=== PATIENT | female | born 1960 | race Caucasian/White ===

== ENCOUNTER 2018-03-03 19:47 | Emergency (ER) | payer OTHER ==
[2018-03-03] MEDS ORDERED: CLINDAMYCIN 900MG/D5W 900 MG/50 ML BAG IV ONE (20:18)
[2018-03-03 20:42] LABS: Absolute Lymphocytes (CBC) 0.8 K/uL (0.7-4.9); Absolute Monocytes 0.6 K/uL (0.1-1.3); Absolute Neutrophil 2.8 K/uL (1.8-8.0); Basophils % 0.2 % (0-1.3); Eosinophils % 0.9 % (0-4.4); Hematocrit 26.5 % (36.0-45.0); Lymphocytes % 19.2 % (15.3-44.8); MCV 70.2 fL (80-100); MPV 8.8 fL (7.6-11.3); Monocytes % 14.5 % (3.3-12.3); RBC Red Blood Cell Count 3.77 M/uL (3.86-4.86)
[2018-03-03 20:51] LABS: Potassium 3.8 mEq/L (3.6-5.0)
--- NOTE | 2018-03-03 21:24 | ER ---
Nurse's Notes [facility] Name: Jose Manuel Richardson Age: 57 yrs Sex: Female : 1960 Arrival Date: 03/03/2018 Time: 19:59 Bed 5 Private MD: Diagnosis: Periapical abscess with sinus Presentation: 03/03 19:59 Presenting complaint: Patient states: that yesterday she woke up with pain and swelling fc to right front tooth area. Today she went to [facility] and after examine they called 911 for her and sent her here. Transition of care: patient was not received from another setting of care. Onset of symptoms was March 02, 2018. Risk Assessment: Do you want to hurt yourself or someone else? Patient reports no desire to harm self or others. Initial Sepsis Screen: Does the patient meet any 2 criteria?. Care prior to arrival: None. 19:59 Method Of Arrival: EMS: [facility] 19:59 Acuity: JEANA 2 fc 20:13 Initial Sepsis Screen: Does the patient have a suspected source of infection? Yes: ao Other: Dental infection. Historical: - Allergies: 20:08 cipro (IV, but can take PO); fc 20:08 Flagyl; fc 20:08 Ciprofloxacin; IV only; fc - Home Meds: 20:08 lactulose 10 gram/15 mL Oral soln 30 mL once daily [Active]; mirtazapine 45 mg Oral tab fc 1 tab once daily [Active]; Lyrica 75 mg Oral 1 cap 3 times per day [Active]; Lasix 40 mg Oral tab 1 tab 2 times per day [Active]; spironolactone 50 mg Oral tab 1 tab 3 times per day [Active]; tizanidine 2 mg Oral cap 1 caps twice a day [Active]; omeprazole 40 mg Oral cpDR 1 cap once daily [Active]; trazodone Oral [Active]; propranolol 10 mg Oral tab 1 tab twice a day [Active]; ropinirole 1 mg Oral tab 1 tab as needed [Active]; ventolin inhaler 1 puff once daily (pt states she does this twice a day however) as needed [Active]; - PMHx: 20:08 Cirrhosis; secondary to ETOH abuse; Hepatitis C; hypotension; liver failure, chronic; fc hypotension; - PSHx: 20:08 ; Tonsillectomy; breast augmentation; fc - Immunization history:: Last tetanus immunization: unknown. - Social history:: Smoking status: Patient uses tobacco products. - Ebola Screening: : Patient negative for fever greater than or equal to 101.5 degrees Fahrenheit, and additional compatible Ebola Virus Disease symptoms Patient denies exposure to infectious person Patient denies travel to an Ebola-affected area in the 21 days before illness onset. Screenin:02 Abuse screen: Denies threats or abuse. Nutritional screening: No deficits noted. fc Tuberculosis screening: No symptoms or risk factors identified. Fall Risk None identified. Assessment: 20:10 General: Appears in no apparent distress. uncomfortable, Behavior is appropriate for ao age. Pain: Complains of pain in jaw pain Pain does not radiate. Pain currently is 8 out of 10 on a pain scale. Neuro: Level of Consciousness is awake, alert, obeys commands, Oriented to person, place, time, situation, Appropriate for age Moves all extremities. Speech is normal, Facial symmetry appears normal, Pupils are PERRLA. Cardiovascular: Heart tones S1 S2 Capillary refill < 3 seconds Patient's skin is warm and dry. Respiratory: Airway is patent Respiratory effort is even, unlabored, Respiratory pattern is regular, symmetrical, Breath sounds are clear bilaterally. GI: No signs and/or symptoms were reported involving the gastrointestinal system. : No signs and/or symptoms were reported regarding the genitourinary system. EENT: Dental caries noted in upper left second bicuspid (#13) and upper left first molar (#14) Swelling in the upper jaw. Derm: No signs and/or symptoms reported regarding the dermatologic system. Derm: Skin Skin is pink, warm \T\ dry. normal, Skin temperature is warm. Musculoskeletal: No signs and/or symptoms reported regarding the musculoskeletal system. 21:34 Reassessment: Patient appears in no apparent distress at this time. Patient is alert, aa1 oriented x 3, equal unlabored respirations, skin warm/dry/pink. Discussed d/c \T\ f/u instructions with pt; denies questions or concerns at this time. Vital Signs: 20:04 BP 127 / 73; Pulse 105; Resp 16; Temp 99.2; Pulse Ox 99% on R/A; ao 20:55 BP 116 / 64; Pulse 95; Resp 16; Pulse Ox 97% on R/A; aa1 21:34 BP 106 / 60; Pulse 91; Resp 16; Pulse Ox 98% on R/A; aa1 ED Course: 19:59 Patient arrived in ED. fc 19:59 Arm band placed on Patient placed in an exam room, on a stretcher. fc 20:02 Triage completed. fc 20:02 Patient has correct armband on for positive identification. Bed in low position. Call light in reach. 20:02 No provider procedures requiring assistance completed. fc 20:03 Micah Driscoll PA is PHCP. jr8 20:03 Mayo Blake MD is Attending Physician. jr8 20:04 Apollo Goncalves, RN is Primary Nurse. ao 20:20 First set of blood cultures drawn by me. Initial lab(s) drawn, by me, sent to lab. aa1 Inserted saline lock: 22 gauge in right forearm, using aseptic technique. Blood collected. 21:34 IV discontinued, intact, bleeding controlled, No redness/swelling at site. Pressure aa1 dressing applied. Administered Medications: 20:22 Drug: Clindamycin 900 mg Route: IVPB; Infused Over: 30 mins; Site: left antecubital; ao 20:58 Follow up: IV Status: Completed infusion; IV Intake: 50ml ao Intake: 20:58 IV: 50ml; Total: 50ml. ao Outcome: 21:24 Discharge ordered by . jr8 21:34 Discharged to home ambulatory, with family. aa1 21:34 Condition: good 21:34 Discharge instructions given to patient, Instructed on discharge instructions, follow up and referral plans. medication usage, Demonstrated understanding of instructions, follow-up care, medications, Prescriptions given X 2. 21:35 Patient left the ED. aa1 Signatures: Perla Klein RN RN aa1 Bobbi Desai RN RN Micah Driscoll PA PA jr8 Apollo Goncalves RN RN ao
--- NOTE | 2018-03-03 21:25 | EDPHYS ---
Physician Documentation [facility] Name: Jose Manuel Richardson Age: 57 yrs Sex: Female : 1960 Arrival Date: 03/03/2018 Time: 19:59 Bed 5 Private MD: ED Physician Mayo Blake HPI: 03/03 20:57 This 57 yrs old Female presents to ER via EMS with complaints of Facial jr8 Swelling. 20:57 Onset: The symptoms/episode began/occurred acutely, today. Possible cause(s): dental jr8 abscess . Associated signs and symptoms: The patient has no apparent associated signs or symptoms. Modifying factors: the symptoms are alleviated by nothing, the symptoms are aggravated by nothing. Severity of symptoms: At their worst the symptoms were moderate, in the emergency department the symptoms are unchanged. The patient has not experienced similar symptoms in the past. The patient has not recently seen a physician. Patient stated that she has bad dentition. Started to have right sided facial swelling . Historical: - Allergies: 20:08 cipro (IV, but can take PO); fc 20:08 Flagyl; fc 20:08 Ciprofloxacin; IV only; fc - Home Meds: 20:08 lactulose 10 gram/15 mL Oral soln 30 mL once daily [Active]; mirtazapine 45 mg Oral tab fc 1 tab once daily [Active]; Lyrica 75 mg Oral 1 cap 3 times per day [Active]; Lasix 40 mg Oral tab 1 tab 2 times per day [Active]; spironolactone 50 mg Oral tab 1 tab 3 times per day [Active]; tizanidine 2 mg Oral cap 1 caps twice a day [Active]; omeprazole 40 mg Oral cpDR 1 cap once daily [Active]; trazodone Oral [Active]; propranolol 10 mg Oral tab 1 tab twice a day [Active]; ropinirole 1 mg Oral tab 1 tab as needed [Active]; ventolin inhaler 1 puff once daily (pt states she does this twice a day however) as needed [Active]; - PMHx: 20:08 Cirrhosis; secondary to ETOH abuse; Hepatitis C; hypotension; liver failure, chronic; fc hypotension; - PSHx: 20:08 ; Tonsillectomy; breast augmentation; fc - Immunization history:: Last tetanus immunization: unknown. - Social history:: Smoking status: Patient uses tobacco products. - Ebola Screening: : Patient negative for fever greater than or equal to 101.5 degrees Fahrenheit, and additional compatible Ebola Virus Disease symptoms Patient denies exposure to infectious person Patient denies travel to an Ebola-affected area in the 21 days before illness onset. ROS: 21:06 Eyes: Negative for injury, pain, redness, and discharge, Neck: Negative for injury, jr8 pain, and swelling, Cardiovascular: Negative for chest pain, palpitations, and edema, Respiratory: Negative for shortness of breath, cough, wheezing, and pleuritic chest pain, Abdomen/GI: Negative for abdominal pain, nausea, vomiting, diarrhea, and constipation, Back: Negative for injury and pain, MS/Extremity: Negative for injury and deformity, Neuro: Negative for headache, weakness, numbness, tingling, and seizure. 21:06 ENT: Positive for dental pain, Negative for ear pain, nasal discharge, rhinorrhea, sinus congestion, difficulty swallowing, difficulty handling secretions, hoarseness. 21:06 Skin: Positive for swelling, of the face. Exam: 21:06 Eyes: Pupils equal round and reactive to light, extra-ocular motions intact. Lids and jr8 lashes normal. Conjunctiva and sclera are non-icteric and not injected. Cornea within normal limits. Periorbital areas with no swelling, redness, or edema. Neck: Trachea midline, no thyromegaly or masses palpated, and no cervical lymphadenopathy. Supple, full range of motion without nuchal rigidity, or vertebral point tenderness. No Meningismus. Cardiovascular: Regular rate and rhythm with a normal S1 and S2. No gallops, murmurs, or rubs. Normal PMI, no JVD. No pulse deficits. Respiratory: Lungs have equal breath sounds bilaterally, clear to auscultation and percussion. No rales, rhonchi or wheezes noted. No increased work of breathing, no retractions or nasal flaring. Abdomen/GI: Soft, non-tender, with normal bowel sounds. No distension or tympany. No guarding or rebound. No evidence of tenderness throughout. Skin: Warm, dry with normal turgor. Normal color with no rashes, no lesions, and no evidence of cellulitis. MS/ Extremity: Pulses equal, no cyanosis. Neurovascular intact. Full, normal range of motion. Neuro: Awake and alert, GCS 15, oriented to person, place, time, and situation. Cranial nerves II-XII grossly intact. Motor strength 5/5 in all extremities. Sensory grossly intact. Cerebellar exam normal. Normal gait. 21:06 Head/face: Noted is swelling, that is moderate, of the right cheek and right jaw. 21:06 ENT: External ear(s): are unremarkable, Ear canal(s): are normal, TM's: are normal, Nose: is normal, Mouth: Lips: moist, Oral mucosa: pink and intact, moist, Gums: pink, Tongue: is moist, Posterior pharynx: Airway: patent, Tonsils: are normal in appearance, Uvula: midline, swelling, is not appreciated, erythema, is not appreciated, Dental exam: dental caries, that is moderate, diffusely, pain, that is moderate, specifically in the upper right first molar (#3), upper right second bicuspid (#4) and upper right first bicuspid (#5). Vital Signs: 20:04 BP 127 / 73; Pulse 105; Resp 16; Temp 99.2; Pulse Ox 99% on R/A; ao 20:55 BP 116 / 64; Pulse 95; Resp 16; Pulse Ox 97% on R/A; aa1 21:34 BP 106 / 60; Pulse 91; Resp 16; Pulse Ox 98% on R/A; aa1 MDM: 20:03 Patient medically screened. [facility] 21:21 Data reviewed: vital signs, nurses notes, lab test result(s), and as a result, I will [facility] discharge patient. Data interpreted: Pulse oximetry: on room air is 97 %. Interpretation: normal. Counseling: I had a detailed discussion with the patient and/or guardian regarding: the historical points, exam findings, and any diagnostic results supporting the discharge/admit diagnosis, lab results, the need for outpatient follow up, a dentist, to return to the emergency department if symptoms worsen or persist or if there are any questions or concerns that arise at home. ED course: Patient doing well in exam room after reexamining her. No identified dental abscess to drain on physical exam. Local swelling to face noted but not red, indurated, or cellulitic. No fevers, or elevated WBC count. Recommended outpatient antibiotics at this time. If worse to come back. Patient is good with this and will follow up or come back . 03/03 20:04 Order name: CBC with Diff; Complete Time: 20:51 jr8 03/03 20:04 Order name: Basic Metabolic Panel; Complete Time: 20:52 jr8 03/03 20:04 Order name: Blood Culture Adult (2) jr8 03/03 20:04 Order name: IV; Complete Time: 20:26 jr8 Administered Medications: 20:22 Drug: Clindamycin 900 mg Route: IVPB; Infused Over: 30 mins; Site: left antecubital; ao 20:58 Follow up: IV Status: Completed infusion; IV Intake: 50ml ao Disposition: 03/04 07:28 Co-signature as Attending Physician, Mayo Blake MD I agree with the assessment and [facility] plan of care. Disposition: 03/03/18 21:24 Discharged to Home. Impression: Periapical abscess with sinus. - Condition is Stable. - Discharge Instructions: Dental Abscess, Cellulitis, [id number]. - Prescriptions for Clindamycin HCl 300 mg Oral Capsule - take 1 capsule by ORAL route every 6 hours for 10 days; 40 capsule. Bactrim DS 800- 160 mg Oral Tablet - take 1 tablet by ORAL route every 12 hours for 10 days; 20 tablet. - Medication Reconciliation Form, Thank You Letter, Antibiotic Education, Prescription Opioid Use form. - Follow up: Private Physician; When: 2 - 3 days; Reason: Recheck today's complaints, Continuance of care, Re-evaluation by your physician. - Problem is new. - Symptoms have improved. Signatures: Dispatcher [employer] EDMS Perla Klein RN RN aa1 Mayo Blake MD MD cha Chretien, Felicia RN Micah Hardy PA PA jr8 Apollo Goncalves RN RN ao Corrections: (The following items were deleted from the chart) 03/03 21:35 21:24 03/03/2018 21:24 Discharged to Home. Impression: Periapical abscess with sinus. aa1 Condition is Stable. Forms are Medication Reconciliation Form, Thank You Letter, Antibiotic Education, Prescription Opioid Use. Follow up: Private Physician; When: 2 - 3 days; Reason: Recheck today's complaints, Continuance of care, Re-evaluation by your physician. Problem is new. Symptoms have improved. jr8
[2018-03-03 21:57] VITALS: TEMP 99.2
[2018-03-03 21:59] VITALS: BP 106/60; O2SAT 98
== END 2018-03-03 21:35 | disposition home or self-care (01) ==
LOC: ER 19:47
DX: K04.6 Periapical abscess with sinus (principal); F17.200 Nicotine dependence, unspecified, uncomplicated; K70.30 Alcoholic cirrhosis of liver without ascites; B19.20 Unspecified viral hepatitis C without hepatic coma; I95.9 Hypotension, unspecified; K72.90 Hepatic failure, unspecified without coma; Z88.1 Allergy status to other antibiotic agents; Z88.3 Allergy status to other anti-infective agents
CPT/HCPCS: 36415; 80048; 85025; 87040; 96365; 99284

== ENCOUNTER 2018-05-04 16:30 | Inpatient (IN) | payer OTHER ==
[2018-05-04 18:59] LABS: Urine Blood NEGATIVE (NEG); Urine Glucose NEGATIVE (NEG); Urine Protein NEGATIVE (NEG)
[2018-05-04 20:01] LABS: Protime INR 1.12
[2018-05-04 20:11] LABS: Absolute Lymphocytes (CBC) 0.7 K/uL (0.7-4.9); Absolute Monocytes 0.2 K/uL (0.1-1.3); Absolute Neutrophil 1.1 K/uL (1.8-8.0); Basophils % 0.9 % (0-1.3); Eosinophils % 1.7 % (0-4.4); Hematocrit 20.4 % (36.0-45.0); Lymphocytes % 33.3 % (15.3-44.8); MCH 20.3 pg (27.0-35.0); MCV 65.7 fL (80-100); MPV 8.7 fL (7.6-11.3); Monocytes % 10.9 % (3.3-12.3)
[2018-05-04 20:27] LABS: Albumin 3.5 g/dL (3.4-5.0); Bilirubin Direct 0.2 mg/dL (0-0.2); Bilirubin Total 0.7 mg/dL (0.2-1.0); CKMB Creatine Kinase MB 5.5 ng/mL (0.3-3.6); Potassium 3.3 mmol/L (3.5-5.1); Protein, Total 7.2 g/dL (6.4-8.2)
[2018-05-04 20:32] LABS: Anisocytosis 1+; Blood Morphology Comment NOTED (NOT SEEN); Burr Cells 1+; Hypochromasia 1+; Platelet Estimate DECR; Urine White Blood Cell Casts OK
[2018-05-04 20:33] LABS: Ovalocytes 1+; Poikilocytosis 1+
[2018-05-04] MEDS ORDERED: ONDANSETRON 4 MG/2 ML VIAL IV PRN (20:44)
[2018-05-04] MEDS ORDERED: MAGNESIUM HYDROXIDE 8% 30 ML PO PRN (20:44)
[2018-05-04] MEDS ORDERED: ACETAMINOPHEN 500 MG TAB PO PRN (20:44)
[2018-05-04] MEDS ORDERED: ROPINIROLE HCL 1 MG TAB PO PRN (20:48)
--- NOTE | 2018-05-04 20:53 | EDPHYS ---
Physician Documentation [facility] Name: Jose Manuel Richardson Age: 57 yrs Sex: Female : 1960 Arrival Date: 05/04/2018 Time: 16:33 Bed 8 Private MD: Edgardo Riley E ED Physician Mikel Lew Historical: - Allergies: 05/04 17:04 cipro (IV, but can take PO); aj1 17:04 Flagyl; aj1 - Home Meds: 17:04 lactulose 10 gram/15 mL Oral soln 30 mL once daily [Active]; Lasix 40 mg Oral tab 1 tab aj1 2 times per day [Active]; Lyrica 75 mg Oral 1 cap 3 times per day [Active]; mirtazapine 45 mg Oral tab 1 tab once daily [Active]; omeprazole 40 mg Oral cpDR 1 cap once daily [Active]; propranolol 10 mg Oral tab 1 tab twice a day [Active]; ropinirole 1 mg Oral tab 1 tab as needed [Active]; spironolactone 50 mg Oral tab 1 tab 3 times per day [Active]; tizanidine 2 mg Oral cap 1 caps twice a day [Active]; Trazodone Oral [Active]; ventolin inhaler 1 puff once daily (pt states she does this twice a day however) as needed [Active]; - PMHx: 17:04 Cirrhosis; secondary to ETOH abuse; Hepatitis C; hypotension; liver failure, chronic; aj1 - Immunization history:: Flu vaccine status is unknown. - Social history:: Smoking status: Patient/guardian denies using tobacco. - Ebola Screening: : Patient denies travel to an Ebola-affected area in the 21 days before illness onset. Vital Signs: 17:04 BP 97 / 70; Pulse 81; Resp 20; Temp 98.4; Pulse Ox 100% on R/A; Weight 69.85 kg (R); aj1 Height 5 ft. 9 in. (175.26 cm); Pain 9/10; 20:16 BP 115 / 57; Pulse 80; Resp 20; Pulse Ox 98% on R/A; ak1 21:30 BP 113 / 54; Pulse 85; Resp 14; Temp 98.4; Pulse Ox 98% on R/A; ak1 22:19 BP 111 / 57; Pulse 86; Resp 14; Temp 98.4; Pulse Ox 98% on R/A; Pain 0/10; ak1 17:04 Body Mass Index 22.74 (69.85 kg, 175.26 cm) aj1 MDM: 17:07 Patient medically screened. tw4 05/04 17:24 Order name: Basic Metabolic Panel tw4 05/04 17:24 Order name: CBC with Diff; Complete Time: 20:43 tw4 05/04 17:24 Order name: Ckmb; Complete Time: 20:43 tw4 05/04 17:24 Order name: CPK; Complete Time: 20:43 tw4 05/04 17:24 Order name: LFT's; Complete Time: 20:43 tw4 05/04 17:24 Order name: PT-INR; Complete Time: 20:43 tw4 05/04 17:24 Order name: Ptt, Activated; Complete Time: 20:43 tw4 05/04 17:25 Order name: Basic Metabolic Panel; Complete Time: 20:43 EDMS 05/04 18:53 Order name: Urine Dipstick--Ancillary (enter results); Complete Time: 20:43 bd 05/04 19:31 Order name: Type And Screen ak1 05/04 20:32 Order name: CBC Smear Scan; Complete Time: 20:43 EDMS 05/04 20:48 Order name: Urinalysis EDMS 05/04 20:48 Order name: CBC with Automated Diff EDMS 05/04 20:48 Order name: CBC with Automated Diff EDMS 05/04 17:24 Order name: IV Saline Lock; Complete Time: 19:39 tw4 05/04 17:24 Order name: Labs collected and sent; Complete Time: 19:39 tw4 05/04 20:48 Order name: CONS Physician Consult EDMS 05/04 20:48 Order name: Regular EDMS 05/04 20:48 Order name: Comprehensive Metabolic Panel EDMS 05/04 20:48 Order name: Comprehensive Metabolic Panel EDMS 05/04 20:48 Order name: Magnesium EDMS 05/04 20:48 Order name: Magnesium EDMS 05/04 20:49 Order name: Phosphorus EDMS 05/04 20:49 Order name: Phosphorus EDMS 05/04 20:49 Order name: Protime (+INR) EDMS 05/04 20:49 Order name: Protime (+INR) EDMS 05/04 20:49 Order name: PTT, Activated Partial Thromb EDMS 05/04 20:49 Order name: PTT, Activated Partial Thromb EDMS 05/04 21:15 Order name: Transfuse; Complete Time: 22:37 tw4 Administered Medications: No medications were administered Disposition: 05/04/18 20:52 Hospitalization ordered by Ramya Burrows for Inpatient Admission. Preliminary diagnosis are Anemia in chronic diseases classified elsewhere, Biliary cirrhosis, unspecified. - Bed requested for Telemetry/MedSurg (Inpatient). - Status is Inpatient Admission. jd3 - Condition is Stable. - Problem is an ongoing problem. - Symptoms are unchanged. UTI on Admission? No Addendum: 05/11/2018 07:51 Addendum: Pt is a 57 year old female that states that she had lab work done and was t w4 told to come to the ED. Her lab work reveal that her Hgb is 6.1. Pt states that she has been having fatigue and generalized weakness. Pt denies CP, SOB, fever, chills. 07:53 Addendum: ROS: Constitutional: negative for fevers, chills, positive for malaise HEENT, t w4 negative for visual changes, sore throat Resp: negative for SOB, TABOR CV: negative for CP, palpitations Abdomen: negative for abdominal pain, rectal bleeding, nausea, vomiting All other systems negative except as marked. Addendum: PE: Gen: well developed female in NAD HEENT: pale conjunctivae, EOMI PERRLA Neck: supple, no meningeal signs Resp: CTAB, no resp distress CV: RRR, nl S1 S2 no murmurs Abdomen: ND,NT normal BS, enlarged liver palpable Ext: nontender, no edema Neuro: alert and oriented times three, CN grossly intact, moves all fours. Signatures: Dispatcher [employer] [facility] Martha Modesta rg2 Janina Piedra RN RN Markell Stevens RN RN Mikel Best MD MD tw4 Corrections: (The following items were deleted from the chart) 05/04 22:16 20:52 Hospitalization Ordered by Ramya Burrows MD for Inpatient Admission. Preliminary rg2 diagnosis is Anemia in chronic diseases classified elsewhere; Biliary cirrhosis, unspecified. Bed requested for Telemetry/MedSurg (Inpatient). Status is Inpatient Admission. Condition is Stable. Problem is an ongoing problem. Symptoms are unchanged. UTI on Admission? No. tw4 22:44 22:16 05/04/2018 20:52 Hospitalization Ordered by Ramya Burrows MD for Inpatient jd3 Admission. Preliminary diagnosis is Anemia in chronic diseases classified elsewhere; Biliary cirrhosis, unspecified. Bed requested for Telemetry/MedSurg (Inpatient). Status is Inpatient Admission. Condition is Stable. Problem is an ongoing problem. Symptoms are unchanged. UTI on Admission? No. rg2
--- NOTE | 2018-05-04 20:53 | ER ---
Nurse's Notes [facility] Name: Jose Manuel Richardson Age: 57 yrs Sex: Female : 1960 Arrival Date: 05/04/2018 Time: 16:33 Bed 8 Private MD: Edgardo Riley E Diagnosis: Anemia in chronic diseases classified elsewhere;Biliary cirrhosis, unspecified Presentation: 05/04 17:00 Presenting complaint: Patient states: She has been feeling generalized weakness and aj1 fatigue for the past two week as well as having frequent nose bleeds. So she went and saw Dr. Riley and had her blood drawn yesterday morning. She followed up with him today and was told that her Hgb was 6.1 and she should come to the emergency room for a blood transfusion. Transition of care: patient was not received from another setting of care. Onset of symptoms was April 21, 2018. Risk Assessment: Do you want to hurt yourself or someone else? Patient reports no desire to harm self or others. Initial Sepsis Screen: Does the patient meet any 2 criteria? No. Patient's initial sepsis screen is negative. Does the patient have a suspected source of infection? No. Patient's initial sepsis screen is negative. Care prior to arrival: None. 17:00 Method Of Arrival: Wheelchair aj1 17:00 Acuity: JEANA 2 aj1 Triage Assessment: 17:04 General: Appears in no apparent distress. comfortable, Behavior is calm, cooperative, aj1 appropriate for age. Pain: Complains of pain in right leg and left leg Pain currently is 9 out of 10 on a pain scale. Neuro: Level of Consciousness is awake, alert, obeys commands. Neuro: Reports dizziness, weakness. Cardiovascular: Patient's skin is warm and dry. Respiratory: Airway is patent Respiratory effort is even, unlabored, Respiratory pattern is regular, symmetrical. Historical: - Allergies: 17:04 cipro (IV, but can take PO); aj1 17:04 Flagyl; aj1 - Home Meds: 17:04 lactulose 10 gram/15 mL Oral soln 30 mL once daily [Active]; Lasix 40 mg Oral tab 1 tab aj1 2 times per day [Active]; Lyrica 75 mg Oral 1 cap 3 times per day [Active]; mirtazapine 45 mg Oral tab 1 tab once daily [Active]; omeprazole 40 mg Oral cpDR 1 cap once daily [Active]; propranolol 10 mg Oral tab 1 tab twice a day [Active]; ropinirole 1 mg Oral tab 1 tab as needed [Active]; spironolactone 50 mg Oral tab 1 tab 3 times per day [Active]; tizanidine 2 mg Oral cap 1 caps twice a day [Active]; Trazodone Oral [Active]; ventolin inhaler 1 puff once daily (pt states she does this twice a day however) as needed [Active]; - PMHx: 17:04 Cirrhosis; secondary to ETOH abuse; Hepatitis C; hypotension; liver failure, chronic; aj1 - Immunization history:: Flu vaccine status is unknown. - Social history:: Smoking status: Patient/guardian denies using tobacco. - Ebola Screening: : Patient denies travel to an Ebola-affected area in the 21 days before illness onset. Screenin:20 Abuse screen: Denies threats or abuse. Denies injuries from another. Nutritional sg screening: No deficits noted. Tuberculosis screening: No symptoms or risk factors identified. Never had TB. Fall Risk None identified. Assessment: 17:20 Reassessment: Patient appears in no apparent distress at this time. sg 18:20 General: Appears in no apparent distress. ill, slender, well developed, well nourished, sg Behavior is calm, cooperative, appropriate for age. Pain: Denies pain. Neuro: Level of Consciousness is awake, alert, obeys commands, Oriented to person, place, time, situation, Moves all extremities. Full function Speech is normal, Facial symmetry appears normal. Cardiovascular: Heart tones S1 S2 present Capillary refill is sluggish in bilateral fingers Patient's skin is warm and dry. Chest pain is denied. Respiratory: Airway is patent Respiratory effort is even, unlabored, Respiratory pattern is regular, symmetrical, Breath sounds are clear. GI: Abdomen is flat, non-distended, Bowel sounds present X 4 quads. : No signs and/or symptoms were reported regarding the genitourinary system. EENT: No signs and/or symptoms were reported regarding the EENT system. Derm: Skin is intact, is thin, Skin is dry, Skin is jaundiced, Skin temperature is cool. Musculoskeletal: No signs and/or symptoms reported regarding the musculoskeletal system. 20:16 Reassessment: Patient appears in no apparent distress at this time. No changes from ak1 previously documented assessment. pt requesting bedside commode for frequent urination. 21:30 Reassessment: Patient appears in no apparent distress at this time. No changes from ak1 previously documented assessment. 22:36 Reassessment: report given to Kacey for room 228. ak1 Vital Signs: 17:04 BP 97 / 70; Pulse 81; Resp 20; Temp 98.4; Pulse Ox 100% on R/A; Weight 69.85 kg (R); aj1 Height 5 ft. 9 in. (175.26 cm); Pain 9/10; 20:16 BP 115 / 57; Pulse 80; Resp 20; Pulse Ox 98% on R/A; ak1 21:30 BP 113 / 54; Pulse 85; Resp 14; Temp 98.4; Pulse Ox 98% on R/A; ak1 22:19 BP 111 / 57; Pulse 86; Resp 14; Temp 98.4; Pulse Ox 98% on R/A; Pain 0/10; ak1 17:04 Body Mass Index 22.74 (69.85 kg, 175.26 cm) aj1 ED Course: 16:33 Patient arrived in ED. rg4 16:33 Edgardo Riley MD is Private Physician. rg4 17:03 Triage completed. aj1 17:04 Arm band placed on Patient placed. aj1 17:07 Mikel Lew MD is Attending Physician. tw4 17:17 Pradeep Hernandez, RN is Primary Nurse. sg 17:40 Missed attempt(s): 22 gauge in right forearm. Bleeding controlled, band aid applied, ss catheter tip intact. 19:02 Missed attempt(s): 22 gauge in right forearm. Bleeding controlled, band aid applied, sg catheter tip intact. Missed attempt(s): 22 gauge in left forearm. Bleeding controlled, band aid applied, catheter tip intact. 19:25 Initial lab(s) drawn, by me, sent to lab. T\T\S collected, blood band applied to patient. fc Inserted 18 gauge 8 cm midline to right upper brachial vein on first attempt. Line with good blood return and flushes well. 19:31 Patient has correct armband on for positive identification. Bed in low position. Call ak1 light in reach. Side rails up X 1. Pulse ox on. NIBP on. 19:34 Primary Nurse role handed off by Pradeep Hernandez, MEHNAZ rg2 19:39 Shereen Goodrich, RN is Primary Nurse. ak1 20:18 Notified ED physician of a critical lab result(s). H \T\ H is 6.3. 20.4. 20:51 Ramya Burrows MD is Hospitalizing Provider. tw4 21:40 Consent for blood and/or blood product transfusion explained by staff, explained by ak1 physician, signed by patient. 21:41 No provider procedures requiring assistance completed. Patient admitted, IV remains in ak1 place. Administered Medications: No medications were administered Outcome: 20:52 Decision to Hospitalize by Provider. tw4 21:41 Condition: stable ak1 21:41 Instructed on the need for admit. 22:20 Admitted to Med/surg accompanied by tech, via wheelchair, room 228, with chart. ak1 22:44 Patient left the ED. jd3 Signatures: Modesta Thomas rg2 Janina Piedra RN RN aj1 Pradeep Hernandez, RN RN Bobbi Desai RN RN Emmy Darnell RN RN Shereen Goodrich, RN RN ak1 Brittney Valverde rg4 Markell Gastelum RN RN [id number] Mikel Lew MD MD tw4
[2018-05-04] MEDS: NA CHLORIDE 0.9% 1,000 ML IV SCH (23:49)
[2018-05-05] MEDS: TEMAZEPAM 15 MG CAP PO SCH ×2 (00:07→22:02)
[2018-05-05] MEDS: PREGABALIN 75 MG CAP PO SCH ×4 (00:08→22:03)
[2018-05-05] MEDS ORDERED: NA CHLORIDE 0.9% 250 ML ONE ×2 (01:25→11:43)
[2018-05-05] MEDS ORDERED: ENOXAPARIN 40 MG/0.4 ML SQ SCH (09:00)
[2018-05-05] MEDS: PROPRANOLOL HCL 10 MG TAB PO SCH (09:00)
[2018-05-05] MEDS ORDERED: PANTOPRAZOLE 40MG TABLET PO SCH (09:00)
[2018-05-05] MEDS: SPIRONOLACTONE 25 MG TABLET PO SCH (09:37)
--- NOTE | 2018-05-05 09:42 | P.HP ---
Certification for Inpatient Patient admitted to: Inpatient With expected LOS: >2 Midnights Patient will require the following post-hospital care: None Practitioner: I am a practitioner with admitting privileges, knowledge of patient current condition, hospital course, and medical plan of care. Services: Services provided to patient in accordance with Admission requirements found in Title 42 Section 412.3 of the Code of Federal Regulations Patient History Date of Service: 05/04/18 Reason for admission: Iron deficiency anemia; pancytopenia; cirrhosis History of Present Illness: Patient is a 57-year-old female came into the hospital with pancytopenia. Patient had significant anemia. Patient has a history of cirrhosis. She states that her meld score was 15. She takes her medications regularly. She no longer drinks nor does she use the Tylenol products. She does her best to take care of her liver. She had a TIPS procedure about 2 years ago. Since then she has not required a paracentesis. Before then she was needing paracentesis every 2 months. Currently patient was sent to the hospital because her lab showed she was anemic. On arrival to the emergency room we repeated her labs her hemoglobin is under 7. She also have thrombocytopenia as well as leukopenia. Patient is admitted to the hospital for further evaluation. Allergies ciprofloxacin Allergy (Mild, Verified 05/05/18 00:04) Itching/Hives/Rash metronidazole [From Flagyl] Adverse Reaction (Intermediate, Verified 04/04/16 19 :45) Anaphylaxis Home Medications: Lactulose [Cephulac*] 30 ml PO QID PRN 06/22/17 Albuterol Inhaler [Ventolin Inhaler*] 1 puff IH BID PRN 05/05/18 Furosemide [Lasix*] 40 mg PO BID 05/05/18 Gabapentin [Neurontin*] 300 mg PO BID 05/05/18 Guaifenesin/Codeine Phosphate [Codeine-Guaifen 10-100 mg/5 ml] 5 ml PO Q4H PRN 05/05/18 Mirtazapine [Remeron*] 45 mg PO DAILY 05/05/18 Pantoprazole Sodium [Protonix] 40 mg PO DAILY 05/05/18 Pregabalin [Lyrica*] 75 mg PO TID 05/05/18 Propranolol HCl 10 mg PO BID 05/05/18 Ropinirole HCl [Requip*] 1 mg PO BEDTIME 05/05/18 Spironolactone [Aldactone*] 50 mg PO TID 05/05/18 Temazepam [Restoril*] 15 mg PO BEDTIME 05/05/18 Temazepam [Restoril*] 15 mg PO BEDTIME PRN 05/05/18 Tizanidine HCl [Zanaflex] 2 mg PO TID PRN 05/05/18 Tramadol HCl [Ultram] 50 mg PO BID PRN 05/05/18 Trazodone HCl 50 mg PO BEDTIME PRN 05/05/18 Varenicline Tartrate [Chantix] 1 mg PO BID 05/05/18 - Past Medical/Surgical History Has patient received pneumonia vaccine in the past: No Diabetic: No -: Gallstones -: Liver Failure -: Cirrhosis -: Neuropathy -: Hypotension -: Ascites requiring paracentesis -: cirrhosis -: hep-C treated -: section x 4 -: breast augmentation -: appendectomy -: tonsillectomy -: Has been known to have gallstones -: paracenthesis monthly Psychosocial/ Personal History: Unknown. - Family History Mother Medical History: Heart disease, Hypertension, Lung disease, Diabetes Father Medical History: Heart disease, Liver disease Brother Medical History: Lung disease, Cancer - Social History Smoking Status: Former smoker Alcohol use: No CD- Drugs: Yes Caffeine use: Yes Place of Residence: Home Review of Systems 10-point ROS is otherwise unremarkable Physical Examination - Vital Signs Temperature: 98.3 F Blood Pressure: 93/43 Pulse: 80 Respirations: 16 Pulse Ox (%): 96 - Physical Exam General: Alert, In no apparent distress, Oriented x3 HEENT: Atraumatic, PERRLA, Mucous membr. moist/pink, EOMI, Sclerae nonicteric Neck: Supple, 2+ carotid pulse no bruit, No LAD, Without JVD or thyroid abnormality Respiratory: Clear to auscultation bilaterally, Normal air movement Cardiovascular: Regular rate/rhythm, Normal S1 S2, No murmurs Gastrointestinal: Normal bowel sounds, Soft and benign, Non-distended, No tenderness Musculoskeletal: No clubbing, No swelling, No tenderness Integumentary: No rashes Neurological: Normal gait, Normal speech, Normal strength at 5/5 x4 extr, Normal tone, Sensation intact, Cranial nerves 3-12 intact, Normal affect Lymphatics: No axilla or inguinal lymphadenopathy - Studies Laboratory Data (last 24 hrs) 05/04/18 19:25: PT 13.2 H, INR 1.12, APTT 40.1 H 05/04/18 19:25: WBC 2.0 L, Hgb 6.3 L*, Hct 20.4 L*, Plt Count 69 L 05/04/18 19:25: Sodium 143, Potassium 3.3 L, BUN 14, Creatinine 1.40 H, Glucose 82, Total Bilirubin 0.7, AST 28, ALT 24, Alkaline Phosphatase 76 Assessment & Plan - Problems (Diagnosis) (1) Iron deficiency anemia Current Visit: Yes Status: Acute (2) Altered mental status Onset Date: 06/19/15 Current Visit: No Status: Acute Qualifiers: (3) Anemia Onset Date: 04/20/17 Current Visit: No Status: Chronic Qualifiers: (4) Cirrhosis of liver Onset Date: 04/20/17 Current Visit: No Status: Chronic Qualifiers: (5) Pancytopenia Onset Date: 06/09/17 Current Visit: No Status: Chronic - Plan Plan: 1. Continue with IV hydration and PPI twice daily 2. Anemia workup 3. Monitor white count and leukopenia 4. NPO 5. GI consultation 6. Serial H&H, and we will monitor LFTs and lipase along with electrolytes. 7. GI and DVT prophylaxis - Advance Directives Does patient have a Living Will: Yes Does patient have a Durable POA for Healthcare: Yes
[2018-05-05] MEDS ORDERED: SODIUM CHLORIDE 0.9% 10ML INJ IV PRN (09:43)
[2018-05-05 09:48] LABS: Absolute Lymphocytes (CBC) 0.3 K/uL (0.7-4.9); Absolute Monocytes 0.1 K/uL (0.1-1.3); Absolute Neutrophil 1.1 K/uL (1.8-8.0); Basophils % 0.9 % (0-1.3); Eosinophils % 1.2 % (0-4.4); Hematocrit 23.7 % (36.0-45.0); Lymphocytes % 20.1 % (15.3-44.8); MCH 22.8 pg (27.0-35.0); MCV 70.4 fL (80-100); MPV 8.9 fL (7.6-11.3); Monocytes % 9.5 % (3.3-12.3); RBC Red Blood Cell Count 3.36 M/uL (3.86-4.86)
[2018-05-05 09:49] LABS: Protime INR 1.23
[2018-05-05 10:08] LABS: Albumin 3.1 g/dL (3.4-5.0); Bilirubin Total 1.4 mg/dL (0.2-1.0); Phosphorus 3.8 mg/dL (2.5-4.9); Potassium 3.5 mmol/L (3.5-5.1); Protein, Total 6.1 g/dL (6.4-8.2)
[2018-05-05 11:02] LABS: RBC Red Blood Cell Count 3.25 M/uL (3.86-4.86)
[2018-05-05] MEDS: LACTULOSE 20 GM/30 ML UCUP PO PRN (13:45)
--- NOTE | 2018-05-05 15:41 | P.PN ---
Subjective Date of Service: 05/05/18 Chief Complaint: Iron deficiency anemia; pancytopenia; cirrhosis Subjective: No C/O voiced, Tolerating diet, Working w/ PT, Doing well Review of Systems General: As per HPI Physical Examination - Vital Signs Temperature: 98.3 F Blood Pressure: 93/43 Pulse: 80 Respirations: 16 Pulse Ox (%): 96 - Physical Exam General: Alert, In no apparent distress HEENT: Atraumatic, PERRLA, EOMI Neck: Supple, JVD not distended Respiratory: Clear to auscultation bilaterally, Normal air movement Cardiovascular: Regular rate/rhythm, Normal S1 S2 Gastrointestinal: Normal bowel sounds, No tenderness Musculoskeletal: No tenderness Integumentary: No rashes Neurological: Normal speech, Normal tone, Normal affect Lymphatics: No axilla or inguinal lymphadenopathy - Studies Laboratory Data (last 24 hrs) 05/04/18 19:25: PT 13.2 H, INR 1.12, APTT 40.1 H 05/04/18 19:25: WBC 2.0 L, Hgb 6.3 L*, Hct 20.4 L*, Plt Count 69 L 05/04/18 19:25: Sodium 143, Potassium 3.3 L, BUN 14, Creatinine 1.40 H, Glucose 82, Total Bilirubin 0.7, AST 28, ALT 24, Alkaline Phosphatase 76 Medications List Reviewed: Yes Assessment & Plan - Problems (Diagnosis) (1) Iron deficiency anemia Onset Date: 05/05/18 Current Visit: Yes Status: Acute Plan: Fe Def 2.2 to liver Cirrhosis S.P TIPS -S/p 2 units Tranfusion -Hgb upto 7.7 -GI consulted. Awaiting reccs at this time -Continue to monitor closely Qualifiers: Iron deficiency anemia type: unspecified iron deficiency Qualified Code(s) : D50.9 - Iron deficiency anemia, unspecified (2) Chronic renal disease Onset Date: 04/20/17 Current Visit: No Status: Chronic Qualifiers: Chronic kidney disease stage: stage 3 (moderate) Qualified Code(s): N18.3 - Chronic kidney disease, stage 3 (moderate) (3) Cirrhosis of liver Onset Date: 04/20/17 Current Visit: No Status: Chronic Qualifiers: Hepatic cirrhosis type: alcoholic cirrhosis Ascites presence: without ascites Qualified Code(s): K70.30 - Alcoholic cirrhosis of liver without ascites (4) Pancytopenia Onset Date: 06/09/17 Current Visit: No Status: Chronic (5) Mild protein malnutrition Current Visit: No Status: Chronic Discharge Plan: Home Plan to discharge in: 48 Hours - Code Status/Comfort Care Code Status Assessed: Yes Critical Care: No
[2018-05-05 18:04] LABS: Hematocrit 27.7 % (36.0-45.0)
[2018-05-05] MEDS: HOME MED 1 EA UNK (Varenicline Tartrate [Chantix] 1 MG) PO SCH (21:00)
[2018-05-05] MEDS: NA CHLORIDE 0.9% 1,000 ML IV SCH (22:00)
[2018-05-05] MEDS: PANTOPRAZOLE 40 MG INJ IVP SCH (22:02)
[2018-05-05] MEDS: GABAPENTIN 300 MG CAP PO SCH (22:03)
[2018-05-06 05:58] LABS: Potassium 4.1 mmol/L (3.5-5.1)
[2018-05-06] MEDS: HOME MED 1 EA UNK (Varenicline Tartrate [Chantix] 1 MG) PO SCH ×2 (09:00→21:00)
[2018-05-06] MEDS: GABAPENTIN 300 MG CAP PO SCH ×2 (09:30→20:50)
[2018-05-06] MEDS: PROPRANOLOL HCL 10 MG TAB PO SCH (09:30)
[2018-05-06] MEDS: PREGABALIN 75 MG CAP PO SCH ×3 (09:30→20:50)
[2018-05-06] MEDS: SPIRONOLACTONE 25 MG TABLET PO SCH (09:31)
[2018-05-06] MEDS: PANTOPRAZOLE 40 MG INJ IVP SCH ×2 (09:31→20:52)
--- NOTE | 2018-05-06 13:58 | P.PN ---
Subjective Date of Service: 05/06/18 Chief Complaint: Iron deficiency anemia; pancytopenia; cirrhosis Subjective: No C/O voiced, Tolerating diet, Ambulating, Working w/ PT, Doing well Review of Systems General: As per HPI Physical Examination - Vital Signs Temperature: 97.4 F Blood Pressure: 107/48 Pulse: 69 Respirations: 18 Pulse Ox (%): 94 - Physical Exam General: Alert, In no apparent distress HEENT: Atraumatic, PERRLA, EOMI Neck: Supple, JVD not distended Respiratory: Clear to auscultation bilaterally, Normal air movement Cardiovascular: Regular rate/rhythm, Normal S1 S2 Gastrointestinal: Normal bowel sounds, No tenderness Musculoskeletal: No tenderness Integumentary: No rashes Neurological: Normal speech, Normal tone, Normal affect Lymphatics: No axilla or inguinal lymphadenopathy - Studies Medications List Reviewed: Yes Assessment & Plan - Problems (Diagnosis) (1) Iron deficiency anemia Onset Date: 05/05/18 Current Visit: Yes Status: Acute Plan: Fe Def 2.2 to liver Cirrhosis S.P TIPS -S/p 2 units Tranfusion -Hgb upto 7.7 -GI consulted. Awaiting reccs at this time -Continue to monitor closely Qualifiers: Iron deficiency anemia type: unspecified iron deficiency Qualified Code(s) : D50.9 - Iron deficiency anemia, unspecified (2) Chronic renal disease Onset Date: 04/20/17 Current Visit: No Status: Chronic Qualifiers: Chronic kidney disease stage: stage 3 (moderate) Qualified Code(s): N18.3 - Chronic kidney disease, stage 3 (moderate) (3) Cirrhosis of liver Onset Date: 04/20/17 Current Visit: No Status: Chronic Qualifiers: Hepatic cirrhosis type: alcoholic cirrhosis Ascites presence: without ascites Qualified Code(s): K70.30 - Alcoholic cirrhosis of liver without ascites (4) Pancytopenia Onset Date: 06/09/17 Current Visit: No Status: Chronic (5) Mild protein malnutrition Current Visit: No Status: Chronic Discharge Plan: Home Plan to discharge in: 24 Hours - Code Status/Comfort Care Code Status Assessed: Yes Critical Care: No
[2018-05-06 14:11] LABS: Absolute Lymphocytes (CBC) 0.6 K/uL (0.7-4.9); Absolute Monocytes 0.3 K/uL (0.1-1.3); Absolute Neutrophil 0.9 K/uL (1.8-8.0); Basophils % 0.3 % (0-1.3); Eosinophils % 2.6 % (0-4.4); Hematocrit 28.9 % (36.0-45.0); Lymphocytes % 31.4 % (15.3-44.8); MCV 73.4 fL (80-100); MPV 8.7 fL (7.6-11.3); Monocytes % 17.5 % (3.3-12.3); RBC Red Blood Cell Count 3.94 M/uL (3.86-4.86)
[2018-05-06 14:32] LABS: Albumin 3.2 g/dL (3.4-5.0); Potassium 4.2 mmol/L (3.5-5.1); Protein, Total 6.7 g/dL (6.4-8.2)
[2018-05-06] MEDS: LACTULOSE 20 GM/30 ML UCUP PO PRN (17:46)
[2018-05-06] MEDS: TEMAZEPAM 15 MG CAP PO SCH (20:51)
[2018-05-07 00:48] VITALS: O2SAT 97
[2018-05-07] MEDS: NA CHLORIDE 0.9% 1,000 ML IV SCH (04:59)
[2018-05-07 05:42] LABS: Potassium 4.4 mmol/L (3.5-5.1)
[2018-05-07 06:00] VITALS: BMI 22.7
[2018-05-07] MEDS: HOME MED 1 EA UNK (Varenicline Tartrate [Chantix] 1 MG) PO SCH (08:44)
[2018-05-07] MEDS: PANTOPRAZOLE 40 MG INJ IVP SCH (09:41)
[2018-05-07] MEDS: PROPRANOLOL HCL 10 MG TAB PO SCH (09:41)
[2018-05-07] MEDS: PREGABALIN 75 MG CAP PO SCH ×2 (09:41→13:17)
[2018-05-07] MEDS: SPIRONOLACTONE 25 MG TABLET PO SCH (09:42)
[2018-05-07] MEDS: GABAPENTIN 300 MG CAP PO SCH (09:42)
[2018-05-07 12:07] VITALS: BP 113/56; TEMP 98.1
--- NOTE | 2018-05-07 15:30 | P.DS ---
Admission Date: 05/04/18 Discharge Date: 05/07/18 Disposition: ROUTINE DISCHARGE Discharge Condition: GOOD Reason for Admission: Iron deficiency anemia; pancytopenia; cirrhosis - Problems (1) Iron deficiency anemia Onset Date: 05/05/18 Status: Acute Qualifiers: Iron deficiency anemia type: unspecified iron deficiency Qualified Code(s) : D50.9 - Iron deficiency anemia, unspecified (2) Chronic renal disease Onset Date: 04/20/17 Status: Chronic Qualifiers: Chronic kidney disease stage: stage 3 (moderate) Qualified Code(s): N18.3 - Chronic kidney disease, stage 3 (moderate) (3) Cirrhosis of liver Onset Date: 04/20/17 Status: Chronic Qualifiers: Hepatic cirrhosis type: alcoholic cirrhosis Ascites presence: without ascites Qualified Code(s): K70.30 - Alcoholic cirrhosis of liver without ascites (4) Pancytopenia Onset Date: 06/09/17 Status: Chronic (5) Mild protein malnutrition Status: Chronic Brief History of Present Illness: Patient is a 57-year-old female came into the hospital with pancytopenia. Patient had significant anemia. Patient has a history of cirrhosis. She states that her meld score was 15. She takes her medications regularly. She no longer drinks nor does she use the Tylenol products. She does her best to take care of her liver. She had a TIPS procedure about 2 years ago. Since then she has not required a paracentesis. Before then she was needing paracentesis every 2 months. Currently patient was sent to the hospital because her lab showed she was anemic. On arrival to the emergency room we repeated her labs her hemoglobin is under 7. She also have thrombocytopenia as well as leukopenia. Patient is admitted to the hospital for further evaluation. Hospital Course: Overall during the hospital stay patient remained stable Patient was initially admitted to the hospital for anemia most likely secondary to chronic renal disease versus liver cirrhosis. Patient was transfused total of 3 units and then her hemoglobin went to 9.1. Patient had no acute complications and remained stable while here in the hospital. GI was consulted because patient had does have a history of liver cirrhosis status post TIPS. Patient stated that she has not been having any hematemesis however has been having some nosebleeds thus GI recommended that patient get a ENT consult outpatient. Patient was notified and patient then was discharged home under stable condition once she stabilized hemodynamically. Patient understands the plan of care and agreed with the ENT and GI on outpatient basis as well. Patient was asked to resume all her home medication as prescribed with changes to her Lasix for now lactone and propanolol. No other complaints to offer at this time. Vital Signs/Physical Exam: Temp Pulse Resp BP Pulse Ox 98.1 F 66 16 113/56 L 100 05/07/18 12:00 05/07/18 12:00 05/07/18 12:00 05/07/18 12:00 05/07/18 12:00 General: Alert, In no apparent distress HEENT: Atraumatic, PERRLA, EOMI Neck: Supple, JVD not distended Respiratory: Clear to auscultation bilaterally, Normal air movement Cardiovascular: Regular rate/rhythm, Normal S1 S2 Gastrointestinal: Normal bowel sounds, No tenderness Musculoskeletal: No tenderness Integumentary: No rashes Neurological: Normal speech, Normal tone, Normal affect Lymphatics: No axilla or inguinal lymphadenopathy Laboratory Data at Discharge: WBC 1.9 K/uL (4.3-10.9) L* D 05/06/18 13:38 Hgb 9.1 g/dL (12.0-15.0) L 05/06/18 13:38 Hct 28.9 % (36.0-45.0) L 05/06/18 13:38 Plt Count 66 K/uL (152-406) L 05/06/18 13:38 PT 14.5 SECONDS (9.5-12.5) H 05/05/18 09:19 INR 1.23 05/05/18 09:19 APTT 38.7 SECONDS (24.3-36.9) H 05/05/18 09:19 Sodium 145 mmol/L (136-145) 05/07/18 04:22 Potassium 4.4 mmol/L (3.5-5.1) 05/07/18 04:22 BUN 11 mg/dL (7-18) 05/07/18 04:22 Creatinine 1.10 mg/dL (0.55-1.3) 05/07/18 04:22 Glucose 88 mg/dL (74-106) 05/07/18 04:22 Phosphorus 4.0 mg/dL (2.5-4.9) 05/07/18 04:22 Magnesium 2.0 mg/dL (1.8-2.4) 05/07/18 04:22 Total Bilirubin 1.0 mg/dL (0.2-1.0) 05/06/18 13:38 AST 30 U/L (15-37) 05/06/18 13:38 ALT 26 U/L (12-78) 05/06/18 13:38 Alkaline Phosphatase 64 U/L (45-117) 05/06/18 13:38 Home Medications: Lactulose [Cephulac*] 30 ml PO QID PRN 06/22/17 Albuterol Inhaler [Ventolin Inhaler*] 1 puff IH BID PRN 05/05/18 Gabapentin [Neurontin*] 300 mg PO BID 05/05/18 Guaifenesin/Codeine Phosphate [Codeine-Guaifen 10-100 mg/5 ml] 5 ml PO Q4H PRN 05/05/18 Mirtazapine [Remeron*] 45 mg PO DAILY 05/05/18 Pantoprazole Sodium [Protonix] 40 mg PO DAILY 05/05/18 Pregabalin [Lyrica*] 75 mg PO TID 05/05/18 Ropinirole HCl [Requip*] 1 mg PO BEDTIME 05/05/18 Tramadol HCl [Ultram] 50 mg PO BID PRN 05/05/18 Trazodone HCl 50 mg PO BEDTIME PRN 05/05/18 Varenicline Tartrate [Chantix] 1 mg PO BID 05/05/18 Furosemide [Lasix*] 40 mg PO DAILY #30 tab 05/07/18 Propranolol HCl 10 mg PO DAILY #30 tablet 05/07/18 Spironolactone [Aldactone*] 50 mg PO DAILY #30 tab 05/07/18 New Medications: Furosemide [Lasix*] 40 mg PO DAILY #30 tab Propranolol HCl 10 mg PO DAILY #30 tablet Spironolactone [Aldactone*] 50 mg PO DAILY #30 tab Patient Discharge Instructions: Please f.u with PCP and ENT in 1 to 2 week post discharge. Change in Medication. Lasix now once daily - 40mg. Spironolactone Now once daily - 50mg. Propananol now once daily - 10mg Diet: Regular Activity: Ad [place] Followup: Sena Franz MD [ACTIVE - CAN ADMIT] - 1 Week Edgardo Agudelo MD [ASSOCIATE-ACTIVE - CAN ADMIT] - 1 Week
--- NOTE | 2018-05-09 21:15 | CON ---
Reason For Consultation: Initial suspicion of possible GI bleed. However, patient has epistaxis. t he patient is a 57-year-old white female with history of end-stage liver disease, status post TIPS, l iver cirrhosis due to alcohol and hepatitis C in the past. The patient denies any hematemesis, vomit ing, melena, or hematochezia. The patient does state that she has had some blood clots in her nose w ith nose bleeding, and she has had this in the past. She has seen Dr. Ford for this in the past as well. She states that she has not had any epistaxis or nose bleeding in the past 48 hours; since admission to the hospital. She feels well and wants to go home. She is willing to see ear, nose and throat as a followup appoint with probably with Dr. Franz is possible. Past Medical History: Significant for end-stage liver disease, cirrhosis secondary alcohol and hepat itis C. The patient has quit alcohol and is treated for hepatitis C in the past. She is status post TIPS for secondary to refractory ascites in the past. She also has neuropathy, hypertension, C-sect ions x4, breast augmentations, appendectomy, tonsillectomy. Family History: Mother with heart disease, hypertension, lung disease, diabetes. Father with heart disease, liver disease. Brother with lung disease, cancer. Social History: Former smoker. No tobacco and no alcohol. Positive for caffeine. Physical Examination: VITAL SIGNS: Patient is afebrile. Vital signs stable. The patient is 5 foot 9 inches, 154 pounds, BMI 22.8 kg/m2. HEENT: Normocephalic, atraumatic. Anicteric. Pupils equal, round, and reactive to light. Extraocu lar movements intact. Oropharynx is clear. NECK: Supple. RESPIRATIONS: Clear to auscultation bilaterally. CARDIAC: Regular rate and rhythm. No gallops or rubs. ABDOMINAL: Positive bowel sounds. Soft, nontender, nondistended. No hepatosplenomegaly. Mildly ob bhavya. Surgical scars. EXTREMITIES: No clubbing, cyanosis, or edema. 2+ pulses. Neurologic: Alert and oriented X3, grossly nonfocal. 5/5 motor strength. Sensation intact to light touch. Laboratory Data: The patient has a white count of 1.9, hemoglobin 9.1, hematocrit 29, MCV of 73, anabella telet count 66, polys of 48%, lymphocytes 31%, monocytes 18%, eosinophils 3%. PT of 14.5, INR of 1.2 3, PTT of 38.7. The patient has a sodium of 147, potassium 4.1, chloride 117, bicarb 22, BUN of 11, creatinine of 1.1, glucose 90, calcium 8.4, iron of 89, TIBC of 414, ferritin of 9, saturation 21.5, total bilirubin 0.4, AST of 23, ALT of 17, alkaline phosphatase is 51. LDH of 166, total protein 6.2 , albumin 3.1, total bilirubin 8.10, folate of greater than 1000. UA is negative. Impression: 1.Epistaxis with nosebleeds, none since admission. The patient denies any hematemesis, vomiting, me dipika, or hematochezia. 2.Nose bleeding. In the past, she has seen Dr. Ford and is going to see Dr. Ibanez in followup a s an outpatient or as hospital consult. 3.History of end-stage liver disease, cirrhosis, secondary to alcohol and tobacco, quit alcohol many years. 4.History of hepatitis C in the past, status post TIPS secondary to refractory ascites. Recommendation: 1.ENT consult either as inpatient or outpatient. 2.Serial H and H and transfuse p.r.n. 3.Check Clinic followup here in [place] at her OT center. She had a TIPS procedure performed. REGINALDO/NOREEN Voice ID: [id number] Report ID: [id number]
== END 2018-05-07 13:52 | disposition home health service (06) | DRG 809 ==
LOC: ER 16:30 → ERHOLD 21:30 → 2ND 22:17
PROVIDERS: ADMIT Hospitalist; ATTEND Family Medicine
PROC: 30233N1 Transfusion of Nonautologous Red Blood Cells into Peripheral Vein, Percutaneous Approach (ICD-10-PCS; principal; 2018-05-05)
DX: D61.818 Other pancytopenia (principal); E44.1 Mild protein-calorie malnutrition; K72.10 Chronic hepatic failure without coma; R04.0 Epistaxis; B18.2 Chronic viral hepatitis C; K70.30 Alcoholic cirrhosis of liver without ascites; I10 Essential (primary) hypertension; G62.9 Polyneuropathy, unspecified; F10.11 Alcohol abuse, in remission; N18.3 Chronic kidney disease, stage 3 (moderate); Z87.891 Personal history of nicotine dependence; Z88.1 Allergy status to other antibiotic agents; Z88.3 Allergy status to other anti-infective agents
CPT/HCPCS: 36415; 80048; 80053; 80076; 81003; 82274; 82550; 82553; 82607; 82728; 82747; 83010; 83540; 83615; 83735; 84100; 84466; 85014; 85018; 85025; 85044; 85610; 85730; 86850; 86900; 86901; 99285; C9113; J1650; J7030; P9016

== ENCOUNTER 2018-06-07 15:22 | Observation (INO) | payer OTHER ==
--- NOTE | 2018-06-07 15:54 | RAD REPORT ---
EXAM DESCRIPTION: CT - Head Brain Wo Cont - 06/07/2018 3:47 pm CLINICAL HISTORY: CONFUSED Drowsiness COMPARISON: Head Brain Wo Cont dated 06/08/2017; Head Brain Wo Cont dated 04/19/2017 TECHNIQUE: All CT scans are performed using dose optimization technique as appropriate and may inclu de automated exposure control or mA/KV adjustment according to patient size. FINDINGS: No intracranial hemorrhage, hydrocephalus or extra-axial fluid collection.No areas of brai n edema or evidence of midline shift. The paranasal sinuses and mastoids are clear. The calvarium is intact. IMPRESSION: No acute intracranial abnormality.
--- NOTE | 2018-06-07 16:02 | RAD REPORT ---
EXAM DESCRIPTION: RAD - Chest Single View - 06/07/2018 3:54 pm CLINICAL HISTORY: ABDOMINAL DISTENTION Chest pain. COMPARISON: Chest Single View dated 06/08/2017; Chest Single View dated 04/24/2017; Chest Single View d ated 04/20/2017; Chest Single View dated 04/19/2017 FINDINGS: Portable technique limits examination quality. The lungs are grossly clear. The heart is upper limits of normal in size. No displaced fractures. IMPRESSION: No acute intrathoracic process suspected.
[2018-06-07 16:03] LABS: Absolute Lymphocytes (CBC) 0.9 K/uL (0.7-4.9); Absolute Monocytes 0.4 K/uL (0.1-1.3); Absolute Neutrophil 1.2 K/uL (1.8-8.0); Basophils % 0.3 % (0-1.3); Eosinophils % 2.8 % (0-4.4); Hematocrit 31.7 % (36.0-45.0); Lymphocytes % 33.9 % (15.3-44.8); MCH 27.4 pg (27.0-35.0); MCV 80.5 fL (80-100); Monocytes % 15.8 % (3.3-12.3); RBC Red Blood Cell Count 3.93 M/uL (3.86-4.86)
[2018-06-07 16:15] LABS: Protime INR 1.1
[2018-06-07 16:29] LABS: ALT/SGPT 31 U/L (12-78); AST/SGOT 35 U/L (15-37); Albumin 3.9 g/dL (3.4-5.0); Alkaline Phosphatase 77 U/L (45-117); BUN Blood Urea Nitrogen 19 mg/dL (7-18); Bicarbonate 26 mmol/L (21-32); Bilirubin Direct 0.5 mg/dL (0-0.2); Bilirubin Total 1.5 mg/dL (0.2-1.0); C-Reactive Protein < 2.90 mg/L (<3.00); CKMB Creatine Kinase MB 5.2 ng/mL (0.3-3.6); Creatine Phosphokinase 307 U/L (26-192); Glucose Level 101 mg/dL (74-106); Lipase 737 U/L (73-393); Protein, Total 7.9 g/dL (6.4-8.2); Sodium Level 138 mmol/L (136-145); Troponin (Emerg Dept Use Only) < 0.02 ng/mL (0.0-0.045)
[2018-06-07 17:08] LABS: Urine Blood NEGATIVE (NEG); Urine Glucose NEGATIVE (NEG); Urine Protein NEGATIVE (NEG); Urine Specific Gravity 1.015 (1.005-1.030); Urine pH 7.5 (5.0-7.0)
--- NOTE | 2018-06-07 17:26 | ER ---
Nurse's Notes [facility] Name: Jose Manuel Richardson Age: 57 yrs Sex: Female : 1960 Arrival Date: 06/07/2018 Time: 15:24 Bed 28 Private MD: Diagnosis: Altered mental status, unspecified;Hyperammonianemia;Alcoholic cirrhosis of liver Presentation: 06/07 15:24 Presenting complaint: EMS states: "PATIENT IS CONFUSED.". Transition of care: patient rv was not received from another setting of care. Onset of symptoms was June 07, 2018 at 12:00. Risk Assessment: Do you want to hurt yourself or someone else? Patient reports no desire to harm self or others. Initial Sepsis Screen: Does the patient meet any 2 criteria? No. Patient's initial sepsis screen is negative. Does the patient have a suspected source of infection? No. Patient's initial sepsis screen is negative. Care prior to arrival: None. 15:24 Method Of Arrival: EMS: [facility] rv 15:24 Acuity: JEANA 3 rv Historical: - Allergies: 15:29 cipro (IV, but can take PO); rv 15:29 Flagyl; rv - Home Meds: 15:29 Lasix 40 mg Oral tab 1 tab 2 times per day [Active]; mirtazapine 45 mg Oral tab 1 tab rv once daily [Active]; omeprazole 40 mg Oral cpDR 1 cap once daily [Active]; propranolol 10 mg Oral tab 1 tab twice a day [Active]; - PMHx: 15:29 Cirrhosis; secondary to ETOH abuse; Hepatitis C; hypotension; liver failure, chronic; rv - PSHx: 15:29 Unable to obtain; rv - Immunization history:: Adult Immunizations unknown. - Social history:: Smoking status: unknown. - Ebola Screening: : Patient negative for fever greater than or equal to 101.5 degrees Fahrenheit, and additional compatible Ebola Virus Disease symptoms Patient denies exposure to infectious person Patient denies travel to an Ebola-affected area in the 21 days before illness onset. Screenin:52 Abuse screen: Denies threats or abuse. Denies injuries from another. Nutritional rv screening: No deficits noted. Tuberculosis screening: No symptoms or risk factors identified. Fall Risk None identified. Assessment: 15:50 General: Appears in no apparent distress. comfortable, Behavior is calm, cooperative. rv Pain: Denies pain. Neuro: Level of Consciousness is confused, Oriented to none. Cardiovascular: Capillary refill < 3 seconds. Respiratory: Airway is patent. GI: No signs and/or symptoms were reported involving the gastrointestinal system. : No signs and/or symptoms were reported regarding the genitourinary system. EENT: No signs and/or symptoms were reported regarding the EENT system. Derm: Skin is intact. 16:55 Reassessment: Patient appears in no apparent distress at this time. Patient and/or rv family updated on plan of care and expected duration. Pain level reassessed. Patient is alert, oriented x 3, equal unlabored respirations, skin warm/dry/pink. 17:45 Reassessment: Patient appears in no apparent distress at this time. Patient and/or rv family updated on plan of care and expected duration. Pain level reassessed. Patient is alert, oriented x 3, equal unlabored respirations, skin warm/dry/pink. 18:58 Reassessment: Patient appears in no apparent distress at this time. Patient and/or rv family updated on plan of care and expected duration. Pain level reassessed. Patient is alert, oriented x 3, equal unlabored respirations, skin warm/dry/pink. Vital Signs: 15:15 BP 111 / 76; Pulse 67; Resp 19; Temp 98.6; Pulse Ox 97% ; rv 18:58 BP 105 / 69; Pulse 68; Resp 12; Pulse Ox 100% on R/A; rv 20:08 BP 125 / 76; Pulse 76; Resp 16; Pulse Ox 100% on R/A; rv ED Course: 15:24 Patient arrived in ED. rv 15:24 Chayito Prince [facility]C [facility] snw 15:24 Mayo Blake MD is Attending Physician. snw 15:25 Triage completed. rv 15:[address] via stretcher. sj 15:47 CT completed. Patient tolerated procedure well. Patient moved back from CT. sj 15:47 CT Head Brain wo Cont In Process Unspecified. EDMS 15:52 Inserted saline lock: 20 gauge in left antecubital area, using aseptic technique. rv 15:53 Arm band placed on left wrist. rv 15:54 Chest Single View XRAY In Process Unspecified. EDMS 15:54 Patient has correct armband on for positive identification. Bed in low position. Call rv light in reach. Side rails up X2. Pulse ox on. NIBP on. 17:11 Nadege Dumont MD is Hospitalizing Provider. snw 17:30 Nadege Dumont MD is Hospitalizing Provider. snw 17:30 Rosario Cameron MD is Hospitalizing Provider. snw 20:08 Patient admitted, IV remains in place. intact. rv 20:09 No provider procedures requiring assistance completed. rv Administered Medications: 17:40 Drug: Lactulose 30 grams Volume: 45 ml; Route: PO; rv 18:59 Follow up: Response: No adverse reaction rv Point of Care Testing: Blood Glucose: 15:53 Blood Glucose: 106 mg/dL; rv Ranges: Outcome: 17:12 Decision to Hospitalize by Provider. snw 19:44 Admitted to Tele accompanied by tech, via stretcher, room 201 report called to Deana DARBY.bb 20:09 Condition: good rv 20:09 Instructed on the need for admit. 20:09 Patient left the ED. rv Signatures: Dispatcher [employer] EDMS Chayito Prince, MANAGER MORTGAGE-C MANAGER MORTGAGE-Naty Anthony Brenda, RN RN bb Adams Reed, RN RN rv
--- NOTE | 2018-06-07 17:26 | EDPHYS ---
Physician Documentation [facility] Name: Jose Manuel Richardson Age: 57 yrs Sex: Female : 1960 Arrival Date: 06/07/2018 Time: 15:24 Bed 28 Private MD: ED Physician Mayo Blake HPI: 06/07 15:33 This 57 yrs old Female presents to ER via EMS with complaints of altered snw mental status. 15:33 The patient presents with confusion, trouble concentrating. Onset: The symptoms/episode snw began/occurred at an unknown time. Possible causes: cirrhosis. Associated signs and symptoms: Pertinent positives: confusion. Current symptoms: In the emergency department the patient's symptoms are unchanged from the initial presentation. Patient's baseline: unable to verify. It is unknown whether or not the patient has had similar symptoms in the past. It is unknown whether or not the patient has recently seen a physician. Pt unable to say why she called EMS today. Denies pain. Historical: - Allergies: 15:29 cipro (IV, but can take PO); rv 15:29 Flagyl; rv - Home Meds: 15:29 Lasix 40 mg Oral tab 1 tab 2 times per day [Active]; mirtazapine 45 mg Oral tab 1 tab rv once daily [Active]; omeprazole 40 mg Oral cpDR 1 cap once daily [Active]; propranolol 10 mg Oral tab 1 tab twice a day [Active]; - PMHx: 15:29 Cirrhosis; secondary to ETOH abuse; Hepatitis C; hypotension; liver failure, chronic; rv - PSHx: 15:29 Unable to obtain; rv - Immunization history:: Adult Immunizations unknown. - Social history:: Smoking status: unknown. - Ebola Screening: : Patient negative for fever greater than or equal to 101.5 degrees Fahrenheit, and additional compatible Ebola Virus Disease symptoms Patient denies exposure to infectious person Patient denies travel to an Ebola-affected area in the 21 days before illness onset. ROS: 15:33 Constitutional: Negative for fever, chills, and weight loss, Eyes: Negative for injury, snw pain, redness, and discharge, ENT: Negative for injury, pain, and discharge, Neck: Negative for injury, pain, and swelling, Cardiovascular: Negative for chest pain, palpitations, and edema, Respiratory: Negative for shortness of breath, cough, wheezing, and pleuritic chest pain, Abdomen/GI: Negative for abdominal pain, nausea, vomiting, diarrhea, and constipation, Back: Negative for injury and pain, : Negative for injury, bleeding, discharge, and swelling, MS/Extremity: Negative for injury and deformity, Skin: Negative for injury, rash, and discoloration. 15:33 Neuro: Positive for altered mental status. Exam: 15:33 Head/Face: Normocephalic, atraumatic. Eyes: Pupils equal round and reactive to light, snw extra-ocular motions intact. Lids and lashes normal. Conjunctiva and sclera are non-icteric and not injected. Cornea within normal limits. Periorbital areas with no swelling, redness, or edema. ENT: Nares patent. No nasal discharge, no septal abnormalities noted. Tympanic membranes are normal and external auditory canals are clear. Oropharynx with no redness, swelling, or masses, exudates, or evidence of obstruction, uvula midline. Mucous membranes moist. Neck: Trachea midline, no thyromegaly or masses palpated, and no cervical lymphadenopathy. Supple, full range of motion without nuchal rigidity, or vertebral point tenderness. No Meningismus. Chest/axilla: Normal chest wall appearance and motion. Nontender with no deformity. No lesions are appreciated. Cardiovascular: Regular rate and rhythm with a normal S1 and S2. No gallops, murmurs, or rubs. Normal PMI, no JVD. No pulse deficits. Respiratory: Lungs have equal breath sounds bilaterally, clear to auscultation and percussion. No rales, rhonchi or wheezes noted. No increased work of breathing, no retractions or nasal flaring. 15:33 Back: No spinal tenderness. No costovertebral tenderness. Full range of motion. Skin: Warm, dry with normal turgor. Normal color with no rashes, no lesions, and no evidence of cellulitis. MS/ Extremity: Pulses equal, no cyanosis. Neurovascular intact. Full, normal range of motion. 15:33 Constitutional: The patient appears alert, anxious, unkempt, altered 15:33 Abdomen/GI: Inspection: distension, that is severe, Bowel sounds: normal, Palpation: mild abdominal tenderness, in all quadrants. 15:33 Neuro: Orientation: to person, place, Not oriented to time, situation, Mentation: slow to respond, confused, Memory: unable to test, Cranial nerves: grossly normal, Motor: is normal, Babinski testing is normal, seizure activity, is not displayed by the patient. Vital Signs: 15:15 BP 111 / 76; Pulse 67; Resp 19; Temp 98.6; Pulse Ox 97% ; rv 18:58 BP 105 / 69; Pulse 68; Resp 12; Pulse Ox 100% on R/A; rv 20:08 BP 125 / 76; Pulse 76; Resp 16; Pulse Ox 100% on R/A; rv MDM: 15:24 Patient medically screened. snw 17:12 Data reviewed: vital signs, nurses notes. Data interpreted: Pulse oximetry: on room air snw is 97 %. Interpretation: acceptable. Counseling: I had a detailed discussion with the patient and/or guardian regarding: the historical points, exam findings, and any diagnostic results supporting the discharge/admit diagnosis, lab results, radiology results, the need for further work-up and treatment in the hospital. Physician consultation: Nadege Dumont MD was called at 17:00, regarding admission, to the telemetry unit. 17:37 Physician consultation: Rosario Cameron MD was contacted at 17:28. 06/07 15:28 Order name: T\T\S; Complete Time: 17:07 06/07 15:28 Order name: Urine Culture 06/07 15:28 Order name: Basic Metabolic Panel; Complete Time: 16:34 06/07 15:28 Order name: Blood Culture Adult (2) 06/07 15:28 Order name: C-Reactive Protein; Complete Time: 16:34 w 06/07 15:28 Order name: CBC with Diff; Complete Time: 19:35 06/07 15:28 Order name: Ckmb; Complete Time: 16:34 w 06/07 15:28 Order name: CPK; Complete Time: 16:34 w 06/07 15:28 Order name: Lactate; Complete Time: 16:34 w 06/07 15:28 Order name: LFT's; Complete Time: 16:34 w 06/07 15:28 Order name: Lipase; Complete Time: 16:34 w 06/07 15:28 Order name: Procalcitonin 06/07 15:28 Order name: Protime (+inr); Complete Time: 16:41 snw 06/07 15:28 Order name: Ptt, Activated; Complete Time: 16:41 snw 06/07 15:28 Order name: Sed Rate; Complete Time: 19:35 snw 06/07 15:28 Order name: Troponin (emerg Dept Use Only); Complete Time: 16:34 snw 06/07 15:28 Order name: Chest Single View XRAY; Complete Time: 16:19 snw 06/07 15:28 Order name: Accucheck; Complete Time: 15:56 snw 06/07 15:28 Order name: Cardiac monitoring; Complete Time: 15:56 snw 06/07 15:28 Order name: EKG - Nurse/Tech; Complete Time: 17:18 snw 06/07 15:28 Order name: IV Saline Lock - Large Bore; Complete Time: 15:57 snw 06/07 15:28 Order name: Labs collected and sent; Complete Time: 15:57 snw 06/07 15:28 Order name: O2 Per Protocol; Complete Time: 15:57 snw 06/07 15:28 Order name: CT Head Brain wo Cont; Complete Time: 16:19 snw 06/07 15:28 Order name: AMMONIA; Complete Time: 16:49 snw 06/07 16:23 Order name: CBC Smear Scan; Complete Time: 19:35 EDNM 06/07 16:42 Order name: Urine Dipstick--Ancillary (enter results); Complete Time: 17:09 06/07 17:37 Order name: CONS Physician Consult EDNM 06/07 15:28 Order name: O2 Sat Monitoring; Complete Time: 15:57 snw 06/07 15:28 Order name: Urine Dipstick-Ancillary (obtain specimen); Complete Time: 17:18 snw Administered Medications: 17:40 Drug: Lactulose 30 grams Volume: 45 ml; Route: PO; rv 18:59 Follow up: Response: No adverse reaction rv Point of Care Testing: Blood Glucose: 15:53 Blood Glucose: 106 mg/dL; rv Ranges: Critical Glucose Levels:Adult <50 mg/dl or >400 mg/dl <40 mg/dl or >180 mg/dl Disposition: 06/08 07:27 Co-signature as Attending Physician, Mayo Blake MD I agree with the assessment and melanie plan of care. Disposition: 06/07/18 17:12 Hospitalization ordered by Rosario Cameron for Inpatient Admission. Preliminary diagnosis are Altered mental status, unspecified, Hyperammonianemia, Alcoholic cirrhosis of liver. - Bed requested for Telemetry/MedSurg (Inpatient). - Status is Inpatient Admission. rv - Condition is Stable. - Problem is an acute exacerbation. - Symptoms are unchanged. UTI on Admission? No Signatures: Dispatcher [employer] [facility] Darlyn Calvo RN RN Mayo Del Valle MD MD cha Therrien, Shelly, SQL SERVER DBA DEVELOPER-C SQL SERVER DBA DEVELOPER-Csnw Adams Reed, RN RN rv Corrections: (The following items were deleted from the chart) 06/07 17:31 17:12 Hospitalization Ordered by Nadege Dumont MD for Inpatient Admission. Preliminary [facility] diagnosis is Altered mental status, unspecified; Hyperammonianemia. Bed requested for Telemetry/MedSurg (Inpatient). Status is Inpatient Admission. Condition is Stable. Problem is an acute exacerbation. Symptoms are unchanged. UTI on Admission? No. snw 17:37 17:35 CONS Physician Consult ordered. [facility] 19:10 17:31 06/07/2018 17:12 Hospitalization Ordered by Rosario Cameron MD for Inpatient dw Admission. Preliminary diagnosis is Altered mental status, unspecified; Hyperammonianemia; Alcoholic cirrhosis of liver. Bed requested for Telemetry/MedSurg (Inpatient). Status is Inpatient Admission. Condition is Stable. Problem is an acute exacerbation. Symptoms are unchanged. UTI on Admission? No. snw 20:09 19:10 06/07/2018 17:12 Hospitalization Ordered by Rosario Cameron MD for Inpatient rv Admission. Preliminary diagnosis is Altered mental status, unspecified; Hyperammonianemia; Alcoholic cirrhosis of liver. Bed requested for Telemetry/MedSurg (Inpatient). Status is Inpatient Admission. Condition is Stable. Problem is an acute exacerbation. Symptoms are unchanged. UTI on Admission? No. dw
[2018-06-07] MEDS ORDERED: LACTULOSE 20 GM/30 ML UCUP ONE (17:42)
[2018-06-07 17:58] LABS: Anisocytosis 4+; Blood Morphology Comment NOTED (NOT SEEN); Platelet Estimate DECR; Poikilocytosis 1+; Urine White Blood Cell Casts OK
[2018-06-07 17:59] LABS: Ovalocytes 1+
--- NOTE | 2018-06-07 18:10 | P.HP ---
Certification for Inpatient Patient admitted to: Observation With expected LOS: <2 Midnights Patient will require the following post-hospital care: None Practitioner: I am a practitioner with admitting privileges, knowledge of patient current condition, hospital course, and medical plan of care. Services: Services provided to patient in accordance with Admission requirements found in Title 42 Section 412.3 of the Code of Federal Regulations Patient History Date of Service: 06/07/18 Primary Care Provider: Unknown Reason for admission: AMS History of Present Illness: This is a 57-year-old female with significant past medical history of alcoholic liver cirrhosis, status post TIPS procedure who presented to the ED with altered mental status. Patient has several admissions in the past for similar symptoms. Patient is noncompliant with her medication and overall disease process. Patient called the EMS however does not remember that she called EMS and has been confused ever since EMS picked her up from her house. Patient says that she is having trouble concentrating and inability talking as well with slurred speech. Patient says that this usually happens when she does not take her medicine lactulose. In the ED patient was found alert and oriented x1. Patient's ammonia level was 146 and thus was admitted to the hospital for hepatic encephalopathy Allergies ciprofloxacin Allergy (Mild, Verified 05/05/18 00:04) Itching/Hives/Rash metronidazole [From Flagyl] Adverse Reaction (Intermediate, Verified 04/04/16 19 :45) Anaphylaxis Home Medications: Lactulose [Cephulac*] 30 ml PO QID PRN 06/22/17 Albuterol Inhaler [Ventolin Inhaler*] 1 puff IH BID PRN 05/05/18 Gabapentin [Neurontin*] 300 mg PO BID 05/05/18 Guaifenesin/Codeine Phosphate [Codeine-Guaifen 10-100 mg/5 ml] 5 ml PO Q4H PRN 05/05/18 Mirtazapine [Remeron*] 45 mg PO DAILY 05/05/18 Pantoprazole Sodium [Protonix] 40 mg PO DAILY 05/05/18 Pregabalin [Lyrica*] 75 mg PO TID 05/05/18 Ropinirole HCl [Requip*] 1 mg PO BEDTIME 05/05/18 Tramadol HCl [Ultram] 50 mg PO BID PRN 05/05/18 Trazodone HCl 50 mg PO BEDTIME PRN 05/05/18 Varenicline Tartrate [Chantix] 1 mg PO BID 05/05/18 Furosemide [Lasix*] 40 mg PO DAILY #30 tab 05/07/18 Propranolol HCl 10 mg PO DAILY #30 tablet 05/07/18 Spironolactone [Aldactone*] 50 mg PO DAILY #30 tab 05/07/18 - Past Medical/Surgical History Diabetic: No -: Gallstones -: Liver Failure -: Cirrhosis -: Neuropathy -: Hypotension -: Ascites requiring paracentesis -: cirrhosis -: hep-C treated -: section x 4 -: breast augmentation -: appendectomy -: tonsillectomy -: Has been known to have gallstones -: paracenthesis monthly Psychosocial/ Personal History: Unknown. - Family History Family History: Reviewed- Non-Contributory - Family History Mother -: Heart disease, Hypertension, Lung disease, Diabetes Father -: Heart disease, Liver disease Brother -: Lung disease, Cancer - Social History Alcohol use: No CD- Drugs: Yes Caffeine use: Yes Review of Systems 10-point ROS is otherwise unremarkable Physical Examination - Physical Exam General: Alert, Oriented x1, Mild distress HEENT: Atraumatic, PERRLA, Scleral icterus Neck: Supple, 2+ carotid pulse no bruit, No LAD, Without JVD or thyroid abnormality Respiratory: Clear to auscultation bilaterally, Normal air movement Cardiovascular: Regular rate/rhythm, Normal S1 S2 Gastrointestinal: Normal bowel sounds, No tenderness Musculoskeletal: No tenderness Integumentary: No rashes Neurological: Abnormal speech, Abnormal strength, Abnormal tone Lymphatics: No axilla or inguinal lymphadenopathy - Studies Laboratory Data (last 24 hrs) 06/07/18 15:40: PT 13.0 H, INR 1.10, APTT 40.0 H 06/07/18 15:00: WBC 2.6 L, Hgb 10.8 L, Hct 31.7 L, Plt Count 61 L 06/07/18 15:00: Sodium 138, Potassium 4.0, BUN 19 H, Creatinine 1.40 H, Glucose 101, Total Bilirubin 1.5 H, AST 35, ALT 31, Alkaline Phosphatase 77, Lipase 737 H Assessment and Plan - Problems (Diagnosis) (1) Hepatic encephalopathy Onset Date: 04/20/17 Current Visit: No Status: Acute Plan: Ammonia at 146. at this time. AAOX1 -noncompliant with medication -lactulose 30 mg t.i.d. -GI consulted. Awaiting reccs (2) Chronic renal disease Onset Date: 04/20/17 Current Visit: No Status: Chronic Qualifiers: (3) Cirrhosis of liver Onset Date: 04/20/17 Current Visit: No Status: Chronic Qualifiers: (4) Mild protein malnutrition Current Visit: No Status: Chronic (5) Pancytopenia Onset Date: 06/09/17 Current Visit: No Status: Chronic - Plan Patient will be admitted to the medical-surgical floor for hepatic encephalopathy. Ammonia is 146 at this time. Will start lactulose 30 mg t.i.d. at this time. Will re-evaluate in the morning. Discharge Plan: Other Plan to discharge in: 48 Hours - Advance Directives Does patient have a Living Will: Yes Does patient have a Durable POA for Healthcare: Yes - Code Status/Comfort Care Code Status Assessed: Yes Critical Care: No
--- NOTE | 2018-06-07 19:22 | EKG ---
Test Date: 2018-06-07 Test Time: 17:11:43 Minesweeping Officer: MEASUREMENT RESULTS: Intervals: Rate: 65 SC: 156 QRSD: 76 QT: 454 QTc: 472 [place]: P: 91 SC: 156 QRS: 80 T: 77 INTERPRETIVE STATEMENTS: Normal sinus rhythm Normal ECG Compared to ECG 11/05/2017 08:32:52 Prolonged QT interval no longer present T-wave abnormality no longer present Electronically Signed On 06-07-18 19:22:31 CDT by Lei Campuzano
[2018-06-07] MEDS ORDERED: ONDANSETRON 4 MG/2 ML VIAL IV PRN (20:00)
[2018-06-07 20:20] VITALS: O2SAT 100
[2018-06-07 21:27] VITALS: BMI 22.6
[2018-06-07] MEDS: LACTULOSE 20 GM/30 ML UCUP PO SCH (22:57)
[2018-06-07] MEDS: NA CHLORIDE 0.9% 1,000 ML IV SCH (22:59)
[2018-06-08] MEDS: NA CHLORIDE 0.9% 1,000 ML IV SCH (05:06)
[2018-06-08 05:30] LABS: Absolute Lymphocytes (CBC) 0.9 K/uL (0.7-4.9); Absolute Monocytes 0.3 K/uL (0.1-1.3); Absolute Neutrophil 0.9 K/uL (1.8-8.0); Basophils % 0.4 % (0-1.3); Eosinophils % 1.7 % (0-4.4); Hematocrit 28.1 % (36.0-45.0); Lymphocytes % 42.4 % (15.3-44.8); MCH 27.4 pg (27.0-35.0); MCV 79.9 fL (80-100); MPV 8.8 fL (7.6-11.3); Monocytes % 14.8 % (3.3-12.3); RBC Red Blood Cell Count 3.51 M/uL (3.86-4.86)
[2018-06-08 05:55] LABS: Albumin 3.2 g/dL (3.4-5.0); Bilirubin Total 1.2 mg/dL (0.2-1.0); Potassium 3.9 mmol/L (3.5-5.1); Protein, Total 6.5 g/dL (6.4-8.2)
[2018-06-08 06:19] LABS: Protime INR 1.15
[2018-06-08] MEDS: LACTULOSE 20 GM/30 ML UCUP PO SCH (09:23)
[2018-06-08 12:56] VITALS: BP 113/58; TEMP 98.5
--- NOTE | 2018-06-08 14:56 | P.SSS ---
Patient History Date of Service: 06/08/18 Primary Care Provider: Unknown Reason for admission: AMS History of Present Illness: This is a 57-year-old female with significant past medical history of alcoholic liver cirrhosis, status post TIPS procedure who presented to the ED with altered mental status. Patient has several admissions in the past for similar symptoms. Patient is noncompliant with her medication and overall disease process. Patient called the EMS however does not remember that she called EMS and has been confused ever since EMS picked her up from her house. Patient says that she is having trouble concentrating and inability talking as well with slurred speech. Patient says that this usually happens when she does not take her medicine lactulose. In the ED patient was found alert and oriented x1. Patient's ammonia level was 146 and thus was admitted to the hospital for hepatic encephalopathy Allergies ciprofloxacin Allergy (Mild, Verified 06/08/18 01:01) Itching/Hives/Rash metronidazole [From Flagyl] Adverse Reaction (Intermediate, Verified 06/08/18 01 :01) Anaphylaxis Home Medications: Lactulose [Cephulac*] 30 ml PO TID #1 bottle 06/08/18 Mirtazapine 45 mg PO BEDTIME 06/08/18 Pantoprazole [Protonix Tab*] 40 mg PO DAILY 06/08/18 Pregabalin [Lyrica*] 75 mg PO Q8HR 06/08/18 Propranolol HCl 10 mg PO BID 06/08/18 Spironolactone [Aldactone*] 25 mg PO BID 06/08/18 - Past Medical/Surgical History Has patient received pneumonia vaccine in the past: No Diabetic: No -: Gallstones -: Liver Failure -: Cirrhosis -: Neuropathy -: Hypotension -: Ascites requiring paracentesis -: cirrhosis -: hep-C treated -: section x 4 -: breast augmentation -: appendectomy -: tonsillectomy -: Has been known to have gallstones -: paracenthesis monthly Psychosocial/ Personal History: Unknown. - Family History Family History: Reviewed- Non-Contributory - Family History Mother -: Heart disease, Hypertension, Diabetes Father -: Heart disease, Liver disease Brother -: Diabetes - Social History Smoking Status: Former smoker Alcohol use: No CD- Drugs: No Caffeine use: Yes Place of Residence: Home Review of Systems 10-point ROS is otherwise unremarkable Physical Examination - Vital Signs Temperature: 98.5 F Blood Pressure: 113/58 Pulse: 82 Respirations: 20 Pulse Ox (%): 100 - Physical Exam General: Alert, In no apparent distress HEENT: Atraumatic, PERRLA, Mucous membr. moist/pink, EOMI, Sclerae nonicteric Neck: Supple, 2+ carotid pulse no bruit, No LAD, Without JVD or thyroid abnormality Respiratory: Clear to auscultation bilaterally, Normal air movement Cardiovascular: Regular rate/rhythm, Normal S1 S2 Gastrointestinal: Normal bowel sounds, No tenderness Musculoskeletal: No tenderness Integumentary: No rashes Neurological: Normal gait, Normal speech, Normal strength at 5/5 x4 extr, Normal tone, Normal affect Lymphatics: No axilla or inguinal lymphadenopathy - Studies Laboratory Data (last 24 hrs) 06/07/18 15:40: PT 13.0 H, INR 1.10, APTT 40.0 H 06/07/18 15:00: WBC 2.6 L, Hgb 10.8 L, Hct 31.7 L, Plt Count 61 L 06/07/18 15:00: Sodium 138, Potassium 4.0, BUN 19 H, Creatinine 1.40 H, Glucose 101, Total Bilirubin 1.5 H, AST 35, ALT 31, Alkaline Phosphatase 77, Lipase 737 H - Diagnosis (Problem(s)) (1) Hepatic encephalopathy Onset Date: 04/20/17 Status: Resolved (2) Chronic renal disease Onset Date: 04/20/17 Status: Chronic Qualifiers: (3) Cirrhosis of liver Onset Date: 04/20/17 Status: Chronic Qualifiers: (4) Mild protein malnutrition Status: Chronic (5) Pancytopenia Onset Date: 06/09/17 Status: Chronic Treatment Summary: Overall during the hospital stay patient remained stable Patient initially was admitted to the hospital for hepatic encephalopathy with ammonia of 142. Patient was given lactulose 30 mg t.i.d.. Patient improved markedly in his symptoms alert and oriented x3 today. Patient was ambulating around the hospital along with having adequate p.o. intake. Patient was educated on medication compliance and then was discharged home under stable condition. GI was also consulted here in the hospital for agreed with the above plan. The patient was then discharged home under stable condition - Disposition Disposition: ROUTINE DISCHARGE Condition: GOOD Patient Discharge Instructions: Please F.u with Dr Hernández in 1 to 2 week post discharge. Please f.u with PCP in 1 to 2 week post discharge. Change Medication. Lactulose 30ml TID daily Diet: Regular Activity: Ad waleska
== END 2018-06-08 14:25 | disposition home or self-care (01) ==
LOC: ER 15:22 → ERHOLD 17:33 → INTOOBSV 17:33 → 2ND 19:19
PROVIDERS: ADMIT Family Medicine; ATTEND Family Medicine
DX: K70.40 Alcoholic hepatic failure without coma (principal); B19.20 Unspecified viral hepatitis C without hepatic coma; N18.9 Chronic kidney disease, unspecified; E46 Unspecified protein-calorie malnutrition; Z68.22 Body mass index [BMI] 22.0-22.9, adult; D61.818 Other pancytopenia; Z88.0 Allergy status to penicillin; Z91.14 Patient's other noncompliance with medication regimen
CPT/HCPCS: 36415; 70450; 71045; 80048; 80053; 80076; 81003; 82140 ×2; 82550; 82553; 82962; 83605; 83690; 84145; 84484; 85025 ×2; 85610 ×2; 85652; 85730 ×2; 86140; 86850; 86900; 86901; 87040 ×2; 87086; 87088; 93005; 99285; G0378 ×2; J7030 ×2

== ENCOUNTER 2018-10-31 11:20 | Inpatient (IN) | payer OTHER ==
[2018-10-31 11:55] LABS: Absolute Lymphocytes (CBC) 0.8 K/uL (0.7-4.9); Absolute Monocytes 0.2 K/uL (0.1-1.3); Absolute Neutrophil 1.5 K/uL (1.8-8.0); Basophils % 0.5 % (0-1.3); Eosinophils % 1.2 % (0-4.4); Hematocrit 37.2 % (36.0-45.0); Lymphocytes % 31.2 % (15.3-44.8); MPV 10.4 fL (7.6-11.3); Monocytes % 8.2 % (3.3-12.3); Protime INR 1.28; RBC Red Blood Cell Count 4.19 M/uL (3.86-4.86)
[2018-10-31 12:12] LABS: Albumin 3.7 g/dL (3.4-5.0); Bilirubin Direct 0.4 mg/dL (0-0.2); Bilirubin Total 1.2 mg/dL (0.2-1.0); Protein, Total 7.1 g/dL (6.4-8.2)
[2018-10-31 12:17] LABS: Blood Morphology Comment NOT SEEN (NOT SEEN); Platelet Estimate DECR; Platelets, Giant PRESENT; Urine White Blood Cell Casts OK
--- NOTE | 2018-10-31 12:34 | RAD REPORT ---
EXAM DESCRIPTION: CT - Head Brain Wo Cont - 10/31/2018 12:13 pm CLINICAL HISTORY: Transient alteration of awareness COMPARISON: None. TECHNIQUE: Axial 5 mm thick images of the head were obtained without IV contrast. All CT scans are performed using dose optimization technique as appropriate and may include automated exposure control or mA/KV adjustment according to patient size. FINDINGS: No intracranial hemorrhage, mass, edema or shift of mid-line structures. No acute infarcti on changes seen. No significant atrophy or chronic ischemic change. Physiologic calcifications are pr esent. Ventricles are normal. Mastoid air cells and visualized portions of the paranasal sinuses are clear. No acute bony findings. IMPRESSION: Negative non-contrast CT head examination. No significant interval change.
[2018-10-31 13:32] LABS: Urine Bacteria <20 /HPF (<20); Urine Culture Reflex Order NOT NEEDED; Urine RBC <5 /HPF (NONE SEEN)
--- NOTE | 2018-10-31 13:40 | EDPHYS ---
Physician Documentation [facility] Name: Jose Manuel Richardson Age: 58 yrs Sex: Female : 1960 Arrival Date: 10/31/2018 Time: 11:29 Bed 8 Private MD: ED Physician Randall Brar HPI: 10/31 11:55 This 58 yrs old Female presents to ER via Unassigned with complaints of AMS. rn 11:55 The patient presents with confusion. Onset: The symptoms/episode began/occurred at an rn unknown time. Possible causes: cirrhosis. Associated signs and symptoms: Pertinent positives: confusion. The patient has experienced similar episodes in the past. The patient has not recently seen a physician. Denies injury or pain, per report, taking lactulose, + multiple similar presentations in past.. Historical: - Allergies: 12:27 cipro (IV, but can take PO); sv 12:27 Flagyl; sv - PMHx: 12:27 Cirrhosis; secondary to ETOH abuse; Hepatitis C; hypotension; liver failure, chronic; sv - PSHx: 12:27 Unable to obtain; sv - Immunization history:: Adult Immunizations up to date. - Social history:: Smoking status: Patient/guardian denies using tobacco. - Family history:: not pertinent. - Ebola Screening: : No symptoms or risks identified at this time. - Hospitalizations: : No recent hospitalization is reported. ROS: 11:55 Constitutional: Negative for fever, chills, and weight loss, Eyes: Negative for injury, rn pain, redness, and discharge, Neck: Negative for injury, pain, and swelling, Cardiovascular: Negative for chest pain, palpitations, and edema, Respiratory: Negative for shortness of breath, cough, wheezing, and pleuritic chest pain, Abdomen/GI: Negative for abdominal pain, nausea, vomiting, diarrhea, and constipation, MS/Extremity: Negative for injury and deformity, Skin: Negative for injury, rash, and discoloration, Neuro: Negative for headache, weakness, numbness, tingling, and seizure. Exam: 11:55 Constitutional: This is a well developed patient who is awake, alert, and in no acute rn distress. Head/Face: Normocephalic, atraumatic. Eyes: No nystagmus Cardiovascular: Regular rate and rhythm, No pulse deficits. Respiratory: Lungs have equal breath sounds bilaterally, clear to auscultation. No increased work of breathing, no retractions or nasal flaring. Abdomen/GI: soft, non-tender MS/ Extremity: Pulses equal, no cyanosis. Neurovascular intact. Full, normal range of motion. Equal circumference. Neuro: Somnolent but awakens to voice, uncooperative, doesn't respond with words, just moans and shakes her head, moves all 4 ext. Vital Signs: 11:26 BP 142 / 81; Pulse 56; Resp 17; Temp 98.5; Pulse Ox 97% ; Pain 0/10; sv 12:25 BP 150 / 77; Pulse 60; Resp 12; Pulse Ox 97% ; sv 13:07 BP 142 / 65; Pulse 59 MON; Resp 17; Pulse Ox 100% on R/A; sv 14:06 BP 141 / 51; Pulse 64 MON; Resp 13; Pulse Ox 100% on R/A; sv 14:41 BP 111 / 56; Pulse 58; Resp 14; Pulse Ox 100% ; sv 15:14 BP 100 / 59; Pulse 70; Resp 12; Pulse Ox 100% ; sv 13:07 Sinus bradycardia sv 14:06 Sinus Rhythm sv MDM: 11:31 Patient medically screened. rn 13:38 Differential Diagnosis: hypoglycemia, UTI, volume depletion, hepatic encephalopathy. rn Data reviewed: vital signs, nurses notes, lab test result(s), radiologic studies, and as a result, I will discharge patient. Counseling: I had a detailed discussion with the patient and/or guardian regarding: the historical points, exam findings, and any diagnostic results supporting the discharge/admit diagnosis, lab results, radiology results, the need for further work-up and treatment in the hospital. Response to treatment: the patient's symptoms have mildly improved after treatment, and as a result, I will admit patient. Admission orders: after a detailed discussion of the patient's condition and case, the admit orders are written by me. 10/31 11:36 Order name: Basic Metabolic Panel; Complete Time: 12:40 rn 10/31 11:36 Order name: CBC with Diff; Complete Time: 12:40 rn 10/31 11:36 Order name: CPK; Complete Time: 12:40 rn 10/31 11:36 Order name: Hepatic Function; Complete Time: 12:40 rn 10/31 11:36 Order name: Lipase; Complete Time: 12:40 rn 10/31 11:36 Order name: Protime (+inr); Complete Time: 12:17 rn 10/31 11:36 Order name: CT Head Brain wo Cont; Complete Time: 12:40 rn 10/31 11:36 Order name: EKG; Complete Time: 11:37 rn 10/31 11:36 Order name: AMMONIA; Complete Time: 12:17 rn 10/31 11:36 Order name: Urine Microscopic Only; Complete Time: 13:39 rn 10/31 11:44 Order name: Glucose, Ancillary Testing; Complete Time: 12:17 EDMS 10/31 12:01 Order name: CBC Smear Scan; Complete Time: 12:40 EDMS 10/31 12:07 Order name: Urine Dipstick--Ancillary (enter results); Complete Time: 15:02 em1 10/31 11:36 Order name: IV Start; Complete Time: 12:08 rn 10/31 11:36 Order name: Cardiac monitoring; Complete Time: 12:08 rn 10/31 11:36 Order name: EKG - Nurse/Tech; Complete Time: 12:29 rn 10/31 11:36 Order name: Labs collected and sent; Complete Time: 12:07 rn 10/31 11:36 Order name: NPO; Complete Time: 12:08 rn 10/31 11:36 Order name: O2 Per Protocol; Complete Time: 12:08 rn 10/31 11:36 Order name: O2 Sat Monitoring; Complete Time: 12:08 rn 10/31 11:36 Order name: Urine Dipstick-Ancillary (obtain specimen); Complete Time: 12:05 rn Administered Medications: 15:14 Drug: Lactulose 30 grams Volume: 45 ml; Route: PO; sv 15:33 Follow up: Response: No adverse reaction sv Disposition: 10/31/18 13:39 Hospitalization ordered by Rudy Cheema for Inpatient Admission. Preliminary diagnosis is Hepatic encephalopathy. - Bed requested for Telemetry/MedSurg (Inpatient). - Status is Inpatient Admission. sv - Condition is Stable. - Problem is new. - Symptoms have improved. UTI on Admission? No Signatures: Dispatcher [employer] EDSena Hernandez RN RN sv Nieto, Roman, MD MD rn Martinez, Eric em1 Corrections: (The following items were deleted from the chart) 14:58 13:39 Hospitalization Ordered by Rudy Cheema DO for Inpatient Admission. Preliminary em1 diagnosis is Hepatic encephalopathy. Bed requested for Telemetry/MedSurg (Inpatient). Status is Inpatient Admission. Condition is Stable. Problem is new. Symptoms have improved. UTI on Admission? No. rn 15:33 14:58 10/31/2018 13:39 Hospitalization Ordered by Rudy Cheema DO for Inpatient sv Admission. Preliminary diagnosis is Hepatic encephalopathy. Bed requested for Telemetry/MedSurg (Inpatient). Status is Inpatient Admission. Condition is Stable. Problem is new. Symptoms have improved. UTI on Admission? No. em1
--- NOTE | 2018-10-31 13:40 | ER ---
Nurse's Notes [facility] Name: Jose Manuel Richardson Age: 58 yrs Sex: Female : 1960 Arrival Date: 10/31/2018 Time: 11:29 Bed 8 Private MD: Diagnosis: Hepatic encephalopathy Presentation: 10/31 11:18 Presenting complaint: EMS states: AMS x 2 days reported by family that lives with her. sv Hx cirrhosis. BS-101 BP 152/80 HR-58 99% RA. Transition of care: patient was not received from another setting of care. Onset of symptoms was October 29, 2018. Risk Assessment: Do you want to hurt yourself or someone else? Patient reports no desire to harm self or others. Initial Sepsis Screen: Does the patient meet any 2 criteria? Altered Mental Status. Yes Does the patient have a suspected source of infection? No. Patient's initial sepsis screen is negative. Care prior to arrival: Glucose check: 101. 11:18 Method Of Arrival: EMS: [facility] sv 11:18 Acuity: JEANA 2 sv Triage Assessment: 11:20 General: Appears in no apparent distress. comfortable, Behavior is calm, cooperative, sv appropriate for age, Pt answers questions by moving her head for yes and no questions but does not speak at this time.. General: Smells of urine, pt is soiled with urine.. Pain: Denies pain. EENT: Oral mucosa is dry. Poor dentition noted. Neuro: Level of Consciousness is awake, alert, obeys commands, confused, Oriented to looks at you when her name is called.. Moves all extremities. Respiratory: Airway is patent Respiratory effort is even, unlabored, Respiratory pattern is regular, symmetrical. GI: Abdomen is flat, Abd is soft and non tender X 4 quads. Derm: Skin is jaundiced. Historical: - Allergies: 12:27 cipro (IV, but can take PO); sv 12:27 Flagyl; sv - PMHx: 12:27 Cirrhosis; secondary to ETOH abuse; Hepatitis C; hypotension; liver failure, chronic; sv - PSHx: 12:27 Unable to obtain; sv - Immunization history:: Adult Immunizations up to date. - Social history:: Smoking status: Patient/guardian denies using tobacco. - Family history:: not pertinent. - Ebola Screening: : No symptoms or risks identified at this time. - Hospitalizations: : No recent hospitalization is reported. Screenin:00 Abuse screen: Denies threats or abuse. Denies injuries from another. Nutritional sv screening: No deficits noted. Tuberculosis screening: No symptoms or risk factors identified. Fall Risk No fall in past 12 months (0 pts). No secondary diagnosis (0 pts). IV access (20 points). Ambulatory Aid- None/Bed Rest/Nurse Assist (0 pts). Gait- Normal/Bed Rest/Wheelchair (0 pts) Mental Status- Overestimates/Forgets Limitations (15 pts.). Total Titus Fall Scale indicates Low Risk Score (25-44 pts). Fall prevention measures have been instituted. Side Rails Up X 2 Frequent Obs/Assesments occuring As available Patient and Family Educated on Fall Prevention Program and strategies. Assessment: 12:00 Reassessment: Patient appears in no apparent distress at this time. No changes from sv previously documented assessment. Patient and/or family updated on plan of care and expected duration. Pain level reassessed. 13:10 Reassessment: Patient appears in no apparent distress at this time. No changes from sv previously documented assessment. Patient and/or family updated on plan of care and expected duration. Pain level reassessed. 14:06 Reassessment: Patient appears in no apparent distress at this time. No changes from sv previously documented assessment. Patient and/or family updated on plan of care and expected duration. Pain level reassessed. 15:05 Reassessment: Patient appears in no apparent distress at this time. No changes from sv previously documented assessment. Patient and/or family updated on plan of care and expected duration. Pain level reassessed. Vital Signs: 11:26 BP 142 / 81; Pulse 56; Resp 17; Temp 98.5; Pulse Ox 97% ; Pain 0/10; sv 12:25 BP 150 / 77; Pulse 60; Resp 12; Pulse Ox 97% ; sv 13:07 BP 142 / 65; Pulse 59 MON; Resp 17; Pulse Ox 100% on R/A; sv 14:06 BP 141 / 51; Pulse 64 MON; Resp 13; Pulse Ox 100% on R/A; sv 14:41 BP 111 / 56; Pulse 58; Resp 14; Pulse Ox 100% ; sv 15:14 BP 100 / 59; Pulse 70; Resp 12; Pulse Ox 100% ; sv 13:07 Sinus bradycardia sv 14:06 Sinus Rhythm sv ED Course: 11:29 Patient arrived in ED. hb 11:30 Arm band placed on. sv 11:30 Patient has correct armband on for positive identification. Placed in gown. Bed in low sv position. Call light in reach. Side rails up X2. brancher on. Pulse ox on. NIBP on. Warm blanket given. Head of bed elevated. Bath given. Cleaned of incontinence. Linen changed. 11:31 Randall Brar MD is Attending Physician. rn 11:45 Initial lab(s) drawn, by me, sent to lab. Inserted saline lock: 20 gauge in right sv forearm, using aseptic technique. Blood collected. Flushed right forearm with 5 ml normal saline. 12:00 Griffiths cath inserted, using sterile technique, 16 Fr., by me, balloon inflated, to sv gravity drainage, urine specimen collected. returned clear yellow urine. 12:13 CT Head Brain wo Cont In Process Unspecified. EDMS 12:20 CT completed. Patient moved back from CT. kw1 12:25 Sena Farmer RN is Primary Nurse. sv 12:27 Triage completed. sv 13:12 Awaiting re-evaluation by ER provider. sv 13:38 Rudy Cheema DO is Hospitalizing Provider. rn 15:15 No provider procedures requiring assistance completed. Patient admitted, IV remains in sg place. intact, No redness/swelling at site. Administered Medications: 15:14 Drug: Lactulose 30 grams Volume: 45 ml; Route: PO; sv 15:33 Follow up: Response: No adverse reaction sv Outcome: 13:39 Decision to Hospitalize by Provider. rn 15:15 Admitted to Med/surg accompanied by tech, via stretcher, room 402, with chart, Report sg called to Marizol DARBY 15:15 Condition: stable 15:15 Instructed on the need for admit, safety practices, Demonstrated understanding of instructions. 15:33 Patient left the ED. sv Signatures: Dispatcher [employer] EDMS Sena Farmer RN RN sv Gay, Steven, RN RN Randall Brar MD MD rn Baxter, Heather, RN RN Norma Hayly kw1
--- NOTE | 2018-10-31 14:09 | P.HP ---
Certification for Inpatient Patient admitted to: Inpatient With expected LOS: >2 Midnights Patient will require the following post-hospital care: None Practitioner: I am a practitioner with admitting privileges, knowledge of patient current condition, hospital course, and medical plan of care. Services: Services provided to patient in accordance with Admission requirements found in Title 42 Section 412.3 of the Code of Federal Regulations Patient History Date of Service: 10/31/18 Primary Care Provider: Unknown Reason for admission: Altered mental status History of Present Illness: 58-year-old female presented to emergency room with altered mental status. Patient with history of alcoholic cirrhosis, hepatitis-C and chronic renal disease. Most information came from the ER physician. Patient not able to give history. In the ER patient evaluated. CT head unremarkable. White count 2.5, hemoglobin 12.4, platelet count of 49. Sodium 149, potassium 4.0. Chloride 121 , BUN of 18, creatinine 1.1 with 8 with a GFR 47. Glucose 110. Ammonia level was elevated at 142. Patient admitted for hepatic encephalopathy. Lactulose to be initiated in the emergency room. When I saw the patient in the ER, she was able to follow some commands but still very confused. She was alert but not oriented to person, time, and place.. Allergies ciprofloxacin Allergy (Mild, Verified 06/08/18 01:01) Itching/Hives/Rash metronidazole [From Flagyl] Adverse Reaction (Intermediate, Verified 06/08/18 01 :01) Anaphylaxis Home medications list reviewed: Yes Home Medications: Lactulose [Cephulac*] 30 ml PO TID #1 bottle 06/08/18 Mirtazapine 45 mg PO BEDTIME 06/08/18 Pantoprazole [Protonix Tab*] 40 mg PO DAILY 06/08/18 Pregabalin [Lyrica*] 75 mg PO Q8HR 06/08/18 Propranolol HCl 10 mg PO BID 06/08/18 Spironolactone [Aldactone*] 25 mg PO BID 06/08/18 - Past Medical/Surgical History Diabetic: No -: Alcoholic liver cirrhosis -: Hepatitis-C -: Chronic pain -: GERD -: section x 4 -: breast augmentation -: appendectomy -: tonsillectomy -: Has been known to have gallstones -: paracenthesis monthly Psychosocial/ Personal History: Unknown. - Family History Family History: Reviewed- Non-Contributory - Family History Mother -: Heart disease, Hypertension, Diabetes Father -: Heart disease, Liver disease Brother -: Diabetes - Social History Smoking Status: Unknown if ever smoked Alcohol use: No CD- Drugs: No Caffeine use: Yes Place of Residence: Home Review of Systems is unable to be obtained Physical Examination - Physical Exam General: Alert, In no apparent distress, Other (Patient with confusion. Follow some commands. Not oriented to time, place or person) HEENT: Atraumatic, Mucous membr. moist/pink Neck: Supple, No Thyromegaly Respiratory: Clear to auscultation bilaterally, Normal air movement Cardiovascular: Normal pulses, Regular rate/rhythm Gastrointestinal: Normal bowel sounds, Non-distended, No tenderness, No masses, No rebound, No guarding, Ascites (Mild ascites) Musculoskeletal: No tenderness, No warmth Integumentary: No erythema, No warmth, No cyanosis Neurological: Normal speech, Normal strength at 5/5 x4 extr, Normal tone, Other (Confusion noted) - Studies Laboratory Data (last 24 hrs) 10/31/18 11:35: PT 15.0 H, INR 1.28 10/31/18 11:35: WBC 2.5 L, Hgb 12.4, Hct 37.2, Plt Count 49 L* 10/31/18 11:35: Sodium 149 H, Potassium 4.0, BUN 18, Creatinine 1.18, Glucose 110 H, Total Bilirubin 1.2 H, AST 25, ALT 20, Alkaline Phosphatase 61, Lipase 936 H Assessment and Plan - Plan Impression: Altered mental status secondary to hepatic encephalopathy with history of alcoholic cirrhosis and hepatitis-C Chronic renal disease GERD Plan: Altered mental status secondary to hepatic encephalopathy with history of alcoholic cirrhosis and hepatitis-C: Patient will be admitted for treatment. Lactulose to be initiated in the emergency room. Patient may require lactulose per rectum or by mouth if more alert. Will need to make sure she has good bowel movements at least 3-4 a day. Patient will require sitter until more alert. Will need to obtain more information from patient and family concerning compliance with medication. Will monitor patient closely. Continue with fall and aspiration precaution. I will turn the service over to Dr villarreal tomorrow. I will go over plan of care with her. Anticipate discharge in the next 2-3 days. Chronic renal disease: This appears stable. Will monitor closely. GERD: Will provide aspiration precaution. Continue Pepcid. Discharge Plan: Home Plan to discharge in: Greater than 2 days - Advance Directives Does patient have a Living Will: Yes Does patient have a Durable POA for Healthcare: Yes - Code Status/Comfort Care Code Status Assessed: No (Unknown) Time Spent Managing Pts Care (In Minutes): 55
[2018-10-31 14:12] LABS: Urine Blood NEGATIVE (NEG); Urine Glucose NEGATIVE (NEG); Urine Protein NEGATIVE (NEG); Urine pH 7.5 (5.0-7.0)
[2018-10-31] MEDS ORDERED: LACTULOSE 20 GM/30 ML UCUP ONE (14:35)
[2018-10-31] MEDS ORDERED: ONDANSETRON 4 MG/2 ML VIAL IV PRN (15:12)
[2018-10-31] MEDS ORDERED: ACETAMINOPHEN 500 MG TAB PO PRN (15:12)
[2018-10-31] MEDS ORDERED: ACETAMINOPHEN 650MG/RECT SUPP PR PRN (15:12)
[2018-10-31 17:09] VITALS: BMI 23.3
[2018-10-31] MEDS: LACTULOSE 20 GM/30 ML UCUP PO SCH ×2 (17:10→20:33)
[2018-10-31 20:15] LABS: Thyroid Stimulating Hormone 1.76 uIU/mL (0.360-3.740)
--- NOTE | 2018-10-31 21:51 | EKG ---
Test Date: 2018-10-31 Test Time: 12:27:36 Director Graphics: MEASUREMENT RESULTS: Intervals: Rate: 57 [place]: 160 QRSD: 82 QT: 488 QTc: 474 [place]: P: 80 [place]: 160 QRS: 79 T: 79 INTERPRETIVE STATEMENTS: Sinus bradycardia Otherwise normal ECG Compared to ECG 06/07/2018 17:11:43 Sinus rhythm no longer present Electronically Signed On 10-31-18 21:50:12 [employer] by Ernst Fall
[2018-11-01 05:23] LABS: Absolute Lymphocytes (CBC) 0.8 K/uL (0.7-4.9); Absolute Monocytes 0.4 K/uL (0.1-1.3); Absolute Neutrophil 1.4 K/uL (1.8-8.0); Basophils % 0.3 % (0-1.3); Eosinophils % 1.2 % (0-4.4); Monocytes % 13.8 % (3.3-12.3); RBC Red Blood Cell Count 3.67 M/uL (3.86-4.86)
[2018-11-01 05:46] LABS: Albumin 3.4 g/dL (3.4-5.0); Bilirubin Total 1.6 mg/dL (0.2-1.0); Magnesium 1.9 mg/dL (1.8-2.4); Potassium 3.4 mmol/L (3.5-5.1); Protein, Total 6.5 g/dL (6.4-8.2)
[2018-11-01] MEDS: POTASSIUM 25 MEQ EFFERV TAB PO ONE ×2 (07:30→08:40)
[2018-11-01] MEDS: LACTULOSE 20 GM/30 ML UCUP PO SCH ×4 (08:37→20:19)
[2018-11-01] MEDS: FAMOTIDINE 20 MG/2 ML VIAL IV SCH (08:38)
--- NOTE | 2018-11-01 12:20 | RAD REPORT ---
EXAM DESCRIPTION: RAD - Chest Single View - 11/01/2018 12:12 pm CLINICAL HISTORY: evaluate for CHF Chest pain. COMPARISON: Chest Single View dated 06/07/2018; Chest Single View dated 06/08/2017; Chest Single View dated 04/24/2017; Chest Single View dated 04/20/2017 FINDINGS: Portable technique limits examination quality. The lungs are grossly clear. The heart is upper limit of normal in size. No displaced fractures. IMPRESSION: No acute intrathoracic process suspected.
--- NOTE | 2018-11-01 16:06 | P.PN ---
Subjective Date of Service: 11/01/18 Primary Care Provider: Unknown Chief Complaint: Altered mental status Subjective: Improving Patient seen and examined at bedside. No family at bedside. Chart reviewed and case discussed with nursing staff. Alert oriented x4, no acute events noted overnight. No complaints this morning. 2 normal bowel movements reported overnight. Lives with daughter at home, is independent for the most part. Review of Systems 10-point ROS is otherwise unremarkable Physical Examination - Vital Signs Temperature: 99.3 F Blood Pressure: 133/61 Pulse: 62 Respirations: 16 Pulse Ox (%): 98 - Physical Exam General: Alert, In no apparent distress, Oriented x3 HEENT: Atraumatic, PERRLA, EOMI Neck: Supple, JVD not distended Respiratory: Clear to auscultation bilaterally, Normal air movement Cardiovascular: Regular rate/rhythm, Normal S1 S2 Gastrointestinal: Normal bowel sounds, No tenderness Musculoskeletal: No tenderness Integumentary: No rashes Neurological: Normal speech, Normal tone, Normal affect Lymphatics: No axilla or inguinal lymphadenopathy Assessment And Plan - Current Problems (Diagnosis) (1) Hepatic encephalopathy Onset Date: 04/20/17 Current Visit: No Status: Acute (2) Hypernatremia Current Visit: Yes Status: Acute (3) Hypokalemia Current Visit: Yes Status: Acute (4) Metabolic acidosis Current Visit: Yes Status: Acute (5) Hyperchloremia Current Visit: Yes Status: Acute (6) Cirrhosis of liver Onset Date: 04/20/17 Current Visit: No Status: Chronic Qualifiers: Hepatic cirrhosis type: alcoholic cirrhosis Ascites presence: without ascites Qualified Code(s): K70.30 - Alcoholic cirrhosis of liver without ascites (7) Mild protein malnutrition Onset Date: 06/10/18 Current Visit: No Status: Chronic (8) Thrombocytopenia Onset Date: 04/20/17 Current Visit: No Status: Chronic - Plan Altered mental status secondary to hepatic encephalopathy History of alcoholic cirrhosis and hepatitis-C We will continue lactulose that was initiated in the emergency room. As she is more alert, I will transition to oral lactulose. Continue to monitor bowel movements. Continue with fall and aspiration precaution. Hypernatremia Hyperchloremia Metabolic acidosis Start IV fluids with D5 at 100 cc/hour. Will repeat BMP in 6 hr. Hypokalemia Replete per protocol. Will continue to monitor. Thrombocytopenia Likely secondary to liver disease. No evidence of bleeding at this time. Continue to monitor Chronic renal disease: Creatinine continues to be stable. We will monitor closely. GERD: We will provide aspiration precautions. Continue Pepcid. DVT prophylaxis: None, due to thrombocytopenia GI prophylaxis: Pepcid Diet: GI soft, low sodium Disposition: Pending symptomatic improvement. Anticipate discharge home in the next 24-48 hr, pending clinical improvement Discharge Plan: Home Plan to discharge in: 24 Hours
[2018-11-01] MEDS ORDERED: GABAPENTIN 300 MG CAP PO PRN (16:09)
[2018-11-01] MEDS: D5 0.2 NS 1,000 ML IV SCH (16:55)
[2018-11-01] MEDS: PROPRANOLOL HCL 10 MG TAB PO SCH (20:20)
[2018-11-01] MEDS: PREGABALIN 75 MG CAP PO SCH (20:21)
[2018-11-01] MEDS ORDERED: PROPRANOLOL HCL 10 MG PO SCH (21:00)
[2018-11-01] MEDS ORDERED: ROPINIROLE HCL 1 MG TAB PO SCH (21:00)
[2018-11-02] MEDS: D5 0.2 NS 1,000 ML IV SCH ×2 (03:23→13:00)
[2018-11-02 04:54] LABS: Absolute Monocytes 0.4 K/uL (0.1-1.3); Absolute Neutrophil 1.1 K/uL (1.8-8.0); Basophils % 0.2 % (0-1.3); Eosinophils % 2.4 % (0-4.4); Hematocrit 31.4 % (36.0-45.0); Lymphocytes % 38.4 % (15.3-44.8); MPV 10.2 fL (7.6-11.3); RBC Red Blood Cell Count 3.59 M/uL (3.86-4.86)
[2018-11-02 05:24] LABS: Albumin 3.4 g/dL (3.4-5.0); Bilirubin Total 1.4 mg/dL (0.2-1.0); Magnesium 1.8 mg/dL (1.8-2.4); Potassium 3.3 mmol/L (3.5-5.1); Protein, Total 6.3 g/dL (6.4-8.2)
[2018-11-02] MEDS ORDERED: MAGNESIUM SULFATE 1 gm IVPB 1 GM/100 ML BAG IV ONE (05:28)
[2018-11-02] MEDS ORDERED: POTASSIUM CL SA 10 MEQ TAB PO ONE (05:29)
[2018-11-02] MEDS ORDERED: MIRTAZAPINE 45 MG PO SCH (09:00)
[2018-11-02] MEDS ORDERED: HOME MED 1 EA UNK (Spironolactone [Aldactone] 50 MG) PO SCH (09:00)
[2018-11-02] MEDS ORDERED: TOPIRAMATE 25 MG TAB PO SCH (09:00)
[2018-11-02] MEDS ORDERED: MIRTAZAPINE 15 MG TAB PO SCH (09:00)
[2018-11-02] MEDS ORDERED: SPIRONOLACTONE 25 MG TABLET PO SCH (09:00)
[2018-11-02] MEDS ORDERED: FLUOXETINE 20 MG CAP PO SCH (09:00)
[2018-11-02] MEDS ORDERED: TOPIRAMATE PO SCH (09:00)
[2018-11-02] MEDS: LACTULOSE 20 GM/30 ML UCUP PO SCH ×2 (09:22→13:00)
[2018-11-02] MEDS: PROPRANOLOL HCL 10 MG TAB PO SCH (09:23)
[2018-11-02] MEDS: FAMOTIDINE 20 MG/2 ML VIAL IV SCH (09:24)
[2018-11-02] MEDS: PREGABALIN 75 MG CAP PO SCH (09:25)
[2018-11-02 11:54] VITALS: O2SAT 100
[2018-11-02 12:06] VITALS: BP 123/60; TEMP 98.3
--- NOTE | 2018-11-02 14:03 | P.DS ---
Admission Date: 10/31/18 Discharge Date: 11/02/18 Primary Care Provider: Unknown Disposition: ROUTINE DISCHARGE Discharge Condition: GOOD Reason for Admission: Altered mental status - Problems (1) Hepatic encephalopathy Onset Date: 04/20/17 Current Visit: No Status: Acute (2) Hypernatremia Onset Date: 11/01/18 Current Visit: Yes Status: Acute (3) Hypokalemia Onset Date: 11/01/18 Current Visit: Yes Status: Acute (4) Metabolic acidosis Onset Date: 11/01/18 Current Visit: Yes Status: Acute (5) Hyperchloremia Onset Date: 11/01/18 Current Visit: Yes Status: Acute (6) Cirrhosis of liver Onset Date: 04/20/17 Current Visit: No Status: Chronic Qualifiers: Hepatic cirrhosis type: alcoholic cirrhosis Ascites presence: without ascites Qualified Code(s): K70.30 - Alcoholic cirrhosis of liver without ascites (7) Mild protein malnutrition Onset Date: 06/10/18 Current Visit: No Status: Chronic (8) Thrombocytopenia Onset Date: 04/20/17 Current Visit: No Status: Chronic Brief History of Present Illness: 58-year-old female presented to emergency room with altered mental status. Patient with history of alcoholic cirrhosis, hepatitis-C and chronic renal disease. Most information came from the ER physician. Patient not able to give history. In the ER patient evaluated. CT head unremarkable. White count 2.5, hemoglobin 12.4, platelet count of 49. Sodium 149, potassium 4.0. Chloride 121 , BUN of 18, creatinine 1.1 with 8 with a GFR 47. Glucose 110. Ammonia level was elevated at 142. Patient admitted for hepatic encephalopathy. Lactulose to be initiated in the emergency room. When I saw the patient in the ER, she was able to follow some commands but still very confused. She was alert but not oriented to person, time, and place. Hospital Course: Altered mental status secondary to hepatic encephalopathy History of alcoholic cirrhosis and hepatitis-C Patient was admitted for altered mental status, secondary to hepatic encephalopathy which was secondary to alcoholic cirrhosis and hepatitis-C. She was started on lactulose, transitioned to oral lactulose. She had a good bowel movement overnight, her mentation gradually improved and she returned back to baseline. Prior to discharge, she was alert oriented x4, hemodynamically stable , tolerating oral diet, ambulating without any concerns and was asymptomatic. Hypernatremia Hyperchloremia Metabolic acidosis She was given IV fluids of D5 at 100 cc an hr. Her hyper natremia resolved and her hyperchloremia improves. Her metabolic acidosis resolved. Hypokalemia This was repleted per protocol. Resolved prior to discharge. Thrombocytopenia Remained stable throughout the stay. This is likely secondary to her liver disease. Vital Signs/Physical Exam: Temp Pulse Resp BP Pulse Ox 98.3 F 56 16 123/60 100 11/02/18 12:00 11/02/18 12:00 11/02/18 12:00 11/02/18 12:00 11/02/18 12:00 General: Alert, In no apparent distress, Oriented x3 HEENT: Atraumatic, PERRLA, EOMI Neck: Supple, JVD not distended Respiratory: Clear to auscultation bilaterally, Normal air movement Cardiovascular: Regular rate/rhythm, Normal S1 S2 Gastrointestinal: Normal bowel sounds, No tenderness Musculoskeletal: No tenderness Integumentary: No rashes Neurological: Normal speech, Normal tone, Normal affect Lymphatics: No axilla or inguinal lymphadenopathy Laboratory Data at Discharge: WBC 2.5 K/uL (4.3-10.9) L 11/02/18 03:59 Hgb 10.9 g/dL (12.0-15.0) L 11/02/18 03:59 Hct 31.4 % (36.0-45.0) L 11/02/18 03:59 Plt Count 38 K/uL (152-406) L* 11/02/18 03:59 PT 15.0 SECONDS (9.5-12.5) H 10/31/18 11:35 INR 1.28 10/31/18 11:35 Sodium 145 mmol/L (136-145) 11/02/18 03:59 Potassium 4.1 mmol/L (3.5-5.1) 11/02/18 12:18 BUN 14 mg/dL (7-18) 11/02/18 03:59 Creatinine 0.97 mg/dL (0.55-1.3) 11/02/18 03:59 Glucose 110 mg/dL (74-106) H 11/02/18 03:59 Magnesium 1.8 mg/dL (1.8-2.4) 11/02/18 03:59 Total Bilirubin 1.4 mg/dL (0.2-1.0) H 11/02/18 03:59 AST 28 U/L (15-37) 11/02/18 03:59 ALT 23 U/L (12-78) 11/02/18 03:59 Alkaline Phosphatase 52 U/L (45-117) 11/02/18 03:59 Lipase 936 U/L (73-393) H 10/31/18 11:35 Home Medications: Gabapentin 300 mg PO BID PRN 10/31/18 Lactulose 15 ml PO DAILY 10/31/18 Pantoprazole Sodium [Protonix] 1 tab PO DAILY 10/31/18 Pregabalin [Lyrica*] 75 mg PO TID 10/31/18 Propranolol HCl 10 mg PO BID 10/31/18 Ropinirole HCl [Requip*] 1 mg PO BEDTIME 10/31/18 Spironolactone [Aldactone] 50 mg PO DAILY 10/31/18 Topiramate 1 tab PO DAILY 10/31/18 clonazePAM [Clonazepam] 0.5 mg PO DAILY 10/31/18 Fluoxetine HCl [Prozac*] 20 mg PO DAILY 11/02/18 Patient Discharge Instructions: Please follow up with the primary care physician in 1 week. I would also recommend following up with a liver specialist, as you were doing previously. Please return to the ER for worsening symptoms Diet: Low sodium Activity: Ad waleska Time spent managing pt's care (in minutes): 55
== END 2018-11-02 14:38 | disposition home or self-care (01) | DRG 433 ==
LOC: ER 11:20 → ERHOLD 13:57 → 4TH 15:16
PROVIDERS: ADMIT Family Medicine; ATTEND Family Medicine
DX: K70.30 Alcoholic cirrhosis of liver without ascites (principal); E87.0 Hyperosmolality and hypernatremia; E87.2 Acidosis; E44.1 Mild protein-calorie malnutrition; K72.90 Hepatic failure, unspecified without coma; B18.2 Chronic viral hepatitis C; K21.9 Gastro-esophageal reflux disease without esophagitis; E87.6 Hypokalemia; E87.8 Other disorders of electrolyte and fluid balance, not elsewhere classified; D69.6 Thrombocytopenia, unspecified; N18.3 Chronic kidney disease, stage 3 (moderate)
CPT/HCPCS: 36415; 51702; 70450; 71045; 80048; 80053; 80076; 81003; 81015; 82140; 82550; 82962; 83690; 83735; 83880; 84132; 84439; 84443; 85025; 85610; 93005; 99285; J3475

== ENCOUNTER 2019-02-26 19:52 | Emergency (ER) | payer OTHER ==
--- NOTE | 2019-02-26 21:07 | RAD REPORT ---
EXAM DESCRIPTION: RAD - Wrist Right 3 View - 02/26/2019 8:48 pm CLINICAL HISTORY: Right wrist pain status post injury FINDINGS: Mildly displaced impacted fracture involves the distal radius. Avulsion fracture fracture ulnar styloid process No dislocation
--- NOTE | 2019-02-26 21:08 | RAD REPORT ---
EXAM DESCRIPTION: RAD - Forearm Right - 02/26/2019 8:48 pm CLINICAL HISTORY: Right arm pain status post fall FINDINGS: An impacted mildly displaced fracture distal radius Avulsion fracture ulnar styloid process
--- NOTE | 2019-02-26 21:14 | EDPHYS ---
Physician Documentation [facility] Name: Jose Manuel Richardson Age: 58 yrs Sex: Female : 1960 Arrival Date: 02/26/2019 Time: 19:55 Bed 27 Private MD: ED Physician Gregory Walker HPI: 02/26 21:07 This 58 yrs old Female presents to ER via EMS with complaints of Arm Injury. ps1 21:07 patient presenting with FOOSH injury of right wrist. Patient fell while playing with ps1 granddaughter. Has pain and swelling of right wrist. Event occurred yesterday. Pain rated as moderate to severe. Worse with movement. Patient BIBEMS 2/2 Pain. 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 . Historical: - Allergies: 19:58 cipro (IV, but can take PO); tl2 19:58 Flagyl; tl2 - Home Meds: 19:58 Lasix 40 mg Oral tab 1 tab 2 times per day [Active]; mirtazapine 45 mg Oral tab 1 tab tl2 once daily [Active]; omeprazole 40 mg Oral cpDR 1 cap once daily [Active]; propranolol 10 mg Oral tab 1 tab twice a day [Active]; - PMHx: 19:58 Cirrhosis; secondary to ETOH abuse; hypotension; liver failure, chronic; tl2 - PSHx: 19:58 Tonsillectomy; ; tl2 - Immunization history:: Adult Immunizations up to date. - Social history:: Smoking status: Patient uses tobacco products, smokes one pack cigarettes per day. - Ebola Screening: : No symptoms or risks identified at this time. ROS: 21:07 Constitutional: Negative for fever, chills, and weight loss, Eyes: Negative for injury, ps1 pain, redness, and discharge, ENT: Negative for injury, pain, and discharge, Cardiovascular: Negative for chest pain, palpitations, and edema, Respiratory: Negative for shortness of breath, cough, wheezing, and pleuritic chest pain, Abdomen/GI: Negative for abdominal pain, nausea, vomiting, diarrhea, and constipation, Skin: Negative for injury, rash, and discoloration, Neuro: Negative for headache, weakness, numbness, tingling, and seizure. 21:07 MS/extremity: Positive for decreased range of motion, pain, swelling, tenderness, of the right wrist. Exam: 21:07 Constitutional: This is a well developed, well nourished patient who is awake, alert, ps1 and in no acute distress. Head/Face: Normocephalic, atraumatic. Eyes: Pupils equal round and reactive to light, extra-ocular motions intact. Lids and lashes normal. Conjunctiva and sclera are non-icteric and not injected. Chest/axilla: Normal chest wall appearance and motion. Nontender with no deformity. No lesions are appreciated. Cardiovascular: Regular rate and rhythm. No gallops, murmurs, or rubs. Normal PMI, no JVD. No pulse deficits. Respiratory: Lungs have equal breath sounds bilaterally, clear to auscultation and percussion. No rales, rhonchi or wheezes noted. No increased work of breathing, no retractions or nasal flaring. Abdomen/GI: Soft, non-tender, with normal bowel sounds. No distension or tympany. No guarding or rebound. No evidence of tenderness throughout. Skin: Warm, dry with normal turgor. Normal color with no rashes, no lesions, and no evidence of cellulitis. Neuro: Awake and alert, GCS 15, oriented to person, place, time, and situation. Cranial nerves II-XII grossly intact. Sensory grossly intact. 21:07 Musculoskeletal/extremity: Extremities: grossly normal except: noted in the right wrist: decreased ROM, pain, tenderness, There is no evidence of decreased profusion. Has good cap refill. Vital Signs: 19:59 BP 90 / 65; Pulse 82; Resp 20; Temp 98.4(O); Pulse Ox 99% on R/A; Weight 57.15 kg; tl2 Height 5 ft. 9 in. (175.26 cm); Pain 7/10; 20:49 BP 109 / 51; Pulse 91; Resp 18; Pulse Ox 98% ; ea 21:55 BP 110 / 54; Pulse 80; Resp 18; Temp 98; Pulse Ox 99% on R/A; la1 19:59 Body Mass Index 18.61 (57.15 kg, 175.26 cm) tl2 Procedures: 21:11 Splinting: Splint applied to right wrist using Orthoglass splint, applied by nurse. ps1 Examined by me, post splint application: neurovascular intact, 2+ distal pulses palpable, brisk capillary refill noted, Patient tolerated well. MDM: 20:41 Patient medically screened. ps1 02/26 20:02 Order name: Forearm Right XRAY; Complete Time: 21:32 tl2 02/26 20:02 Order name: Wrist Right 3 View XRAY; Complete Time: 21:32 tl2 02/26 21:25 Order name: Ulnar Gutter splint; Complete Time: 22:01 ps1 Administered Medications: 21:48 Drug: [place] (7.5 mg-325 mg) 1 tabs Route: PO; ea 22:03 Follow up: Response: No adverse reaction; Pain is decreased ea Disposition: 02/26/19 21:13 Discharged to Home. Impression: Closed distal radius fracture, Ulnar styloid fracture. - Condition is Stable. - Discharge Instructions: Forearm Fracture, [id number]-[id number]. - Prescriptions for Zofran 4 mg Oral Tablet - take 1 tablet by ORAL route every 12 hours As needed; 20 tablet. acetaminophen- codeine 120-12 mg/5 mL Oral Suspension - take 10 milliliters by ORAL route every 6 hours As needed; 20 milliliter. - Medication Reconciliation Form, Thank You Letter, Antibiotic Education, Prescription Opioid Use form. - Follow up: Emergency Department; When: As needed; Reason: Worsening of condition. Follow up: Mushtaq Rodríguez MD; When: As needed; Reason: Further diagnostic work-up, Recheck today's complaints, Continuance of care, Re-evaluation by your physician. - Problem is new. - Symptoms are unchanged. Signatures: Dispatcher [employer] EDSC Bobbi Desai RN RN fc Knox, Taylor, RN RN [facility] Fina Francisco RN RN ea Singer, Phillip, MD MD ps1 Corrections: (The following items were deleted from the chart) 19:59 19:58 PSHx: Cholecystectomy; tl2 tl2 22:40 21:13 02/26/2019 21:13 Discharged to Home. Impression: Closed distal radius fracture; fc Ulnar styloid fracture. Condition is Stable. Forms are Medication Reconciliation Form, Thank You Letter, Antibiotic Education, Prescription Opioid Use. Follow up: Emergency Department; When: As needed; Reason: Worsening of condition. Follow up: Mushtaq Rodríguez; When: As needed; Reason: Further diagnostic work-up, Recheck today's complaints, Continuance of care, Re-evaluation by your physician. Problem is new. Symptoms are unchanged. ps1
--- NOTE | 2019-02-26 21:14 | ER ---
Nurse's Notes [facility] Name: Jose Manuel Richardson Age: 58 yrs Sex: Female : 1960 Arrival Date: 02/26/2019 Time: 19:55 Bed 27 Private MD: Diagnosis: Closed distal radius fracture;Ulnar styloid fracture Presentation: 02/26 19:55 Presenting complaint: Patient states: Fell on right arm last night around 10 pm. tl2 Swollen from forearm down to hand, pt is able to move fingers slightly. Transition of care: patient was not received from another setting of care. Onset of symptoms was February 25, 2019 at 22:00. Risk Assessment: Do you want to hurt yourself or someone else? Patient reports no desire to harm self or others. Initial Sepsis Screen: Does the patient meet any 2 criteria? No. Patient's initial sepsis screen is negative. Does the patient have a suspected source of infection? No. Patient's initial sepsis screen is negative. Care prior to arrival: None. 19:55 Method Of Arrival: EMS: [facility] tl2 19:55 Acuity: JEANA 3 tl2 Triage Assessment: 19:59 Musculoskeletal: Circulation, motion, and sensation intact. Range of motion: limited in tl2 right wrist Swelling present in dorsal aspect of right forearm, right wrist and right hand. Historical: - Allergies: 19:58 cipro (IV, but can take PO); tl2 19:58 Flagyl; tl2 - Home Meds: 19:58 Lasix 40 mg Oral tab 1 tab 2 times per day [Active]; mirtazapine 45 mg Oral tab 1 tab tl2 once daily [Active]; omeprazole 40 mg Oral cpDR 1 cap once daily [Active]; propranolol 10 mg Oral tab 1 tab twice a day [Active]; - PMHx: 19:58 Cirrhosis; secondary to ETOH abuse; hypotension; liver failure, chronic; tl2 - PSHx: 19:58 Tonsillectomy; ; tl2 - Immunization history:: Adult Immunizations up to date. - Social history:: Smoking status: Patient uses tobacco products, smokes one pack cigarettes per day. - Ebola Screening: : No symptoms or risks identified at this time. Screenin:00 Abuse screen: Denies threats or abuse. Nutritional screening: No deficits noted. tl2 Tuberculosis screening: No symptoms or risk factors identified. Fall Risk None identified. Assessment: 20:48 General: Appears uncomfortable, Behavior is calm, cooperative, appropriate for age. ea Pain: Complains of pain in right arm. Neuro: Level of Consciousness is awake, alert, obeys commands, Oriented to person, place, time, situation. Cardiovascular: Patient's skin is warm and dry. Respiratory: Airway is patent Respiratory effort is even, unlabored, Respiratory pattern is regular, symmetrical. Musculoskeletal: Swelling present in right arm and right hand and right wrist. 21:50 Reassessment: Patient and/or family updated on plan of care and expected duration. Pain la1 level reassessed. Patient is alert, oriented x 3, equal unlabored respirations, skin warm/dry/pink. 22:10 Reassessment: Patient and/or family updated on plan of care and expected duration. Pain la1 level reassessed. Patient is alert, oriented x 3, equal unlabored respirations, skin warm/dry/pink. Discharge instruction given to patient, verbalized the understanding of instruction. 22:33 Reassessment: Dr Walker checked splint and ok'd discharge. fc Vital Signs: 19:59 BP 90 / 65; Pulse 82; Resp 20; Temp 98.4(O); Pulse Ox 99% on R/A; Weight 57.15 kg; tl2 Height 5 ft. 9 in. (175.26 cm); Pain 7/10; 20:49 BP 109 / 51; Pulse 91; Resp 18; Pulse Ox 98% ; ea 21:55 BP 110 / 54; Pulse 80; Resp 18; Temp 98; Pulse Ox 99% on R/A; la1 19:59 Body Mass Index 18.61 (57.15 kg, 175.26 cm) tl2 ED Course: 19:55 Patient arrived in ED. tl2 19:57 Triage completed. tl2 19:59 Arm band placed on left wrist. tl2 20:00 Patient has correct armband on for positive identification. tl2 20:36 Gregory Walker MD is Attending Physician. ps1 20:48 Fina Francisco, MEHNAZ is Primary Nurse. ea 20:48 Forearm Right XRAY In Process Unspecified. EDMS 20:49 Wrist Right 3 View XRAY In Process Unspecified. EDMS 21:12 Mushtaq Rodríguez MD is Referral Physician. ps1 22:06 Patient did not have IV access during this emergency room visit. ea 22:09 Orthoglass splint: Ulnar gutter/Boxer splint applied on ulner gutter splint applied. ag4 22:10 No provider procedures requiring assistance completed. la1 Administered Medications: 21:48 Drug: [place] (7.5 mg-325 mg) 1 tabs Route: PO; ea 22:03 Follow up: Response: No adverse reaction; Pain is decreased ea Outcome: 21:13 Discharge ordered by MD. ps1 22:07 Discharge instructions given to patient, Instructed on discharge instructions, follow ea up and referral plans. medication usage, Demonstrated understanding of instructions, follow-up care, medications, Prescriptions given X 2. 22:10 Condition: improved la1 22:33 Discharged to home ambulatory. ea 22:40 Patient left the ED. fc Signatures: Dispatcher [employer] EDMS Bobbi Desai RN RN Julian Ny RN RN la1 Debra Null RN RN tl2 Fina Francisco RN RN ea Singer, Phillip, MD MD ps1 Truong Chaudhari ag4 Corrections: (The following items were deleted from the chart) 19:59 19:58 PSHx: Cholecystectomy; tl2 tl2
[2019-02-26] MEDS ORDERED: HYDROCODONE/APAP 7.5/325 MG TAB ONE (21:54)
[2019-02-27 00:59] VITALS: BP 110/54; TEMP 98; O2SAT 99
== END 2019-02-26 22:40 | disposition home or self-care (01) ==
LOC: ER 19:52
PROC: 2W3CX1Z Immobilization of Right Lower Arm using Splint (ICD-10-PCS; principal; 2019-02-26)
DX: S52.501A Unspecified fracture of the lower end of right radius, initial encounter for closed fracture (principal); S52.611A Displaced fracture of right ulna styloid process, initial encounter for closed fracture; W18.30XA Fall on same level, unspecified, initial encounter; Y93.89 Activity, other specified; Y92.9 Unspecified place or not applicable; Z88.1 Allergy status to other antibiotic agents; K72.90 Hepatic failure, unspecified without coma; I95.9 Hypotension, unspecified; F17.210 Nicotine dependence, cigarettes, uncomplicated
CPT/HCPCS: 99284

== ENCOUNTER 2019-06-30 13:21 | Emergency (ER) | payer OTHER ==
[2019-06-30] MEDS ORDERED: NA CHLORIDE 0.9% 500 ML ONE (14:45)
[2019-06-30] MEDS ORDERED: ALBUMIN HUMAN 25% 50 ML IV ONE (14:45)
[2019-06-30 14:46] LABS: Protime INR 1.11
[2019-06-30 14:59] LABS: Absolute Lymphocytes (CBC) 1.3 K/uL (0.7-4.9); Basophils % 0.8 % (0-1.3); Hematocrit 25.4 % (36.0-45.0); MPV 9.1 fL (7.6-11.3); RBC Red Blood Cell Count 3.62 M/uL (3.86-4.86)
[2019-06-30 15:06] LABS: ALT/SGPT 23 U/L (12-78); AST/SGOT 28 U/L (15-37); Albumin 3.8 g/dL (3.4-5.0); Alkaline Phosphatase 72 U/L (45-117); BUN Blood Urea Nitrogen 22 mg/dL (7-18); Bicarbonate 24 mmol/L (21-32); Bilirubin Direct 0.3 mg/dL (0-0.2); Creatine Phosphokinase 233 U/L (26-192); Glucose Level 89 mg/dL (74-106); Lipase 1442 U/L (73-393); Potassium 4.1 mmol/L (3.5-5.1); Protein, Total 7.3 g/dL (6.4-8.2); Sodium Level 137 mmol/L (136-145); Troponin (Emerg Dept Use Only) < 0.02 ng/mL (0.0-0.045)
--- NOTE | 2019-06-30 15:06 | RAD REPORT ---
EXAM DESCRIPTION: RAD - Chest Single View - 06/30/2019 2:33 pm CLINICAL HISTORY: Shortness of breath, altered mental status COMPARISON: November 01 TECHNIQUE: AP portable chest image was obtained 1430 hours . FINDINGS: Lungs are clear. Bilateral breast implants are in place. Heart and vasculature are normal. No measurable pleural effusion and no pneumothorax. No acute bony abnormality seen. No acute aortic findings suspected. IMPRESSION: No acute cardiopulmonary process. No significant change from comparison.
[2019-06-30 15:07] LABS: Urine Blood NEGATIVE (NEG); Urine Glucose NEGATIVE (NEG); Urine Protein NEGATIVE (NEG); Urine Specific Gravity 1.015 (1.005-1.030); Urine pH 6.5 (5.0-7.0)
[2019-06-30 15:40] LABS: Anisocytosis 1+; Blood Morphology Comment NOTED (NOT SEEN); Platelet Estimate DECR; Urine White Blood Cell Casts OK
[2019-06-30 15:41] LABS: Ovalocytes 1+
[2019-06-30] MEDS ORDERED: LACTULOSE 20 GM/30 ML UCUP ONE (15:48)
[2019-06-30 15:50] LABS: Urine Bacteria <20 /HPF (<20); Urine Culture Reflex Order NOT NEEDED; Urine RBC <5 /HPF (NONE SEEN)
--- NOTE | 2019-06-30 16:31 | EKG ---
Test Date: 2019-06-30 Test Time: 14:49:46 Educational Coordinator: CHRISTINA MEASUREMENT RESULTS: Intervals: Rate: 56 AL: 164 QRSD: 90 QT: 496 QTc: 478 Bolton: P: 66 AL: 164 QRS: 77 T: 75 INTERPRETIVE STATEMENTS: Sinus bradycardia Otherwise normal ECG Compared to ECG 10/31/2018 12:27:36 No significant changes Electronically Signed On 06-30-19 16:31:18 CDT by Ernst Fall
--- NOTE | 2019-06-30 16:32 | RAD REPORT ---
EXAM DESCRIPTION: CT - Abdomen Pelvis Wo Contrast - 06/30/2019 4:19 pm CLINICAL HISTORY: ABD PAIN Abdominal pain, abnormal liver function, cirrhosis, high ammonia levels, liver failure COMPARISON: Abdomen Pelvis Wo Contrast dated 04/19/2017; TECHNIQUE: Axial [address] imaging of the abdomen and pelvis was performed without IV contrast. No IV contrast was given because of allergy, abnormal renal function, patient refusal or physician re quest. No oral contrast. All CT scans are performed using dose optimization technique as appropriate and may include automated exposure control or mA/KV adjustment according to patient size. FINDINGS: No suspicious findings in the lung bases. Cirrhotic liver changes are again noted. No new focal lesion seen on noncontrast imaging. Tips shunt tube is in place. Splenomegaly matches comparison. No acute pancreatic process. Multiple gallstones a gain noted. No biliary tree dilatation. Moderate severity hydronephrosis is present of the right collecting system down to the UVJ level. No obstructing calculus. This dilatation pattern matches the 2017 study. 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 No left-sided hydronephrosis. No significant adrenal finding. Isodense renal masses and pyeloneph ritis cannot be excluded in the absence of IV contrast. The urinary bladder is without significant fi nding. Uterus and ovaries show no suspicious findings. Gastric cintron are prominent. This is similar to comparison. No dilated large or small bowel. Moderate ly large stool volume fills the entire colon. No free air, free fluid or inflammatory stranding. No mass or bulky lymphadenopathy. No omental thick ening. Approximately 5 centimeter supraumbilical hernia is present. This contains only fat. Neck is 1 1 mm. No acute component suspected. No suspicious bony findings. Dense vascular calcifications are present. Left common iliac stenosis is suspected. IMPRESSION: No bowel obstruction, free air or surgically emergent finding. The liver cirrhosis and splenomegaly findings match prior imaging. Multi stone cholelithiasis without acute gallbladder or biliary tree finding. Moderate severity hydronephrosis on the right stable back to 2017. 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 Full assessment is limited is the absence of IV contrast.
--- NOTE | 2019-06-30 18:15 | ER ---
Nurse's Notes [facility] Name: Jose Manuel Richardson Age: 58 yrs Sex: Female : 1960 Arrival Date: 06/30/2019 Time: 13:22 Bed 6 Private MD: Diagnosis: Encephalopathy, unspecified;Acute pancreatitis Presentation: 06/30 13:39 Presenting complaint: Child states: Shaking, falling, confused, ammonia level might be ch high. I had to leave her because I have a sick kid, but I know she needs to be checked out. my phone number is on file, please call me with results and plan of care. Transition of care: patient was not received from another setting of care. Onset of symptoms was June 29, 2019 at 07:00. Risk Assessment: Do you want to hurt yourself or someone else? Patient reports no desire to harm self or others. Initial Sepsis Screen: Does the patient meet any 2 criteria? No. Patient's initial sepsis screen is negative. Does the patient have a suspected source of infection? No. Patient's initial sepsis screen is negative. Care prior to arrival: None. 13:39 Method Of Arrival: Wheelchair 13:39 Acuity: JEANA 2 ch Triage Assessment: 13:41 General: Appears in no apparent distress. comfortable, Behavior is listless, quiet. Pain: Denies pain. Historical: - Allergies: 13:41 cipro (IV, but can take PO); ch 13:41 Flagyl; - Home Meds: 13:41 Lasix 40 mg Oral tab 1 tab 2 times per day [Active]; mirtazapine 45 mg Oral tab 1 tab ch once daily [Active]; omeprazole 40 mg Oral cpDR 1 cap once daily [Active]; propranolol 10 mg Oral tab 1 tab twice a day [Active]; - PMHx: 13:41 Cirrhosis; secondary to ETOH abuse; hypotension; liver failure, chronic; - PSHx: 13:41 Tonsillectomy; ; ch - Immunization history:: Adult Immunizations up to date. - Social history:: Smoking status: Patient/guardian denies using tobacco. - Ebola Screening: : Patient negative for fever greater than or equal to 101.5 degrees Fahrenheit, and additional compatible Ebola Virus Disease symptoms Patient denies exposure to infectious person Patient denies travel to an Ebola-affected area in the 21 days before illness onset No symptoms or risks identified at this time. Screenin:50 Abuse screen: Denies threats or abuse. Nutritional screening: No deficits noted. aa5 Tuberculosis screening: No symptoms or risk factors identified. Fall Risk None identified. Assessment: 13:50 General: Appears comfortable, Behavior is drowsy. Pain: Denies pain. Neuro: Level of aa5 Consciousness is alert, obeys commands, Drowsy . Oriented to person, place, time, situation, Housing [employer] Judge are equal bilaterally Moves all extremities. Speech is normal, Facial symmetry appears normal, Pupils are PERRLA, Reports Confusion and general weakness . Cardiovascular: Heart tones S1 S2 present Rhythm is regular. Respiratory: Airway is patent Respiratory effort is even, unlabored, Respiratory pattern is regular, symmetrical. GI: Abdomen is round Bowel sounds present X 4 quads. Abd is soft and non tender X 4 quads. : Denies burning with urination. EENT: No signs and/or symptoms were reported regarding the EENT system. Derm: Skin is dry, Skin is yellow, Skin temperature is warm. Musculoskeletal: Range of motion: intact in all extremities. 14:30 Reassessment: Pt resting in bed with eyes closed, pt is drowsy but easy to arouse to aa5 verbal stimuli. Equal unlabored respirations noted. . 14:45 Reassessment: Pt assisted with bedpan, pt voided once. . aa5 15:30 Reassessment: Pt assisted with bedpan at this time, pt voided. . aa5 15:30 Neuro: Level of Consciousness is awake, alert, obeys commands, Oriented to person, aa5 place, time, situation. Respiratory: Airway is patent Respiratory effort is even, unlabored, Respiratory pattern is regular, symmetrical. Derm: Skin is dry, Skin is yellow, Skin temperature is warm. 16:00 Reassessment: Pt assisted with bedpan at this time, pt voided once. . aa5 17:00 Reassessment: Pt awake, lying down in bed, equal unlabored respirations. Pt assisted aa5 with bedpan, pt voided once. . 18:00 Reassessment: Pt lying down in bed resting with eyes closed. Equal and unlabored aa5 respirations. . 18:30 Reassessment: Report given to [facility], awaiting EMS for transfer. . aa5 19:10 General: Appears in no apparent distress. comfortable, Behavior is calm, cooperative, rr5 drowsy, awaiting for EMS.. Pain: Denies pain. Neuro: Level of Consciousness is awake, alert, obeys commands, Oriented to person, place, time, situation, Speech is normal, Facial symmetry appears normal, Pupils are PERRLA. Cardiovascular: Capillary refill < 3 seconds Patient's skin is warm and dry. Respiratory: Airway is patent Respiratory effort is even, unlabored, Respiratory pattern is regular, symmetrical. GI: Abdomen is round Bowel sounds present X 4 quads. Abd is soft and non tender. : Denies burning with urination. EENT: No signs and/or symptoms were reported regarding the EENT system. Derm: Skin is intact, Skin temperature is warm. Musculoskeletal: Circulation, motion, and sensation intact. Capillary refill < 3 seconds. 20:19 Reassessment: Patient appears in no apparent distress at this time. Patient and/or rr5 family updated on plan of care and expected duration. Pain level reassessed. Patient is alert, oriented x 3, equal unlabored respirations, skin warm/dry/pink. report given to [facility] vitally stable, breathing spontaneously at room air. no complaints made. Patient denies pain at this time. Vital Signs: 13:41 BP 80 / 52; Pulse 64; Resp 16; Temp 97; Pulse Ox 95% on R/A; Weight 61.69 kg; Height 5 ch ft. 5 in. (165.10 cm); Pain 0/10; 14:00 BP 96 / 54; Pulse 59; Resp 16 S; Pulse Ox 100% on R/A; aa5 14:30 BP 101 / 60; Pulse 61; Resp 18 S; Pulse Ox 100% on R/A; aa5 14:45 BP 103 / 60; Pulse 65; Resp 16 S; Pulse Ox 100% on R/A; aa5 15:30 BP 94 / 73; Pulse 63; Resp 16 S; Pulse Ox 100% on R/A; aa5 16:00 BP 122 / 60; Pulse 55; Resp 16 S; Pulse Ox 98% on R/A; aa5 17:00 BP 117 / 62; Pulse 60; Resp 18 S; Pulse Ox 100% ; aa5 19:10 BP 105 / 62; Pulse 59; Resp 17; Temp 97.5; Pulse Ox 99% ; Pain 0/10; rr5 20:05 BP 111 / 75; Pulse 75; Resp 17; Pulse Ox 98% ; rr5 13:41 Body Mass Index 22.63 (61.69 kg, 165.10 cm) ED Course: 13:22 Patient arrived in ED. as 13:40 Triage completed. ch 13:41 Arm band placed on left wrist. Patient placed in an exam room. 13:48 Elias Ayon MD is Attending Physician. gs 13:50 Patient has correct armband on for positive identification. Placed in gown. Bed in low aa5 position. Call light in reach. Side rails up X2. foreign exchange clerk on. Pulse ox on. NIBP on. 13:52 Suzanne Reynoso, RN is Primary Nurse. aa5 14:00 Missed attempt(s): 22 gauge in right forearm. Bleeding controlled, band aid applied, aa5 catheter tip intact. 14:02 Missed attempt(s): 22 gauge in left forearm. Bleeding controlled, band aid applied, aa5 catheter tip intact. 14:17 Missed attempt(s): 24 gauge in right forearm. Bleeding controlled, band aid applied, hb catheter tip intact. 14:20 Missed attempt(s): 22 gauge in right forearm. Bleeding controlled, band aid applied, sv catheter tip intact. 14:25 Inserted saline lock: 22 gauge in right wrist, using aseptic technique. ,using aseptic sv technique. diffusics Blood collected. Flushed right with 5 ml normal saline. 14:30 Chest Single View XRAY In Process Unspecified. EDMS 14:53 EKG done, by demonstrator sewing techniques. reviewed by Elias Ayon MD. 3 16:22 CT Abd/Pelvis - Without Contrast In Process Unspecified. EDMS 17:33 No provider procedures requiring assistance completed. aa5 17:34 \T\1532 initiated transfer to [facility]. spoke with annie mckeon. 17:35 \T\1650 doc to doc was done with dr blanchard and dr ayon. 17:36 \T\1707 administrative approval was given by annie mckeon . patient is going to [facility] room 910. 18:15 CT Head Brain wo Cont In Process Unspecified. EDMS 18:39 Diet: pt was given jello and chicken broth.. bd 18:59 Report given to MEHNAZ Harden and Guanako RN. aa5 20:19 Patient transferred, IV remains in place. intact, No redness/swelling at site. rr5 Administered Medications: 14:52 Drug: Albumin 12.5 grams Volume: 50 ml; Route: IVPB; Site: left wrist; hb 14:52 Drug: NS 0.9% 500 ml Route: IV; Rate: bolus; Site: left wrist; hb 15:53 Drug: Lactulose 30 grams Volume: 45 ml; Route: PO; aa5 17:00 Follow up: Response: No adverse reaction aa5 Outcome: 18:14 ER care complete, transfer ordered by . 20:18 Transferred by ground EMS to [facility], [facility], Transfer form completed. rr5 20:18 Condition: stable 20:18 Instructed on the need for transfer. 20:21 Patient left the ED. rr5 Signatures: Dispatcher [employer] EDMS Marissa Ashby Christina, RN RN ch Verde, Stephanie, RN RN sv Martinez, Amelia as Calderon, Audri RN RN aa5 Katerin Paniagua RN RN hb Starr, Gregory, MD MD gs Montes, Shakira [facility] Guanako Valladares, RN RN rr5 Sue Choudhury gm Corrections: (The following items were deleted from the chart) 13:42 13:41 BP 80 / 52; Pulse 64bpm; Resp 16bpm; Pulse Ox 65% RA; Temp 97F; 68.04 kg; Height ch 5 ft. 5 in.; BMI: 24.9; Pain 0/10; ch 16:05 13:41 BP 80 / 52; Pulse 64bpm; Resp 16bpm; Pulse Ox 65% RA; Temp 97F; 61.69 kg; Height ch 5 ft. 5 in.; BMI: 22.6; Pain 0/10; ch 17:53 13:50 : No signs and/or symptoms were reported regarding the genitourinary system. aa5aa5
--- NOTE | 2019-06-30 18:15 | EDPHYS ---
Physician Documentation [facility] Name: Jose Manuel Richardson Age: 58 yrs Sex: Female : 1960 Arrival Date: 06/30/2019 Time: 13:22 Bed 6 Private MD: ED Physician Elias Groves HPI: 06/30 18:06 This 58 yrs old Female presents to ER via Wheelchair with complaints of gs Abnormal Lab Results. 18:06 The patient presents with decreased mental status. Onset: The symptoms/episode gs began/occurred 3 day(s) ago, and became worse. Possible causes: liver disease. Associated signs and symptoms: Pertinent negatives: fever. Current symptoms: In the emergency department the patient's symptoms are unchanged from the initial presentation. The patient has experienced similar episodes in the past, several times. Historical: - Allergies: 13:41 cipro (IV, but can take PO); ch 13:41 Flagyl; ch - Home Meds: 13:41 Lasix 40 mg Oral tab 1 tab 2 times per day [Active]; mirtazapine 45 mg Oral tab 1 tab ch once daily [Active]; omeprazole 40 mg Oral cpDR 1 cap once daily [Active]; propranolol 10 mg Oral tab 1 tab twice a day [Active]; - PMHx: 13:41 Cirrhosis; secondary to ETOH abuse; hypotension; liver failure, chronic; ch - PSHx: 13:41 Tonsillectomy; ; ch - Immunization history:: Adult Immunizations up to date. - Social history:: Smoking status: Patient/guardian denies using tobacco. - Ebola Screening: : Patient negative for fever greater than or equal to 101.5 degrees Fahrenheit, and additional compatible Ebola Virus Disease symptoms Patient denies exposure to infectious person Patient denies travel to an Ebola-affected area in the 21 days before illness onset No symptoms or risks identified at this time. ROS: 18:06 All other systems are negative. gs Exam: 18:06 Head/Face: Normocephalic, atraumatic. Eyes: Pupils equal round and reactive to light, gs extra-ocular motions intact. Lids and lashes normal. Conjunctiva and sclera are non-icteric and not injected. Cornea within normal limits. Periorbital areas with no swelling, redness, or edema. ENT: Nares patent. No nasal discharge, no septal abnormalities noted. Tympanic membranes are normal and external auditory canals are clear. Oropharynx with no redness, swelling, or masses, exudates, or evidence of obstruction, uvula midline. Mucous membranes moist. Neck: Trachea midline, no thyromegaly or masses palpated, and no cervical lymphadenopathy. Supple, full range of motion without nuchal rigidity, or vertebral point tenderness. No Meningismus. Chest/axilla: Normal chest wall appearance and motion. Nontender with no deformity. No lesions are appreciated. Cardiovascular: Regular rate and rhythm with a normal S1 and S2. No gallops, murmurs, or rubs. Normal PMI, no JVD. No pulse deficits. Respiratory: Lungs have equal breath sounds bilaterally, clear to auscultation and percussion. No rales, rhonchi or wheezes noted. No increased work of breathing, no retractions or nasal flaring. 18:06 Back: No spinal tenderness. No costovertebral tenderness. Full range of motion. MS/ Extremity: Pulses equal, no cyanosis. Neurovascular intact. Full, normal range of motion. Neuro: Awake and alert, GCS 15, oriented to person, place, time, and situation. Cranial nerves II-XII grossly intact. Motor strength 5/5 in all extremities. Sensory grossly intact. Cerebellar exam normal. Normal gait. 18:06 Constitutional: The patient appears awake, restless. 18:06 Abdomen/GI: Inspection: distension, is not seen, Palpation: mild abdominal tenderness, in all quadrants, rebound tenderness, is not appreciated. 18:06 Skin: Appearance: Color: jaundiced. Vital Signs: 13:41 BP 80 / 52; Pulse 64; Resp 16; Temp 97; Pulse Ox 95% on R/A; Weight 61.69 kg; Height 5 ch ft. 5 in. (165.10 cm); Pain 0/10; 14:00 BP 96 / 54; Pulse 59; Resp 16 S; Pulse Ox 100% on R/A; aa5 14:30 BP 101 / 60; Pulse 61; Resp 18 S; Pulse Ox 100% on R/A; aa5 14:45 BP 103 / 60; Pulse 65; Resp 16 S; Pulse Ox 100% on R/A; aa5 15:30 BP 94 / 73; Pulse 63; Resp 16 S; Pulse Ox 100% on R/A; aa5 16:00 BP 122 / 60; Pulse 55; Resp 16 S; Pulse Ox 98% on R/A; aa5 17:00 BP 117 / 62; Pulse 60; Resp 18 S; Pulse Ox 100% ; aa5 19:10 BP 105 / 62; Pulse 59; Resp 17; Temp 97.5; Pulse Ox 99% ; Pain 0/10; rr5 20:05 BP 111 / 75; Pulse 75; Resp 17; Pulse Ox 98% ; rr5 13:41 Body Mass Index 22.63 (61.69 kg, 165.10 cm) ch MDM: 13:56 Patient medically screened. 18:06 Differential Diagnosis: electrolyte abnormality, alcohol intoxication, volume gs depletion, hepatic failure, hepatic encephalopathy. Data reviewed: vital signs, nurses notes, lab test result(s), radiologic studies. Response to treatment: the patient's symptoms have markedly improved after treatment, and as a result, I will transfer. 18:06 Counseling: I had a detailed discussion with the patient and/or guardian regarding: the historical points, exam findings, and any diagnostic results supporting the discharge/admit diagnosis, the need to transfer to another facility, for higher level of care, [facility] does not immediately have the required specialist. 06/30 13:57 Order name: Basic Metabolic Panel 06/30 13:57 Order name: Blood Culture Adult (2) 06/30 13:57 Order name: CBC with Diff; Complete Time: 15:46 06/30 13:57 Order name: CPK; Complete Time: 15:16 06/30 13:57 Order name: Lactate; Complete Time: 15:16 06/30 13:57 Order name: LFT's; Complete Time: 15:16 06/30 13:57 Order name: Lipase; Complete Time: 15:16 06/30 13:57 Order name: Procalcitonin; Complete Time: 15:46 06/30 13:57 Order name: Protime (+inr); Complete Time: 15:16 06/30 13:57 Order name: Ptt, Activated; Complete Time: 15:16 06/30 13:57 Order name: Troponin (emerg Dept Use Only); Complete Time: 15:16 06/30 13:57 Order name: Urine Microscopic Only; Complete Time: 16:41 06/30 13:57 Order name: AMMONIA; Complete Time: 15:16 gs 06/30 13:58 Order name: Basic Metabolic Panel; Complete Time: 15:16 EDMS 06/30 13:57 Order name: Chest Single View XRAY; Complete Time: 15:16 gs 06/30 13:57 Order name: Accucheck; Complete Time: 14:47 gs 06/30 13:57 Order name: Cardiac monitoring; Complete Time: 14:44 gs 06/30 13:57 Order name: EKG - Nurse/Tech; Complete Time: 14:47 gs 06/30 13:57 Order name: IV Saline Lock - Large Bore; Complete Time: 14:44 gs 06/30 14:53 Order name: EKG; Complete Time: 14:53 gm 06/30 14:55 Order name: NOVA; Complete Time: 15:16 dh3 06/30 14:55 Order name: Urine Dipstick--Ancillary (enter results); Complete Time: 15:16 gm 06/30 15:17 Order name: ETOH Level; Complete Time: 18:15 gs 06/30 15:40 Order name: CBC Smear Scan; Complete Time: 15:46 EDMS 06/30 15:49 Order name: CT Abd/Pelvis - Without Contrast; Complete Time: 16:41 gs 06/30 17:53 Order name: CT Head Brain wo Cont; Complete Time: 18:40 gs 06/30 13:57 Order name: Labs collected and sent; Complete Time: 14:44 gs 06/30 13:57 Order name: O2 Per Protocol; Complete Time: 14:43 gs 06/30 13:57 Order name: O2 Sat Monitoring; Complete Time: 14:43 gs 06/30 13:57 Order name: Urine Dipstick-Ancillary (obtain specimen); Complete Time: 14:54 gs Administered Medications: 14:52 Drug: Albumin 12.5 grams Volume: 50 ml; Route: IVPB; Site: left wrist; hb 14:52 Drug: NS 0.9% 500 ml Route: IV; Rate: bolus; Site: left wrist; hb 15:53 Drug: Lactulose 30 grams Volume: 45 ml; Route: PO; aa5 17:00 Follow up: Response: No adverse reaction aa5 Disposition: 06/30/19 18:[address] [facility]. Diagnosis are Encephalopathy, unspecified, Acute pancreatitis. - Reason for transfer: Higher level of care. - Accepting physician is lo. - Condition is Stable. - Problem is an acute exacerbation. - Symptoms have improved. Signatures: Dispatcher [employer] Juany Harrell, RN RN Suzanne Reynoso RN RN aa5 Katerin Paniagua RN RN Elias Groves MD MD gs Roque, Raymond, RN RN rr5 Corrections: (The following items were deleted from the chart) 20:21 18:14 06/30/2019 18:[address] [facility]. Diagnosis is rr5 Encephalopathy, unspecified; Acute pancreatitis. Reason for transfer: Higher level of care. Accepting physician is lo. Condition is Stable. Problem is an acute exacerbation. Symptoms have improved. gs
--- NOTE | 2019-06-30 18:34 | RAD REPORT ---
EXAM DESCRIPTION: CT - Head Brain Wo Cont - 06/30/2019 6:15 pm CLINICAL HISTORY: Transient alteration of awareness COMPARISON: October 2018 TECHNIQUE: Axial 5 mm thick images of the head were obtained without IV contrast. All CT scans are performed using dose optimization technique as appropriate and may include automated exposure control or mA/KV adjustment according to patient size. FINDINGS: No intracranial hemorrhage, mass, edema or shift of mid-line structures. No acute infarcti on changes seen. No abnormal extra-axial fluid collections. Minimal volume loss changes are present. Ventricles are normal. Physiologic calcifications are present. Mastoid air cells and visualized portions of the paranasal sinuses are clear. No acute bony findings. IMPRESSION: Negative non-contrast CT head examination for acute or significant finding. No significant change from October.
[2019-06-30 20:55] VITALS: TEMP 97.5
[2019-06-30 20:56] VITALS: BP 111/75; O2SAT 98
== END 2019-06-30 20:21 | disposition short-term general hospital (02) ==
LOC: ER 13:21
DX: G93.40 Encephalopathy, unspecified (principal); K85.90 Acute pancreatitis without necrosis or infection, unspecified; I95.9 Hypotension, unspecified; K72.10 Chronic hepatic failure without coma; K70.30 Alcoholic cirrhosis of liver without ascites; Z88.1 Allergy status to other antibiotic agents; Z88.8 Allergy status to other drugs, medicaments and biological substances
CPT/HCPCS: 93005; 87040 ×2; 85025; 80048; 36415; 80320; 82140; 82550; 85610; 82962; 80076; 83605; 85730; 84484; 83690; 84145; 70450; 74176; 71045; 96374; 99285; P9047; J7040; 81003; 81015

== ENCOUNTER 2019-07-04 15:36 | Inpatient (IN) | payer OTHER ==
[2019-07-04 16:10] LABS: Absolute Lymphocytes (CBC) 0.7 K/uL (0.7-4.9); Basophils % 0.7 % (0-1.3); Hematocrit 23.6 % (36.0-45.0); Lymphocytes % 42.4 % (15.3-44.8); MPV 9.3 fL (7.6-11.3); RBC Red Blood Cell Count 3.28 M/uL (3.86-4.86)
[2019-07-04 16:31] LABS: Albumin 3.5 g/dL (3.4-5.0); Bilirubin Direct 0.3 mg/dL (0-0.2); Bilirubin Total 0.8 mg/dL (0.2-1.0); Potassium 3.6 mmol/L (3.5-5.1); Protein, Total 6.8 g/dL (6.4-8.2)
[2019-07-04 16:35] LABS: Blood Morphology Comment NOT SEEN (NOT SEEN); Platelet Estimate DECR; Platelets, Giant PRESENT; Urine White Blood Cell Casts OK
[2019-07-04 16:40] LABS: Protime INR 1.19
[2019-07-04] MEDS ORDERED: NA CHLORIDE 0.9% 1,000 ML ONE (16:55)
[2019-07-04] MEDS ORDERED: LACTULOSE 20 GM/30 ML UCUP ONE (16:55)
--- NOTE | 2019-07-04 17:01 | ER ---
Nurse's Notes [facility] Name: Jose Manuel Richardson Age: 58 yrs Sex: Female : 1960 Arrival Date: 07/04/2019 Time: 15:38 Bed 6 Private MD: Diagnosis: Hepatic failure, unspecified without coma;Hepatic encephalopathy Presentation: 07/04 15:38 Presenting complaint: EMS states: original call was for difficulty breathing, when we tw2 arrived she was not having difficult breathing, the home health nurse said her ammonia level is elevated at 115, she was released Thursday from [facility] and her lactulose was increased, pt is A\T\O x1, BGL 89 mg/dL. Transition of care: patient was not received from another setting of care. Onset of symptoms was July 04, 2019. Risk Assessment: Do you want to hurt yourself or someone else? Patient reports no desire to harm self or others. Initial Sepsis Screen: Does the patient meet any 2 criteria? No. Patient's initial sepsis screen is negative. Does the patient have a suspected source of infection? No. Patient's initial sepsis screen is negative. Note provider STEVIE Ramsey. Care prior to arrival: None. 15:38 Acuity: JEANA 2 tw2 15:38 Method Of Arrival: EMS: [facility] tw2 Triage Assessment: 15:41 General: Appears in no apparent distress. slender, Behavior is calm. Pain: Denies pain. tw2 Neuro: Level of Consciousness is alert, Oriented to person. Historical: - Allergies: 15:42 Flagyl; tw2 15:42 cipro (IV, but can take PO); tw2 - Home Meds: 15:42 Lasix 40 mg Oral tab 1 tab 2 times per day [Active]; mirtazapine 45 mg Oral tab 1 tab tw2 once daily [Active]; omeprazole 40 mg Oral cpDR 1 cap once daily [Active]; propranolol 10 mg Oral tab 1 tab twice a day [Active]; - PMHx: 15:42 Cirrhosis; secondary to ETOH abuse; hypotension; liver failure, chronic; Hepatitis; C; tw2 - PSHx: 15:42 Tonsillectomy; ; tw2 - Immunization history:: Adult Immunizations. - Social history:: Smoking status: . - Ebola Screening: : Patient denies travel to an Ebola-affected area in the 21 days before illness onset. Screenin:43 Abuse screen: Denies threats or abuse. Denies injuries from another. Nutritional tw2 screening: No deficits noted. Tuberculosis screening: No symptoms or risk factors identified. Fall Risk Secondary diagnosis (15 points) impaired mobility. Assessment: 16:03 General: Appears in no apparent distress. slender, Behavior is calm, cooperative. Pain: tw2 Denies pain. Neuro: Level of Consciousness is awake, obeys commands, Oriented to person. Cardiovascular: Heart tones S1 S2 Patient's skin is warm and dry. Respiratory: Airway is patent Respiratory effort is even, unlabored, Respiratory pattern is regular, symmetrical, Breath sounds are clear bilaterally. GI: No signs and/or symptoms were reported involving the gastrointestinal system. Abdomen is flat, Bowel sounds present X 4 quads. : No signs and/or symptoms were reported regarding the genitourinary system. EENT: No signs and/or symptoms were reported regarding the EENT system. Derm: No signs and/or symptoms reported regarding the dermatologic system. Skin is jaundiced. Musculoskeletal: Range of motion: intact in all extremities. 16:26 Reassessment: Patient appears in no apparent distress at this time. No changes from tw2 previously documented assessment. Patient and/or family updated on plan of care and expected duration. Pain level reassessed. 17:01 Reassessment: Hospitalist Dr. Cheema at bedside at this time. tw2 17:14 Reassessment: Patient appears in no apparent distress at this time. No changes from tw2 previously documented assessment. Patient and/or family updated on plan of care and expected duration. Pain level reassessed. 18:15 Reassessment: Patient appears in no apparent distress at this time. No changes from tw2 previously documented assessment. Patient and/or family updated on plan of care and expected duration. Pain level reassessed. 19:07 Reassessment: Patient appears in no apparent distress at this time. Patient and/or aa1 family updated on plan of care and expected duration. Pain level reassessed. Reassessment: Awaiting admission to hospital. Neuro: Level of Consciousness is awake, obeys commands, Oriented to person, place. Respiratory: Airway is patent Respiratory effort is even, unlabored, Respiratory pattern is regular, symmetrical. Derm: Skin is intact, Skin is dry, Skin is jaundiced, Skin temperature is warm. 19:20 Reassessment: Attempted to call report; no answer at this time. Will call back. aa1 19:32 Reassessment: Attempted to call report to floor; nurse will call back. aa1 20:17 Reassessment: Patient appears in no apparent distress at this time. No changes from aa1 previously documented assessment. Patient and/or family updated on plan of care and expected duration. Pain level reassessed. 3rd attempt to call report; nurse currently unavailable and will call back. 20:28 Reassessment: Patient appears in no apparent distress at this time. Report given to aa1 MEHNAZ Richard on 2nd floor. Vital Signs: 15:41 BP 105 / 67; Pulse 82; Resp 8; Temp 98.4(TE); Pulse Ox 100% on R/A; Weight 54.43 kg tw2 (R); Pain 0/10; 16:26 BP 108 / 60; Pulse 82; Resp 17; Pulse Ox 100% on R/A; tw2 17:14 BP 92 / 55; Pulse 80; Resp 18; Pulse Ox 100% on R/A; tw2 18:15 BP 115 / 60 Supine; Pulse 82; Resp 17; Pulse Ox 100% on R/A; tw2 19:07 BP 104 / 61; Pulse 78; Resp 16; Temp 98.4; Pulse Ox 100% on R/A; Pain 0/10; aa1 20:00 BP 103 / 69; Pulse 74; Resp 16; Temp 98.2; Pulse Ox 100% on R/A; Pain 0/10; aa1 ED Course: 15:38 Patient arrived in ED. tw2 15:38 Ramya Prather MD is Attending Physician. ma2 15:38 Bed in low position. Side rails up X2. telemetry monitor on. Pulse ox on. NIBP on. Warm tw2 blanket given. 15:39 Micah Driscoll PA is PHCP. jr8 15:39 Mayo Blake MD is Attending Physician. jr8 15:40 Triage completed. tw2 15:40 Arm band placed on. tw2 15:43 Paty Gonzales RN is Primary Nurse. tw2 15:53 Missed attempt(s): 24 gauge in right forearm. per MEHNAZ Palacios. Bleeding controlled, band tw2 aid applied, catheter tip intact. 15:55 Inserted saline lock: 22 gauge in left antecubital area, using aseptic technique. Blood tw2 collected. Missed attempt(s): 22 gauge in right forearm. Bleeding controlled, band aid applied, catheter tip intact. 16:59 Rudy Cheema DO is Hospitalizing Provider. jr8 17:00 No provider procedures requiring assistance completed. tw2 17:13 Straight cath inserted, using sterile technique, 18 Fr. Specimen obtained. 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 18:58 Report given to MEHNAZ Duncan - pending room assignment - pt would benefit from bed alarm tw2 on floor d/t pts orientation. 19:36 Patient admitted, IV remains in place. aa1 Administered Medications: 16:59 Drug: Lactulose 30 grams Volume: 45 ml; Route: PO; tw2 18:53 Follow up: Response: No adverse reaction tw2 16:59 Drug: NS 0.9% 1000 ml Route: IV; Rate: 1000 ml; Site: left antecubital; tw2 18:53 Follow up: Response: No adverse reaction; IV Status: Completed infusion; IV Intake: tw2 1000ml Intake: 18:53 IV: 1000ml; Total: 1000ml. tw2 Outcome: 17:00 Decision to Hospitalize by Provider. jr8 20:28 Admitted to Tele accompanied by siri, via stretcher, room 214. aa1 20:28 Condition: stable 20:28 Discharge instructions given to family, Instructed on the need for admit, Demonstrated understanding of instructions. 20:45 Patient left the ED. aa1 Signatures: Perla Dhillon RN RN aa1 Micah Driscoll PA PA jr8 Paty Gonzales RN RN tw2 Ramya Prather MD MD in2
--- NOTE | 2019-07-04 17:01 | EDPHYS ---
Physician Documentation [facility] Name: Jose Manuel Richardson Age: 58 yrs Sex: Female : 1960 Arrival Date: 07/04/2019 Time: 15:38 Bed 6 Private MD: ED Physician Mayo Blake HPI: 07/04 15:54 This 58 yrs old Female presents to ER via EMS with complaints of Altered jr8 Mental Status. 15:54 The patient presents with disorientation. Onset: The symptoms/episode began/occurred jr8 today. Possible causes: elevated ammonia. Associated signs and symptoms: Pertinent negatives: abdominal pain, chest pain, diaphoresis, diarrhea, numbness, palpitations, not . Current symptoms: In the emergency department the patient's symptoms are unchanged from the initial presentation. Patient's baseline: Neuro: alert and fully oriented, Motor: no deficits, Speech: normal. The patient has experienced similar episodes in the past. Pt was history of cirrhosis, with report of elevated ammonia from home health. Pt alert, oriented to name only in ED. . Historical: - Allergies: 15:42 Flagyl; tw2 15:42 cipro (IV, but can take PO); tw2 - Home Meds: 15:42 Lasix 40 mg Oral tab 1 tab 2 times per day [Active]; mirtazapine 45 mg Oral tab 1 tab tw2 once daily [Active]; omeprazole 40 mg Oral cpDR 1 cap once daily [Active]; propranolol 10 mg Oral tab 1 tab twice a day [Active]; - PMHx: 15:42 Cirrhosis; secondary to ETOH abuse; hypotension; liver failure, chronic; Hepatitis; C; tw2 - PSHx: 15:42 Tonsillectomy; ; tw2 - Immunization history:: Adult Immunizations. - Social history:: Smoking status: . - Ebola Screening: : Patient denies travel to an Ebola-affected area in the 21 days before illness onset. ROS: 15:54 Constitutional: Negative for fever, chills, and weight loss, Eyes: Negative for injury, jr8 pain, redness, and discharge, ENT: Negative for injury, pain, and discharge, Neck: Negative for injury, pain, and swelling, Cardiovascular: Negative for chest pain, palpitations, and edema, Respiratory: Negative for shortness of breath, cough, wheezing, and pleuritic chest pain, Abdomen/GI: Negative for abdominal pain, nausea, vomiting, diarrhea, and constipation, : Negative for injury, bleeding, discharge, and swelling, MS/Extremity: Negative for injury and deformity. 15:54 Neuro: Positive for altered mental status, Negative for dizziness, headache, loss of consciousness, numbness, seizure activity, syncope. Exam: 15:56 Constitutional: This is a well developed, well nourished patient who is awake, alert, jr8 and in no acute distress. Head/Face: Normocephalic, atraumatic. Eyes: Pupils equal round and reactive to light, extra-ocular motions intact. Lids and lashes normal. Conjunctiva and sclera are non-icteric and not injected. Cornea within normal limits. Periorbital areas with no swelling, redness, or edema. ENT: Nares patent. No nasal discharge, no septal abnormalities noted. Tympanic membranes are normal and external auditory canals are clear. Oropharynx with no redness, swelling, or masses, exudates, or evidence of obstruction, uvula midline. Mucous membranes moist. Neck: Trachea midline, no thyromegaly or masses palpated, and no cervical lymphadenopathy. Supple, full range of motion without nuchal rigidity, or vertebral point tenderness. No Meningismus. Chest/axilla: Normal chest wall appearance and motion. Nontender with no deformity. No lesions are appreciated. Cardiovascular: Regular rate and rhythm with a normal S1 and S2. No gallops, murmurs, or rubs. Normal PMI, no JVD. No pulse deficits. Respiratory: Lungs have equal breath sounds bilaterally, clear to auscultation and percussion. No rales, rhonchi or wheezes noted. No increased work of breathing, no retractions or nasal flaring. Abdomen/GI: Soft, non-tender, with normal bowel sounds. No distension or tympany. No guarding or rebound. No evidence of tenderness throughout. Back: No spinal tenderness. No costovertebral tenderness. Full range of motion. Skin: Warm, dry with normal turgor. Normal color with no rashes, no lesions, and no evidence of cellulitis. MS/ Extremity: Pulses equal, no cyanosis. Neurovascular intact. Full, normal range of motion. Neuro: Awake and alert, GCS 15, oriented to person, place, time, and situation. Cranial nerves II-XII grossly intact. Motor strength 5/5 in all extremities. Sensory grossly intact. Cerebellar exam normal. Normal gait. 15:56 Neuro: Orientation: to person, Not oriented to place, time, situation. Vital Signs: 15:41 BP 105 / 67; Pulse 82; Resp 8; Temp 98.4(TE); Pulse Ox 100% on R/A; Weight 54.43 kg tw2 (R); Pain 0/10; 16:26 BP 108 / 60; Pulse 82; Resp 17; Pulse Ox 100% on R/A; tw2 17:14 BP 92 / 55; Pulse 80; Resp 18; Pulse Ox 100% on R/A; tw2 18:15 BP 115 / 60 Supine; Pulse 82; Resp 17; Pulse Ox 100% on R/A; tw2 19:07 BP 104 / 61; Pulse 78; Resp 16; Temp 98.4; Pulse Ox 100% on R/A; Pain 0/10; aa1 20:00 BP 103 / 69; Pulse 74; Resp 16; Temp 98.2; Pulse Ox 100% on R/A; Pain 0/10; aa1 MDM: 15:38 Patient medically screened. ma2 16:54 Data reviewed: vital signs, nurses notes, lab test result(s), and as a result, I will jr8 discharge patient. Data interpreted: Pulse oximetry: on room air is 100 %. Interpretation: normal. Counseling: I had a detailed discussion with the patient and/or guardian regarding: the historical points, exam findings, and any diagnostic results supporting the discharge/admit diagnosis, lab results, the need for further work-up and treatment in the hospital. Physician consultation: Rudy Cheema DO was called at 16:54, was contacted at 16:54, regarding admission, to the telemetry unit. consult, patient's condition, and will see patient in ED. 07/04 15:40 Order name: Basic Metabolic Panel; Complete Time: 16:46 07/04 15:40 Order name: CBC with Diff; Complete Time: 16:46 8 07/04 15:40 Order name: Creatinine for Radiology; Complete Time: 16:46 8 07/04 15:40 Order name: Hepatic Function; Complete Time: 16:46 8 07/04 15:40 Order name: Lipase; Complete Time: 16:46 8 07/04 15:40 Order name: AMMONIA; Complete Time: 16:46 [facility] 07/04 15:40 Order name: Protime (+inr); Complete Time: 16:46 [facility] 07/04 15:40 Order name: Ptt, Activated; Complete Time: 16:46 [facility] 07/04 16:24 Order name: CBC Smear Scan; Complete Time: 16:46 [facility] 07/04 17:00 Order name: XRAY Chest (1 view) [facility] 07/04 17:00 Order name: Procalcitonin; Complete Time: 18:05 [facility] 07/04 17:16 Order name: Urine Dipstick--Ancillary (enter results); Complete Time: 17:28 07/04 18:07 Order name: RAD; Complete Time: 20:16 [facility] 07/04 15:40 Order name: IV Saline Lock; Complete Time: 16:02 [facility] 07/04 15:40 Order name: Labs collected and sent; Complete Time: 16:02 [facility] 07/04 17:00 Order name: Straight Cath - Urine; Complete Time: 17:13 [facility] 07/04 17:00 Order name: Urine Dipstick-Ancillary (obtain specimen); Complete Time: 17:15 jr Administered Medications: 16:59 Drug: Lactulose 30 grams Volume: 45 ml; Route: PO; tw2 18:53 Follow up: Response: No adverse reaction tw2 16:59 Drug: NS 0.9% 1000 ml Route: IV; Rate: 1000 ml; Site: left antecubital; tw2 18:53 Follow up: Response: No adverse reaction; IV Status: Completed infusion; IV Intake: tw2 1000ml Disposition: 07/05 06:21 Co-signature as Attending Physician, Mayo Blake MD I agree with the assessment and melanie plan of care. Disposition: 07/04/19 17:00 Hospitalization ordered by Rudy Cheema for Observation. Preliminary diagnosis are Hepatic failure, unspecified without coma, Hepatic encephalopathy. - Bed requested for Telemetry/MedSurg (observation). - Status is Observation. aa1 - Condition is Stable. - Problem is new. - Symptoms are unchanged. UTI on Admission? No Signatures: Dispatcher [employer] Darlyn Cano RN RN dw Autenrieth, Alissa, RN RN aa1 Mayo Blake MD MD cha Roszak, Josh, PA PA jr8 Paty Gonzales RN RN tw2 Ramya Prather MD MD ma2 Corrections: (The following items were deleted from the chart) 07/04 18:50 17:00 Hospitalization Ordered by Rudy Cheema DO for Observation. Preliminary dw diagnosis is Hepatic failure, unspecified without coma; Hepatic encephalopathy. Bed requested for Telemetry/MedSurg (observation). Status is Observation. Condition is Stable. Problem is new. Symptoms are unchanged. UTI on Admission? No. jr8 20:45 18:50 07/04/2019 17:00 Hospitalization Ordered by Rudy Cheema DO for Observation. aa1 Preliminary diagnosis is Hepatic failure, unspecified without coma; Hepatic encephalopathy. Bed requested for Telemetry/MedSurg (observation). Status is Observation. Condition is Stable. Problem is new. Symptoms are unchanged. UTI on Admission? No. dw
[2019-07-04 17:22] LABS: Urine Blood NEGATIVE (NEG); Urine Glucose NEGATIVE (NEG); Urine Protein NEGATIVE (NEG); Urine pH 6.5 (5.0-7.0)
--- NOTE | 2019-07-04 17:36 | P.HP ---
Certification for Inpatient Patient admitted to: Observation With expected LOS: <2 Midnights Patient will require the following post-hospital care: Home Health Services Practitioner: I am a practitioner with admitting privileges, knowledge of patient current condition, hospital course, and medical plan of care. Services: Services provided to patient in accordance with Admission requirements found in Title 42 Section 412.3 of the Code of Federal Regulations Patient History Date of Service: 07/04/19 Primary Care Provider: Dr. Kowalski Reason for admission: Altered mental status History of Present Illness: 58-year-old female presented to the emergency room with altered mental status. Most of the history came from the ER provider. Patient with history of alcoholic liver cirrhosis, chronic anemia. Patient presented with altered mental status. She was brought in from her home. Patient was not able to give adequate history. Patient was oriented x1. Patient appeared to be dehydrated. Initial lab showed a white count 1.6, hemoglobin 7.3. Platelet count of 56. Sodium 147, potassium 3.6, BUN 28, creatinine 1.54 with a GFR 34. Glucose 96. Ammonia level elevated at 98. INR 1.19. Total bili room 0.8. LFT unremarkable. Lipase 686. Patient was given normal saline bolus in the emergency room along with lactulose. Patient continue to have altered mental status changes likely from hepatic encephalopathy. Patient admitted for further evaluation and treatment. When I saw the patient ER, she was able taking indicate. She still had some altered mental status changes. Oriented x1. Patient appeared to be dehydrated. No family at bedside. Previous information reviewed. Patient does not appear septic. Patient denies any fever, chills, nausea, abdominal pain or shortness of breath. Allergies ciprofloxacin Allergy (Mild, Verified 06/08/18 01:01) Itching/Hives/Rash metronidazole [From Flagyl] Adverse Reaction (Intermediate, Verified 06/08/18 01 :01) Anaphylaxis Home medications list reviewed: Yes Home Medications: Gabapentin 300 mg PO BID PRN 10/31/18 Lactulose 15 ml PO DAILY 10/31/18 Pantoprazole Sodium [Protonix] 1 tab PO DAILY 10/31/18 Pregabalin [Lyrica*] 75 mg PO TID 10/31/18 Propranolol HCl 10 mg PO BID 10/31/18 Ropinirole HCl [Requip*] 1 mg PO BEDTIME 10/31/18 Spironolactone [Aldactone] 50 mg PO DAILY 10/31/18 Topiramate 1 tab PO DAILY 10/31/18 clonazePAM [Clonazepam] 0.5 mg PO DAILY 10/31/18 Fluoxetine HCl [Prozac*] 20 mg PO DAILY 11/02/18 - Past Medical/Surgical History Diabetic: No -: Alcoholic liver cirrhosis -: Hepatitis-C -: Chronic pain -: GERD -: Hypotension -: Ascites requiring paracentesis -: Chronic thrombocytopenia -: Anemia of chronic disease -: section x 4 -: breast augmentation -: appendectomy -: tonsillectomy -: Has been known to have gallstones -: paracenthesis monthly Psychosocial/ Personal History: Unknown. - Family History Mother -: Heart disease, Hypertension, Diabetes Father -: Heart disease, Liver disease Brother -: Diabetes - Social History Smoking Status: Unknown if ever smoked Alcohol use: No CD- Drugs: No Caffeine use: Yes Place of Residence: Home Review of Systems is unable to be obtained Physical Examination - Physical Exam General: Alert, In no apparent distress, Oriented x1, Disheveled HEENT: Atraumatic, Other (Dry mucous membranes) Neck: Supple Respiratory: Clear to auscultation bilaterally, Normal air movement Cardiovascular: Normal pulses, Regular rate/rhythm Gastrointestinal: Normal bowel sounds, Soft and benign, Non-distended, No ascites, No tenderness, No masses, No rebound, No guarding Musculoskeletal: No erythema, No tenderness, No warmth Integumentary: No tenderness/swelling, No erythema, No warmth, No cyanosis Neurological: Normal speech, Normal strength at 5/5 x4 extr, Normal tone - Studies Laboratory Data (last 24 hrs) 07/04/19 15:55: PT 13.9 H, INR 1.19, APTT 36.4 07/04/19 15:55: Creatinine 1.54 H 07/04/19 15:55: WBC 1.6 L* D, Hgb 7.3 L*, Hct 23.6 L, Plt Count 56 L D 07/04/19 15:55: Sodium 147 H, Potassium 3.6, BUN 28 H, Creatinine 1.56 H, Glucose 96, Total Bilirubin 0.8, AST 27, ALT 23, Alkaline Phosphatase 66, Lipase 686 H Assessment and Plan - Plan Impression: Hepatic encephalopathy related to alcoholic liver cirrhosis Anemia of chronic disease with chronic thrombocytopenia related to liver disease Acute on chronic kidney disease with dehydration Moderate protein malnutrition Leukopenia likely related to above Plan: Hepatic encephalopathy related to alcoholic liver cirrhosis: Patient will be admitted for further evaluation and treatment. Will continue with aspiration and fall precaution. Will start scheduled doses of lactulose 4 times a day to maintain 3-4 bowel movements daily. Will continue to monitor ammonia level. Will send lab for blood, urine culture. Will check chest x-ray. Will also check procalcitonin to rule out infection. Patient does not appear to be septic. Continue IV fluid hydration. DVT prophylaxis includes SCD. Will reassess tomorrow. Will try to obtain more information on home situation. Discharge in the next 24-48 hr pending clinical improvement. ER reported patient home health at home. Patient may require more help. Will discuss with manager managed backup services tomorrow. Anemia of chronic disease with chronic thrombocytopenia related to liver disease : Will monitor hemoglobin closely. Patient may require transfusion if hemoglobin below 7.0. Will monitor closely. Acute on chronic kidney disease with dehydration: Continue IV fluid hydration. Patient given IV fluid bolus in the emergency room. Will check iron and B12 studies. Patient may require IV iron. Moderate protein malnutrition: Oral intake. Consider dietary consultation. Leukopenia likely related to above: Will check pro calcitonin, chest x-ray and urinalysis. Will start Rocephin prophylactically. Discharge Plan: Home Plan to discharge in: 48 Hours - Advance Directives Does patient have a Living Will: No Does patient have a Durable POA for Healthcare: No - Code Status/Comfort Care Code Status Assessed: No (Not able to be obtained) Time Spent Managing Pts Care (In Minutes): 55
--- NOTE | 2019-07-04 18:05 | RAD REPORT ---
EXAM DESCRIPTION: RAD - Chest Single View - 07/04/2019 5:58 pm CLINICAL HISTORY: DYSPNEA Chest pain. COMPARISON: Chest Single View dated 06/30/2019; Chest Single View dated 11/01/2018; Chest Single View dated 06/07/2018; Chest Single View dated 06/08/2017 FINDINGS: Portable technique limits examination quality. The lungs are grossly clear. The heart is normal in size. No displaced fractures. IMPRESSION: No acute intrathoracic process suspected.
[2019-07-04] MEDS ORDERED: ACETAMINOPHEN 650MG/RECT SUPP RECT PRN (20:51)
[2019-07-04] MEDS ORDERED: ONDANSETRON 4 MG/2 ML VIAL IV PRN (20:51)
[2019-07-04] MEDS ORDERED: SODIUM CHLORIDE 0.9% 10ML INJ IV PRN (20:51)
[2019-07-04] MEDS ORDERED: ACETAMINOPHEN 500 MG TAB PO PRN (20:51)
[2019-07-04 21:25] LABS: Hematocrit 21.8 % (36.0-45.0)
[2019-07-04] MEDS: D5 0.45 NS 1,000 ML IV SCH (21:37)
[2019-07-04] MEDS: LACTULOSE 20 GM/30 ML UCUP PO SCH (21:39)
[2019-07-04] MEDS ORDERED: NA CHLORIDE 0.9% 250 ML IV SCH (22:00)
[2019-07-04 22:56] LABS: Potassium 3.6 mmol/L (3.5-5.1)
[2019-07-04 23:07] VITALS: BMI 22.6
[2019-07-04 23:32] LABS: Ferritin 4.9 ng/mL (8-388)
[2019-07-05] MEDS: D5 0.45 NS 1,000 ML IV SCH ×2 (05:23→13:10)
[2019-07-05] MEDS ORDERED: D5W 1,000 ML IV SCH (08:00)
[2019-07-05] MEDS: LACTULOSE 20 GM/30 ML UCUP PO SCH ×4 (09:00→21:00)
[2019-07-05] MEDS ORDERED: CEFTRIAXONE 1 GM/NS 50 ML 1 GM/50 ML BAG IV SCH (09:00)
[2019-07-05] MEDS ORDERED: FOLIC ACID 1 MG in NA CHLORIDE 0.9% 50 ML IV SCH (09:00)
[2019-07-05] MEDS ORDERED: CEFTRIAXONE/SWI 1gm 1 GM/10 ML SYR IV SCH (09:00)
[2019-07-05] MEDS ORDERED: THIAMINE 200 MG/2 ML INJ IVP SCH (09:00)
[2019-07-05] MEDS ORDERED: PANTOPRAZOLE 40 MG INJ IVP SCH (09:00)
[2019-07-05 09:54] LABS: Magnesium 2.1 mg/dL (1.8-2.4); Potassium 4.1 mmol/L (3.5-5.1); Thyroid Stimulating Hormone 3.28 uIU/mL (0.360-3.740)
[2019-07-05 10:13] LABS: Absolute Lymphocytes (CBC) 0.6 K/uL (0.7-4.9); Basophils % 0.4 % (0-1.3); RBC Red Blood Cell Count 3.48 M/uL (3.86-4.86)
[2019-07-05 10:17] LABS: Lymphocytes % 38.1 % (15.3-44.8); MPV 10.9 fL (7.6-11.3)
[2019-07-05] MEDS ORDERED: SOD FERRIC GLUC COMPLX/SUCROSE 250 MG in NA CHLORIDE 0.9% 250 ML IV SCH (11:00)
[2019-07-05 11:03] LABS: Urine Appearance CLEAR; Urine Bilirubin NEGATIVE (NEG); Urine Blood NEGATIVE (NEG); Urine Color DK YELLOW; Urine Glucose NEGATIVE (NEG); Urine Protein NEGATIVE (NEG)
[2019-07-05 11:06] LABS: Urine Microscopic Reflex NO UMIC
[2019-07-05 11:10] LABS: Barbiturates NEGATIVE (NEGATIVE); Benzodiazepines NEGATIVE (NEGATIVE); Cocaine NEGATIVE (NEGATIVE); METHAMPHETAM NEGATIVE (NEGATIVE); Methadone NEGATIVE (NEGATIVE); Opiates NEGATIVE (NEGATIVE); Phencyclidine NEGATIVE (NEGATIVE); THC Cannibis POSITIVE (NEGATIVE)
--- NOTE | 2019-07-05 11:38 | CON ---
Date of Consultation: 07/05/2019 Reason For Consultation: Elevated BUN and creatinine, fluid management. History Of Present Illness: This is a pleasant 58-year-old female with significant medical history o f cirrhosis secondary to alcoholic liver disease, hypertension. Patient was in her regular state of health. Patient apparently start feeling weak with altered mental status. For that reason, brought to the hospital. Upon arrival to the hospital, patient was confused, elevation in BUN and creatinine . For that reason, we have been consulted. Patient was started on IV hydration. Creatinine dropped from 1.6 to 1.3. Patient apparently been taking Aleve and ibuprofen on a daily basis for the last 3 to 4 weeks. No other insult. No IV contrast. No recent exposure to antibiotics. No recent hospit alization. Reviewing the record for the patient, her baseline creatinine back in October was 0.9 wi 54 GFR. Past Medical History: 1.Cirrhosis. 2.Hypertension. Allergies: CIPRO AND METRONIDAZOLE. Home Medications: Gabapentin, lactulose, pantoprazole, Lyrica, Inderal, spironolactone, clonazepam, fluoxetine. Past Surgical History: Paracentesis, , breast augmentation, appendectomy, tonsillectomy. Family History: Positive for coronary artery disease, hypertension, and diabetes. Social History: Denies smoking. Ex alcohol. Denies drug abuse. Review of Systems: Head and Neck: No red eye. No ear pain. GI: Has decreased intake. : No polyuria. No dysuria. No hematuria. UTILIZATION COORDINATOR: No vaginal discharge. Respiratory: No shortness of breath. Cardiovascular: No chest pain. Endocrine: No polydipsia. Skin: No rash. Neuro: Was confused. No focal. Musculoskeletal: Generalized fatigue. Physical Examination: General: When I saw the patient, patient lying in bed, comfortable, not in any distress. Vital Signs: Blood pressure 111/54, pulse of 70. Afebrile. Previous blood pressure yesterday down to 90. Chest: Clear to auscultation. Heart: S1, S2. Regular. Abdomen: Soft, nontender. Extremities: No edema. Neurologic: Alert. No focal. Laboratory Data: Sodium 147, potassium 4.1, bicarb 17, chloride 123, BUN 25, creatinine 1.3, calcium 8.2, magnesium 2.1. Previous lab data yesterday, sodium 150, creatinine 1.4, GFR 37. WBC 1.6, H an d H of 8.3/26, platelets of 49. TSAT 4.2. Ammonia 145. Ferritin 4.9. Folate 3.2. TSH 3.2. B12 7 00. Current Medications: The patient on include folic acid, Tylenol, ceftriaxone, Zofran, D5 at 75. Assessment And Plan: 1.Acute kidney injury secondary to prerenal, poor perfusion, acute tubular necrosis, superimposed wi th nonsteroidal use, still looked to me on the dry side. I changed IV fluid to D5 half to continue i sotonic fluid and will follow up the patient. I am going to go ahead and send for renal ultrasound, protein and creatinine, and will follow up the patient. 2.Hypernatremia secondary to depletion. We will start hydration as above. 3.Hypokalemia, resolved. 4.Iron-deficiency anemia. Start the patient on IV iron. 5.Hepatic encephalopathy, as by primary. 6.Pancytopenia secondary to cirrhosis. Will follow up with the primary. Thank you Dr. Cheema for allowing us to participate in the care of your patient. ANA Voice ID: [id number] Report ID: [id number]
--- NOTE | 2019-07-05 11:57 | P.PN ---
Subjective Date of Service: 07/05/19 Primary Care Provider: Dr. Kowalski Chief Complaint: Altered mental status Subjective: Other (Patient improved. Patient more alert and appropriate. Patient still appears on the dry side.) Physical Examination - Vital Signs Temperature: 98.3 F Blood Pressure: 111/54 Pulse: 70 Respirations: 18 Pulse Ox (%): 100 - Physical Exam General: Alert, In no apparent distress, Cooperative HEENT: Atraumatic Neck: Supple Respiratory: Clear to auscultation bilaterally, Normal air movement Cardiovascular: Normal pulses, Regular rate/rhythm Gastrointestinal: Normal bowel sounds, Soft and benign, Non-distended, No tenderness, No masses, No rebound, No guarding Musculoskeletal: No tenderness, No warmth Integumentary: No tenderness/swelling, No erythema, No warmth, No cyanosis Neurological: Normal speech, Normal strength at 5/5 x4 extr, Normal tone, Normal affect - Studies Laboratory Data (last 24 hrs) 07/04/19 15:55: PT 13.9 H, INR 1.19, APTT 36.4 07/04/19 15:55: Creatinine 1.54 H 07/04/19 15:55: WBC 1.6 L* D, Hgb 7.3 L*, Hct 23.6 L, Plt Count 56 L D 07/04/19 15:55: Sodium 147 H, Potassium 3.6, BUN 28 H, Creatinine 1.56 H, Glucose 96, Total Bilirubin 0.8, AST 27, ALT 23, Alkaline Phosphatase 66, Lipase 686 H Medications List Reviewed: Yes Assessment & Plan Discharge Plan: Home Plan to discharge in: 24 Hours Physician Review Additional Text: Impression: Hepatic encephalopathy related to alcoholic liver cirrhosis Anemia of chronic disease with chronic thrombocytopenia related to liver disease and iron deficiency Acute renal injury likely with acute tubular necrosis and dehydration Moderate protein malnutrition Leukopenia likely related to above Hypernatremia secondary to dehydration THC use Plan: Hepatic encephalopathy related to alcoholic liver cirrhosis: Patient has improved. Patient more cooperative and alert. Continue with lactulose 4 times a day to maintain 3-4 bowel movements daily. Ammonia level remains elevated but patient appears close to baseline. Pro calcitonin negative. No indication of infection. Continue DVT prophylaxis-SCD. Continue with IV fluid hydration as the patient still appears dehydrated. Nephrology consulted to further assess. Will have social service investigate home situation. Will have physical therapy assess ambulation. Anticipate discharge in the next 24 hr with clinical improvement. Anemia of chronic disease with chronic thrombocytopenia related to liver disease and iron deficiency: Hemoglobin remained stable. Nephrology ordered IV iron. Continue to monitor closely. Thrombocytopenia likely related to liver disease. Acute renal injury likely with acute tubular necrosis and dehydration: Continue IV fluid hydration. Nephrology consulted to further address. IV fluids have been adjusted. Recommend to discontinue nonsteroidal anti- inflammatories as this may be contributing to this. Continue to monitor lab. Will reassess tomorrow. Moderate protein malnutrition: Continue with oral nutrition. Will consult dietary to further evaluate and recommend. Leukopenia likely related to above: Pro calcitonin negative. No indication of infection process. Patient on Rocephin prophylactically. Hypernatremia secondary to dehydration: Continue with plan above. Nephrology consulted. IV fluids adjusted. THC use: Will address THC cessation at discharge. Time Spent Managing Pts Care (In Minutes): 55
--- NOTE | 2019-07-05 15:26 | RAD REPORT ---
EXAM DESCRIPTION: US - Renal Ultrasound-Complete - 07/05/2019 3:06 pm CLINICAL HISTORY: Acute kidney injury COMPARISON: CT study June 30 FINDINGS: The right kidney measures 9.5 x 4.3 x 4.3 cm. The left kidney measures 8.2 x 3.7 x 4.3 cm . Renal cortical thickness and echogenicity are normal. No left-sided hydronephrosis and no solid mas s of either kidney. Patient has a normal variant extrarenal pelvis on the right. Fullness of the righ t collecting system is present appearing less prominent than seen on the June 30 imaging. No bladder wall thickening or mass. No intraluminal stone or mass. IMPRESSION: Fullness of the right collecting system is present but appears less prominent than seen June 30. No left-sided hydronephrosis. Cortical thickness and echogenicity are normal. No solid mass of either kidney.
[2019-07-05] MEDS ORDERED: POTASSIUM CL SA 10 MEQ TAB PO ONE (21:00)
[2019-07-06 05:44] LABS: Absolute Lymphocytes (CBC) 0.4 K/uL (0.7-4.9); Basophils % 0.5 % (0-1.3); Hematocrit 23.2 % (36.0-45.0); MPV 9.4 fL (7.6-11.3); RBC Red Blood Cell Count 3.12 M/uL (3.86-4.86)
[2019-07-06 05:44] LABS: Urine Protein/Creatinine Ratio 0.09 ratio (<0.15)
[2019-07-06] MEDS: D5 0.45 NS 1,000 ML IV SCH (05:46)
[2019-07-06 05:53] LABS: Albumin 3.2 g/dL (3.4-5.0); Magnesium 1.9 mg/dL (1.8-2.4); Phosphorus 2.4 mg/dL (2.5-4.9); Potassium 3.8 mmol/L (3.5-5.1)
[2019-07-06] MEDS ORDERED: PANTOPRAZOLE 40MG TABLET PO SCH (06:30)
[2019-07-06] MEDS: LACTULOSE 20 GM/30 ML UCUP PO SCH (08:37)
[2019-07-06 08:53] LABS: Absolute Lymphocytes (CBC) 0.3 K/uL (0.7-4.9); Basophils % 0.9 % (0-1.3); Hematocrit 23.8 % (36.0-45.0); Lymphocytes % 27.3 % (15.3-44.8); MPV 9.3 fL (7.6-11.3); RBC Red Blood Cell Count 3.15 M/uL (3.86-4.86)
[2019-07-06 08:57] VITALS: O2SAT 100
[2019-07-06] MEDS ORDERED: THIAMINE HCL 100 MG TABLET PO SCH (09:00)
[2019-07-06] MEDS ORDERED: POTASSIUM CL SA 10 MEQ TAB PO ONE (09:00)
[2019-07-06] MEDS ORDERED: TBO-FILGRASTIM 300 MCG/0.5 ML SYR SQ SCH (09:00)
[2019-07-06] MEDS ORDERED: FOLIC ACID 1 MG TABLET PO SCH (09:00)
[2019-07-06] MEDS ORDERED: MAGNESIUM SULFATE 1 gm IVPB 1 GM/100 ML BAG IV ONE (09:52)
[2019-07-06 09:57] LABS: Albumin 3.3 g/dL (3.4-5.0); Bilirubin Direct 0.3 mg/dL (0-0.2); Bilirubin Total 0.8 mg/dL (0.2-1.0)
[2019-07-06] MEDS ORDERED: D5W 1,000 ML with POTASSIUM CL 20 MEQ IV SCH ×2 (10:00)
[2019-07-06] MEDS ORDERED: D5W 1,000 ML IV SCH (10:00)
--- NOTE | 2019-07-06 10:52 | P.DS ---
Admission Date: 07/05/19 Discharge Date: 07/06/19 Primary Care Provider: Dr. Kowalski Disposition: ROUTINE DISCHARGE Discharge Condition: GOOD Reason for Admission: Altered mental status Consultations: Nephrology-Dr. Ibrahim Procedures: CXR: FINDINGS: Portable technique limits examination quality. The lungs are grossly clear. The heart is normal in size. No displaced fractures. IMPRESSION: No acute intrathoracic process suspected. Renal US: FINDINGS: The right kidney measures 9.5 x 4.3 x 4.3 cm. The left kidney measures 8.2 x 3.7 x 4.3 cm. Renal cortical thickness and echogenicity are normal. No left-sided hydronephrosis and no solid mass of either kidney. Patient has a normal variant extrarenal pelvis on the right. Fullness of the right collecting system is present appearing less prominent than seen on the June 30 imaging. No bladder wall thickening or mass. No intraluminal stone or mass. IMPRESSION: Fullness of the right collecting system is present but appears less prominent than seen June 30. No left-sided hydronephrosis. Cortical thickness and echogenicity are normal. No solid mass of either kidney. Medical problem list: Hepatic encephalopathy related to alcoholic liver cirrhosis Anemia of chronic disease with chronic thrombocytopenia related to liver disease and iron deficiency Acute renal injury likely with acute tubular necrosis and dehydration Moderate protein malnutrition Chronic pancytopenia likely related to alcoholic liver cirrhosis Hypernatremia secondary to dehydration THC use Brief History of Present Illness: 58-year-old female presented to the emergency room with altered mental status. Most of the history came from the ER provider. Patient with history of alcoholic liver cirrhosis, chronic anemia. Patient presented with altered mental status. She was brought in from her home. Patient was not able to give adequate history. Patient was oriented x1. Patient appeared to be dehydrated. Initial lab showed a white count 1.6, hemoglobin 7.3. Platelet count of 56. Sodium 147, potassium 3.6, BUN 28, creatinine 1.54 with a GFR 34. Glucose 96. Ammonia level elevated at 98. INR 1.19. Total bili room 0.8. LFT unremarkable. Lipase 686. Patient was given normal saline bolus in the emergency room along with lactulose. Patient continue to have altered mental status changes likely from hepatic encephalopathy. Patient admitted for further evaluation and treatment. When I saw the patient ER, she was able taking indicate. She still had some altered mental status changes. Oriented x1. Patient appeared to be dehydrated. No family at bedside. Previous information reviewed. Patient does not appear septic. Patient denies any fever, chills, nausea, abdominal pain or shortness of breath. Hospital Course: Patient presented with hepatic encephalopathy with underlying alcoholic liver cirrhosis. Patient was given treatment. Her condition improved. Patient now back to baseline. Ammonia level remains elevated but patient within her normal state. Patient wishes to go home. At discharge compliance with medication addressed in detail. Patient will continue with lactulose 4 times a day to maintain 3-4 bowel movements daily. Recommend to maintain hydration. Recommend to follow up with her PCP to further monitor. Recommend to recheck lab-BMP/CBC in 1-2 weeks. Recommend follow up with hepatology to further evaluate. Patient with hypernatremia, acute renal injury likely dehydration and acute tubular necrosis. Patient was seen by Nephrology. Patient was given IV fluids with improvement. At discharge renal function has remained stable and improved. Recommend to discontinue nonsteroidal anti-inflammatories in the future. Future medications may need to be renally dosed. Recommend to recheck lab-BMP in 1 week to monitor her progress. Recommend follow up with nephrology in 1-2 weeks to follow up this hospitalization. Patient with pancytopenia. This appears to be chronic and related to her liver cirrhosis. Patient reports no melena, rectal bleeding or coughing up blood. Chest x-ray unremarkable. No indication of infection. This has remained stable. No need for transfusion at this time. Patient was given IV iron due to iron deficiency. Patient has not been compliant with taking iron supplementation. At discharge will recommend to continue iron supplementation 3 times a day. Patient will also continue with folic acid 1 mg daily and thiamine 100 mg daily. Recommend to recheck CBC in 1-2 weeks to monitor progress. Recommend follow up with hematology to further monitor and address. Patient was positive for THC. THC cessation education will be provided at discharge. Patient with underlying COPD. Patient will continue with albuterol 3 times a day as needed for shortness of breath. Vital Signs/Physical Exam: Temp Pulse Resp BP Pulse Ox 99.0 F 72 16 107/52 L 100 07/06/19 08:00 07/06/19 08:00 07/06/19 08:00 07/06/19 08:00 07/06/19 08:00 General: Alert, In no apparent distress, Oriented x3, Cooperative HEENT: Atraumatic Neck: Supple Respiratory: Clear to auscultation bilaterally, Normal air movement Cardiovascular: Normal pulses, Regular rate/rhythm Gastrointestinal: Normal bowel sounds, Soft and benign, Non-distended, No tenderness, No masses, No rebound, No guarding Musculoskeletal: No erythema, No tenderness, No warmth Integumentary: No tenderness/swelling, No erythema, No warmth, No cyanosis Neurological: Normal speech, Normal strength at 5/5 x4 extr, Normal tone, Normal affect Laboratory Data at Discharge: WBC 1.3 K/uL (4.3-10.9) L* D 07/06/19 08:35 Hgb 7.5 g/dL (12.0-15.0) L* 07/06/19 08:35 Hct 23.8 % (36.0-45.0) L 07/06/19 08:35 Plt Count 41 K/uL (152-406) L* D 07/06/19 08:35 PT 13.9 SECONDS (9.5-12.5) H 07/04/19 15:55 INR 1.19 07/04/19 15:55 APTT 36.4 SECONDS (24.3-36.9) 07/04/19 15:55 Sodium 146 mmol/L (136-145) H 07/06/19 05:15 Potassium 3.8 mmol/L (3.5-5.1) 07/06/19 05:15 BUN 18 mg/dL (7-18) 07/06/19 05:15 Creatinine 1.19 mg/dL (0.55-1.3) 07/06/19 05:15 Glucose 88 mg/dL (74-106) 07/06/19 05:15 Phosphorus 2.4 mg/dL (2.5-4.9) L 07/06/19 05:15 Magnesium 1.9 mg/dL (1.8-2.4) 07/06/19 05:15 Total Bilirubin 0.8 mg/dL (0.2-1.0) 07/06/19 08:35 AST 29 U/L (15-37) 07/06/19 08:35 ALT 25 U/L (12-78) 07/06/19 08:35 Alkaline Phosphatase 63 U/L (45-117) 07/06/19 08:35 Lipase 686 U/L (73-393) H 07/04/19 15:55 Home Medications: Albuterol Neb [Proventil 0.083% Neb Soln] 1 vial IH Q6H 07/05/19 Albuterol Sulfate [Albuterol Sulfate Hfa] 1 puff IH Q6H PRN 07/05/19 Fluoxetine HCl [Prozac] 1 cap PO DAILY 07/05/19 Gabapentin 1 cap PO Q8H 07/05/19 Ondansetron HCl [Zofran] 1 tab PO DAILY PRN 07/05/19 Pregabalin [Lyrica*] 1 cap PO TID 07/05/19 Propranolol HCl 10 mg PO BID 07/05/19 Rifaximin [Xifaxan] 1 tab PO BID 07/05/19 Ropinirole HCl [Requip] 1 mg PO BEDTIME 07/05/19 Spironolactone [Aldactone] 1 tab PO DAILY 07/05/19 Tizanidine HCl [Zanaflex] 1 cap PO BID 07/05/19 Topiramate [Topamax] 1 tab PO DAILY 07/05/19 predniSONE [Prednisone*] 2 tab PO DAILY 07/05/19 traMADol HCL [Ultram*] 1 tab PO DAILY PRN 07/05/19 Ferrous Sulfate [Iron] 325 mg PO TID #90 tablet 07/06/19 Folic Acid 1 mg PO DAILY #90 tablet 07/06/19 Lactulose 15 ml PO QID #1 bottle 07/06/19 Pantoprazole [Protonix Tab] 40 mg PO DAILY #30 tab 07/06/19 Thiamine HCl 100 mg PO DAILY #90 tablet 07/06/19 New Medications: Ferrous Sulfate [Iron] 325 mg PO TID #90 tablet Folic Acid 1 mg PO DAILY #90 tablet Lactulose 15 ml PO QID #1 bottle Pantoprazole [Protonix Tab] 40 mg PO DAILY #30 tab Thiamine HCl 100 mg PO DAILY #90 tablet Patient Discharge Instructions: 1. Recommend follow up with PCP in 1 week to follow up this hospitalization. 2. Patient presented with hepatic encephalopathy with underlying alcoholic liver cirrhosis. Patient was given treatment. Her condition improved. Patient now back to baseline. Ammonia level remains elevated but patient within her normal state. Patient wishes to go home. At discharge compliance with medication addressed in detail. Patient will continue with lactulose 4 times a day to maintain 3-4 bowel movements daily. Recommend to maintain hydration. Recommend to follow up with her PCP to further monitor. Recommend to recheck lab-BMP/CBC in 1-2 weeks. Recommend follow up with hepatology to further evaluate. 3. Patient with hypernatremia, acute renal injury likely dehydration and acute tubular necrosis. Patient was seen by Nephrology. Patient was given IV fluids with improvement. At discharge renal function has remained stable and improved. Recommend to discontinue nonsteroidal anti-inflammatories in the future. Future medications may need to be renally dosed. Recommend to recheck lab-BMP in 1 week to monitor her progress. Recommend follow up with nephrology in 1-2 weeks to follow up this hospitalization. 4. Patient with pancytopenia. This appears to be chronic and related to her liver cirrhosis. Patient reports no melena, rectal bleeding or coughing up blood. Chest x-ray unremarkable. No indication of infection. This has remained stable. No need for transfusion at this time. Patient was given IV iron due to iron deficiency. Patient has not been compliant with taking iron supplementation. At discharge will recommend to continue iron supplementation 3 times a day. Patient will also continue with folic acid 1 mg daily and thiamine 100 mg daily. Recommend to recheck CBC in 1- 2 weeks to monitor progress. Recommend follow up with hematology to further monitor and address. 4. Patient was positive for THC. THC cessation education will be provided at discharge. 5. Patient with underlying COPD. Patient will continue with albuterol 3 times a day as needed for shortness of breath. Diet: AHA Activity: Fall precautions Time spent managing pt's care (in minutes): 55
[2019-07-06 11:21] LABS: Anisocytosis 1+; Blood Morphology Comment NOTED (NOT SEEN); Elliptocytes 1+; Hypochromasia 2+; Platelet Estimate DECR; Poikilocytosis 2+
[2019-07-06 11:22] LABS: Burr Cells 2+
[2019-07-06 13:23] VITALS: BP 107/53; TEMP 99.6
--- NOTE | 2019-07-06 14:27 | PN ---
Date of Progress Note: 07/06/2019 Subjective: The patient was admitted with hepatic encephalopathy, altered mental status. Patient was started on Rocephin, hydration. Had acute kidney injury. The patient feeling much better today. Physical Examination: Vital Signs: Blood pressure 107/52, pulse of 72, afebrile. The patient had good urine output of 1600. Chest: Clear to auscultation. Heart: S1, S2. Regular. Abdomen: Soft, nontender. Extremities: No edema. Laboratory Data: WBC 1.3, H and H 7.5/23.8, platelets 41. Sodium 146, potassium 3.8, bicarb 19, BUN 18, creatinine 1.1, calcium 8.2, phos 2.4, magnesium 1.9, T-sat 4.2, ferritin 4.9. Current Medications: The patient on its include: 1. IV iron. 2. Tylenol. 3. Folic acid. 4. Lactulose. 5. D5 half. Assessment And Plan: 1. Acute kidney injury, normal size kidney 9.5/8.2, secondary to prerenal, recovered, resolved. We will monitor the patient. 2. Hypernatremia secondary to poor intake. We will change to D5. 3. Hyperchloremia secondary to IV fluid. We will change the fluids to D5. 4. Acidosis secondary to Sepsis . We will monitor. No need for bicarb. 5. Iron deficiency anemia. Continue supplement. 6. Pancytopenia secondary to cirrhosis as by primary. 7. Hypomagnesemia. We will supplement. 8. Hypomagesimia We will supplement. ANA Voice ID: [id number] Report ID: [id number] [facility]ICBean
[2019-07-06] MEDS ORDERED: ENSURE ENLIVE 237 ML CAN PO SCH (21:00)
== END 2019-07-06 13:20 | disposition home or self-care (01) | DRG 432 ==
LOC: ER 15:36 → ERHOLD 17:22 → 2ND 20:28 → OBSVTOIN 07-05 13:35
PROVIDERS: ADMIT Family Medicine; ATTEND Family Medicine
DX: K70.30 Alcoholic cirrhosis of liver without ascites (principal); N17.0 Acute kidney failure with tubular necrosis; K72.00 Acute and subacute hepatic failure without coma; E44.0 Moderate protein-calorie malnutrition; D61.818 Other pancytopenia; E87.0 Hyperosmolality and hypernatremia; B18.2 Chronic viral hepatitis C; E87.6 Hypokalemia; J44.9 Chronic obstructive pulmonary disease, unspecified; K21.9 Gastro-esophageal reflux disease without esophagitis; E86.0 Dehydration; D69.6 Thrombocytopenia, unspecified; I10 Essential (primary) hypertension; D63.8 Anemia in other chronic diseases classified elsewhere; F12.10 Cannabis abuse, uncomplicated; Z68.22 Body mass index [BMI] 22.0-22.9, adult
CPT/HCPCS: 36415; 36430; 51702; 71045; 76770; 80048; 80069; 80076; 80307; 80320; 81003; 82140; 82570; 82607; 82728; 83010; 83540; 83615; 83690; 83735; 84145; 84156; 84439; 84443; 84466; 85014; 85018; 85025; 85610; 85730; 86850; 86900; 86901; 87040; 96360; 96361; 97112; 97116; 97161; 99285; C9113; G0378; J0696; J1447; J2916; J3475; J7030; J7799; P9016

== ENCOUNTER 2019-07-25 04:07 | Inpatient (IN) | payer OTHER ==
[2019-07-25 04:45] LABS: Absolute Lymphocytes (CBC) 0.8 K/uL (0.7-4.9); Basophils % 0.5 % (0-1.3); Hematocrit 33.7 % (36.0-45.0); Lymphocytes % 32.8 % (15.3-44.8); MPV 10.2 fL (7.6-11.3); RBC Red Blood Cell Count 4.13 M/uL (3.86-4.86)
[2019-07-25 04:48] LABS: Albumin 3.4 g/dL (3.4-5.0); Bilirubin Direct 0.3 mg/dL (0-0.2); Bilirubin Total 0.9 mg/dL (0.2-1.0); Potassium 4.2 mmol/L (3.5-5.1); Protein, Total 6.5 g/dL (6.4-8.2)
[2019-07-25 04:53] LABS: Anisocytosis 2+; Blood Morphology Comment NOTED (NOT SEEN); Platelet Estimate DECR
[2019-07-25] MEDS ORDERED: LACTULOSE 20 GM/30 ML UCUP ONE (05:17)
--- NOTE | 2019-07-25 05:36 | ER ---
Nurse's Notes [facility] Name: Jose Manuel Richardson Age: 58 yrs Sex: Female : 1960 Arrival Date: 07/25/2019 Time: 04:12 Bed 18 Private MD: Diagnosis: Encephalopathy, unspecified;Hyperammonemia Presentation: 07/25 04:05 Presenting complaint: EMS states: "We were toned by patient's family for a case of cc3 altered mental status since a couple of days now. Family said the patient has history of abnormal ammonia levels. Patient's family said the patient fell yesterday". Transition of care: patient was not received from another setting of care. Onset of symptoms was July 25, 2019. Risk Assessment: Do you want to hurt yourself or someone else? Patient reports no desire to harm self or others. Initial Sepsis Screen: Does the patient meet any 2 criteria? No. Patient's initial sepsis screen is negative. Does the patient have a suspected source of infection? No. Patient's initial sepsis screen is negative. Care prior to arrival: Medication(s) given: Lactulose 20 mL oral given by family 45 mins FAMILY SERVICE COUNSELOR of EMS. 04:05 Method Of Arrival: EMS: [facility] cc3 04:05 Acuity: JEANA 2 cc3 Triage Assessment: 04:05 General: Appears in no apparent distress. uncomfortable, slender, Behavior is calm, cc3 responds very slowly to questions and with eyes closed, altered level of consciousness. Pain: Denies pain. EENT: No signs and/or symptoms were reported regarding the EENT system. Neuro: Level of Consciousness is confused, Oriented to person, knows only her name. altered level of consciousness. Cardiovascular: Denies chest pain, Heart tones S1 S2 present Capillary refill < 3 seconds in bilateral fingers Patient's skin is warm and dry. Respiratory: Airway is patent Respiratory effort is even, unlabored, Respiratory pattern is regular, symmetrical, Breath sounds are clear bilaterally. GI: Abdomen is round non-distended, Bowel sounds present X 4 quads. Abd is soft and non tender X 4 quads. : No signs and/or symptoms were reported regarding the genitourinary system. Derm: Skin is intact, is healthy with good turgor, Skin is pink, warm \\T\\ dry. normal. Musculoskeletal: Circulation, motion, and sensation intact. Range of motion: intact in all extremities. Historical: - Allergies: 04:05 cipro (IV, but can take PO); cc3 04:05 Flagyl; cc3 - Home Meds: 04:05 Lasix 40 mg Oral tab 1 tab 2 times per day [Active]; mirtazapine 45 mg Oral tab 1 tab cc3 once daily [Active]; omeprazole 40 mg Oral cpDR 1 cap once daily [Active]; propranolol 10 mg Oral tab 1 tab twice a day [Active]; Lactulose Oral [Active]; - PMHx: 04:05 Cirrhosis; secondary to ETOH abuse; Hepatitis; C; hypotension; liver failure, chronic; cc3 Renal Disease; - Immunization history:: Adult Immunizations not up to date. - Social history:: Smoking status: Patient uses tobacco products, smokes one pack cigarettes per day. - Ebola Screening: : No symptoms or risks identified at this time. Screenin:05 Abuse screen: Denies threats or abuse. Denies injuries from another. Nutritional cc3 screening: No deficits noted. Tuberculosis screening: No symptoms or risk factors identified. Fall Risk Ambulatory Aid- None/Bed Rest/Nurse Assist (0 pts). Gait- Normal/Bed Rest/Wheelchair (0 pts) Mental Status- Overestimates/Forgets Limitations (15 pts.). Assessment: 04:05 General: see triage assessment. cc3 05:00 Reassessment: Patient appears in no apparent distress at this time. No changes from cc3 previously documented assessment. Patient and/or family updated on plan of care and expected duration. Pain level reassessed. 06:15 Reassessment: Patient appears in no apparent distress at this time. Patient and/or wh family updated on plan of care and expected duration. Pain level reassessed. Patient is alert, oriented x 3, equal unlabored respirations, skin warm/dry/pink. Pt with BM x1, changed and cleaned. Vital Signs: 04:05 BP 109 / 58; Pulse 63; Resp 15 S; Temp 98.2(O); Pulse Ox 98% on R/A; Weight 54.43 kg cc3 (R); Height 5 ft. 11 in. (180.34 cm) (R); Pain 0/10; 04:39 BP 109 / 65; Pulse 62; Resp 14 S; Pulse Ox 99% on R/A; cc3 05:31 BP 115 / 60; Pulse 64; Resp 13 S; Pulse Ox 100% on R/A; cc3 06:26 BP 121 / 58; Pulse 56; Resp 18; Pulse Ox 99% ; wh 04:05 Body Mass Index 16.74 (54.43 kg, 180.34 cm) cc3 ED Course: 04:05 Patient has correct armband on for positive identification. Placed in gown. Bed in low cc3 position. Call light in reach. Side rails up X2. monitor tech on. Pulse ox on. NIBP on. 04:05 Arm band placed on right wrist. cc3 04:12 Patient arrived in ED. ds1 04:14 Elle Koroma is Primary Nurse. cc3 04:15 Inserted saline lock: 20 gauge in right forearm, using aseptic technique. Blood wh collected. 04:19 Mikel Lew MD is Attending Physician. tw4 04:24 Triage completed. cc3 05:30 Ramya Burrows MD is Hospitalizing Provider. tw4 05:35 Report given to MEHNAZ Gleason. cc3 07:02 No provider procedures requiring assistance completed. Patient admitted, IV remains in place. Administered Medications: 05:20 Drug: Lactulose 30 grams Volume: 45 ml; Route: PO; cc3 05:35 Follow up: Response: No adverse reaction cc3 07:02 Follow up: Response: No adverse reaction Outcome: 05:35 Decision to Hospitalize by Provider. tw4 07:02 Admitted to Tele accompanied by nurse, via stretcher, room 401, with chart, Report wh called to Larissa Valderrama RN 07:02 Condition: stable 07:02 Instructed on the need for admit. 07:03 Patient left the ED. Signatures: Shannan Flanagan ds1 Rosibel Sifuentes Mikel Lwe MD MD tw4 Elle Koroma cc3 Corrections: (The following items were deleted from the chart) 04:53 04:05 GI: Abdomen is round distended, Bowel sounds present X 4 quads. cc3 cc3 05:28 04:05 General: Appears in no apparent distress. uncomfortable, slender, Behavior is cc3 calm, responds slowly to questions but with eyes closed. cc3 05:29 04:05 Neuro: Level of Consciousness is confused, Oriented to person, cc3 cc3
--- NOTE | 2019-07-25 05:36 | EDPHYS ---
Physician Documentation [facility] Name: Jose Manuel Richardson Age: 58 yrs Sex: Female : 1960 Arrival Date: 07/25/2019 Time: 04:12 Bed 18 Private MD: ED Physician Mikel Lew HPI: 07/25 04:23 This 58 yrs old Female presents to ER via EMS with complaints of altered tw4 mental status. 04:23 The patient presents with decreased mental status, decreased responsiveness. Onset: The tw4 symptoms/episode began/occurred just prior to arrival. Possible causes: hepatic encephalopathy. Associated signs and symptoms: The patient has no apparent associated signs or symptoms. Current symptoms: In the emergency department the patient's symptoms have improved. The patient has not experienced similar symptoms in the past. Historical: - Allergies: 04:05 cipro (IV, but can take PO); cc3 04:05 Flagyl; cc3 - Home Meds: 04:05 Lasix 40 mg Oral tab 1 tab 2 times per day [Active]; mirtazapine 45 mg Oral tab 1 tab cc3 once daily [Active]; omeprazole 40 mg Oral cpDR 1 cap once daily [Active]; propranolol 10 mg Oral tab 1 tab twice a day [Active]; Lactulose Oral [Active]; - PMHx: 04:05 Cirrhosis; secondary to ETOH abuse; Hepatitis; C; hypotension; liver failure, chronic; cc3 Renal Disease; - Immunization history:: Adult Immunizations not up to date. - Social history:: Smoking status: Patient uses tobacco products, smokes one pack cigarettes per day. - Ebola Screening: : No symptoms or risks identified at this time. ROS: 04:23 Constitutional: Negative for fever, chills, and weight loss, Eyes: Negative for injury, tw4 pain, redness, and discharge, Cardiovascular: Negative for chest pain, palpitations, and edema, Respiratory: Negative for shortness of breath, cough, wheezing, and pleuritic chest pain, Abdomen/GI: Negative for abdominal pain, nausea, vomiting, diarrhea, and constipation, Back: Negative for injury and pain, MS/Extremity: Negative for injury and deformity, Skin: Negative for injury, rash, and discoloration. 04:23 Neuro: Positive for altered mental status, Negative for dizziness, gait disturbance, headache, seizure activity, speech changes, syncope, near syncope, tingling, tinnitus, tremor. Exam: 04:23 Constitutional: This is a well developed, well nourished patient who is awake, alert, tw4 and in no acute distress. Head/Face: Normocephalic, atraumatic. Chest/axilla: Normal chest wall appearance and motion. Nontender with no deformity. No lesions are appreciated. Cardiovascular: Regular rate and rhythm with a normal S1 and S2. No gallops, murmurs, or rubs. Normal PMI, no JVD. No pulse deficits. Respiratory: Lungs have equal breath sounds bilaterally, clear to auscultation and percussion. No rales, rhonchi or wheezes noted. No increased work of breathing, no retractions or nasal flaring. Abdomen/GI: Soft, non-tender, with normal bowel sounds. No distension or tympany. No guarding or rebound. No evidence of tenderness throughout. Back: No spinal tenderness. No costovertebral tenderness. Full range of motion. MS/ Extremity: Pulses equal, no cyanosis. Neurovascular intact. Full, normal range of motion. 04:23 Neuro: Orientation: to person, place, Mentation: slow to respond, Memory: Cranial nerves: CN II- XII are normal as tested, Motor: moves all fours. Vital Signs: 04:05 BP 109 / 58; Pulse 63; Resp 15 S; Temp 98.2(O); Pulse Ox 98% on R/A; Weight 54.43 kg cc3 (R); Height 5 ft. 11 in. (180.34 cm) (R); Pain 0/10; 04:39 BP 109 / 65; Pulse 62; Resp 14 S; Pulse Ox 99% on R/A; cc3 05:31 BP 115 / 60; Pulse 64; Resp 13 S; Pulse Ox 100% on R/A; cc3 06:26 BP 121 / 58; Pulse 56; Resp 18; Pulse Ox 99% ; wh 04:05 Body Mass Index 16.74 (54.43 kg, 180.34 cm) cc3 MDM: 04:19 Patient medically screened. tw4 05:39 Differential Diagnosis: electrolyte abnormality, alcohol intoxication, hypoglycemia, tw4 overdose, pneumonia, seizure. Data reviewed: vital signs, nurses notes. Data interpreted: Pulse oximetry: Interpretation: normal. Counseling: I had a detailed discussion with the patient and/or guardian regarding: the historical points, exam findings, and any diagnostic results supporting the discharge/admit diagnosis, lab results, radiology results. Physician consultation: Ramya Burrows MD was called at 05:30, and will see patient in ED. 07/25 04:19 Order name: Basic Metabolic Panel; Complete Time: 05: 07/25 05:10 Interpretation: Normal except: CL 110; CRE 1.44; GFR 38; BUN 21. [facility] 07/25 04:19 Order name: CBC with Diff 07/25 05:10 Interpretation: Normal except: WBC 2.5; HGB 10.9; HCT 33.7; MCV 81.7; MCH 26.5; PLT 90; tw4 MN% 24.2; MILES% 39.8; RDW 28.6; NEUT A 1.0. 07/25 04:19 Order name: Creatinine for Radiology; Complete Time: 05: 07/25 05:10 Interpretation: Normal except: CRE 1.43; GFR 38. [facility] 07/25 04:19 Order name: Hepatic Function; Complete Time: 05: 07/25 05:10 Interpretation: Normal except: BILID 0.3. [facility] 07/25 04:19 Order name: Lipase; Complete Time: 05: 07/25 05:11 Interpretation: Normal except: LIP 632. [facility] 07/25 04:19 Order name: AMMONIA; Complete Time: 05: 07/25 05:11 Interpretation: Normal except: KATHERIN 203. [facility] 07/25 04:53 Order name: CBC Smear Scan EDID 07/25 06:16 Order name: Ammonia EDID 07/25 06:16 Order name: Ammonia EDMS 07/25 06:16 Order name: CBC with Automated Diff EDMS 07/25 06:16 Order name: CBC with Automated Diff EDMS 07/25 06:16 Order name: Comprehensive Metabolic Panel EDID 07/25 06:16 Order name: Comprehensive Metabolic Panel EDMS 07/25 06:16 Order name: Lipase EDMS 07/25 04:19 Order name: IV Saline Lock; Complete Time: : 07/25 04:19 Order name: Labs collected and sent; Complete Time: : 07/25 06:16 Order name: Regular EDMS 07/25 06:16 Order name: Lipase EDMS 07/25 06:16 Order name: Lipid Profile EDMS 07/25 06:16 Order name: Lipid Profile EDMS 07/25 06:16 Order name: Magnesium EDMS 07/25 06:16 Order name: Magnesium EDMS 07/25 06:16 Order name: Phosphorus EDMS 07/25 06:16 Order name: Phosphorus EDMS 07/25 06:16 Order name: Protime (+INR) EDMS 07/25 06:16 Order name: Protime (+INR) EDMS 07/25 06:16 Order name: PTT, Activated Partial Thromb EDMS 07/25 06:16 Order name: PTT, Activated Partial Thromb EDMS Administered Medications: 05:20 Drug: Lactulose 30 grams Volume: 45 ml; Route: PO; cc3 05:35 Follow up: Response: No adverse reaction cc3 07:02 Follow up: Response: No adverse reaction Disposition: 07/25/19 05:35 Hospitalization ordered by Ramya Burrows for Observation. Preliminary diagnosis are Encephalopathy, unspecified, Hyperammonemia. - Bed requested for Telemetry/MedSurg (observation). - Status is Observation. - Condition is Stable. - Problem is new. - Symptoms have improved. UTI on Admission? No Signatures: Dispatcher [employer] Dipti Gomez, MEHNAZ RN Rosibel Monique Terrence, MD MD tw4 Elle Koroma cc3 Corrections: (The following items were deleted from the chart) 06:21 05:35 Hospitalization Ordered by Ramya Burrows MD for Observation. Preliminary cg diagnosis is Encephalopathy, unspecified; Hyperammonemia. Bed requested for Telemetry/MedSurg (observation). Status is Observation. Condition is Stable. Problem is new. Symptoms have improved. UTI on Admission? No. tw4 07:03 06:21 07/25/2019 05:35 Hospitalization Ordered by Ramya Burrows MD for Observation. Preliminary diagnosis is Encephalopathy, unspecified; Hyperammonemia. Bed requested for Telemetry/MedSurg (observation). Status is Observation. Condition is Stable. Problem is new. Symptoms have improved. UTI on Admission? No.
[2019-07-25] MEDS ORDERED: ONDANSETRON 4 MG/2 ML VIAL IV PRN (06:05)
[2019-07-25 06:59] VITALS: BMI 18.6
[2019-07-25] MEDS: LACTULOSE 20 GM/30 ML UCUP PO SCH ×5 (07:30→21:26)
--- NOTE | 2019-07-25 07:56 | P.HP ---
Certification for Inpatient Patient admitted to: Inpatient With expected LOS: >2 Midnights Patient will require the following post-hospital care: None Practitioner: I am a practitioner with admitting privileges, knowledge of patient current condition, hospital course, and medical plan of care. Services: Services provided to patient in accordance with Admission requirements found in Title 42 Section 412.3 of the Code of Federal Regulations Patient History Date of Service: 07/25/19 Reason for admission: Hepatic encephalopathy/pancreatitis History of Present Illness: Patient is a 58-year-old female who was brought to the hospital with altered mental status. Patient came into the ER and was found have hepatic encephalopathy. Patient has a history of cirrhosis along with some renal insufficiency. Patient also has pancytopenia. Patient has had outpatient follow-ups with GI. She is seeing doctors what in the past. Clinically patient is currently lethargic. She was able to drink lytes was in the ER. She has had some diarrhea are ready. Will continue lactulose every 6 and start Rifaximin as well. Recheck ammonia level in the morning. Allergies ciprofloxacin Allergy (Mild, Verified 07/25/19 07:21) Itching/Hives/Rash metronidazole [From Flagyl] Adverse Reaction (Intermediate, Verified 07/25/19 07 :21) Anaphylaxis - Past Medical/Surgical History Diabetic: No -: Alcoholic liver cirrhosis -: Hepatitis-C -: Chronic pain -: GERD -: Hypotension -: Ascites requiring paracentesis -: Chronic thrombocytopenia -: Anemia of chronic disease -: section x 4 -: breast augmentation -: appendectomy -: tonsillectomy -: Has been known to have gallstones -: paracenthesis monthly Psychosocial/ Personal History: Unknown. - Family History Mother Medical History: Heart disease, Hypertension, Diabetes Father Medical History: Heart disease, Liver disease Brother Medical History: Diabetes - Social History Alcohol use: No CD- Drugs: No Caffeine use: Yes Review of Systems 10-point ROS is otherwise unremarkable Physical Examination - Vital Signs Temperature: 98 F Blood Pressure: 121/58 Pulse: 56 Respirations: 18 Pulse Ox (%): 96 - Physical Exam General: In no apparent distress, Other (Slightly lethargic but wakes up and responds appropriately) HEENT: Atraumatic, PERRLA, Mucous membr. moist/pink, EOMI, Sclerae nonicteric Neck: Supple, 2+ carotid pulse no bruit, No LAD, Without JVD or thyroid abnormality Respiratory: Clear to auscultation bilaterally, Normal air movement Cardiovascular: Regular rate/rhythm, Normal S1 S2, No murmurs Gastrointestinal: Normal bowel sounds, Soft and benign, Non-distended, No tenderness Musculoskeletal: No clubbing, No swelling, No tenderness Integumentary: No rashes Neurological: Normal speech, Normal tone, Sensation intact, Cranial nerves 3-12 intact, Other (She has generalized weakness) Lymphatics: No axilla or inguinal lymphadenopathy - Studies Laboratory Data (last 24 hrs) 07/25/19 04:15: Creatinine 1.43 H 07/25/19 04:15: WBC 2.5 L, Hgb 10.9 L, Hct 33.7 L, Plt Count 90 L 07/25/19 04:15: Sodium 142, Potassium 4.2, BUN 21 H, Creatinine 1.44 H, Glucose 93, Total Bilirubin 0.9, AST 31, ALT 25, Alkaline Phosphatase 74, Lipase 632 H Assessment & Plan - Problems (Diagnosis) (1) Altered mental status Onset Date: 06/19/15 Current Visit: No Status: Acute Qualifiers: (2) Hepatic encephalopathy Onset Date: 04/20/17 Current Visit: No Status: Acute (3) Acute pancreatitis Current Visit: Yes Status: Acute (4) Chronic renal disease Onset Date: 04/20/17 Current Visit: No Status: Chronic Qualifiers: (5) Cirrhosis of liver Onset Date: 04/20/17 Current Visit: No Status: Chronic Qualifiers: (6) Pancytopenia Onset Date: 06/09/17 Current Visit: No Status: Chronic - Plan Plan: 1. Gentle hydration 2. Lactulose q.6 3. Rifaximin BID 4. Monitor liver and renal function 5. Check coagulation profile 6. Check nutritional status 7. Check urine drug screen 8. GI and DVT prophylaxis Discharge Plan: Home Plan to discharge in: Greater than 2 days - Advance Directives Does patient have a Living Will: No Does patient have a Durable POA for Healthcare: No - Code Status/Comfort Care Code Status Assessed: Yes Code Status: Full Code Critical Care: No Time Spent Managing PTS Care (In Minutes): 45
[2019-07-25] MEDS: Rifaximin 550 MG Tab PO SCH ×2 (09:00→21:26)
[2019-07-25] MEDS ORDERED: ENOXAPARIN 40 MG/0.4 ML SQ SCH (09:00)
[2019-07-25] MEDS: NA CHLORIDE 0.9% 1,000 ML IV SCH ×3 (10:13→21:25)
[2019-07-25 11:12] LABS: Absolute Lymphocytes (CBC) 0.6 K/uL (0.7-4.9); Basophils % 1.4 % (0-1.3); Hematocrit 34.4 % (36.0-45.0); MPV 9.3 fL (7.6-11.3); RBC Red Blood Cell Count 4.22 M/uL (3.86-4.86)
[2019-07-25 11:13] LABS: Protime INR 1.14
[2019-07-25 13:02] LABS: Anisocytosis 2+; Blood Morphology Comment NOTED (NOT SEEN); Hypochromasia 1+; Platelet Estimate DECR; Poikilocytosis 2+
[2019-07-25 13:03] LABS: Elliptocytes 2+; Teardrop Cell 1+
[2019-07-25 13:03] LABS: Urine White Blood Cell Casts OK
[2019-07-25 13:33] LABS: ALT/SGPT 26 U/L (12-78); AST/SGOT 33 U/L (15-37); Albumin 3.5 g/dL (3.4-5.0); Alkaline Phosphatase 74 U/L (45-117); BUN Blood Urea Nitrogen 18 mg/dL (7-18); Bicarbonate 24 mmol/L (21-32); Folic Acid, (Folate) > 20.0 ng/mL (3.1-17.5); Glucose Level 98 mg/dL (74-106); Lipase 578 U/L (73-393); Potassium 4.2 mmol/L (3.5-5.1); Protein, Total 6.9 g/dL (6.4-8.2); Sodium Level 145 mmol/L (136-145)
--- NOTE | 2019-07-25 16:02 | RAD REPORT ---
EXAM DESCRIPTION: CT - Abdomen Pelvis Wo Contrast - 07/25/2019 2:57 pm CLINICAL HISTORY: Abd Tenderness COMPARISON: CT study June 30 TECHNIQUE: Axial [address] imaging of the abdomen and pelvis was performed without IV contrast. No IV contrast was given because of allergy, abnormal renal function, patient refusal or physician re quest. No oral contrast administered All CT scans are performed using dose optimization technique as appropriate and may include automated exposure control or mA/KV adjustment according to patient size. FINDINGS: No suspicious findings in the lung bases. Nodular liver capsule again noted. The TIPS shunt tube again noted. Heterogeneity of the liver parenc hyma in the anterior dome is again noted. This is similar to prior imaging. Heterogeneity is nonspeci fic in a patient with cirrhosis or diffuse hepatic parenchymal disease. Splenomegaly again noted. No focal splenic abnormality. Pancreatic process is not suspected. Multi stone cholelithiasis noted. No active gallbladder process seen. No biliary tree dilatation. No hydronephrosis or suspicious renal mass. No significant adrenal finding. Isodense renal masses an d pyelonephritis cannot be excluded in the absence of IV contrast. The urinary bladder is without sig nificant finding. No uterine abnormality. Ovarian process is not suspected. No dilated bowel loops or bowel wall thickening. No free air, free fluid or inflammatory stranding. Patient has a 5 centimeter supraumbilical fat only hernia. This has a narrow neck of approximately 1. 8 cm. No bowel involvement. Herniated fat is not appear abnormally congested or edematous. No suspicious bony findings. Dense vascular calcifications are present. IMPRESSION: Cirrhotic liver changes are present with tips shunt tube again noted. Heterogeneity of t he hepatic parenchyma, particularly in the dome, has not changed. Full assessment of the liver parenchyma is limited in the absence of contrast. Splenomegaly again noted. No ascites. No acute GI or process suspected. Fat only supraumbilical hernia shows no change from June 30. Full assessment is limited is the absence of IV contrast.
[2019-07-25] MEDS ORDERED: LACTULOSE PO SCH (17:00)
[2019-07-26 04:25] LABS: Absolute Lymphocytes (CBC) 0.5 K/uL (0.7-4.9); Basophils % 0.5 % (0-1.3); Hematocrit 28.3 % (36.0-45.0); Lymphocytes % 33.4 % (15.3-44.8); MPV 9.5 fL (7.6-11.3); RBC Red Blood Cell Count 3.43 M/uL (3.86-4.86)
[2019-07-26 04:40] LABS: Albumin 2.8 g/dL (3.4-5.0); Bilirubin Total 0.6 mg/dL (0.2-1.0); Phosphorus 3.3 mg/dL (2.5-4.9); Potassium 4.3 mmol/L (3.5-5.1); Protein, Total 5.4 g/dL (6.4-8.2)
[2019-07-26 05:04] LABS: Protime INR 1.18
[2019-07-26 05:48] LABS: Urine Appearance CLEAR; Urine Bilirubin NEGATIVE (NEG); Urine Blood NEGATIVE (NEG); Urine Color YELLOW; Urine Glucose NEGATIVE (NEG); Urine Protein NEGATIVE (NEG); Urine Specific Gravity 1.015 (1.005-1.030)
[2019-07-26 05:50] LABS: Urine Microscopic Reflex NO UMIC
[2019-07-26 06:03] LABS: Barbiturates NEGATIVE (NEGATIVE); Benzodiazepines NEGATIVE (NEGATIVE); Cocaine NEGATIVE (NEGATIVE); METHAMPHETAM NEGATIVE (NEGATIVE); Methadone NEGATIVE (NEGATIVE); Opiates NEGATIVE (NEGATIVE); Phencyclidine NEGATIVE (NEGATIVE); THC Cannibis POSITIVE (NEGATIVE)
[2019-07-26] MEDS ORDERED: TIZANIDINE 4 MG TABLET PO PRN (09:00)
[2019-07-26] MEDS: LACTULOSE 20 GM/30 ML UCUP PO SCH ×4 (09:24→21:27)
[2019-07-26] MEDS: FUROSEMIDE 20 MG TABLET PO SCH (09:25)
[2019-07-26] MEDS: PANTOPRAZOLE 40MG TABLET PO SCH (09:25)
[2019-07-26] MEDS: FERROUS SULFATE 325 MG TAB PO SCH ×2 (09:26→11:24)
[2019-07-26] MEDS: Rifaximin 550 MG Tab PO SCH ×2 (09:27→21:27)
[2019-07-26] MEDS: FOLIC ACID 1 MG TABLET PO SCH (09:30)
--- NOTE | 2019-07-26 11:26 | P.PN ---
Subjective Date of Service: 07/26/19 Chief Complaint: Hepatic encephalopathy/pancreatitis Subjective: No C/O voiced, Tolerating diet, Ambulating, Improving, Working w/ PT , Doing well Review of Systems 10-point ROS is otherwise unremarkable Physical Examination - Vital Signs Temperature: 98.2 F Blood Pressure: 107/54 Pulse: 63 Respirations: 16 Pulse Ox (%): 100 - Physical Exam General: Alert, In no apparent distress HEENT: Atraumatic, PERRLA, EOMI Neck: Supple, JVD not distended Respiratory: Clear to auscultation bilaterally, Normal air movement Cardiovascular: Regular rate/rhythm, Normal S1 S2 Gastrointestinal: Normal bowel sounds, No tenderness Musculoskeletal: No tenderness Integumentary: No rashes Neurological: Normal speech, Normal tone, Normal affect Lymphatics: No axilla or inguinal lymphadenopathy - Studies Laboratory Data (last 24 hrs) 07/25/19 04:15: WBC 2.5 L, Hgb 10.9 L, Hct 33.7 L, Plt Count 90 L Medications List Reviewed: Yes Assessment And Plan - Current Problems (Diagnosis) (1) Hepatic encephalopathy Onset Date: 04/20/17 Current Visit: No Status: Acute Plan: Hepatic Encephalopathy 2.2 to Liver cirrhosis -Lactulose 20mg BID for now -Ammonia on admission 202 and now trending down -AAox 3 today. Now working with PT -Restarted on Home medication -Will continue to monitor (2) Chronic renal disease Onset Date: 04/20/17 Current Visit: No Status: Chronic Plan: Stable -Will monitor closely Qualifiers: Chronic kidney disease stage: stage 3 (moderate) (3) Cirrhosis of liver Onset Date: 04/20/17 Current Visit: No Status: Chronic Plan: MELD score 15 -S/p TIPS -Noncomplaint with medication Qualifiers: Hepatic cirrhosis type: alcoholic cirrhosis Ascites presence: without ascites Qualified Code(s): K70.30 - Alcoholic cirrhosis of liver without ascites (4) Pancytopenia Onset Date: 06/09/17 Current Visit: No Status: Chronic Plan: Pt with Low WBC and plt -Most likely 2.2 to Liver Cirrhosis -Will monitor for next 24 to 48hrs if improvement then DC home (5) Mild protein malnutrition Onset Date: 06/10/18 Current Visit: No Status: Chronic Discharge Plan: Home Plan to discharge in: 48 Hours - Code Status/Comfort Care Code Status Assessed: Yes Critical Care: No
[2019-07-26] MEDS: ENSURE ENLIVE 237 ML CAN PO SCH (21:27)
[2019-07-27 07:55] LABS: Protime INR 1.17
[2019-07-27] MEDS: FOLIC ACID 1 MG TABLET PO SCH (08:44)
[2019-07-27] MEDS: FUROSEMIDE 20 MG TABLET PO SCH (08:44)
[2019-07-27] MEDS: FERROUS SULFATE 325 MG TAB PO SCH (08:44)
[2019-07-27] MEDS: LACTULOSE 20 GM/30 ML UCUP PO SCH ×2 (08:45→13:19)
[2019-07-27] MEDS: ENSURE ENLIVE 237 ML CAN PO SCH (08:45)
[2019-07-27] MEDS: Rifaximin 550 MG Tab PO SCH (08:45)
[2019-07-27] MEDS: PANTOPRAZOLE 40MG TABLET PO SCH (08:45)
[2019-07-27 08:54] VITALS: O2SAT 99
[2019-07-27 12:19] LABS: Absolute Lymphocytes (CBC) 0.6 K/uL (0.7-4.9); Basophils % 0.8 % (0-1.3); Hematocrit 31.7 % (36.0-45.0); Lymphocytes % 37.2 % (15.3-44.8); MPV 8.9 fL (7.6-11.3); RBC Red Blood Cell Count 3.84 M/uL (3.86-4.86)
[2019-07-27 12:57] VITALS: BP 108/69; TEMP 98.9
--- NOTE | 2019-07-27 14:03 | P.DS ---
Admission Date: 07/25/19 Discharge Date: 07/27/19 Primary Care Provider: Dr. Riley Disposition: ROUTINE DISCHARGE Discharge Condition: GOOD Reason for Admission: Hepatic encephalopathy/pancreatitis Consultations: None Procedures: Ct scan: FINDINGS: No suspicious findings in the lung bases. Nodular liver capsule again noted. The TIPS shunt tube again noted. Heterogeneity of the liver parenchyma in the anterior dome is again noted. This is similar to prior imaging. Heterogeneity is nonspecific in a patient with cirrhosis or diffuse hepatic parenchymal disease. Splenomegaly again noted. No focal splenic abnormality. Pancreatic process is not suspected. Multi stone cholelithiasis noted. No active gallbladder process seen. No biliary tree dilatation. No hydronephrosis or suspicious renal mass. No significant adrenal finding. Isodense renal masses and pyelonephritis cannot be excluded in the absence of IV contrast. The urinary bladder is without significant finding. No uterine abnormality. Ovarian process is not suspected. No dilated bowel loops or bowel wall thickening. No free air, free fluid or inflammatory stranding. Patient has a 5 centimeter supraumbilical fat only hernia. This has a narrow neck of approximately 1.8 cm. No bowel involvement. Herniated fat is not appear abnormally congested or edematous. No suspicious bony findings. Dense vascular calcifications are present. IMPRESSION: Cirrhotic liver changes are present with tips shunt tube again noted. Heterogeneity of the hepatic parenchyma, particularly in the dome, has not changed. Full assessment of the liver parenchyma is limited in the absence of contrast Medical Problem List: Hepatic encephalopathy secondary to chronic liver cirrhosis with history of TIPS shunt Pancytopenia secondary to liver cirrhosis Chronic renal disease stage III Mild protein malnutrition chronic Brief History of Present Illness: 58-year-old female with history of liver cirrhosis with TIPS shunt presented with altered mental status. Patient found to have elevated ammonia level. Patient had hepatic encephalopathy. Patient was admitted for treatment. Hospital Course: Patient presented with hepatic encephalopathy. Patient with history of chronic liver cirrhosis with history of TIPS. Patient found to have elevated ammonia level. Patient was given lactulose. The patient improved. Ammonia level also improved. At discharge patient was back to her normal mentation. Medications have been adjusted. Lactulose has been increased from 10 g per 30 mL to 20 g per 30 mL. At discharge she will continue with lactulose (20g/30 ml) at 30 mL 4 times a day. Patient will also continue with Xifaxan 550 mg 1 pill twice daily. Patient will need a follow up with her GI specialist in [place] to further monitor and address her chronic liver cirrhosis. Patient with chronic renal disease stage III. This has remained stable. Patient may continue with a 1500 cc per day fluid restriction. Patient also takes Lasix 20 mg 1 pill daily. Recommend to monitor her weight daily. If her weight increases by more than 5 lb further adjustment in medication may be required. Recommend no further use of nonsteroidal anti-inflammatories. Future medications will need to be renally dosed. Patient with pancytopenia. This is likely related to her liver cirrhosis. This was monitored and reviewed. CBC remained stable. Peripheral smear obtained shows no blast cells. Recommend to recheck CBC in 1-2 weeks to monitor her progress. Case discussed with hematology. If this continues to worsen patient may require hematology evaluation as an outpatient. Patient will continue with iron 325 mg daily and folic acid 1 mg daily. Patient with GERD. At discharge she will continue with Protonix 40 mg 1 pill daily. Recommend no further use of nonsteroidal anti-inflammatories. Patient also takes muscle relaxer Tizanidine 2 mg twice daily as needed for muscle spasm. If with increase sedation, will recommend not to use medication. Vital Signs/Physical Exam: Temp Pulse Resp BP Pulse Ox 98.9 F 70 18 108/69 100 07/27/19 12:00 07/27/19 12:00 07/27/19 12:00 07/27/19 12:00 07/27/19 12:00 General: Alert, In no apparent distress, Oriented x3, Cooperative HEENT: Atraumatic Neck: Supple Respiratory: Clear to auscultation bilaterally, Normal air movement Cardiovascular: Normal pulses, Regular rate/rhythm Gastrointestinal: Normal bowel sounds, Soft and benign, Non-distended, No tenderness, No masses, No rebound, No guarding Musculoskeletal: No erythema, No tenderness, No warmth Integumentary: No tenderness/swelling, No erythema, No warmth, No cyanosis Neurological: Normal speech, Normal strength at 5/5 x4 extr, Normal tone, Normal affect Lymphatics: No axilla or inguinal lymphadenopathy Laboratory Data at Discharge: WBC 1.7 K/uL (4.3-10.9) L* 07/27/19 12:00 Hgb 10.3 g/dL (12.0-15.0) L 07/27/19 12:00 Hct 31.7 % (36.0-45.0) L 07/27/19 12:00 Plt Count 55 K/uL (152-406) L 07/27/19 12:00 PT 13.7 SECONDS (9.5-12.5) H 07/27/19 07:21 INR 1.17 07/27/19 07:21 APTT 40.1 SECONDS (24.3-36.9) H 07/27/19 07:21 Sodium 149 mmol/L (136-145) H 07/26/19 04:08 Potassium 4.3 mmol/L (3.5-5.1) 07/26/19 04:08 BUN 15 mg/dL (7-18) 07/26/19 04:08 Creatinine 1.10 mg/dL (0.55-1.3) 07/26/19 04:08 Glucose 92 mg/dL (74-106) 07/26/19 04:08 Phosphorus 3.3 mg/dL (2.5-4.9) 07/26/19 04:08 Magnesium 2.0 mg/dL (1.8-2.4) 07/26/19 04:08 Total Bilirubin 0.6 mg/dL (0.2-1.0) 07/26/19 04:08 AST 23 U/L (15-37) 07/26/19 04:08 ALT 18 U/L (12-78) 07/26/19 04:08 Alkaline Phosphatase 61 U/L (45-117) 07/26/19 04:08 Triglycerides 45 mg/dL (<150) 07/26/19 04:08 Cholesterol 115 mg/dL (<200) 07/26/19 04:08 HDL Cholesterol 55 mg/dL (40-60) 07/26/19 04:08 Cholesterol/HDL Ratio 2.09 07/26/19 04:08 Lipase 636 U/L (73-393) H 07/26/19 04:08 Home Medications: Ferrous Sulfate [Ferrous Sulfate*] 325 mg PO DAILY 07/25/19 Folic Acid 1 mg PO DAILY 07/25/19 Furosemide [Lasix*] 1 tab PO DAILY 07/25/19 Pantoprazole [Protonix Tab*] 40 mg PO DAILY 07/25/19 Rifaximin [Xifaxan*] 550 mg PO BID 07/25/19 Tizanidine HCl 2 mg PO BID PRN 07/25/19 Lactulose [Cephulac*] 30 ml PO QID #1 bottle 07/27/19 New Medications: Lactulose [Cephulac*] 30 ml PO QID #1 bottle Patient Discharge Instructions: 1. Recommend follow up with her PCP in 1 week. 2. Patient presented with hepatic encephalopathy. Patient with history of chronic liver cirrhosis with history of TIPS. Patient found to have elevated ammonia level. Patient was given lactulose. The patient improved. Ammonia level also improved. At discharge patient was back to her normal mentation. Medications have been adjusted. Lactulose has been increased from 10 g per 30 mL to 20 g per 30 mL. At discharge she will continue with lactulose (20g/30 ml ) at 30 mL 4 times a day. Patient will also continue with Xifaxan 550 mg 1 pill twice daily. Patient will need a follow up with her GI specialist in [place] to further monitor and address her chronic liver cirrhosis. 3. Patient with chronic renal disease stage III. This has remained stable. Patient may continue with a 1500 cc per day fluid restriction. Patient also takes Lasix 20 mg 1 pill daily. Recommend to monitor her weight daily. If her weight increases by more than 5 lb further adjustment in medication may be required. Recommend no further use of nonsteroidal anti-inflammatories. Future medications will need to be renally dosed. 4. Patient with pancytopenia. This is likely related to her liver cirrhosis. This was monitored and reviewed. CBC remained stable. Peripheral smear obtained shows no blast cells. Recommend to recheck CBC in 1-2 weeks to monitor her progress. Case discussed with hematology. If this continues to worsen patient may require hematology evaluation as an outpatient. Patient will continue with iron 325 mg daily and folic acid 1 mg daily. 5. Patient with GERD. At discharge she will continue with Protonix 40 mg 1 pill daily. Recommend no further use of nonsteroidal anti-inflammatories. 6. Patient also takes muscle relaxer Tizanidine 2 mg twice daily as needed for muscle spasm. If with increase sedation, will recommend not to use medication. Diet: AHA Activity: Fall precautions Time spent managing pt's care (in minutes): 55
--- OUTSIDE RECORDS SUMMARY | 2019-07-31 20:29 | XMS REPORT ---
:1960 [facility] Address [address] [place] [address] Dr. Chambers [address] [place] [address] Care Team Providers Name Role Phone AURORA QUEZADA Unavailable Unavailable Problems This patient has no known problems. Allergies, Adverse Reactions, Alerts This patient has no known allergies or adverse reactions. Medications This patient has no known medications. Results Test Description Test Time Test Comments Text Results Atomic Results Result Comments MISCELLANEOUS LAB ORDER 2019-07-07 07:50:00 Test Item Value Reference Range Comments SCAN RESULT (test [id number]=[id number]) HEPATITIS C [id number] 12:34:00 Test Item Value Reference Range Comments HEPATITIS C ANTIBODY (BEAKER) Reactive Nonreactive Test performed at [facility] (test pqyu=527) [facility]. See attached report ALPHA FETOPROTEIN (AFP), TUMOR [id number] 06:18:00 Test Item Value Reference Range Comments ALPHA-FETOPROTEIN (BEAKER) (test gqop=8987) < ng/mL <10.0 [id number] 06:04:00 Test Item Value Reference Range Comments MAGNESIUM (BEAKER) (test kvtz=199) 2.3 mg/dL 1.6-2.6 COMPREHENSIVE METABOLIC [id number] 06:04:00 Test Item Value Reference Range Comments TOTAL PROTEIN (BEAKER) 7.0 gm/dL 6.0-8.3 (test fmye=564) ALBUMIN (BEAKER) (test 3.9 g/dL 3.5-5.0 rbpz=0514) ALKALINE PHOSPHATASE 68 U/L 40-150 (BEAKER) (test utti=343) BILIRUBIN TOTAL (BEAKER) 0.6 mg/dL 0.2-1.2 (test rxfc=338) SODIUM (BEAKER) (test 139 meq/L 136-145 zdti=755) POTASSIUM (BEAKER) (test 3.9 meq/L 3.5-5.1 vine=699) CHLORIDE (BEAKER) (test 110 meq/L 98-107 ogpj=839) CO2 (BEAKER) (test 21 meq/L 22-29 wbcw=865) BLOOD UREA NITROGEN 20 mg/dL 7-21 (BEAKER) (test aovh=475) CREATININE (BEAKER) (test 1.60 mg/dL 0.57-1.25 cqxn=800) GLUCOSE RANDOM (BEAKER) 96 mg/dL 70-105 (test ajqm=565) CALCIUM (BEAKER) (test 9.4 mg/dL 8.4-10.2 ojyy=584) AST (SGOT) (BEAKER) (test 20 U/L 5-34 kiln=946) ALT (SGPT) (BEAKER) (test 14 U/L 6-55 hetj=677) EGFR (BEAKER) (test 33 mL/min/1.73 sq m ESTIMATED GFR IS NOT kjzm=5626) ACCURATE CREATININE CLEARANCE IN PREDICTING GLOMERULAR FILTRATION RATE. ESTIMATED GFR IS NOT APPLICABLE FOR DIALYSIS PATIENTS. CBC W/PLT COUNT & AUTO [id number] 05:47:00 Test Item Value Reference Range Comments WHITE BLOOD CELL COUNT 1.6 K/ L 3.5-10.5 (BEAKER) (test obee=672) RED BLOOD CELL COUNT (BEAKER) 3.69 M/ L 3.93-5.22 (test otsr=035) HEMOGLOBIN (BEAKER) (test 8.0 GM/DL 11.2-15.7 pacw=119) HEMATOCRIT (BEAKER) (test 28.7 % 34.1-44.9 vicj=480) MEAN CORPUSCULAR VOLUME 77.8 fL 79.4-94.8 (BEAKER) (test oxvc=328) MEAN CORPUSCULAR HEMOGLOBIN 21.7 pg 25.6-32.2 (BEAKER) (test fght=793) MEAN CORPUSCULAR HEMOGLOBIN 27.9 GM/DL 32.2-35.5 CONC (BEAKER) (test xxbp=136) RED CELL DISTRIBUTION WIDTH 16.1 % 11.7-14.4 (BEAKER) (test uauj=039) PLATELET COUNT (BEAKER) (test 60 K/CU MM 150-450 vkoi=220) MEAN PLATELET VOLUME (BEAKER) Unable to report due to (test aamy=722) abnormal Platelet population distribution. NUCLEATED RED BLOOD CELLS 0 /100 WBC 0-0 (BEAKER) (test ibsl=892) PROTHROMBIN [id number] 05:46:00 Test Item Value Reference Range Comments PROTIME (BEAKER) (test lfgt=225) 15.7 seconds 11.9-14.2 INR (BEAKER) (test tvvs=464) 1.3 <=5.9 Effective 02/16/2019: PT Reference Range ChangeNew: 11.9-14.2 Previous: 11.7- 14.7RECOMMENDED COUMADIN/WARFARIN INR THERAPY RANGESSTANDARD DOSE: 2.0-3.0 Includes: PROPHYLAXIS for venous thrombosis, systemic embolization; TREATMENT for venous thrombosis and/or pulmonary embolus.HIGH RISK: Target INR is2.5-3.5 for patients wiht mechanical heart valves.PROTHROMBIN [id number] 18:50: 00 Test Item Value Reference Range Comments PROTIME (BEAKER) (test xisy=931) 17.0 seconds 11.9-14.2 INR (BEAKER) (test jvkh=699) 1.5 <=5.9 Effective 02/16/2019: PT Reference Range ChangeNew: 11.9-14.2 Previous: 11.7- 14.7RECOMMENDED COUMADIN/WARFARIN INR THERAPY RANGESSTANDARD DOSE: 2.0-3.0 Includes: PROPHYLAXIS for venous thrombosis, systemic embolization; TREATMENT for venous thrombosis and/or pulmonary embolus.HIGH RISK: Target INR is2.5-3.5 for patients wiht mechanical heart valves.ANTI-NUCLEAR ANTIBODY (MADI)2019-07-01 11:48:00 Test Item Value Reference Range Comments ANTI-NUCLEAR ANTIBODY (MADI) (BEAKER) (test Negative Negative xyqd=413) Test performed by IFA method.Test performed by IFA method.CBC W/PLT COUNT & AUTO [id number] 10:44:00 Test Item Value Reference Range Comments WHITE BLOOD CELL COUNT (BEAKER) (test rjsl=012) 1.7 K/ L 3.5-10.5 RED BLOOD CELL COUNT (BEAKER) (test xiph=148) 3.06 M/ L 3.93-5.22 HEMOGLOBIN (BEAKER) (test qgrq=965) 7.0 GM/DL 11.2-15.7 HEMATOCRIT (BEAKER) (test qccu=452) 23.3 % 34.1-44.9 MEAN CORPUSCULAR VOLUME (BEAKER) (test nncz=616) 76.1 fL 79.4-94.8 MEAN CORPUSCULAR HEMOGLOBIN (BEAKER) (test 22.9 pg 25.6-32.2 lqlz=068) MEAN CORPUSCULAR HEMOGLOBIN CONC (BEAKER) (test 30.0 GM/DL 32.2-35.5 efaf=864) RED CELL DISTRIBUTION WIDTH (BEAKER) (test 16.0 % 11.7-14.4 jokf=430) PLATELET COUNT (BEAKER) (test ddky=149) 56 K/CU MM 150-450 MEAN PLATELET VOLUME (BEAKER) (test rjwi=911) 11.0 fL 9.4-12.3 NUCLEATED RED BLOOD CELLS (BEAKER) (test 0 /100 WBC 0-0 jysw=095) No clots(CELLAVISION MANUAL DIFF)2019-07-01 10:44:00 Test Item Value Reference Range Comments NEUTROPHILS - REL (CELLAVISION)(BEAKER) (test 37 % mjmn=7174) LYMPHOCYTES - REL (CELLAVISION)(BEAKER) (test 41 % shfu=1209) MONOCYTES - REL (CELLAVISION)(BEAKER) (test 16 % eqme=1211) EOSINOPHILS - REL (CELLAVISION)(BEAKER) (test 3 % avvu=1213) BASOPHILS - REL (CELLAVISION)(BEAKER) (test 1 % rbsm=9288) ATYPICAL LYMPHOCYTES - REL (CELLAVISION)(BEAKER) 1 % 0-0 (test twhu=0254) NEUTROPHILS - ABS (CELLAVISION)(BEAKER) (test 0.63 K/ul 1.56-6.13 hthr=6661) LYMPHOCYTES - ABS (CELLAVISION)(BEAKER) (test 0.70 K/ul 1.18-3.74 sisg=3508) MONOCYTES - ABS (CELLAVISION)(BEAKER) (test 0.27 K/uL 0.24-0.36 xeae=3520) EOSINOPHILS - ABS (CELLAVISION)(BEAKER) (test 0.05 K/uL 0.04-0.36 boig=5601) BASOPHILS - ABS (CELLAVISION)(BEAKER) (test 0.02 K/uL 0.01-0.08 qmuk=7369) ATYPICAL LYMPHOCYTES - ABS (CELLAVISION)(BEAKER) 0.02 K/uL 0.00-0.00 (test ptlf=1196) TOTAL COUNTED (BEAKER) (test okjn=0535) 100 SMUDGE CELLS (BEAKER) (test schw=3636) Present GIANT PLATELETS (BEAKER) (test nghw=765) Present HYPOCHROMIA (BEAKER) (test lcye=327) 1+ few ANISOCYTOSIS (BEAKER) (test buyl=582) 1+ few POIKILOCYTES (BEAKER) (test hiqw=325) 2+ moderate ARTIFACT (CELLAVISION)(BEAKER) (test rcyz=2371) Present PLATELET CONCENTRATION (CELLAVISION)(BEAKER) Decreased (test lrco=4815) Received comment: User comments: Slide comments:COMPREHENSIVE METABOLIC [id number] 08:31:00 Test Item Value Reference Range Comments TOTAL PROTEIN (BEAKER) 6.5 gm/dL 6.0-8.3 (test otoe=460) ALBUMIN (BEAKER) (test 3.8 g/dL 3.5-5.0 ntgh=9751) ALKALINE PHOSPHATASE 59 U/L 40-150 (BEAKER) (test uaog=107) BILIRUBIN TOTAL (BEAKER) 1.0 mg/dL 0.2-1.2 (test bjvo=334) SODIUM (BEAKER) (test 136 meq/L 136-145 goks=329) POTASSIUM (BEAKER) (test 3.9 meq/L 3.5-5.1 temu=434) CHLORIDE (BEAKER) (test 106 meq/L 98-107 vgxl=146) CO2 (BEAKER) (test 21 meq/L 22-29 lkrf=345) BLOOD UREA NITROGEN 19 mg/dL 7-21 (BEAKER) (test jrou=433) CREATININE (BEAKER) (test 1.48 mg/dL 0.57-1.25 lpkl=093) GLUCOSE RANDOM (BEAKER) 74 mg/dL 70-105 (test esjj=460) CALCIUM (BEAKER) (test 9.3 mg/dL 8.4-10.2 paeu=790) AST (SGOT) (BEAKER) (test 21 U/L 5-34 vfue=767) ALT (SGPT) (BEAKER) (test 13 U/L 6-55 wsvh=436) EGFR (BEAKER) (test 36 mL/min/1.73 sq m ESTIMATED GFR IS NOT ynvp=7502) ACCURATE CREATININE CLEARANCE IN PREDICTING GLOMERULAR FILTRATION RATE. ESTIMATED GFR IS NOT APPLICABLE FOR DIALYSIS PATIENTS. [id number] 08:31:00 Test Item Value Reference Range Comments PHOSPHORUS (BEAKER) (test rrqh=945) 3.4 mg/dL 2.3-4.7 [id number] 08:31:00 Test Item Value Reference Range Comments MAGNESIUM (BEAKER) (test ukja=384) 2.0 mg/dL 1.6-2.6 [id number] 07:26:00 Test Item Value Reference Range Comments LIPASE (BEAKER) (test tavj=048) 390 U/L 8-78 [id number] 06:49:00 Test Item Value Reference Range Comments AMYLASE (BEAKER) (test xwyc=925) 200 U/L 25-125 [id number] 05:59:00 Test Item Value Reference Range Comments AMMONIA (BEAKER) (test izwj=099) 107 mol/L 18-72 HEPATITIS B [id number] 05:39:00 Test Item Value Reference Range Comments HEPATITIS B CORE TOTAL ANTIBODY (BEAKER) (test Nonreactive Nonreactive trxq=276) HEPATITIS B SURFACE ANTIBODY (BEAKER) (test < mIU/mL <8.0 ywfw=362) HEPATITIS B SURFACE ANTIGEN (2) (BEAKER) (test Nonreactive Nonreactive qvqh=2135) TSH/FREE T4 IF [id number] 05:33:00 Test Item Value Reference Range Comments THYROID STIMULATING HORMONE (BEAKER) (test 2.36 uIU/mL 0.35-4.94 fzrz=997)
== END 2019-07-27 15:35 | disposition home health service (06) | DRG 433 ==
LOC: ER 04:07 → ERHOLD 06:24 → 4TH 06:34
PROVIDERS: ADMIT Hospitalist; ATTEND Hospitalist
DX: K70.40 Alcoholic hepatic failure without coma (principal); D61.818 Other pancytopenia; E46 Unspecified protein-calorie malnutrition; Z68.1 Body mass index [BMI] 19.9 or less, adult; N18.3 Chronic kidney disease, stage 3 (moderate); K21.9 Gastro-esophageal reflux disease without esophagitis; M62.838 Other muscle spasm; K70.30 Alcoholic cirrhosis of liver without ascites
CPT/HCPCS: 36415; 74176; 80048; 80053; 80061; 80076; 80307; 80320; 81003; 82140; 82607; 82746; 83010; 83540; 83615; 83690; 83735; 84100; 85025; 85044; 85610; 85730; 97116; 97161; 99285; J7030

== ENCOUNTER 2020-07-17 15:11 | Inpatient (IN) | payer OTHER ==
--- OUTSIDE RECORDS SUMMARY | 2020-07-17 15:21 | XMS REPORT | Summary of Care ---
:1960 Author Organization [facility] - Health Address [address] [place] [address] Care Team Providers Name Role Phone Vls-Lab Unavailable Unavailable Alexey Hayes MD Unavailable Sandra Meyers RN Unavailable Unavailable MD Nadia Unavailable DO Omayra Unavailable Maryann Fu MD Unavailable Pcp, Does Not Have A Primary Care Provider Encounter Details Date Type Department Care Team Description 04/16/2020 Orders Only [facility] Doctor Unassigned, No [address] [facility] [place] [address] [address] [place] [address] Allergies Active Allergy Reactions Severity Noted Date Comments Ciprofloxacin Hcl Itching Low 05/26/2017 Metronidazole Hcl Other - See comments 09/20/2014 Ra sh, swelling documented as of this encounter (statuses as of 04/19/2020) Medications Medication Sig Dispensed Refills Start Date End Date Status omeprazole 20 mg capsule Take 20 mg by 0 Active mouth daily. Zinc Acetate, Oral, 25 Take 25 mg by 30 capsule 11 12/30/2016 Active mg (zinc) mouth daily. CapIndications: Zinc deficiency midodrine 5 mg tablet Take 1 tablet 90 tablet 3 01/07/2017 Active by mouth 3 (three) times daily. cyclobenzaprine 5 mg Take 1 tablet 30 tablet 3 02/03/2017 Active tablet by mouth once daily as needed for Muscle Spasms. pregabalin (LYRICA) 75 Take 1 capsule 30 capsule 1 02/03/2017 Active mg capsule by mouth 2 (two) times daily. nicotine (NICOTROL) 10 Inhale 1 Puff 168 Each 3 02/03/2017 Active mg inhaler as needed for Smoking cessation. rifAXIMin 550 mg tablet Take 1 tablet 60 tablet 11 02/03/2017 Active by mouth 2 (two) times daily. furosemide 40 mg tablet Take 1 tablet 60 tablet 2 02/23/2017 Active by mouth daily. lactulose 10 gram/15 mL Take 45 mL by 1892 mL 3 05/14/2017 Active solution mouth 4 (four) times daily. spironolactone 100 mg Take 1 tablet 60 tablet 2 08/17/2017 Active tablet by mouth daily. traMADOL 50 mg tablet 1-2 by mouth 40 tablet 0 03/18/2019 Active every 4-6 hours as need for pain documented as of this encounter (statuses as of 04/19/2020) Active Problems Problem Noted Date Closed Colles' fracture of right radius, initial encou nter 03/03/2019 Overview: Added automatically from request for mrakell harman [id number] Hepatic encephalopathy 01/16/2017 S/P TIPS (transjugular intrahepatic portosystemic shun t) 01/06/2017 Septicemia due to Klebsiella pneumoniae 01/02/2017 CLABSI (central line-associated bloodstream infection) 01/02/2017 Severe sepsis with acute organ dysfunction due to Gram negative bacteria 01/02/2017 Protein-calorie malnutrition, moderate 01/01/2017 Hyponatremia 12/30/2016 Zinc deficiency 12/02/2016 Pre-transplant evaluation for chronic liver disease Acute pancreatitis 04/03/2015 Abdominal pain 04/03/2015 Other 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 01/30/2015 Generalized abdominal pain 01/30/2015 Alcoholic cirrhosis of liver with ascites 01/29/2015 Cirrhosis 10/31/2014 Alcohol abuse 10/31/2014 HCV (hepatitis C virus) 10/31/2014 Peripheral neuropathy 10/31/2014 Ascites 09/20/2014 documented as of this encounter (statuses as of 04/19/2020) Immunizations Name Administration Dates Next Due HEP B, Adult Dosage 02/23/2017, 12/08/2016, 10/02/2016 HEPATITIS A 02/23/2017, 12/08/2016 Influenza Virus Vaccine Quad IM 3+ YRS 11/02/2014 Pneumococcal Polysaccharide, PPSV23 11/02/2014 (PNEUMOVAX) Twinrix (hep a/hep b) 04/20/2015 documented as of this encounter Social History Tobacco Use Types Packs/Day Years Used Date Current Every Day Smoker 0.2 Smokeless Tobacco: Never Used Comments: Using nicotine patches and samantha ctronic cigarettes. 1pack/2days. Alcohol Use Drinks/Week oz/Week Comments Yes Drinks a tall gl ass of rum and coke since Jun 2014. Used to drink he avily before that Sex Assigned at Date Recorded Not on file Job Start Date Occupation Industry Not on file Not on file Not on file Travel History Travel Start Travel End No recent travel history available. documented as of this encounter Last Filed Vital Signs Not on filedocumented in this encounter Plan of Treatment Health Maintenance Due Date Last Done Comments DTaP,Tdap,and Td Vaccines (1 - Tdap) 1972 Depression Screening 1973 PAP SMEAR 1982 Zoster Recombinant Vaccine (SHINGRIX) 2011 (1 of 2) Breast Cancer Screening (MAMMOGRAM) 10/30/2017 10/30/2016 LUNG CANCER SCREEN: Recommended for 12/19/2017 12/19/2016 age 55-80 with 30 + pack year history INFLUENZA VACCINE (#1) 2020 11/06/2017, 11/02/2014 COLONOSCOPY 09/25/2024 09/25/2014 PNEUMOCOCCAL 0-64 YEARS COMBINED Completed 11/02/2014 SERIES HEPATITIS C (HCV) SCREEN Completed 10/02/2016, 09/20/2014, 09/24/2004 documented as of this encounter Procedures Procedure Name Priority Date/Time Associated Diagnosis Comme nts EXTERNAL PROVIDER Routine 04/16/2020 12:01 AM CDT RECORDS documented in this encounter Results Not on filedocumented in this encounter Insurance Payer Benefit Plan Subscriber ID Effective Phone Address Typ e / Group Dates [employer] WELL[employer]ARE [id number] 2018-Pres [facility] [place] PL[place] HMO CLASSIC/VALUE [facility] MEDICAID OF xxxxxxxxx 2016-Pre [phone] Medi caid [place] sent [phone] [place] [id number] [employer]MANA - HUMANA GOLD [id number] 2019-Pres [facility] Adv MANAGED PLS O ent O MEDICARE documented as of this encounter
--- OUTSIDE RECORDS SUMMARY | 2020-07-17 15:21 | XMS REPORT | Clinical Summary ---
:1960 Author Organization [facility] Address [address] [place] [address] Care Team Providers Name Role Phone Edgardo Riley MD Primary Care Provider Allergies Active Allergy Reactions Severity Noted Date Comments Ciprofloxacin Itching, Other (See Comments) Low 05/26/2017 Metronidazole Anaphylaxis, Other (See Comments) High 2013 Rash, swelling Medications Medication Sig Dispensed Refills Start Date End Date Status FLUoxetine (PROZAC) 40 Take 40 mg by 0 Active MG capsule mouth daily. gabapentin (NEURONTIN) Take 300 mg by 0 Active 300 MG capsule mouth 3 (three) times daily. lactulose (CHRONULAC) 10 Take 20 g by 0 Active gram/15 mL (15 mL) mouth 4 (four) solution times daily . pregabalin (LYRICA) 75 Take 75 mg by 0 Active MG capsule mouth 2 (two) times daily. rOPINIRole (REQUIP) 1 MG Take 1 mg by 0 Active tablet mouth nightly. temazepam (RESTORIL) 15 Take 15 mg by 0 Active mg capsule mouth every night as needed for Sleep. omeprazole (PRILOSEC) 40 Take 40 mg by 0 Active MG capsule mouth daily. rifAXIMin 550 mg Take 1 tablet 30 tablet 2 07/02/2019 Active TabIndications: Hepatic (550 mg total) encephalopathy (HCC) by mouth 2 (two) times daily. 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 Never 06/30/2019 How many drinks containing alcohol do you have on a typical Not asked day when you are drinking? How often do you have six or more drinks on one occasion? No t asked Sex Assigned at Date Recorded Not on file Last Filed Vital Signs Not on file Plan of Treatment Health Maintenance Due Date Last Done Comments BREAST CANCER SCREENING 1960 COLON CANCER SCREENING COLONOSCOPY 1960 CERVICAL CANCER SCREENING PAP ONLY (Age 0110/18/1982 21-65) LIPID PANEL 2006 MEDICARE ANNUAL WELLNESS (YEAR 2 or FIRST 10/23/2019 YEAR if no IPPE) INFLUENZA VACCINE (#1) 2020 11/06/2017, 11/02/2014 Results Not on fileafter 07/17/2019 Insurance Payer Benefit Plan / Subscriber ID Effective Dates Phone Addre ss Type Group TEXANPLUS TEXANPLUS HMO [id number] 2018-Tianna [facility] Contracted ALL t MEDICAID MEDICAID OF [id number] 2016-Pernell Wy [place] Advance Directives For more information, please contact: [phone] Code Status Date Activated Date Inactivated Comments Full Code 06/30/2019 11:26 PM 07/02/2019 6:28 PM This code status was determined by: Patient
--- OUTSIDE RECORDS SUMMARY | 2020-07-17 15:21 | XMS REPORT | Summary of Care ---
:1960 Author Organization [facility] - Health Address [address] [place] [address] Care Team Providers Name Role Phone Vls-Lab Unavailable Unavailable Alexey Hayes MD Unavailable Sandra Meyers RN Unavailable Unavailable MD Nadia Unavailable DO Omayra Unavailable Maryann Fu MD Unavailable Pcp, Does Not Have A Primary Care Provider Encounter Details Date Type Department Care Team Description 06/14/2020 Orders Only [facility] Doctor Unassigned, No [address] [facility] [place] [address] [address] [place] [address] Allergies Active Allergy Reactions Severity Noted Date Comments Ciprofloxacin Hcl Itching Low 05/26/2017 Metronidazole Hcl Other - See comments 09/20/2014 Ra sh, swelling documented as of this encounter (statuses as of 06/19/2020) Medications Medication Sig Dispensed Refills Start Date [...] as of this encounter (statuses as of 06/19/2020) Active Problems Problem Noted Date Closed Colles' fracture of right radius, initial encou nter 03/03/2019 Overview: Added automatically from request for markell harman [id number] Hepatic encephalopathy 01/16/2017 S/P TIPS (transjugular intrahepatic [...] as of this encounter (statuses as of 06/19/2020) Immunizations Name Administration Dates Next Due HEP [...] Assigned at Date Recorded Not on file documented as of this encounter Last Filed Vital Signs Not on filedocumented in this encounter Plan of Treatment Health Maintenance Due Date Last Done Comments Depression Screening 1973 DTaP,Tdap,and Td Vaccines (1 - Tdap) 1980 PAP SMEAR 1982 COLON CANCER SCREENING ANNUAL 2011 FIT/FOBT COLON CANCER SCREENING FIT DNA EVERY 2011 3 YEARS COLON CANCER SCREENING SIGMOIDOSCOPY 2011 EVERY 5 YEARS Zoster Recombinant Vaccine (SHINGRIX) 2011 (1 of 2) Breast Cancer Screening (MAMMOGRAM) 10/30/2017 10/30/2016 LUNG CANCER SCREEN: Recommended for 12/19/2017 12/19/2016 age 55-80 with 30 + pack year history INFLUENZA VACCINE (#1) 2020 11/06/2017, 11/02/2014 COLONOSCOPY 09/25/2024 09/25/2014 Colorectal Cancer Screening 09/25/2024 PNEUMOCOCCAL 0-64 YEARS COMBINED Completed 11/02/2014 SERIES HEPATITIS C (HCV) SCREEN Completed 10/02/2016, 09/20/2014, 09/24/2004 documented as of this encounter Procedures Procedure Name Priority Date/Time Associated Diagnosis Comme nts HOME HEALTH - OTHER Routine 06/14/2020 12:01 AM CDT documented in this encounter Results Not on filedocumented in this encounter Insurance Payer Benefit Plan Subscriber ID Effective Phone Address Typ e / Group Dates WELLCARE WELLCARE [id number] 2018-Pres Medica re Adv TEXAN PLUS TEXAN PLUS ent HMO CLASSIC/VALUE [facility] MEDICAID OF [id number] 2016-Pre [phone] Medi caid [place] sent [phone] [place] [address] HUMANA - HUMANA [facility] [id number] 2019-Pres [facility] Adv MANAGED PLS HMO ent O MEDICARE documented as of this encounter
--- OUTSIDE RECORDS SUMMARY | 2020-07-17 15:22 | XMS REPORT | Continuity of Care Document ---
:1960 Author Organization [facility] t Address [address] [place] [address] Care Team Providers Name Role Phone Flash Riley MD Primary Care Physician Doctor Unassigned, Name Attending Clinician Unavailable Maryann Fu MD Attending Clinician PILAR Attending Clinician Unavailable Jessica Moncada Attending Clinician PILAR Admitting Clinician Unavailable Problems Condition Condition Condition Status Onset Resolution Last Treating Co mments Source Name Details Category Date Date Treatment Clinician Date Alcoholic Alcoholic Disease Active 2018-[address] [facility] cirrhosis cirrhosis 0-10 [facility] - [facility] Center Hepatic Hepatic Disease Active 2018-[address] [facility] encephalop encephalop 0-10 Aria kes - athy athy 00:00: Medical 00 Center Elevated Elevated Disease Active 2018-09 [facility] Chronic Chronic Problem Active [facility] hepatitis hepatitis [facility] - C without C without Jareth sammi hepatic hepatic l coma coma Outpati ent Clinics 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 Aria kes - athy athy Memoria l Outpati ent Clinics Pancytopen Pancytopen Problem Active [facility] Clin[facility] Hepatic Hepatic Problem Active [facility] cirrhosis, cirrhosis, Aria kes - unspecifie unspecifie Me moria d hepatic d hepatic l cirrhosis cirrhosis Outp ati type, type, ent unspecifie unspecifie Cl inics d whether d whether ascites ascites present present Allergies, Adverse Reactions, Alerts Allergy Allergy Status Severity Reaction(s) Onset Inactive Treating Comm ents Source Name Type Date Date Clinician Ciproflo Propensi Active Itching, [facility] x[facility] to Other (See 05-26 [facility] - adverse Comments) 00:00: Medica l reaction 00 [facility] Metronid Propensi Active Anaphylaxis, 2013-09 Rash, [facility] St azole ty to Other (See swelling [facility] - adverse Comments) 00:00: Medica l reaction 00 [facility] Social History Social Habit Start Date Stop Date Quantity Comments Source History [facility] cosmo - Alcohol Std Drinks Medica Center History [facility] cosmo - Alcohol Binge Medical [facility] ter Sex Assigned At [facility] Cigarettes smoked 2019-07-01 2019-07-01 [facility] - current (pack per 00:00:00 00:00:00 [facility] Center day) - Reported Tobacco use and 2019-07-01 2019-07-01 Never used [facility] - exposure 00:00:00 00:00:00 [facility] Alcohol intake 2019-07-01 2019-07-01 Current [facility] es - 00:00:00 00:00:00 non-drinker of Medical Ce nter alcohol (finding) History [facility] 2019-06-30 2019-06-30 1 [facility] cosmo - Alcohol Frequency 00:00:00 00:00:00 [facility] Smoking Status Start Date Stop Date Source Current every day smoker 2019-07-01 00:00:00 [facility] Medications Ordered Filled Start Stop Current Ordering Indication Dosage Frequency Signature Comments Components Source Medication Medication Date Date Medication? Clinician (SIG) Name Name FLUoxetine 2018-09 Yes 40mg QD Take [address] (PROZAC) 40 0-12 by mouth [facility] - MG capsule 16:28: daily. [address] gabapentin 2018-09 Yes 300mg [id number] Take [address] (NEURONTIN) 0-12 [id number] mg by L ukes - 300 MG 16:28: 3D mouth 3 Medical capsule 38 (three) Center times daily. lactulose 2018-09 Yes 20g Q.25D Take [address] (CHRONULAC) 0-12 by mouth 4 Aria kes - 10 gram/15 16:28: (four) Medic al mL (15 mL) 38 times Center solution daily . pregabalin 2018-09 Yes 75mg Q.5D Take [address] (LYRICA) 75 0-12 by mouth 2 Aria kes - MG capsule 16:28: (two) Medica l 38 times Center daily. rOPINIRole 2018-09 Yes 1mg QD Take [address] (REQUIP) 1 0-12 by mouth [facility] - MG tablet 16:28: nightly. Medi elvie 38 Center temazepam 2018-09 Yes 15mg Take [address] (RESTORIL) 0-12 by mouth [facility] - 15 mg 16:28: every Medical capsule 38 night as Center needed for Sleep. omeprazole 2018-09 Yes 40mg QD Take [address] (PRILOSEC) 0-12 by mouth [facility] - 40 MG 16:28: daily. Medical capsule 38 Center rifAXIMin 2018-09 Yes Hepatic 550mg Q.5D Take [address] 550 mg Tab 0-12 encephalopa tablet [facility] - 00:00: thy (HCC) (550 mg Medic al 00 total) by Center mouth 2 (two) times daily. Procedures This patient has no known procedures. Plan of Care Planned Activity Planned Date Details Comments Source Future Scheduled 2020-05-[address] [facility] - Test 00:00:00 (#1) [code = [facility] INFLUENZA VACCINE (#1)] Future Scheduled 2019-10-[address] [facility] - Test 00:00:00 WELLNESS (YEAR 2 or Medical Center FIRST YEAR if no IPPE) [code = MEDICARE ANNUAL WELLNESS (YEAR 2 or FIRST YEAR if no IPPE)] Future Scheduled [address] - Test 00:00:00 (procedure) [code = [facility] 65651898] Future Scheduled [address] [facility] es - Test 00:00:00 malignant neoplasm Medical C enter of cervix (procedure) [code = 953204489] Future Scheduled [address] [facility] - Test 00:00:00 malignant neoplasm Medical C enter of breast (procedure) [code = 345824056] Future Scheduled 1960 Screening for ROSE MARIE [facility] Priscilla es - Test 00:00:00 malignant neoplasm Medical C enter of colon (procedure) [code = 302985843] Encounters Start End Encounter Admission Attending Care Care Encounter Source Date/Time Date/Time Type Type Clinicians Facility Department ID 2020-06-14 2020-06-14 Orders Doctor PETERSON [id number] 00:00:00 00:00:00 Only Unassigned, ELIO [id number] [place] [address]686 [id number] 2020-04-16 2020-04-16 Orders Doctor PETERSON [id number] 00:00:00 00:00:00 Only Unassigned, ELIO [id number] [place] [address]686 [id number] [id number] 2020-03-28 2020-03-28 [facility] [id number] 17:19:00 17:19:00 [facility]scan [facility] Medicine Medicine Outpati ent Clinics 2019-12-22 2019-12-22 Letter [facility] [id number] 00:00:00 00:00:00 (Out) John MULTISPEC [id number] [facility] KATINA .2.7.2.686 [place] [id number] AND JENNY [facility] 2019-12-20 2019-12-20 [facility] [id number] 11:57:00 23:59:00 Encounter John ELIO [id number]686 [id number] 040 2019-12-19 2019-12-19 Telephone [facility] [id number] 00:00:00 00:00:00 John MULTISPEC [id number] [facility] IASHELIA 4.2.7.2.686 [place] [address] [id number] [facility] 2019-11-21 2019-11-21 Telephone [facility] [id number] 00:00:00 00:00:00 John MULTISPEC [id number] Maryann ECHEVERRIALTY 4.2.7.2.[address] [id number] AND JENNY [facility] 2019-11-11 2019-11-11 Telephone [facility] [id number] 00:00:00 00:00:00 John MULTISPEC [id number] Maryann IALTY 4.2.7.2.686 [place] [id number] [facility] 2019-10-13 2019-10-13 Orders Doctor NICHOLAS [id number] 00:00:00 00:00:00 Only Unassigned, ELIO [id number] [facility] 4.2.7.2.686 [id number] [id number] 2019-04-26 2019-04-26 [facility] [id number] 10:44:43 23:59:00 Encounter [facility] [id number] Surgical 4.2.7.2.686 Specialti [id number] es 809 [place] 2019-04-26 2019-04-26 Office [facility] [id number] 10:32:03 11:07:22 Visit [facility] [id number] Surgical [id number] Specialti [id number] es 198 [place] Results Test Description Test Time Test Comments Results Result Comments Source MISCELLANEOUS LAB ORDER 2019-07-07 07:50:00 Test Item Value Reference Range Interpretation Comme nts SCAN RESULT (test code = 3365791) HEPATITIS C [id number] 12:34:00 Test Item Value Reference Range Interpretation Comments HEPATITIS C ANTIBODY Reactive Nonreactive A [facility] (test code = [facility]. See 367) attached report ALPHA FETOPROTEIN (AFP), TUMOR [id number] 06:18:00 Test Item Value Reference Range Interpretation Comments ALPHA-FETOPROTEIN (BEAKER) (test code < ng/mL <10.0 = 1094) [id number] 06:04:00 Test Item Value Reference Range Interpretation Comments MAGNESIUM (BEAKER) (test code = 2.3 mg/dL 1.6-2.6 627) COMPREHENSIVE METABOLIC [id number] 06:04:00 Test Item Value Reference Range Interpretation Comments TOTAL PROTEIN 7.0 gm/dL 6.0-8.3 (BEAKER) (test code = 770) ALBUMIN (BEAKER) 3.9 g/dL 3.5-5.0 (test code = 1145) ALKALINE PHOSPHATASE 68 U/L 40-150 (BEAKER) (test code = 346) BILIRUBIN TOTAL 0.6 mg/dL 0.2-1.2 (BEAKER) (test code = 377) SODIUM (BEAKER) (test 139 meq/L 136-145 code = 381) POTASSIUM (BEAKER) 3.9 meq/L 3.5-5.1 (test code = 379) CHLORIDE (BEAKER) 110 meq/L 98-107 H (test code = 382) CO2 (BEAKER) (test 21 meq/L 22-29 L code = 355) BLOOD UREA NITROGEN 20 mg/dL 7-21 (BEAKER) (test code = 354) CREATININE (BEAKER) 1.60 mg/dL 0.57-1.25 H (test code = 358) GLUCOSE RANDOM 96 mg/dL 70-105 (BEAKER) (test code = 652) CALCIUM (BEAKER) 9.4 mg/dL 8.4-10.2 (test code = 697) AST (SGOT) (BEAKER) 20 U/L 5-34 (test code = 353) ALT (SGPT) (BEAKER) 14 U/L 6-55 (test code = 347) EGFR (BEAKER) (test 33 mL/min/1.73 ESTIMA FARIDA GFR IS code = 1092) sq m NOT ACCURATE CREATININE CLEARANCE IN PREDICTING GLOMERULAR FILTRATION RATE . ESTIMATED GFR I S NOT APPLICABLE FOR DIALYSIS PATIEN TS. CBC W/PLT COUNT & AUTO [id number] 05:47:00 Test Item Value Reference Range Interpretation Comments WHITE BLOOD CELL COUNT 1.6 K/ L 3.5-10.5 L (BEAKER) (test code = 775) RED BLOOD CELL COUNT 3.69 M/ L 3.93-5.22 L (BEAKER) (test code = 761) HEMOGLOBIN (BEAKER) 8.0 GM/DL 11.2-15.7 L (test code = 410) HEMATOCRIT (BEAKER) 28.7 % 34.1-44.9 L (test code = 411) MEAN CORPUSCULAR VOLUME 77.8 fL 79.4-94.8 L (BEAKER) (test code = 753) MEAN CORPUSCULAR 21.7 pg 25.6-32.2 L HEMOGLOBIN (BEAKER) (test code = 751) MEAN CORPUSCULAR 27.9 GM/DL 32.2-35.5 L HEMOGLOBIN CONC (BEAKER) (test code = 752) RED CELL DISTRIBUTION 16.1 % 11.7-14.4 H WIDTH (BEAKER) (test code = 412) PLATELET COUNT (BEAKER) 60 K/CU MM 150-450 L (test code = 756) MEAN PLATELET VOLUME Unable to report due (BEAKER) (test code = to abn ormal Platelet 754) population distribution. NUCLEATED RED BLOOD 0 /100 WBC 0-0 CELLS (BEAKER) (test code = 413) PROTHROMBIN [id number] 05:46:00 Test Item Value Reference Range Interpretation Comments PROTIME (BEAKER) (test code = 15.7 seconds 11.9-14.2 H 759) INR (BEAKER) (test code = 370) 1.3 <=5.9 Effective 02/16/2019: PT Reference Range ChangeNew: 11.9-14.2 Previous: 11.7- 14.7RECOMMENDED COUMADIN/WARFARIN INR THERAPY RANGESSTANDARD DOSE: 2.0-3.0 Includes: PROPHYLAXIS for venous thrombosis, systemic embolization; TREATMENT for venous thrombosis and/or pulmonary embolus.HIGH RISK: Target INR is2.5-3.5 for patients wiht mechanical heart valves.PROTHROMBIN [id number] 18:50:00 Test Item Value Reference Range Interpretation Comments PROTIME (BEAKER) (test code = 17.0 seconds 11.9-14.2 H 759) INR (BEAKER) (test code = 370) 1.5 <=5.9 Effective 02/16/2019: PT Reference Range ChangeNew: 11.9-14.2 Previous: 11.7- 14.7RECOMMENDED COUMADIN/WARFARIN INR THERAPY RANGESSTANDARD DOSE: 2.0-3.0 Includes: PROPHYLAXIS for venous thrombosis, systemic embolization; TREATMENT for venous thrombosis and/or pulmonary embolus.HIGH RISK: Target INR is2.5-3.5 for patients wiht mechanical heart valves.ANTI-NUCLEAR ANTIBODY (MADI)2019-07-01 11:48:00 Test Item Value Reference Range Interpretation Comments ANTI-NUCLEAR ANTIBODY (MADI) (BEAKER) Negative Negative (test code = 418) Test performed by IFA method.Test performed by IFA method.CBC W/PLT COUNT & AUTO [id number] 10:44:00 Test Item Value Reference Range Interpretation Comments WHITE BLOOD CELL COUNT (BEAKER) 1.7 K/ L 3.5-10.5 L (test code = 775) RED BLOOD CELL COUNT (BEAKER) 3.06 M/ L 3.93-5.22 L (test code = 761) HEMOGLOBIN (BEAKER) (test code = 7.0 GM/DL 11.2-15.7 L 410) HEMATOCRIT (BEAKER) (test code = 23.3 % 34.1-44.9 L 411) MEAN CORPUSCULAR VOLUME (BEAKER) 76.1 fL 79.4-94.8 L (test code = 753) MEAN CORPUSCULAR HEMOGLOBIN 22.9 pg 25.6-32.2 L (BEAKER) (test code = 751) MEAN CORPUSCULAR HEMOGLOBIN CONC 30.0 GM/DL 32.2-35.5 L (BEAKER) (test code = 752) RED CELL DISTRIBUTION WIDTH 16.0 % 11.7-14.4 H (BEAKER) (test code = 412) PLATELET COUNT (BEAKER) (test code 56 K/CU MM 150-450 L = 756) MEAN PLATELET VOLUME (BEAKER) 11.0 fL 9.4-12.3 (test code = 754) NUCLEATED RED BLOOD CELLS (BEAKER) 0 /100 WBC 0-0 (test code = 413) No clots(CELLAVISION MANUAL DIFF)2019-07-01 10:44:00 Test Item Value Reference Range Interpretation Comments NEUTROPHILS - REL 37 % (CELLAVISION)(BEAKER) (test code = 2816) LYMPHOCYTES - REL 41 % (CELLAVISION)(BEAKER) (test code = 2817) MONOCYTES - REL 16 % (CELLAVISION)(BEAKER) (test code = 2818) EOSINOPHILS - REL 3 % (CELLAVISION)(BEAKER) (test code = 2819) BASOPHILS - REL 1 % (CELLAVISION)(BEAKER) (test code = 2820) ATYPICAL LYMPHOCYTES - REL 1 % 0-0 H (CELLAVISION)(BEAKER) (test code = 2829) NEUTROPHILS - ABS 0.63 K/ul 1.56-6.13 L (CELLAVISION)(BEAKER) (test code = 2830) LYMPHOCYTES - ABS 0.70 K/ul 1.18-3.74 L (CELLAVISION)(BEAKER) (test code = 2831) MONOCYTES - ABS 0.27 K/uL 0.24-0.36 (CELLAVISION)(BEAKER) (test code = 2832) EOSINOPHILS - ABS 0.05 K/uL 0.04-0.36 (CELLAVISION)(BEAKER) (test code = 2834) BASOPHILS - ABS 0.02 K/uL 0.01-0.08 (CELLAVISION)(BEAKER) (test code = 2835) ATYPICAL LYMPHOCYTES - ABS 0.02 K/uL 0.00-0.00 H (CELLAVISION)(BEAKER) (test code = 2858) TOTAL COUNTED (BEAKER) (test code 100 = 1351) SMUDGE CELLS (BEAKER) (test code Present = 1371) GIANT PLATELETS (BEAKER) (test Present code = 313) HYPOCHROMIA (BEAKER) (test code = 1+ few 963) ANISOCYTOSIS (BEAKER) (test code 1+ few = 961) POIKILOCYTES (BEAKER) (test code 2+ moderate = 966) ARTIFACT (CELLAVISION)(BEAKER) Present (test code = 3432) PLATELET CONCENTRATION Decreased (CELLAVISION)(BEAKER) (test code = 3438) Received comment: User comments: Slide comments:COMPREHENSIVE METABOLIC PANEL 2019-07-01 08:31:00 Test Item Value Reference Range Interpretation Comments TOTAL PROTEIN 6.5 gm/dL 6.0-8.3 (BEAKER) (test code = 770) ALBUMIN (BEAKER) 3.8 g/dL 3.5-5.0 (test code = 1145) ALKALINE PHOSPHATASE 59 U/L 40-150 (BEAKER) (test code = 346) BILIRUBIN TOTAL 1.0 mg/dL 0.2-1.2 (BEAKER) (test code = 377) SODIUM (BEAKER) (test 136 meq/L 136-145 code = 381) POTASSIUM (BEAKER) 3.9 meq/L 3.5-5.1 (test code = 379) CHLORIDE (BEAKER) 106 meq/L 98-107 (test code = 382) CO2 (BEAKER) (test 21 meq/L 22-29 L code = 355) BLOOD UREA NITROGEN 19 mg/dL 7-21 (BEAKER) (test code = 354) CREATININE (BEAKER) 1.48 mg/dL 0.57-1.25 H (test code = 358) GLUCOSE RANDOM 74 mg/dL 70-105 (BEAKER) (test code = 652) CALCIUM (BEAKER) 9.3 mg/dL 8.4-10.2 (test code = 697) AST (SGOT) (BEAKER) 21 U/L 5-34 (test code = 353) ALT (SGPT) (BEAKER) 13 U/L 6-55 (test code = 347) EGFR (BEAKER) (test 36 mL/min/1.73 ESTIMA FARIDA GFR IS code = 1092) sq m NOT ACCURATE CREATININE CLEARANCE IN PREDICTING GLOMERULAR FILTRATION RATE . ESTIMATED GFR I S NOT APPLICABLE FOR DIALYSIS PATIEN TS. [id number] 08:31:00 Test Item Value Reference Range Interpretation Comments PHOSPHORUS (BEAKER) (test code = 3.4 mg/dL 2.3-4.7 604) [id number] 08:31:00 Test Item Value Reference Range Interpretation Comments MAGNESIUM (BEAKER) (test code = 2.0 mg/dL 1.6-2.6 627) [id number] 07:26:00 Test Item Value Reference Range Interpretation Comments LIPASE (BEAKER) (test code = 749) 390 U/L 8-78 H [id number] 06:49:00 Test Item Value Reference Range Interpretation Comments AMYLASE (BEAKER) (test code = 349) 200 U/L 25-125 H [id number] 05:59:00 Test Item Value Reference Range Interpretation Comments AMMONIA (BEAKER) (test code = 348) 107 mol/L 18-72 H HEPATITIS B [id number] 05:39:00 Test Item Value Reference Range Interpretation Comments HEPATITIS B CORE TOTAL ANTIBODY Nonreactive Nonreactive (BEAKER) (test code = 497) HEPATITIS B SURFACE ANTIBODY < mIU/mL <8.0 (BEAKER) (test code = 647) HEPATITIS B SURFACE ANTIGEN (2) Nonreactive Nonreactive (BEAKER) (test code = 2585) TSH/FREE T4 IF [id number] 05:33:00 Test Item Value Reference Range Interpretation Comments THYROID STIMULATING HORMONE 2.36 uIU/mL 0.35-4.94 (BEAKER) (test code = 772)
--- NOTE | 2020-07-17 16:43 | RAD REPORT ---
EXAM DESCRIPTION: RAD - Chest Single View - 07/17/2020 4:33 pm CLINICAL HISTORY: Abdominal distention;Cough Chest pain. COMPARISON: Chest Single View dated 07/04/2019; Chest Single View dated 06/30/2019; Chest Single Vie w dated 11/01/2018; Chest Single View dated 06/07/2018 FINDINGS: Portable technique limits examination quality. The lungs are grossly clear. The heart is normal in size. No displaced fractures. IMPRESSION: No acute intrathoracic process suspected.
[2020-07-17 16:47] LABS: Basophils % 1.4 % (0-1.3); Hematocrit 29.5 % (36.0-45.0); Lymphocytes % 33.3 % (15.3-44.8); MPV 10.5 fL (7.6-11.3); RBC Red Blood Cell Count 3.78 M/uL (3.86-4.86)
[2020-07-17] MEDS ORDERED: FAMOTIDINE 20 MG/2 ML VIAL IV ONE (16:54)
[2020-07-17] MEDS ORDERED: NA CHLORIDE 0.9% 500 ML ONE (16:54)
[2020-07-17] MEDS ORDERED: MORPHINE 2 MG/ML SYR ONE (16:54)
[2020-07-17] MEDS ORDERED: ONDANSETRON 4 MG/2 ML VIAL ONE (16:54)
[2020-07-17] MEDS ORDERED: NA CHLORIDE 0.9% 0 ML ONE (16:55)
[2020-07-17 16:57] LABS: Protime INR 1.1
[2020-07-17 17:09] LABS: ALT/SGPT 33 U/L (12-78); AST/SGOT 34 U/L (15-37); Albumin 3.9 g/dL (3.4-5.0); Alkaline Phosphatase 70 U/L (45-117); BUN Blood Urea Nitrogen 13 mg/dL (7-18); Bicarbonate 21 mmol/L (21-32); Bilirubin Direct 0.2 mg/dL (0-0.2); Bilirubin Total 0.9 mg/dL (0.2-1.0); Glucose Level 71 mg/dL (74-106); Lipase 1043 U/L (73-393); Magnesium 2.4 mg/dL (1.8-2.4); NT PRO-BNP 50 pg/mL (<125); Potassium 3.8 mmol/L (3.5-5.1); Protein, Total 7.9 g/dL (6.4-8.2); Sodium Level 146 mmol/L (136-145); Troponin (Emerg Dept Use Only) < 0.02 ng/mL (0.0-0.045)
[2020-07-17] MEDS ORDERED: CEFTRIAXONE/SWI 1gm 1 GM/10 ML SYR ONE (17:28)
--- NOTE | 2020-07-17 17:38 | ER ---
Nurse's Notes [facility] Name: Jose Manuel Richardson Age: 59 yrs Sex: Female : 1960 Arrival Date: 07/17/2020 Time: 15:13 Bed 25 Private MD: Diagnosis: Abdominal tenderness;Anorexia;Hypoglycemia, unspecified;Alcoholic cirrhosis of liver;Acute pancreatitis;Neutropenia;Anemia, unspecified;Thrombocytopenia, unspecified-cirrhosis;Weakness;Volume depletion;Splenomegaly, not elsewhere classified Presentation: 07/17 15:23 Chief complaint: Patient states: Noticed pt coughing in triage. Pt reports cough x 2 ca1 weeks with SOB off and on. Denies fever. Denies pain. Patient's son or daughter states: Daughter: She has Liver Cirrhosis and we have been dealing with it for a while now. We know when her Ammonia level is high. So, the nurse and I noticed since yesterday that she has been confused, disoriented and sleepy. So we have given her Lactulose yesterday and today, but it seems like it hasn't worked as fast as it should be. She still has the symptoms although she is able to tell her name and birthday now. We have an appointment with her PCP today at 1500 but they want us to come to the ER. Pt oriented to name, place and situation. Coronavirus screen: Client denies travel out of the [place] in the last 14 days. cough unrelated to allergies, shortness of breath, Client presents with at least one sign or symptom that may indicate coronavirus-19. Standard/surgical mask placed on the client. Provider contacted for isolation considerations. Ebola Screen: Patient negative for fever greater than or equal to 101.5 degrees Fahrenheit, and additional compatible Ebola Virus Disease symptoms Patient denies exposure to infectious person. Patient denies travel to an Ebola-affected area in the 21 days before illness onset. No symptoms or risks identified at this time. Initial Sepsis Screen: Does the patient meet any 2 criteria? No. Patient's initial sepsis screen is negative. Does the patient have a suspected source of infection? No. Patient's initial sepsis screen is negative. Risk Assessment: Do you want to hurt yourself or someone else? Patient reports no desire to harm self or others. Onset of symptoms was July 17, 2020. 15:23 Method Of Arrival: Wheelchair ca1 15:23 Acuity: JEANA 3 ca1 Historical: - Allergies: 15:32 cipro (IV, but can take PO); ca1 15:32 Flagyl; ca1 - Home Meds: 15:32 Lactulose Oral [Active]; ca1 - PMHx: 15:32 Cirrhosis; secondary to ETOH abuse; Hepatitis; C; hypotension; liver failure, chronic; ca1 Renal Disease; - Immunization history:: Adult Immunizations up to date, Flu vaccine is not up to date. It has been more than one year since last vaccine. - Social history:: Smoking status: Patient/guardian denies using tobacco, the patient reports quitting approximately 1 years ago, Patient/guardian denies using alcohol, the patient reports quitting approximately .5 years ago. - Family history:: not pertinent. Screenin:49 Abuse screen: Denies threats or abuse. Nutritional screening: No deficits noted. jd3 Tuberculosis screening: No symptoms or risk factors identified. Fall Risk Ambulatory Aid- None/Bed Rest/Nurse Assist (0 pts). Gait- Normal/Bed Rest/Wheelchair (0 pts) Mental Status- Oriented to own ability (0 pts). Total Titus Fall Scale indicates No Risk (0-24 pts). Assessment: 15:57 Reassessment: Daughter's number [phone], José Antonio Adame. Please call for questions or ca1 updates. 16:00 General: Appears in no apparent distress. uncomfortable, Behavior is calm, cooperative, jd3 appropriate for age. Pain: Complains of pain in abdomen Quality of pain is described as aching. Neuro: Level of Consciousness is awake, alert, obeys commands, confused, Oriented to person, place, situation. Cardiovascular: Denies chest pain, Capillary refill < 3 seconds Patient's skin is warm and dry. Rhythm is regular. Respiratory: Airway is patent Respiratory effort is even, unlabored, Respiratory pattern is regular, symmetrical, Denies shortness of breath. GI: Abdomen is non-distended, Abd is soft and non tender X 4 quads. Reports lower abdominal pain, upper abdominal pain. : No signs and/or symptoms were reported regarding the genitourinary system. EENT: No signs and/or symptoms were reported regarding the EENT system. Derm: Skin is intact, Skin is dry, Skin is normal, Skin temperature is warm. Musculoskeletal: Circulation, motion, and sensation intact. Range of motion: intact in all extremities. 16:43 Reassessment: Patient appears in no apparent distress at this time. No changes from jd3 previously documented assessment. Patient and/or family updated on plan of care and expected duration. Pain level reassessed. 19:05 Reassessment: Patient appears in no apparent distress at this time. Patient and/or jd3 family updated on plan of care and expected duration. Pain level reassessed. Patient is alert, oriented x 3, equal unlabored respirations, skin warm/dry/pink. awaiting admission. Neuro: Level of Consciousness is awake, alert, obeys commands, Oriented to person, place, time. 20:30 Reassessment: Patient appears in no apparent distress at this time. No changes from jd3 previously documented assessment. Patient and/or family updated on plan of care and expected duration. Pain level reassessed. Patient is alert, oriented x 3, equal unlabored respirations, skin warm/dry/pink. 21:49 Reassessment: Patient appears in no apparent distress at this time. Patient and/or jd3 family updated on plan of care and expected duration. Pain level reassessed. Patient is alert, oriented x 3, equal unlabored respirations, skin warm/dry/pink. awaiting admission. 23:10 Reassessment: Patient appears in no apparent distress at this time. Patient and/or jd3 family updated on plan of care and expected duration. Pain level reassessed. Patient is alert, oriented x 3, equal unlabored respirations, skin warm/dry/pink. report given to Briana DARBY Patient states feeling better. Vital Signs: 15:23 BP 115 / 55; Pulse 67; Resp 16; Temp 97(TE); Pulse Ox 100% on R/A; Weight 63.5 kg; ca1 Height 5 ft. 9 in. (175.26 cm) (R); Pain 0/10; 19:05 BP 125 / 62; Pulse 66; Resp 17 S; Pulse Ox 100% on R/A; jd3 21:50 BP 132 / 75; Pulse 67; Resp 17 S; Pulse Ox 97% on R/A; jd3 23:10 BP 116 / 59; Pulse 68; Resp 17 S; Pulse Ox 100% on R/A; jd3 15:23 Body Mass Index 20.67 (63.50 kg, 175.26 cm) ca1 ED Course: 15:13 Patient arrived in ED. mr 15:13 Mayo Blake MD is Attending Physician. melanie 15:30 Triage completed. ca1 15:32 Arm band placed on right wrist. ca1 16:01 Markell Gastelum, MEHNAZ is Primary Nurse. jd3 16:17 Basic Metabolic Panel Sent. jd3 16:34 XRAY Chest (1 view) In Process Unspecified. EDMS 16:45 Missed attempt(s): 20 gauge in left antecubital area. Bleeding controlled, band aid jd3 applied, catheter tip intact. 16:49 Patient has correct armband on for positive identification. Placed in gown. Bed in low jd3 position. Call light in reach. Side rails up X2. panel monitor on. Pulse ox on. NIBP on. 17:34 Guanako Brar MD is Hospitalizing Provider. melanie 17:39 Inserted 20 G midline placed by Frank DARBY. jd3 17:40 IV is reddened, is swollen. jd3 18:13 Inserted saline lock: 18 gauge in right EJ, using aseptic technique. placed by Dr. ralf Blake. 18:34 CT Abd/Pelvis - IV Contrast Only In Process Unspecified. EDMS 19:05 No provider procedures requiring assistance completed. Patient admitted, IV remains in jd3 place. 23:02 Inserted saline lock: 20 gauge in left forearm, using aseptic technique. Inserted rr5 saline lock: 20 gauge in left hand, using aseptic technique. Administered Medications: 17:33 Not Given (Duplicate Order): NS 0.9% 1000 ml IV at 125 ml/hr continuous melanie 19:02 Drug: Rocephin 1 grams Route: IV; Rate: per protocol; Site: right jugular; jd3 20:00 Follow up: Response: No adverse reaction; IV Status: Completed infusion jd3 19:02 Drug: D50W 25 ml Route: IVP; Site: right jugular; jd3 20:02 Follow up: Response: No adverse reaction jd3 19:02 Drug: D5-1/2 NS 1000 ml Route: IV; Rate: 100 ml/min; Site: right jugular; jd3 23:12 Follow up: Response: No adverse reaction; IV Status: Infusion continued upon admission jd3 19:03 Drug: NS 0.9% 500 ml Route: IV; Rate: bolus; Site: right jugular; jd3 20:00 Follow up: Response: No adverse reaction; IV Status: Completed infusion; IV Intake: jd3 500ml 19:03 Drug: morphine 2 mg Route: IVP; Site: right jugular; jd3 20:00 Follow up: Response: No adverse reaction; RASS: Alert and Calm (0) jd3 19:03 Drug: Zofran (Ondansetron) 4 mg Route: IVP; Site: right jugular; jd3 20:00 Follow up: Response: No adverse reaction jd3 19:04 Drug: Pepcid 20 mg Route: IVP; Site: right jugular; jd3 20:00 Follow up: Response: No adverse reaction jd3 22:47 Drug: Lactulose 30 grams Volume: 45 ml; Route: PO; jd3 23:12 Follow up: Response: No adverse reaction jd3 Intake: 20:00 IV: 500ml; Total: 500ml. ralf Outcome: 17:37 Decision to Hospitalize by Provider. melanie 23:11 Admitted to Med/surg accompanied by tech, via wheelchair, room 204, with chart, Report jd3 called to Briana DARBY 23:11 Condition: stable 23:11 Instructed on the need for admit. 23:15 Patient left the ED. ralf Signatures: Dispatcher [employer] Mayo Medina MD MD cha Rivera, Kamila mr Gastelum, MEHNAZ Guillaume RN, Raymond RN RN rr5 Selma Mahoney RN RN ca1 Corrections: (The following items were deleted from the chart) 19:04 18:13 Inserted saline lock: 18 gauge in left EJ, using aseptic technique. placed by Dr. ralf arambula 21:51 21:49 Reassessment: Patient appears in no apparent distress at this time. Patient jerryd3 and/or family updated on plan of care and expected duration. Pain level reassessed. Patient is alert, oriented x 3, equal unlabored respirations, skin warm/dry/pink. ralf
--- NOTE | 2020-07-17 17:38 | EDPHYS ---
Physician Documentation [facility] Name: Jose Manuel Richardson Age: 59 yrs Sex: Female : 1960 Arrival Date: 07/17/2020 Time: 15:13 Bed 25 Private MD: ED Physician Mayo Blake HPI: 07/17 15:49 This 59 yrs old Female presents to ER via Wheelchair with complaints of melanie Abnormal Lab Results. 15:49 The patient presents with abdominal pain abdominal distention. Onset: The melanie symptoms/episode began/occurred 2 day(s) ago. The symptoms do not radiate. Associated signs and symptoms: Pertinent positives: anorexia. The symptoms are described as constant, crampy. Modifying factors: The symptoms are alleviated by nothing, the symptoms are aggravated by nothing. Severity of pain: At its worst the pain was moderate in the emergency department the pain is unchanged. The patient has not experienced similar symptoms in the past. Historical: - Allergies: 15:32 cipro (IV, but can take PO); ca1 15:32 Flagyl; ca1 - Home Meds: 15:32 Lactulose Oral [Active]; ca1 - PMHx: 15:32 Cirrhosis; secondary to ETOH abuse; Hepatitis; C; hypotension; liver failure, chronic; ca1 Renal Disease; - Immunization history:: Adult Immunizations up to date, Flu vaccine is not up to date. It has been more than one year since last vaccine. - Social history:: Smoking status: Patient/guardian denies using tobacco, the patient reports quitting approximately 1 years ago, Patient/guardian denies using alcohol, the patient reports quitting approximately .5 years ago. - Family history:: not pertinent. ROS: 15:49 Constitutional: Negative for fever, chills, and weight loss, Eyes: Negative for injury, melanie pain, redness, and discharge, ENT: Negative for injury, pain, and discharge, Neck: Negative for injury, pain, and swelling, Cardiovascular: Negative for chest pain, palpitations, and edema, Respiratory: Negative for shortness of breath, cough, wheezing, and pleuritic chest pain, Back: Negative for injury and pain, : Negative for injury, bleeding, discharge, and swelling, MS/Extremity: Negative for injury and deformity, Skin: Negative for injury, rash, and discoloration, Neuro: Negative for headache, weakness, numbness, tingling, and seizure, Psych: Negative for depression, anxiety, suicide ideation, homicidal ideation, and hallucinations, Allergy/Immunology: Negative for hives, rash, and allergies, Endocrine: Negative for neck swelling, polydipsia, polyuria, polyphagia, and marked weight changes, Hematologic/Lymphatic: Negative for swollen nodes, abnormal bleeding, and unusual bruising. 15:49 Abdomen/GI: Positive for abdominal pain, abdominal cramps, of the right upper quadrant, left upper quadrant, right lower quadrant and left lower quadrant. Exam: 15:49 Constitutional: This is a well developed, well nourished patient who is awake, alert, melanie and in no acute distress. Head/Face: Normocephalic, atraumatic. Eyes: Pupils equal round and reactive to light, extra-ocular motions intact. Lids and lashes normal. Conjunctiva and sclera are non-icteric and not injected. Cornea within normal limits. Periorbital areas with no swelling, redness, or edema. ENT: Nares patent. No nasal discharge, no septal abnormalities noted. Tympanic membranes are normal and external auditory canals are clear. Oropharynx with no redness, swelling, or masses, exudates, or evidence of obstruction, uvula midline. Mucous membranes moist. Neck: Trachea midline, no thyromegaly or masses palpated, and no cervical lymphadenopathy. Supple, full range of motion without nuchal rigidity, or vertebral point tenderness. No Meningismus. Chest/axilla: Normal chest wall appearance and motion. Nontender with no deformity. No lesions are appreciated. Cardiovascular: Regular rate and rhythm with a normal S1 and S2. No gallops, murmurs, or rubs. Normal PMI, no JVD. No pulse deficits. Respiratory: Lungs have equal breath sounds bilaterally, clear to auscultation and percussion. No rales, rhonchi or wheezes noted. No increased work of breathing, no retractions or nasal flaring. Back: No spinal tenderness. No costovertebral tenderness. Full range of motion. Female : Normal external genitalia. Skin: Warm, dry with normal turgor. Normal color with no rashes, no lesions, and no evidence of cellulitis. MS/ Extremity: Pulses equal, no cyanosis. Neurovascular intact. Full, normal range of motion. Neuro: Awake and alert, GCS 15, oriented to person, place, time, and situation. Cranial nerves II-XII grossly intact. Motor strength 5/5 in all extremities. Sensory grossly intact. Cerebellar exam normal. Normal gait. Psych: Awake, alert, with orientation to person, place and time. Behavior, mood, and affect are within normal limits. 15:49 Abdomen/GI: Inspection: distension, Bowel sounds: active, Palpation: mild abdominal tenderness, in all quadrants, Liver: no appreciated palpable abnormalities, Hernia: not appreciated. 16:58 ECG was reviewed by the Attending Physician. [facility] Vital Signs: 15:23 BP 115 / 55; Pulse 67; Resp 16; Temp 97(TE); Pulse Ox 100% on R/A; Weight 63.5 kg; ca1 Height 5 ft. 9 in. (175.26 cm) (R); Pain 0/10; 19:05 BP 125 / 62; Pulse 66; Resp 17 S; Pulse Ox 100% on R/A; jd3 21:50 BP 132 / 75; Pulse 67; Resp 17 S; Pulse Ox 97% on R/A; jd3 23:10 BP 116 / 59; Pulse 68; Resp 17 S; Pulse Ox 100% on R/A; jd3 15:23 Body Mass Index 20.67 (63.50 kg, 175.26 cm) ca1 Procedures: 18:17 Peripheral line: by aseptic technique a peripheral line was placed in the right [facility] external jugular vein. MDM: 15:33 Patient medically screened. [facility] 15:51 Differential diagnosis: cholecystitis, Cholelithiasis, diverticulitis, gastritis, melanie Hepatitis, non-specific abd pain, pancreatitis, Peptic Ulcer Disease, Perf. Duodenal Ulcer, Peritonitis, Pyelonephritis, Ureterolithiasis. Data reviewed: vital signs, nurses notes, lab test result(s), EKG, radiologic studies, CT scan, plain films. Data interpreted: front desk monitor: rate is 67 beats/min, rhythm is regular, Pulse oximetry: on room air is 100 %. Test interpretation: by ED physician or midlevel provider: ECG, plain radiologic studies. Counseling: I had a detailed discussion with the patient and/or guardian regarding: the historical points, exam findings, and any diagnostic results supporting the discharge/admit diagnosis, lab results, radiology results, the need for further work-up and treatment in the hospital. 07/17 15:48 Order name: Basic Metabolic Panel [facility] 07/17 15:48 Order name: CBC with Diff [facility] 07/17 15:48 Order name: LFT's [facility] 07/17 15:48 Order name: Magnesium [facility] 07/17 15:48 Order name: NT PRO-BNP [facility] 07/17 15:48 Order name: PT-INR [facility] 07/17 15:48 Order name: Troponin (emerg Dept Use Only); Complete Time: 17:29 [facility] 07/17 15:48 Order name: Lipase; Complete Time: 17:29 [facility] 07/17 15:48 Order name: AMMONIA; Complete Time: 17:29 [facility] 07/17 15:48 Order name: Urine Culture [facility] 07/17 15:48 Order name: UDS; Complete Time: 19:48 [facility] 07/17 15:48 Order name: ETOH Level; Complete Time: 17:29 [facility] 07/17 15:49 Order name: Basic Metabolic Panel; Complete Time: 17:29 [facility] 07/17 15:49 Order name: CBC with Automated Diff; Complete Time: 18:18 [facility] 07/17 15:48 Order name: XRAY Chest (1 view); Complete Time: 16:56 [facility] 07/17 15:48 Order name: CT Abd/Pelvis - IV Contrast Only; Complete Time: 19:48 [facility] 07/17 15:49 Order name: Liver (Hepatic) Function; Complete Time: 17:29 [facility] 07/17 15:49 Order name: Magnesium; Complete Time: 17:29 [facility] 07/17 15:49 Order name: NT PRO-BNP; Complete Time: 17:29 [facility] 07/17 15:49 Order name: Protime (+INR); Complete Time: 17:29 [facility] 07/17 16:57 Order name: Blood Culture Adult (2) [facility] 07/17 16:58 Order name: COVID-19 [facility] 07/17 18:15 Order name: CBC Smear Scan; Complete Time: 18:18 [facility] 07/17 19:35 Order name: Urine Dipstick--Ancillary (enter results) [facility] 07/17 21:39 Order name: SARS-COV-2 RT PCR [facility] 07/17 15:48 Order name: EKG; Complete Time: 15:49 [facility] 07/17 15:48 Order name: Cardiac monitoring; Complete Time: 16:36 [facility] 07/17 15:48 Order name: EKG - Nurse/Tech; Complete Time: 16:36 [facility] 07/17 15:48 Order name: IV Saline Lock; Complete Time: 19:04 [facility] 07/17 15:48 Order name: Labs collected and sent; Complete Time: 16:17 melanie 07/17 15:48 Order name: O2 Per Protocol; Complete Time: 16:17 melanie 07/17 15:48 Order name: O2 Sat Monitoring; Complete Time: 16:17 [facility] 07/17 15:48 Order name: Urine Dipstick-Ancillary (obtain specimen); Complete Time: 21:46 [facility] EC:58 Rate is 64 beats/min. Rhythm is regular. QRS [place] is Normal. DE interval is normal. QRS melanie interval is normal. QT interval is normal. No Q waves. T waves are Normal. No ST changes noted. Clinical impression: NSR w/ Non-specific ST/T Changes and No evidence of ischemia. Interpreted by me. Reviewed by me. Administered Medications: 17:33 Not Given (Duplicate Order): NS 0.9% 1000 ml IV at 125 ml/hr continuous melanie 19:02 Drug: Rocephin 1 grams Route: IV; Rate: per protocol; Site: right jugular; jd3 20:00 Follow up: Response: No adverse reaction; IV Status: Completed infusion jd3 19:02 Drug: D50W 25 ml Route: IVP; Site: right jugular; jd3 20:02 Follow up: Response: No adverse reaction jd3 19:02 Drug: D5-1/2 NS 1000 ml Route: IV; Rate: 100 ml/min; Site: right jugular; jd3 23:12 Follow up: Response: No adverse reaction; IV Status: Infusion continued upon admission jd3 19:03 Drug: NS 0.9% 500 ml Route: IV; Rate: bolus; Site: right jugular; jd3 20:00 Follow up: Response: No adverse reaction; IV Status: Completed infusion; IV Intake: jd3 500ml 19:03 Drug: morphine 2 mg Route: IVP; Site: right jugular; jd3 20:00 Follow up: Response: No adverse reaction; RASS: Alert and Calm (0) jd3 19:03 Drug: Zofran (Ondansetron) 4 mg Route: IVP; Site: right jugular; jd3 20:00 Follow up: Response: No adverse reaction jd3 19:04 Drug: Pepcid 20 mg Route: IVP; Site: right jugular; jd3 20:00 Follow up: Response: No adverse reaction jd3 22:47 Drug: Lactulose 30 grams Volume: 45 ml; Route: PO; jd3 23:12 Follow up: Response: No adverse reaction jd3 Disposition: 07/17/20 17:37 Hospitalization ordered by Guanako Brar for Inpatient Admission. Preliminary diagnosis are Abdominal tenderness, Anorexia, Hypoglycemia, unspecified, Alcoholic cirrhosis of liver, Acute pancreatitis, Neutropenia, Anemia, unspecified, Thrombocytopenia, unspecified - cirrhosis, Weakness, Volume depletion, Splenomegaly, not elsewhere classified. - Bed requested for Telemetry/MedSurg (Inpatient). - Status is Inpatient Admission. jd3 - Condition is Fair. - Problem is new. - Symptoms have improved. Signatures: Dispatcher [employer] EDMS Mayo Blake MD MD cha Attema, Lee, [employer] WORKER-C [employer] WORKER-Cla1 Azra Chairez RN RN tl1 Markell Gastelum RN RN jd3 Selma Mahoney RN RN ca1 Corrections: (The following items were deleted from the chart) 19:49 17:37 Hospitalization Ordered by Guanako Brar MD for Inpatient Admission. Preliminary [facility] diagnosis is Abdominal tenderness; Anorexia; Hypoglycemia, unspecified; Alcoholic cirrhosis of liver; Acute pancreatitis; Neutropenia; Anemia, unspecified; Thrombocytopenia, unspecified - cirrhosis; Weakness; Volume depletion. Bed requested for Telemetry/MedSurg (Inpatient). Status is Inpatient Admission. Condition is Fair. Problem is new. Symptoms have improved. [facility] 22:01 19:49 07/17/2020 17:37 Hospitalization Ordered by Guanako Brar MD for Inpatient tl1 Admission. Preliminary diagnosis is Abdominal tenderness; Anorexia; Hypoglycemia, unspecified; Alcoholic cirrhosis of liver; Acute pancreatitis; Neutropenia; Anemia, unspecified; Thrombocytopenia, unspecified - cirrhosis; Weakness; Volume depletion; Splenomegaly, not elsewhere classified. Bed requested for Telemetry/MedSurg (Inpatient). Status is Inpatient Admission. Condition is Fair. Problem is new. Symptoms have improved. melanie 23:15 22:01 07/17/2020 17:37 Hospitalization Ordered by Guanako Brar MD for Inpatient jd3 Admission. Preliminary diagnosis is Abdominal tenderness; Anorexia; Hypoglycemia, unspecified; Alcoholic cirrhosis of liver; Acute pancreatitis; Neutropenia; Anemia, unspecified; Thrombocytopenia, unspecified - cirrhosis; Weakness; Volume depletion; Splenomegaly, not elsewhere classified. Bed requested for Telemetry/MedSurg (Inpatient). Status is Inpatient Admission. Condition is Fair. Problem is new. Symptoms have improved. tl1
[2020-07-17] MEDS ORDERED: D50W 25 GM/50 ML SYRINGE/VIAL IV ONE (17:55)
[2020-07-17] MEDS ORDERED: D5 0.45 NS 1,000 ML IV ONE (17:55)
[2020-07-17 18:15] LABS: Blood Morphology Comment NOT SEEN (NOT SEEN); Platelet Estimate DECR; White Blood Cell Scan OK (OK)
--- NOTE | 2020-07-17 18:46 | RAD REPORT ---
EXAM DESCRIPTION: CTAbdomen Pelvis W Contrast - 07/17/2020 6:34 pm CLINICAL HISTORY: Abdominal pain. Abdominal distention;Abd pain COMPARISON: CT ABD PELVIS W CONTRAST dated 10/30/2014; CT ABD PELVIS W CONTRAST dated 09/20/2014; CT A BD PELVIS W CONTRAST dated 04/17/2014 TECHNIQUE: Biphasic CT imaging of the abdomen and pelvis was performed with 100 ml non-ionic IV cont rast. All CT scans are performed using dose optimization technique as appropriate and may include automated exposure control or mA/KV adjustment according to patient size. FINDINGS: The lung bases are clear. Mild liver cirrhosis is present. A TIPS shunt is present. Mild splenomegaly is present measuring 14 c m. Cholelithiasis. Both adrenal glands and kidneys are within normal limits. Pancreas is normal. No bowel obstruction, free air, free fluid or abscess. The appendix is not identified as a discrete s tructure, however, no secondary findings of appendicitis are identified. Moderate stool in the colon . Moderate fat containing umbilical hernia. No evidence of significant lymphadenopathy. Prominent degenerative change L5-S1 with 7 mm retrolisthesis present. IMPRESSION: Mild liver cirrhosis with TIPS shunt present. Mild splenomegaly. Cholelithiasis. L5-S1 spondylosis.
[2020-07-17 19:41] LABS: Barbiturates NEGATIVE (NEGATIVE); Benzodiazepines NEGATIVE (NEGATIVE); Cocaine NEGATIVE (NEGATIVE); METHAMPHETAM NEGATIVE (NEGATIVE); Methadone NEGATIVE (NEGATIVE); Opiates NEGATIVE (NEGATIVE); Phencyclidine NEGATIVE (NEGATIVE); THC Cannibis POSITIVE (NEGATIVE)
[2020-07-17 19:59] LABS: Urine Blood TRACE (NEG); Urine Glucose NEGATIVE (NEG); Urine Protein NEGATIVE (NEG)
--- NOTE | 2020-07-17 20:03 | P.HP ---
Certification for Inpatient Patient admitted to: Inpatient With expected LOS: >2 Midnights Patient will require the following post-hospital care: None Practitioner: I am a practitioner with admitting privileges, knowledge of patient current condition, hospital course, and medical plan of care. Services: Services provided to patient in accordance with Admission requirements found in Title 42 Section 412.3 of the Code of Federal Regulations <Julian Ny - Last Filed: 07/17/20 19:58> Patient History Date of Service: 07/17/20 Primary Care Provider: Dr. terry Reason for admission: Pancreatitis, hepatic encephalopathy History of Present Illness: 51-year-old female with history of alcoholic cirrhosis status post TIPS procedure approximately 3-4 years ago presents emergency department with mild confusion in addition to abdominal pain/tenderness. Patient reports that she has been compliant with her lactulose at home, is oriented times 2-3. Patient's workup in the emergency department revealed elevated lipase at 1043, mildly elevated sodium level 146 glucose 71, patient is pancytopenic likely related to cirrhosis, white blood cell count 2.9, hemoglobin 9.3, hematocrit 29.5, platelets 83 AST, ALT within normal limits, INR 1.10, ammonia 47. CT abdomen pelvis shows mild liver cirrhosis with TIPS shunt present, mild splenomegaly, cholelithiasis without cholecystitis. ED provider wishes to admit patient for further evaluation and management. When I saw the patient in the emergency department she was awake, alert, oriented x2-3. Patient unaware of why she was in the hospital but was able to tell me the current year and her name as well as where she is at. Patient has had similar findings approximately 1 year ago when she was admitted for pancreatitis and hepatic encephalopathy. Patient had TIPS procedure performed at [facility] in [place]. - Past Medical/Surgical History Diabetic: No -: Alcoholic liver cirrhosis -: Hepatitis-C -: Chronic pain -: GERD -: Hypotension -: Ascites requiring paracentesis -: Chronic thrombocytopenia -: Anemia of chronic disease -: section x 4 -: breast augmentation -: appendectomy -: tonsillectomy -: Has been known to have gallstones -: paracenthesis monthly Psychosocial/ Personal History: Patient currently living at home alone, has healthcare worker. I approximately once per month. - Family History Mother -: Heart disease, Hypertension, Diabetes Father -: Heart disease, Liver disease Brother -: Diabetes - Social History Smoking Status: Current every day smoker Counseled patient to stop smoking for: less than 10 minutes Smoking therapy provided: Yes Alcohol use: No CD- Drugs: Yes Caffeine use: Yes Place of Residence: Home <Julian Ny - Last Filed: 07/17/20 19:58> Date of Service: 07/23/20 <Guanako Brar - Last Filed: 07/23/20 18:57> Allergies ciprofloxacin Allergy (Mild, Verified 07/17/20 23:20) Itching/Hives/Rash metronidazole [From Flagyl] Adverse Reaction (Intermediate, Verified 07/17/20 23:20) Anaphylaxis Home Medications: Folic Acid 1 mg PO DAILY 07/18/20 Furosemide [Lasix*] 20 mg PO BID 07/18/20 Lactulose [Cephulac*] 30 ml PO BID 07/18/20 Pantoprazole [Protonix Tab*] 40 mg PO DAILY 07/18/20 Pregabalin [Lyrica*] 75 mg PO TID 07/18/20 Rifaximin [Xifaxan] 1 tab PO BID 07/18/20 Tramadol HCl [Ultram] 50 mg PO PRN PRN 07/18/20 Nitrofurantoin Monohyd/M-Cryst [Macrobid 100 mg Capsule] 100 mg PO BID 4 Days #8 capsule 07/19/20 Review of Systems 10-point ROS is otherwise unremarkable Gastrointestinal: Nausea, Abdominal Pain Neurological: Confusion, As per HPI <Julian Ny - Last Filed: 07/17/20 19:58> Physical Examination - Physical Exam General: Alert, In no apparent distress, Oriented x2 HEENT: Atraumatic, Normocephalic, PERRLA, Other (Mucous membranes dry) Neck: Supple Respiratory: Clear to auscultation bilaterally, Normal air movement Cardiovascular: No edema, Regular rate/rhythm, Normal S1 S2 Capillary refill: <2 Seconds Gastrointestinal: No rebound, No guarding, Tenderness (Mild epigastric abdominal tenderness noted) Musculoskeletal: No contractures, No erythema, No tenderness Integumentary: No tenderness/swelling, No erythema, No warmth Neurological: Normal speech, Normal strength at 5/5 x4 extr, Normal tone, Sensation intact - Studies Laboratory Data (last 24 hrs) 07/17/20 16:14: PT 13.0 H, INR 1.10 07/17/20 16:14: WBC 2.9 L, Hgb 9.3 L, Hct 29.5 L, Plt Count 83 L 07/17/20 16:14: Sodium 146 H, Potassium 3.8, BUN 13, Creatinine 1.30, Glucose 71 L, Magnesium 2.4, Total Bilirubin 0.9, AST 34, ALT 33, Alkaline Phosphatase 70, Lipase 1043 H <Julian Ny - Last Filed: 07/17/20 19:58> - Studies Microbiology Data (last 24 hrs): 07/17/20 17:37 Blood - Blood Aerobic Blood Culture - Final No growth in 5 days. 07/17/20 17:37 Blood - Blood Anaerobic Blood Culture - Final No growth in 5 days. 07/17/20 17:15 Blood - Blood Aerobic Blood Culture - Final No growth in 5 days. 07/17/20 17:15 Blood - Blood Anaerobic Blood Culture - Final No growth in 5 days. <Guanako Brar - Last Filed: 07/23/20 18:57> Assessment and Plan - Plan Assessment Acute pancreatitis Toxic encephalopathy secondary to alcoholic cirrhosis of the liver S/P TIPS procedure Pancytopenia secondary to liver cirrhosis CKD stage 3 Plan Acute pancreatitis: NPO, IV fluids, p.r.n. pain and nausea medications. Will trend lipase levels, obtain lipid panel. Anticipate clinical improvement and discharge in the next 1-2 days. Toxic encephalopathy secondary to alcoholic cirrhosis of the liver S/P TIPS procedure: Continue with lactulose q 6. Restart home medications. Fall and aspiration precautions. Will have patient work with physical therapy tomorrow. Pancytopenia secondary to liver cirrhosis: Will continue to monitor patient's hemoglobin/hematocrit, platelet level. Continue with SCDs for DVT prophylaxis as patient has thrombocytopenia at this time with platelet count of 83. CKD stage 3: Appears stable at this time, continue IV hydration for pancreatitis. Will continue to monitor kidney function throughout this hospitalization. Discharge Plan: Home Plan to discharge in: 48 Hours - Advance Directives Does patient have a Living Will: No Does patient have a Durable POA for Healthcare: No - Code Status/Comfort Care Code Status Assessed: Yes (DNR) Critical Care: No Time Spent Managing Pts Care (In Minutes): 55 <Julian Ny - Last Filed: 07/17/20 19:58> - Plan Plan of care discussed with Julian Ny, and I agree with the management plan as noted above. <Guanako Brar - Last Filed: 07/23/20 18:57>
[2020-07-17] MEDS ORDERED: LACTULOSE 20 GM/30 ML UCUP ONE (22:42)
[2020-07-17] MEDS ORDERED: ONDANSETRON 4 MG/2 ML VIAL IV PRN (22:58)
[2020-07-17] MEDS: LACTULOSE 20 GM/30 ML UCUP PO SCH (23:00)
[2020-07-17 23:20] VITALS: BMI 19.8
[2020-07-17] MEDS: D5.45NS W/KCL 20MEQ 1,000 ML IV SCH (23:46)
[2020-07-18 04:02] LABS: Absolute Lymphocytes (CBC) 0.2 K/uL (0.7-4.9); Basophils % 0.4 % (0-1.3); Hematocrit 21.6 % (36.0-45.0); Lymphocytes % 14.5 % (15.3-44.8)
[2020-07-18] MEDS ORDERED: FUROSEMIDE 20 MG/ 2ML VIAL IV ONE ×2 (04:29→16:00)
[2020-07-18 04:30] LABS: Albumin 2.9 g/dL (3.4-5.0); Bilirubin Total 0.5 mg/dL (0.2-1.0); Magnesium 2.1 mg/dL (1.8-2.4); Potassium 3.6 mmol/L (3.5-5.1); Protein, Total 5.8 g/dL (6.4-8.2)
[2020-07-18] MEDS ORDERED: NA CHLORIDE 0.9% 250 ML IV SCH (05:00)
[2020-07-18 05:11] LABS: Blood Morphology Comment NOTED (NOT SEEN); Platelet Estimate DECR; White Blood Cell Scan OK (OK)
[2020-07-18] MEDS: LACTULOSE 20 GM/30 ML UCUP PO SCH ×4 (05:12→22:26)
[2020-07-18] MEDS ORDERED: INFLUENZA VACCINE (for 3y+) 0.5 ML DOSE IMVAC ONE (06:00)
[2020-07-18] MEDS ORDERED: NA CHLORIDE 0.9% 250 ML ONE ×2 (06:22→11:06)
[2020-07-18] MEDS ORDERED: KCL 20 MEQ/100 mL IVPB 20 MEQ/100 ML BAG IV SCH (06:30)
[2020-07-18] MEDS: D5.45NS W/KCL 20MEQ 1,000 ML IV SCH ×3 (08:55→22:26)
[2020-07-18] MEDS ORDERED: Levofloxacin 750mg IV 750 MG/150 ML BAG IV SCH (15:00)
--- NOTE | 2020-07-18 15:20 | P.PN ---
Subjective Date of Service: 07/18/20 Primary Care Provider: Dr. terry Chief Complaint: Pancreatitis, hepatic encephalopathy Subjective: Improving (Patient reports slight improvement, denies pain at rest, but states she does have tenderness on palpation of her abdomen. No nausea/vomiting, no appetite this morning) Review of Systems 10-point ROS is otherwise unremarkable Physical Examination - Vital Signs Temperature: 98.6 F Blood Pressure: 100/46 Pulse: 73 Respirations: 16 Pulse Ox (%): 99 - Physical Exam General: Alert, In no apparent distress, Oriented x3 HEENT: Sclerae nonicteric Respiratory: Clear to auscultation bilaterally Cardiovascular: No edema, Regular rate/rhythm Gastrointestinal: Soft and benign, Non-distended, Tenderness (Diffuse tenderness to palpation, most tender in suprapubic area) Integumentary: No rashes Neurological: Normal speech, Normal affect - Studies Laboratory Data (last 24 hrs) 07/17/20 16:14: PT 13.0 H, INR 1.10 07/17/20 16:14: WBC 2.9 L, Hgb 9.3 L, Hct 29.5 L, Plt Count 83 L 07/17/20 16:14: Sodium 146 H, Potassium 3.8, BUN 13, Creatinine 1.30, Glucose 71 L, Magnesium 2.4, Total Bilirubin 0.9, AST 34, ALT 33, Alkaline Phosphatase 70, Lipase 1043 H Assessment & Plan Physician Review Additional Text: Acute pancreatitis UTI Toxic encephalopathy secondary to alcoholic cirrhosis of the liver S/P TIPS procedure Pancytopenia secondary to liver cirrhosis CKD stage 3 Plan Acute pancreatitis: NPO except ice chips, IVF, pain control trend lipase levels seems to be improving, however with more diffuse pain this morning (more so in suprapubic region) will re-eval in afternoon, possible advancement of diet UTI (cystitis) -bacteriuria and altered mental status on admission -pt denies dysuria -call for growing 4+ gram-negative rods -start patient on Rocephin, has and remote history (>3yrs ago) of enterococcus UTI. Patient with hive allergy to ciprofloxacin -possibly etiology of suprapubic pain Toxic encephalopathy secondary to alcoholic cirrhosis of the liver S/P TIPS procedure: Continue with lactulose q 6. Restart home medications. Fall and aspiration precautions. Physical therapy consulted Pancytopenia secondary to liver cirrhosis: Will continue to monitor patient's hemoglobin/hematocrit, platelet level. Continue with SCDs for DVT prophylaxis as patient has thrombocytopenia at this time with platelet count of 83. CKD stage 3: Appears stable at this time, continue IV hydration for pancreatitis. Continue to monitor VTE: SCDs in setting of thrombocytopenia Code: DNR Dispo: anticipate dc home in 24-48hrs pending improvement/resolution of pain, tolerating diet Time Spent Managing Pts Care (In Minutes): 35
[2020-07-18] MEDS: CEFTRIAXONE/SWI 1gm 1 GM/10 ML SYR IV SCH (15:54)
[2020-07-18] MEDS: MORPHINE 2 MG/ML SYR IV PRN ×2 (17:50→21:52)
[2020-07-18] MEDS: CYCLOBENZAPRINE 10 MG TAB PO PRN (19:27)
[2020-07-19] MEDS: D5.45NS W/KCL 20MEQ 1,000 ML IV SCH ×2 (04:58→09:47)
[2020-07-19] MEDS: LACTULOSE 20 GM/30 ML UCUP PO SCH ×2 (05:39→10:58)
[2020-07-19 05:45] VITALS: O2SAT 98
[2020-07-19 06:19] LABS: Absolute Lymphocytes (CBC) 0.3 K/uL (0.7-4.9); Basophils % 0.9 % (0-1.3); Hematocrit 26.3 % (36.0-45.0); Lymphocytes % 24.4 % (15.3-44.8); MPV 9.6 fL (7.6-11.3); RBC Red Blood Cell Count 3.43 M/uL (3.86-4.86)
[2020-07-19 06:41] LABS: Albumin 2.8 g/dL (3.4-5.0); Bilirubin Total 0.6 mg/dL (0.2-1.0); Magnesium 1.7 mg/dL (1.8-2.4); Potassium 3.7 mmol/L (3.5-5.1); Protein, Total 5.9 g/dL (6.4-8.2)
[2020-07-19] MEDS ORDERED: MAGNESIUM SULFATE 1 gm IVPB 1 GM/100 ML BAG IV ONE (08:00)
[2020-07-19] MEDS: CEFTRIAXONE/SWI 1gm 1 GM/10 ML SYR IV SCH (08:08)
[2020-07-19] MEDS: CYCLOBENZAPRINE 10 MG TAB PO PRN (08:10)
[2020-07-19] MEDS ORDERED: POTASSIUM 25 MEQ EFFERV TAB PO ONE (09:00)
[2020-07-19] MEDS ORDERED: POTASSIUM CL SA 10 MEQ TAB PO ONE (09:00)
[2020-07-19 13:28] VITALS: BP 116/59; TEMP 97.7
--- NOTE | 2020-07-19 13:33 | P.DS ---
Admission Date: 07/17/20 Discharge Date: 07/19/20 Primary Care Provider: Dr. Riley Disposition: ROUTINE DISCHARGE Discharge Condition: GOOD Reason for Admission: Pancreatitis, acute encephalopathy Procedures: CT abdomen/pelvis (07/17): Mild liver cirrhosis with TIPS shunt present. Mild splenomegaly. Cholelithiasis. L5-S1 spondylosis. CXR (07/17): No acute intrathoracic process suspected. Problem list Acute pancreatitis Urinary Tract Infection (cystitis) Acute encephaolopathy due to UTI vs alcoholic cirrhosis of the liver (s/p TIPS procedure) Pancytopenia secondary to liver cirrhosis CKD stage 3 Brief History of Present Illness: 51yo female, PMH: alcoholic cirrhosis status post TIPS procedure approximately 3-4 years ago presented to ED with mild confusion noticed by her home health nurse, in addition to abdominal pain/tenderness. Patient reports that she has been compliant with her lactulose at home, is oriented times 2. Patient's workup in the ED revealed elevated lipase at 1043, mildly elevated sodium level 146 glucose 71, pancytopenic likely related to cirrhosis, white blood cell count 2.9, hemoglobin 9.3, hematocrit 29.5, platelets 83 AST, ALT within normal limits, INR 1.10, ammonia 47. Hospital Course: Patient was admitted and treated for acute pancreatitis with IV fluids, and her diet was slowly advanced as tolerated. She had significant improvement, and on day of discharge she was completely pain-free and tolerating a GI soft diet. Further workup revealed E. coli growing from her urine. Patient did not report any dysuria or other urinary complaints, however she was treated for UTI due to her altered mental status on admission. Sensitivities were reviewed and the only oral option was Macrobid. Patient came in half mildly pancytopenic and her blood counts decreased a little bit due to hemodilution soon she received quite a bit of IV fluid during her hospitalization. She was also noted to have mild hyponatremia with a slight increase in her sodium due to D5-1/2NS, which was discontinued once patient was tolerating PO and should improve with continued free water intake. Patient was recommended to stay for further correction, but was adamant on going home and reported she would have close follow-up with PCP. Her altered mental status on presentation was possibly due to UTI, her ammonia was only 47 on admission, and her mentation improved on her home regimen. Vital Signs/Physical Exam: Temp Pulse Resp BP Pulse Ox 97.7 F 67 16 116/59 L 100 07/19/20 12:00 07/19/20 12:00 07/19/20 12:00 07/19/20 12:00 07/19/20 12:00 General: Alert, In no apparent distress HEENT: Sclerae nonicteric Neck: Supple Respiratory: Clear to auscultation bilaterally, Normal air movement Cardiovascular: No edema, Regular rate/rhythm Gastrointestinal: Soft and benign, Non-distended, No tenderness Musculoskeletal: No tenderness Integumentary: No rashes Neurological: Normal speech, Normal affect Laboratory Data at Discharge: WBC 1.1 K/uL (4.3-10.9) L* 07/19/20 06:03 Hgb 8.5 g/dL (12.0-15.0) L 07/19/20 06:03 Hct 26.3 % (36.0-45.0) L D 07/19/20 06:03 Plt Count 41 K/uL (152-406) L* 07/19/20 06:03 PT 13.0 SECONDS (9.5-12.5) H 07/17/20 16:14 INR 1.10 07/17/20 16:14 Sodium 154 mmol/L (136-145) H 07/19/20 06:03 Potassium 3.7 mmol/L (3.5-5.1) 07/19/20 06:03 BUN 11 mg/dL (7-18) 07/19/20 06:03 Creatinine 1.19 mg/dL (0.55-1.3) 07/19/20 06:03 Glucose 97 mg/dL (74-106) 07/19/20 06:03 Magnesium 1.7 mg/dL (1.8-2.4) L 07/19/20 06:03 Total Bilirubin 0.6 mg/dL (0.2-1.0) 07/19/20 06:03 AST 19 U/L (15-37) 07/19/20 06:03 ALT 19 U/L (12-78) 07/19/20 06:03 Alkaline Phosphatase 56 U/L (45-117) 07/19/20 06:03 Triglycerides 60 mg/dL (<150) 07/18/20 03:47 Cholesterol 95 mg/dL (<200) 07/18/20 03:47 HDL Cholesterol 36 mg/dL (40-60) L 07/18/20 03:47 Cholesterol/HDL Ratio 2.64 07/18/20 03:47 Lipase Cancelled 07/19/20 12:00 Home Medications: Folic Acid 1 mg PO DAILY 07/18/20 Furosemide [Lasix*] 20 mg PO BID 07/18/20 Lactulose [Cephulac*] 30 ml PO BID 07/18/20 Pantoprazole [Protonix Tab*] 40 mg PO DAILY 07/18/20 Pregabalin [Lyrica*] 75 mg PO TID 07/18/20 Rifaximin [Xifaxan] 1 tab PO BID 07/18/20 Tramadol HCl [Ultram] 50 mg PO PRN PRN 07/18/20 Nitrofurantoin Monohyd/M-Cryst [Macrobid 100 mg Capsule] 100 mg PO BID 4 Days #8 capsule 07/19/20 New Medications: Nitrofurantoin Monohyd/M-Cryst [Macrobid 100 mg Capsule] 100 mg PO BID 4 Days #8 capsule Patient Discharge Instructions: follow up with PCP within 1 week - to repat CBC & BMP to check blood counts and sodium level. New medications: Macrobid (Nitrof urantoin) 100mg tablet, take twice a day for 4 days Diet: Regular Activity: Ad waleska Followup: Nallely Ferraro MD [Primary Care Provider] - Time spent managing pt's care (in minutes): 35
== END 2020-07-19 14:50 | disposition home or self-care (01) | DRG 438 ==
LOC: ER 15:11 → ERHOLD 19:50 → 2ND 22:46
PROVIDERS: ADMIT Emergency Medicine; ATTEND Hospitalist
PROC: 30233N1 Transfusion of Nonautologous Red Blood Cells into Peripheral Vein, Percutaneous Approach (ICD-10-PCS; principal; 2020-07-18)
DX: K85.90 Acute pancreatitis without necrosis or infection, unspecified (principal); G92 Toxic encephalopathy; D61.818 Other pancytopenia; N39.0 Urinary tract infection, site not specified; E87.1 Hypo-osmolality and hyponatremia; K21.9 Gastro-esophageal reflux disease without esophagitis; K70.30 Alcoholic cirrhosis of liver without ascites; F17.200 Nicotine dependence, unspecified, uncomplicated; I12.9 Hypertensive chronic kidney disease with stage 1 through stage 4 chronic kidney disease, or unspecified chronic kidney disease; N18.30 Chronic kidney disease, stage 3 unspecified; B96.20 Unspecified Escherichia coli [E. coli] as the cause of diseases classified elsewhere; Z88.1 Allergy status to other antibiotic agents; Z90.49 Acquired absence of other specified parts of digestive tract; Z60.2 Problems related to living alone; Z66 Do not resuscitate; Z79.899 Other long term (current) drug therapy; Z20.828 Contact with and (suspected) exposure to other viral communicable diseases; Z23 Encounter for immunization
CPT/HCPCS: 36415; 36430; 71045; 74177; 80048; 80053; 80061; 80076; 80307; 80320; 81003; 82140; 83690; 83735; 83880; 84484; 85014; 85018; 85025; 85610; 86850; 86900; 86901; 87040; 87077; 87086; 87088; 87186; 90471; 93005; 96361; 96365; 96375; 97116; 97161; 99285; J0696; J1940; J2270; J2405; J3475; J3480; J7030; J7040; J7050; J7799; P9016; Q2035; Q9967; U0003

== ENCOUNTER 2021-03-29 15:52 | Emergency (ER) | payer OTHER ==
--- OUTSIDE RECORDS SUMMARY | 2021-03-29 15:55 | XMS REPORT | Continuity of Care Document ---
:1960 Author Organization [facility] t Address [address] [place] [address] Care Team Providers Name Role Phone Flash [...] Medical 00 Center Elevated Elevated Disease Active [facility] [...] ents Source Name Type Date Date Clinician Johnathan Zhao Active [facility]ching[facility] to Other (See 05-26 [facility] - adverse Comments) 00:00: Medica l reaction 00 [facility] Metronid Propensi Active Anaphylaxis, 2013-09 Rash, [facility] azole ty to Other (See swelling Luke s - adverse Comments) 00:00: Medica l reaction 00 [facility] Social History Social Habit Start Date Stop Date Quantity Comments Source History [facility] cosmo - Alcohol Std Drinks [facility] - [facility] Sex Ass[facility] At [facility] Cigarettes smoked 2019-07-01 2019-07-01 [facility] - current (pack per 00:00:00 00:00:00 [facility] Center day) - Reported Tobacco use and 2019-07-01 2019-07-01 Never used [facility] - exposure 00:00:00 00:00:00 [facility] Alcohol intake 2019-07-01 2019-07-01 [facility]00 non-drinker of Medical Ce nter alcohol (finding) History [facility] 2019-06-30 2019-06-30 1 [facility] cosmo - Alcohol Frequency 00:00:00 00:00:00 [facility] Smoking Status Start Date Stop Date Source Current every day smoker 2019-07-01 00:00:00 [facility] Medications Ordered Filled Start Stop Current Ordering Indication Dosage Frequency Signature Comments Components Source Medication Medication Date Date Medication? Clinician (SIG) Name Name FLUoxetine 2018-09 Yes 40mg QD Take [address] (PROZAC) 40 0-12 by mouth Luke [facility] - MG capsule 16:28: daily. Medic [address] gabapentin 2018-09 Yes 300mg [id number] Take [address] (NEURONTIN) 0-12 [id number] mg by L ukes - 300 MG [...] [facility] - Test 00:00:00 (#1) [code = [facility] INFLUENZA VACCINE (#1)] Future Scheduled 2019-10-[address] [facility] - Test 00:00:00 WELLNESS (YEAR 2 or Medical Center FIRST YEAR if no IPPE) [code = MEDICARE ANNUAL WELLNESS (YEAR 2 or FIRST YEAR if no IPPE)] Future Scheduled [address] - Test 00:00:00 (procedure) [code = [facility] 47366733] Future Scheduled [address] [facility] - Test 00:00:00 malignant neoplasm Medical C enter of cervix (procedure) [code = 269598601] Future Scheduled [address] [facility] - Test 00:00:00 malignant neoplasm Medical C enter of breast (procedure) [code = 437115925] Future Scheduled [address] [facility] - Test 00:00:00 malignant neoplasm Medical C enter of colon (procedure) [code = 117977570] Encounters Start End Encounter Admission Attending Care Care Encounter Source Date/Time Date/Time Type Type Clinicians Facility Department ID 2020-08-01 2020-08-01 Orders Doctor PETERSON [id number] 00:00:00 00:00:00 Only Unassigned, ELIO [id number] [facility] [id number] 2020-06-14 2020-06-14 Orders Doctor PETERSON [id number] 00:00:00 00:00:00 Only Unassigned, ELIO [id number] [facility] [id number] [id number] 2020-04-16 2020-04-16 Orders Doctor PETERSON [id number] 00:00:00 00:00:00 Only Unassigned, ELIO [id number] [facility] [id number] [id number] 2020-03-28 2020-03-28 [facility] [id number] 17:19:00 17:19:00 [facility] Family Medicine Medicine Outpati ent Clinics 2019-12-22 2019-12-22 Letter RIAZ Fu [id number] 00:00:00 00:00:00 (Out) [id number] [id number] [place] [id number] [facility] 2019-12-20 2019-12-20 [facility] NICHOLAS Fu [id number] 11:57:00 23:59:00 Encounter John ELIO [id number] [facility] [id number] 2019-12-19 2019-12-19 Telephone [facility] [id number] 00:00:00 00:00:00 John MULTISPEC [id number] Maryann IALTY 4.2.7.2.[address] [id number] AND ALVARAD[facility] 2019-11-21 2019-11-21 Telephone [facility] [id number] 00:00:00 00:00:00 John MULTISPEC [id number] Maryann IALTY [id number] [id number] AND [facility] 2019-11-11 2019-11-11 Telephone [facility] [id number] 00:00:00 00:00:00 John MULTISPEC [id number] Maryann IALTY [id number] [id number] AND [facility] 2019-10-13 2019-10-13 Orders Doctor NICHOLAS [id number] 00:00:00 00:00:00 Only Unassigned, ELIO [id number] [facility] [id number] [id number] [id number] 2019-04-26 2019-04-26 [facility] [id number] 10:44:43 23:59:00 Encounter [employer] [id number] Surgical 4.2.7.2.686 Specialti [id number] es [address] [place] 2019-04-26 2019-04-26 Office [facility] [id number] 10:32:03 11:07:22 Visit [employer] [id number] Surgical [id number] Specialti [id number] es [address] [place] Results Test Description Test Time Test Comments Results Result Comments Source MISCELLANEOUS LAB ORDER 2019-07-07 07:50:00 Test Item Value Reference Range Interpretation Comme nts SCAN RESULT (test code = 4522059) HEPATITIS C [id number] 12:34:00 Test Item Value Reference Range Interpretation Comments HEPATITIS C ANTIBODY Reactive Nonreactive A Test pe rformed at (BEAKER) (test code = [place]. See 367) attached report ALPHA FETOPROTEIN (AFP), TUMOR [id number] 06:18:00 Test Item Value Reference Range Interpretation Comments ALPHA-FETOPROTEIN (BEAKER) (test code < ng/mL <10.0 = 1094) [id number] 06:04:00 Test Item Value Reference Range Interpretation Comments MAGNESIUM (BEAKER) (test code = 2.3 mg/dL 1.6-2.6 627) COMPREHENSIVE METABOLIC [id number] 06:04:00 Test Item Value Reference Range Interpretation [...] PATIEN TS. CBC W/PLT COUNT & AUTO [id number] 05:47:00 Test Item Value Reference Range Interpretation [...] CELLS (BEAKER) (test code = 413) PROTHROMBIN [id number] 05:46:00 Test Item Value Reference Range Interpretation [...] is2.5-3.5 for patients wiht mechanical heart valves.PROTHROMBIN TIME/[id number] 18:50:00 Test Item Value Reference Range Interpretation [...] by IFA method.CBC W/PLT COUNT & AUTO [id number] 10:44:00 Test Item Value Reference Range Interpretation [...] S NOT APPLICABLE FOR DIALYSIS PATIEN TS. [id number] 08:31:00 Test Item Value Reference Range Interpretation Comments PHOSPHORUS (BEAKER) (test code = 3.4 mg/dL 2.3-4.7 604) [id number] 08:31:00 Test Item Value Reference Range Interpretation Comments MAGNESIUM (BEAKER) (test code = 2.0 mg/dL 1.6-2.6 627) [id number] 07:26:00 Test Item Value Reference Range Interpretation Comments LIPASE (BEAKER) (test code = 749) 390 U/L 8-78 H [id number] 06:49:00 Test Item Value Reference Range Interpretation Comments AMYLASE (BEAKER) (test code = 349) 200 U/L 25-125 H [id number] 05:59:00 Test Item Value Reference Range Interpretation Comments AMMONIA (BEAKER) (test code = 348) 107 mol/L 18-72 H HEPATITIS B [id number] 05:39:00 Test Item Value Reference Range Interpretation Comments HEPATITIS B CORE TOTAL ANTIBODY Nonreactive Nonreactive (BEAKER) (test code = 497) HEPATITIS B SURFACE ANTIBODY < mIU/mL <8.0 (BEAKER) (test code = 647) HEPATITIS B SURFACE ANTIGEN (2) Nonreactive Nonreactive (BEAKER) (test code = 2585) TSH/FREE T4 IF [id number] 05:33:00 Test Item Value Reference Range Interpretation Comments THYROID STIMULATING HORMONE 2.36 uIU/mL 0.35-4.94 (BEAKER) (test code = 772)
[2021-03-29 19:24] LABS: Protime INR 1.09
[2021-03-29 19:27] LABS: Potassium 3.5 mmol/L (3.5-5.1)
[2021-03-29] MEDS ORDERED: LEVALBUTEROL 1.25 MG/3 ML NEB ONE ×2 (19:28→19:35)
[2021-03-29 19:31] LABS: Basophils % 0.9 % (0-1.3); Hematocrit 27.5 % (36.0-45.0); Lymphocytes % 36.6 % (15.3-44.8); MPV 9.4 fL (7.6-11.3); RBC Red Blood Cell Count 3.81 M/uL (3.86-4.86)
--- NOTE | 2021-03-29 19:46 | RAD REPORT ---
EXAM DESCRIPTION: Snehal Single View03/29/2021 7:33 pm CLINICAL HISTORY: Cough COMPARISON: 2019 FINDINGS: The lungs are mildly hyperaerated. The lungs appear clear of acute infiltrate. The heart is normal size IMPRESSION: No acute abnormalities displayed
[2021-03-29 19:57] LABS: Anisocytosis 3+; Blood Morphology Comment NOTED (NOT SEEN); Ovalocytes 1+; Platelet Estimate DECR; Poikilocytosis 1+; Polychromasia 1+; White Blood Cell Scan OK (OK)
[2021-03-29 19:58] LABS: Teardrop Cell FEW
--- NOTE | 2021-03-29 20:38 | ER ---
Nurse's Notes [facility] Name: Jose Manuel Richardson Age: 60 yrs Sex: Female : 1960 Arrival Date: 03/29/2021 Time: 15:56 Bed 5 Private MD: Diagnosis: Anemia, unspecified-Chronic;Pancytopenia, Chronic Presentation: 03/29 16:30 Chief complaint: Patient states: Was sent to ED from [facility] in [address] due to Hemoglobin being 7.1. Pt states "feeling tired, incoherent and off-balance for about a month". Coronavirus screen: Client denies travel out of the [place] in the last 14 days. Ebola Screen: Patient negative for fever greater than or equal to 101.5 degrees Fahrenheit, and additional compatible Ebola Virus Disease symptoms. Initial Sepsis Screen: Does the patient meet any 2 criteria? No. Patient's initial sepsis screen is negative. Does the patient have a suspected source of infection? No. Patient's initial sepsis screen is negative. Risk Assessment: Do you want to hurt yourself or someone else? Patient reports no desire to harm self or others. Onset of symptoms was February 27, 2021. 16:30 Method Of Arrival: Ambulatory [facility] 16:30 Acuity: JEANA 3 [facility] Triage Assessment: 16:32 General: Appears in no apparent distress. comfortable, Behavior is calm, cooperative. vg1 Pain: Denies pain. Historical: - Allergies: 16:32 cipro (IV, but can take PO); vg1 16:32 Flagyl; vg1 - Home Meds: 16:32 Lactulose Oral [Active]; Lasix 40 mg Oral tab 1 tab 2 times per day [Active]; vg1 mirtazapine 45 mg Oral tab 1 tab once daily [Active]; omeprazole 40 mg Oral cpDR 1 cap once daily [Active]; propranolol 10 mg Oral tab 1 tab twice a day [Active]; - PMHx: 16:32 Cirrhosis; secondary to ETOH abuse; hypotension; liver failure, chronic; Renal Disease; vg1 - Immunization history:: Adult Immunizations up to date, Client reports receiving the 2nd dose of the Covid vaccine. - Social history:: Smoking status: Patient reports the use of cigarette tobacco products, Pt states has been on the patch for two weeks. Screenin:15 Abuse screen: Denies threats or abuse. Nutritional screening: No deficits noted. tw2 Tuberculosis screening: No symptoms or risk factors identified. Fall Risk None identified. Assessment: 18:50 General: Appears in no apparent distress. comfortable, well groomed, well developed, sv Behavior is calm, cooperative, appropriate for age. Pain: Denies pain. Neuro: Level of Consciousness is awake, alert, obeys commands, Oriented to person, place, time, situation, Moves all extremities. Full function Speech is normal. Respiratory: Respiratory effort is even, unlabored, Respiratory pattern is regular, symmetrical. EENT: Reports that she has "really bad nose bleeds.". 19:17 General: Appears in no apparent distress. comfortable, Behavior is calm, cooperative, rr5 appropriate for age. Neuro: Level of Consciousness is awake, alert, obeys commands, Oriented to person, place, time. Cardiovascular: Capillary refill < 3 seconds Patient's skin is warm and dry. Respiratory: Airway is patent Respiratory effort is even, unlabored, Respiratory pattern is regular, symmetrical. Derm: Skin temperature is warm. 20:46 Reassessment: Patient appears in no apparent distress at this time. Patient is alert, rr5 oriented x 3, equal unlabored respirations, skin warm/dry/pink. discharge instruction given and explained without complaints made. Vital Signs: 16:30 BP 124 / 58; Pulse 75; Resp 16; Temp 98.2; Pulse Ox 99% ; Weight 61.69 kg; Height 5 ft. vg1 8 in. (172.72 cm); Pain 0/10; 18:31 BP 131 / 66; Pulse 64; Resp 12; Pulse Ox 100% ; sv 19:17 BP 128 / 65; Pulse 69; Resp 16; Pulse Ox 98% ; rr5 20:46 BP 121 / 69; Pulse 60; Resp 19; Pulse Ox 98% ; rr5 16:30 Body Mass Index 20.68 (61.69 kg, 172.72 cm) vg1 ED Course: 15:56 Patient arrived in ED. as 16:32 Triage completed. vg1 16:32 Arm band placed on Patient placed in waiting room, Patient notified of wait time. vg1 18:24 Sena Farmer RN is Primary Nurse. sv 18:34 Patient has correct armband on for positive identification. Bed in low position. Call 5 light in reach. Side rails up X 1. Warm blanket given. in store marketing associate on. Pulse ox on. NIBP on. 18:36 Howard Reddy MD is Attending Physician. kdr 18:40 Howard Reddy MD is Attending Physician. kdr 19:00 Inserted saline lock: 22 gauge in right forearm, using aseptic technique. ,using sv aseptic technique. diffusics Blood collected. Flushed right forearm with 5 ml normal saline. 19:04 Attending Physician role handed off by Howard Reddy MD [facility] 19:04 Sharan Mckinley MD is Attending Physician. mh7 19:11 Report given to Guanako DARBY and Jareth DARBY. sv 19:12 Primary Nurse role handed off by Sena Farmer RN sv 19:12 CBC with Diff Sent. sv 19:16 Guanako Valladares RN is Primary Nurse. rr5 19:33 CXR XRAY In Process Unspecified. EDMS 20:36 Maria Guadalupe Hsieh MD is Referral Physician. mh7 20:46 No provider procedures requiring assistance completed. IV discontinued, intact, rr5 bleeding controlled, No redness/swelling at site. Pressure dressing applied. Administered Medications: 19:11 Drug: Xopenex (levalbuterol) (3) 1.25 mg Route: Inhalation; rr5 20:20 Follow up: Response: No adverse reaction rr5 Outcome: 20:37 Discharge ordered by MD. 7 20:46 Discharged to home ambulatory. rr5 20:46 Condition: stable 20:46 Discharge instructions given to patient, Instructed on discharge instructions, follow up and referral plans. Demonstrated understanding of instructions, follow-up care. 20:47 Patient left the ED. rr5 Signatures: Dispatcher [employer] EDMS Sena Farmer RN RN Howard Reddy MD MD kdr Martinez, Amelia as Wise, Tara, RN RN tw2 Crystal Rodriguez 5 Guanako Valladares RN RN rr5 Jigna Valverde RN RN vg1 Sharan Mckinley MD MD 7 Corrections: (The following items were deleted from the chart) 16:34 16:32 PMHx: Hepatitis; C; vg1 vg1
--- NOTE | 2021-03-29 20:38 | EDPHYS ---
Physician Documentation [facility] Name: Jose Manuel Richardson Age: 60 yrs Sex: Female : 1960 Arrival Date: 03/29/2021 Time: 15:56 Bed 5 Private MD: ED Physician Sharan Mckinley HPI: 03/29 18:57 This 60 yrs old Female presents to ER via Ambulatory with complaints of kdr Abnormal Lab Results - hemoglobin. 18:57 The patient had recent blood draw that revealed that she had an Hgb of 7.2 and was told kdr to come to the ED for possible transfusion. She has had transfusions in the past due to intermittent and persistent epistaxis. She has not had a GI bleed history. She also recently stopped smoking and has a persistent coarse cough. Onset: The symptoms/episode began/occurred at an unknown time. Severity of symptoms: At their worst the symptoms were mild moderate just prior to arrival, in the emergency department the symptoms are unchanged. The patient has experienced similar episodes in the past, multiple times. The patient has been recently seen by a physician: the patient's primary care provider. The patient has been feeling weak and dizzy the past few weeks and has had symptoms similar to when her Hgb has been low in the past and she has needed a transfusion. Historical: - Allergies: 16:32 cipro (IV, but can take PO); vg1 16:32 Flagyl; vg1 - Home Meds: 16:32 Lactulose Oral [Active]; Lasix 40 mg Oral tab 1 tab 2 times per day [Active]; vg1 mirtazapine 45 mg Oral tab 1 tab once daily [Active]; omeprazole 40 mg Oral cpDR 1 cap once daily [Active]; propranolol 10 mg Oral tab 1 tab twice a day [Active]; - PMHx: 16:32 Cirrhosis; secondary to ETOH abuse; hypotension; liver failure, chronic; Renal Disease; vg1 - Immunization history:: Adult Immunizations up to date, Client reports receiving the 2nd dose of the Covid vaccine. - Social history:: Smoking status: Patient reports the use of cigarette tobacco products, Pt states has been on the patch for two weeks. ROS: 18:57 Constitutional: Negative for fever, chills, and weight loss, Eyes: Negative for injury, kdr pain, redness, and discharge, ENT: Negative for injury, pain, and discharge, Neck: Negative for injury, pain, and swelling, Cardiovascular: Negative for chest pain, palpitations, and edema, Abdomen/GI: Negative for abdominal pain, nausea, vomiting, diarrhea, and constipation, Back: Negative for injury and pain, : Negative for injury, bleeding, discharge, and swelling, MS/Extremity: Negative for injury and deformity, Skin: Negative for injury, rash, and discoloration, Neuro: Negative for headache, weakness, numbness, tingling, and seizure activity. Psych: Negative for depression, anxiety, suicide ideation, homicidal ideation, and hallucinations, Allergy/Immunology: Negative for hives, rash, and allergies, Endocrine: Negative for neck swelling, polydipsia, polyuria, polyphagia, and marked weight changes, Hematologic/Lymphatic: Negative for swollen nodes, abnormal bleeding, and unusual bruising. 18:57 Respiratory: Positive for cough, "sounds productive", dyspnea on exertion, shortness of breath, Negative for hemoptysis, orthopnea, pleurisy, wheezing. Exam: 18:57 Constitutional: This is a well developed, well nourished patient who is awake, alert, kdr and in no acute distress. Head/Face: Normocephalic, atraumatic. Eyes: Pupils equal round and reactive to light, extra-ocular motions intact. Lids and lashes normal. Conjunctiva and sclera are non-icteric and not injected. Cornea within normal limits. Periorbital areas with no swelling, redness, or edema. Neck: Trachea midline, no thyromegaly or masses palpated, and no cervical lymphadenopathy. Supple, full range of motion without nuchal rigidity, or vertebral point tenderness. No Meningismus. Chest/axilla: Normal chest wall appearance and motion. Nontender with no deformity. No lesions are appreciated. Cardiovascular: Regular rate and rhythm with a normal S1 and S2. No gallops, murmurs, or rubs. Normal PMI, no JVD. No pulse deficits. Abdomen/GI: Soft, non-tender, with normal bowel sounds. No distension or tympany. No guarding or rebound. No evidence of tenderness throughout. Back: No spinal tenderness. No costovertebral tenderness. Full range of motion. Skin: Warm, dry with normal turgor. Normal color with no rashes, no lesions, and no evidence of cellulitis. MS/ Extremity: Pulses equal, no cyanosis. Neurovascular intact. Full, normal range of motion. Neuro: Awake and alert, GCS 15, oriented to person, place, time, and situation. Cranial nerves II-XII grossly intact. Motor strength 5/5 in all extremities. Sensory grossly intact. Cerebellar exam normal. Normal gait. Psych: Awake, alert, with orientation to person, place and time. Behavior, mood, and affect are within normal limits. 18:57 Respiratory: the patient does not display signs of respiratory distress, Respirations: normal, Breath sounds: decreased breath sounds. Vital Signs: 16:30 BP 124 / 58; Pulse 75; Resp 16; Temp 98.2; Pulse Ox 99% ; Weight 61.69 kg; Height 5 ft. vg1 8 in. (172.72 cm); Pain 0/10; 18:31 BP 131 / 66; Pulse 64; Resp 12; Pulse Ox 100% ; sv 19:17 BP 128 / 65; Pulse 69; Resp 16; Pulse Ox 98% ; rr5 20:46 BP 121 / 69; Pulse 60; Resp 19; Pulse Ox 98% ; rr5 16:30 Body Mass Index 20.68 (61.69 kg, 172.72 cm) vg1 MDM: 18:57 Data reviewed: vital signs, nurses notes, lab test result(s), radiologic studies. kdr Counseling: I had a detailed discussion with the patient and/or guardian regarding: the historical points, exam findings, and any diagnostic results supporting the discharge/admit diagnosis, lab results, radiology results. 20:33 Differential Diagnosis Anemia-acute vs chronic, fatigue. Data interpreted: Pulse mh7 oximetry: on room air is 98 %. Interpretation: normal. Counseling: I had a detailed discussion with the patient and/or guardian regarding: the need for outpatient follow up, to return to the emergency department if symptoms worsen or persist or if there are any questions or concerns that arise at home. Response to treatment: the patient's symptoms have markedly improved after treatment. 20:37 Patient medically screened. mh7 03/29 18:36 Order name: CBC with Diff kdr 03/29 18:36 Order name: Chem 7; Complete Time: 19:48 kdr 03/29 18:36 Order name: PT-INR; Complete Time: 19:48 kdr 07/09 18:36 Order name: Type And Screen; Complete Time: 20:27 kdr 03/29 18:37 Order name: CBC with Automated Diff; Complete Time: 20:27 EDMO 03/29 19:37 Order name: CBC Smear Scan; Complete Time: 20:27 EDMO 03/29 18:47 Order name: CXR XRAY; Complete Time: 19:48 kdr 03/29 19:06 Order name: IV Start; Complete Time: 19:06 tw2 Administered Medications: 19:11 Drug: Xopenex (levalbuterol) (3) 1.25 mg Route: Inhalation; rr5 20:20 Follow up: Response: No adverse reaction rr5 Disposition Summary: 03/29/21 20:37 Discharge Ordered Location: Home [facility] Problem: chronic [facility] Symptoms: have improved [facility] Condition: Stable [facility] Diagnosis - Anemia, unspecified - Chronic 7 - Pancytopenia, Chronic mh Followup: [facility] - With: Private Physician - When: 1 - 2 days - Reason: Worsening of condition, Recheck today's complaints, Continuance of care, Re-evaluation by your physician Followup: [facility] - With: Maria Guadalupe Hsieh MD - When: 2 - 3 days - Reason: Worsening of condition, Recheck today's complaints Discharge Instructions: - Discharge Summary Sheet [facility] - Anemia [facility] - Pancytopenia [facility] Forms: - Medication Reconciliation Form [facility] - Thank You Letter [facility] - Antibiotic Education [facility] - Prescription Opioid Use [facility] Signatures: Dispatcher [employer] EDMO Howard Reddy MD MD kdr Paty Gonzales RN RN tw2 Guanako Valladares RN RN rr5 Jigna Valverde RN RN vg1 Sharan Mckinley MD MD 7 Corrections: (The following items were deleted from the chart) 16:34 16:32 PMHx: Hepatitis; C; vg1 vg1
[2021-03-29 21:16] VITALS: TEMP 98.2
[2021-03-29 21:21] VITALS: O2SAT 98
[2021-03-29 21:22] VITALS: BP 121/69
== END 2021-03-29 20:47 | disposition home or self-care (01) ==
LOC: ER 15:52
DX: D64.9 Anemia, unspecified (principal); D61.818 Other pancytopenia; N28.9 Disorder of kidney and ureter, unspecified; Z88.1 Allergy status to other antibiotic agents; Z88.8 Allergy status to other drugs, medicaments and biological substances
CPT/HCPCS: 36415; 71045; 80048; 85025; 85610; 86850; 86900; 86901; 99285

== ENCOUNTER 2021-11-21 09:24 | Inpatient (IN) | payer OTHER ==
--- OUTSIDE RECORDS SUMMARY | 2021-11-21 09:29 | XMS REPORT | Continuity of Care Document ---
:1960 Author Organization [facility] t Address [address] [place] [address] Care Team Providers Name Role Phone Cameron Attending Clinician Unavailable Doctor Unassigned, Name Attending Clinician Unavailable Darrel Maldonado MD Attending Clinician DARREL MALDONADO Attending Clinician Unavailable PILAR Attending Clinician Unavailable Jessica SHEPARD Attending Clinician Unavailable Devyn GORE S Attending Clinician PILAR Admitting Clinician Unavailable Payers Payer Name Policy Type Policy Number Effective Date Expiration Date S ource Problems Condition Condition Condition Status Onset Resolution Last Treating Co mments Source Name Details Category Date Date Treatment Clinician Date Closed Closed Disease Active Overview: Dominic Cifuentes' 03-03 Added ity of fracture fracture 00:00: automatic [place] as of right of right 00 ally from Med ical radius, radius, request Branch initial initial for encounter encounter surgery [id number] Hepatic Hepatic Disease Active Univers encephalop encephalop 01-16 it y of athy athy 00:00: [place] 00 Medical Branch S/P TIPS S/P TIPS Disease Active Unive rs (transjugu (transjugu 18 it y of lar lar 00:00: [place] intrahepat intrahepat 00 Me dical ic ic Branch portosyste portosyste mara shunt) mara shunt) CLABSI CLABSI Disease Active Univers (central (central 4-14 ity of line-assoc line-assoc [place] i[place] iated 00 Medical bloodstrea bloodstrea Br anch m m infection) infection) Septicemia Septicemia Disease Active U nivers due to due to 4-14 ity of Klebsiella Klebsiella [place] pneumoniae pneumoniae 00 Me dical Branch CLABSI CLABSI Disease Active Univers (central (central 4-14 ity of line-assoc line-assoc 00:[place]: [place] iated iated 00 Medical bloodstrea bloodstrea Br anch m m infection) infection) Severe Severe Disease Active Univers sepsis sepsis 4-14 ity of with acute with acute 00:00: [place] organ organ 00 Medical dysfunctio dysfunctio Br anch n due to n due to Gram Gram negative negative bacteria bacteria CLABSI CLABSI Disease Active Univers (central (central 4-14 ity of line-assoc line-assoc 00:00: [place] iated iated 00 Medical bloodstrea bloodstrea Br anch m m infection) infection) Protein-ca Protein-ca Disease Active U karl bagley 4-13 ity of malnutriti malnutriti 00:00: [place] on, on, 00 Medical moderate moderate Branch Hyponatrem Hyponatrem Disease Active U nivers ia ia 4-11 ity of 00:00: [place] 00 Medical Branch Zinc Zinc Disease Active Univers deficiency deficiency 3-14 it y of 00:00: [place] 00 Medical Branch Pre-transp Pre-transp Disease Active U nivers lant lant 1-12 ity of evaluation evaluation 00:[place]: [place] for for Medical chronic chronic Branch liver liver disease disease Pre-transp Pre-transp Disease Active U nivers lant lant 1-12 ity of evaluation evaluation 00:[place] for for Medical chronic chronic Branch liver liver disease disease Acute Acute Disease Active Univers pancreatit pancreatit 7-14 it y of is is 00:00: [place] 00 Medical Branch Abdominal Abdominal Disease Active Uni vers pain pain 7-14 ity of 00:00: [place] 00 Medical Branch Other Other Disease Active Univers noninfecti noninfecti 6-12 it y of ous ous 00:00: [place] disorders disorders 00 Medi elvie of of Branch lymphatic lymphatic channels channels Decompensa Decompensa Disease Active U nivers farida HCV farida HCV 5-12 ity of cirrhosis cirrhosis 00:[place] [facility] [place] Decompensa Decompensa Disease Active U nivers farida HCV farida HCV 5-12 ity of cirrhosis cirrhosis 00:[place] [facility] [place] Generalize Generalize Disease Active U nivers d d 5-12 [place] of abdominal abdominal 00:[place] 00 [place] Alcoholic Alcoholic Disease Active Uni vers cirrhosis cirrhosis 5-11 ity of of liver of liver 00:00: [place] with with 00 Medical ascites ascites Branch Cirrhosis Cirrhosis Disease Active Uni vers 2-10 ity of 00:00: [place] [facility] Alcohol Alcohol Disease Active Univers abuse abuse 2-10 ity of 00:00: [place] [facility] HCV HCV Disease Active Univers (hepatitis (hepatitis 2-10 it y of C virus) C virus) 00:00: [place] [facility] Peripheral Peripheral Disease Active U nivers neuropathy neuropathy 2-10 it y of 00:00: [place] [facility] Ascites Ascites Disease Active 2013-09 Univers 2-31 ity of 00:00: [place] [facility] Chronic Chronic Problem Active [facility] hepatitis [...] Type Date Date Clinician Ciproflo Propensi Active Itching Unive rs xacin ty to 9-05 ity of Hcl adverse 00:00: [place] reaction 00 Medical s Branch CIPROFLO DRUG Active Low ITCHING Univers XACIN INGREDI 9-05 ity of HCL 00:00: [place] 00 Medical Branch Metronid Propensi Active Other - See 2013-09 Rash, U nivers azole ty to comments 2- swelling ity of Hcl adverse 00:00: [place] reaction 00 Medical s Branch METRONID DRUG Active Other-Cmnt 2013-09 Univ ers AZOLE INGREDI 2-31 ity of HCL 00:00: [place] 00 Medical Branch Social History Social Habit Start Date Stop Date Quantity Comments Source Sex Assigned At [facility] Branch Tobacco use and 2019-04-26 2019-04-26 Never used Universit y of exposure 00:00:00 00:00:00 [facility] [place] [facility] Cigarettes smoked 2019-04-26 2019-04-26 Univers ity of current (pack per 00:00:00 00:00:00 [facility] ) - Reported Branch Alcohol intake 2019-04-26 2019-04-26 Current drinker Unive rsity of 00:00:00 00:00:00 of alcohol [facility] (finding) [place] Tobacco Comment 2015 2015 Using nicotine Unive rsity of 00:00:00 00:00:00 patches and [facility] electronic Branch cigarettes. 1pack/2days. Alcohol Comment 2014-09-21 2014-09-21 Drinks a tall Univer sity of 00:00:00 00:00:00 glass of rum [facility] dical coke since Jun. Used to drink heavily before that Smoking Status Start Date Stop Date Source Current every day smoker 2019-04-26 00:00:00 Uni versity of [facility] [place] [facility] Medications Ordered Filled Start Stop Current Ordering Indication Dosage Frequency Signature Comments Components Source Medication Medication Date Date Medication? Clinician (SIG) Name Name traMADOL 50 2019- Yes 1-2 by Univ ers mg tablet 6-28 mouth ity of 00:00: every 4-6 [place] 00 hours as Medical need for Branch pain traMADOL 50 2018- Yes 1-2 by Univ ers mg tablet 6-28 mouth ity of 00:00: every 4-6 [place] 00 hours as Medical need for Branch pain traMADOL 50 2018-0 Yes 1-2 by Univ ers mg tablet 6-28 mouth ity of 00:00: every 4-6 [place] 00 hours as Medical need for Branch pain traMADOL 50 2019-0 Yes 1-2 by Univ ers mg tablet 6-28 mouth ity of 00:00: every 4-6 [place] 00 hours as Medical need for Branch pain traMADOL 50 2019-0 Yes 1-2 by Univ ers mg tablet 6-28 mouth ity of 00:00: every 4-6 [place] 00 hours as Medical need for Branch pain traMADOL 50 2019-0 Yes 1-2 by Univ ers mg tablet 6-28 mouth ity of 00:00: every 4-6 [place] 00 hours as Medical need for Branch pain traMADOL 50 2019-0 Yes 1-2 by Univ ers mg tablet 6-28 mouth ity of 00:00: every 4-6 [place] 00 hours as Medical need for Branch pain traMADOL 50 2019-0 Yes 1-2 by Univ ers mg tablet 6-28 mouth ity of 00:00: every 4-6 [place] 00 hours as Medical need for Branch pain traMADOL 50 2019-0 Yes 1-2 by Univ ers mg tablet 6-28 mouth ity of 00:00: every 4-6 [place] 00 hours as Medical need for Branch pain traMADOL 50 2019-0 Yes 1-2 by Univ ers mg tablet 6-28 mouth ity of 00:00: every 4-6 [place] 00 hours as Medical need for Branch pain traMADOL 50 2019-0 Yes 1-2 by Univ ers mg tablet 6-28 mouth ity of 00:00: every 4-6 [place] 00 hours as Medical need for Branch pain traMADOL 50 2019-0 Yes 1-2 by Univ ers mg tablet 6-28 mouth ity of 00:00: every 4-6 [place] 00 hours as Medical need for Branch pain traMADOL 50 2019-0 Yes 1-2 by Univ ers mg tablet 6-28 mouth ity of 00:00: every 4-6 [place] 00 hours as Medical need for Branch pain omeprazole 2019-0 Yes 20mg Take 20 mg U nivers 20 mg 6-11 by mouth ity of capsule 19:38: daily. [place] [address] Medical Branch omeprazole 2019-0 Yes 20mg Take 20 mg U nivers 20 mg 6-11 by mouth ity of capsule 19:38: daily. [place] [address] Medical Branch omeprazole 2019-0 Yes 20mg Take 20 mg U nivers 20 mg 6-11 by mouth ity of capsule 19:38: daily. [place] [address] Medical Branch omeprazole 2019-0 Yes 20mg Take 20 mg U nivers 20 mg 6-11 by mouth ity of capsule 19:38: daily. [address] omeprazole 2019-0 Yes 20mg Take 20 mg U nivers 20 mg 6-11 by mouth ity of capsule 19:38: daily. [address] omeprazole 2018-0 Yes 20mg Take 20 mg U nivers 20 mg 6-11 by mouth ity of capsule 19:38: daily. [address] omeprazole 2019-0 Yes 20mg Take 20 mg U nivers 20 mg 6-11 by mouth ity of capsule 19:38: daily. [address] omeprazole 2018-0 Yes 20mg Take 20 mg U nivers 20 mg 6-11 by mouth ity of capsule 19:38: daily. [address] omeprazole 2018-0 Yes 20mg Take 20 mg U nivers 20 mg 6-11 by mouth ity of capsule 19:38: daily. [address] omeprazole 2018-0 Yes 20mg Take 20 mg U nivers 20 mg 6-11 by mouth ity of capsule 19:38: daily. [address] omeprazole 2018-0 Yes 20mg Take 20 mg U nivers 20 mg 6-11 by mouth ity of capsule 19:38: daily. [address] omeprazole 2018-0 Yes 20mg Take 20 mg U nivers 20 mg 6-11 by mouth ity of capsule 19:38: daily. [address] omeprazole 2018-0 Yes 20mg Take 20 mg U nivers 20 mg 6-11 by mouth ity of capsule 19:38: daily. [address] spironolact 2016-09 Yes 100mg Take 1 Uni vers one 100 mg 1-27 tablet by ity of tablet 00:00: mouth [place] 00 daily. [facility] spironolact 2016-09 Yes 100mg Take 1 Uni vers one 100 mg 1-27 tablet by ity of tablet 00:00: mouth [place] 00 daily. [facility] spironolact 2016-09 Yes 100mg Take 1 Uni vers one 100 mg 1-27 tablet by ity of tablet 00:00: mouth [place] 00 daily. [facility] spironolact 2016-09 Yes 100mg Take 1 Uni vers one 100 mg 1-27 tablet by ity of tablet 00:00: mouth [place] 00 daily. [facility] spironolact 2016-09 Yes 100mg Take 1 Uni vers one 100 mg 1-27 tablet by ity of tablet 00:00: mouth [place] 00 daily. Medical Branch spironolact 2016- Yes 100mg Take 1 Uni vers one 100 mg 1-27 tablet by ity of tablet 00:00: mouth [place] 00 daily. Medical Branch spironolact 2016- Yes 100mg Take 1 Uni vers one 100 mg 1-27 tablet by ity of tablet 00:00: mouth [place] 00 daily. Medical Branch spironolact 2016-1 Yes 100mg Take 1 Uni vers one 100 mg 1-27 tablet by ity of tablet 00:00: mouth [place] 00 daily. Medical Branch spironolact 2016-1 Yes 100mg Take 1 Uni vers one 100 mg 1-27 tablet by ity of tablet 00:00: mouth [place] 00 daily. Medical Branch spironolact 2016- Yes 100mg Take 1 Uni vers one 100 mg 1-27 tablet by ity of tablet 00:00: mouth [place] 00 daily. Medical Branch spironolact 2016- Yes 100mg Take 1 Uni vers one 100 mg 1-27 tablet by ity of tablet 00:00: mouth [place] 00 daily. Medical Branch spironolact 2016- Yes 100mg Take 1 Uni vers one 100 mg 1-27 tablet by ity of tablet 00:00: mouth [place] 00 daily. Medical Branch spironolact 2016- Yes 100mg Take 1 Uni vers one 100 mg 1-27 tablet by ity of tablet 00:00: mouth [place] 00 daily. Medical Branch lactulose 2017-0 Yes 45mL Take 45 mL Un [facility] 10 gram/15 8-24 by mouth 4 ity of mL solution 00:00: (four) [place] 00 times Medical daily. Branch lactulose 2017-0 Yes 45mL Take 45 mL [facility] [place] 10 gram/15 8-24 by mouth 4 ity of mL solution 00:00: (four) [place] 00 times Medical daily. Branch lactulose 2017-0 Yes 45mL Take 45 mL [facility] [place] 10 gram/15 8-24 by mouth 4 ity of mL solution 00:00: (four) [place] 00 times Medical daily. Branch lactulose 2017-0 Yes 45mL Take 45 mL [facility] [place] 10 gram/15 8-24 by mouth 4 ity of mL solution 00:00: (four) [place] 00 times Medical daily. Branch lactulose 2017-0 Yes 45mL Take 45 mL [facility] [place] 10 gram/15 8-24 by mouth 4 ity of mL solution 00:00: (four) [place] 00 times Medical daily. Branch lactulose 2017-0 Yes 45mL Take 45 mL [facility] [place] 10 gram/15 8-24 by mouth 4 ity of mL solution 00:00: (four) [place] 00 times Medical daily. Branch lactulose 2017-0 Yes 45mL Take 45 mL [facility] [place] 10 gram/15 8-24 by mouth 4 ity of mL solution 00:00: (four) [place] 00 times Medical daily. Branch lactulose 2017-0 Yes 45mL Take 45 mL [facility] [place] 10 gram/15 8-24 by mouth 4 ity of mL solution 00:00: (four) [place] 00 times Medical daily. Branch lactulose 2017-0 Yes 45mL Take 45 mL [facility] [place] 10 gram/15 8-24 by mouth 4 ity of mL solution 00:00: (four) [place] 00 times Medical daily. Branch lactulose 2017-0 Yes 45mL Take 45 mL [facility] [place] 10 gram/15 8-24 by mouth 4 ity of mL solution 00:00: (four) [place] 00 times Medical daily. Branch lactulose 2017-0 Yes 45mL Take 45 mL [facility] [place] 10 gram/15 8-24 by mouth 4 ity of mL solution 00:00: (four) [place] 00 times Medical daily. Branch lactulose 2017-0 Yes 45mL Take 45 mL [facility] [place] 10 gram/15 8-24 by mouth 4 ity of mL solution 00:00: (four) [place] 00 times Medical daily. Branch lactulose 2017-0 Yes 45mL Take 45 mL [facility] [place] 10 gram/15 8-24 by mouth 4 ity of mL solution 00:00: (four) [place] 00 times Medical daily. Branch furosemide 2017-0 Yes 40mg Take 1 Unive rs 40 mg 6-05 tablet by ity of tablet 00:00: mouth daily. Medical Branch furosemide 2017-0 Yes 40mg Take 1 Unive rs 40 mg 6-05 tablet by ity of tablet 00:00: mouth daily. Medical Branch furosemide 2017-0 Yes 40mg Take 1 Unive rs 40 mg 6-05 tablet by ity of tablet 00:00: mouth [place] 00 daily. Medical Branch furosemide 2017-0 Yes 40mg Take 1 Unive rs 40 mg 6-05 tablet by ity of tablet 00:00: mouth [place] 00 daily. Medical Branch furosemide 2017-0 Yes 40mg Take 1 Unive rs 40 mg 6-05 tablet by ity of tablet 00:00: mouth [place] 00 daily. Medical Branch furosemide 2017-0 Yes 40mg Take 1 Unive rs 40 mg 6-05 tablet by ity of tablet 00:00: mouth [place] 00 daily. Medical Branch furosemide 2017-0 Yes 40mg Take 1 Unive rs 40 mg 6-05 tablet by ity of tablet 00:00: mouth [place] 00 daily. Medical Branch furosemide [id number] Yes 40mg Take 1 Unive rs 40 mg 6-05 tablet by ity of tablet 00:00: mouth [place] 00 daily. Medical Branch furosemide 20170 Yes 40mg Take 1 Unive rs 40 mg 6-05 tablet by ity of tablet 00:00: mouth [place] 00 daily. Medical Branch furosemide 2017-0 Yes 40mg Take 1 Unive rs 40 mg 6-05 tablet by ity of tablet 00:00: mouth [place] 00 daily. Medical Branch furosemide 20170 Yes 40mg Take 1 Unive rs 40 mg 6-05 tablet by ity of tablet 00:00: mouth [place] 00 daily. Medical Branch furosemide 20170 Yes 40mg Take 1 Unive rs 40 mg 6-05 tablet by ity of tablet 00:00: mouth [place] 00 daily. Medical Branch furosemide 20170 Yes 40mg Take 1 Unive rs 40 mg 6-05 tablet by ity of tablet 00:00: mouth [place] 00 daily. Medical Branch cyclobenzap 20170 Yes 5mg Take 1 Univ ers rine 5 mg 5-16 tablet by ity o f tablet 00:00: mouth once [place] 00 daily as Medical needed for Branch Muscle Spasms. pregabalin 2017-0 Yes 75mg Take 1 Unive rs (LYRICA) 75 5-16 capsule by it y of mg capsule 00:00: mouth 2 [place] 00 (two) Medical times Branch daily. nicotine 2017-0 Yes 1{puff} Inhale 1 [facility] [place] (NICOTROL) 5-16 Puff as ity of 10 mg 00:00: needed for [place] inhaler 00 Smoking Medical cessation. Branch rifAXIMin 2016-0 Yes 550mg Take 1 Unive rs 550 mg 5-16 tablet by ity of tablet 00:00: mouth 2 (two) Medical times Branch daily. cyclobenzap 2017-0 Yes 5mg Take 1 Univ ers rine 5 mg 5-16 tablet by ity o f tablet 00:00: mouth once 00 daily as Medical needed for Branch Muscle Spasms. pregabalin 2017-0 Yes 75mg Take 1 Unive rs (LYRICA) 75 5-16 capsule by it y of mg capsule 00:00: mouth 2 [place] (two) Medical times Branch daily. nicotine 2017-0 Yes 1{puff} Inhale 1 [facility] [place] (NICOTROL) 5-16 Puff as ity of 10 mg 00:00: needed for [place] inhaler 00 Smoking Medical cessation. Branch rifAXIMin 2017-0 Yes 550mg Take 1 Unive rs 550 mg 5-16 tablet by ity of tablet 00:00: mouth 2 (two) Medical times Branch daily. cyclobenzap 2017-0 Yes 5mg Take 1 Univ ers rine 5 mg 5-16 tablet by ity o f tablet 00:00: mouth once 00 daily as Medical needed for Branch Muscle Spasms. pregabalin 2017-0 Yes 75mg Take 1 Unive rs (LYRICA) 75 5-16 capsule by it y of mg capsule 00:00: mouth 2 [place] (two) Medical times Branch daily. nicotine 2017-0 Yes 1{puff} Inhale 1 Un [place] (NICOTROL) 5-16 Puff as ity of 10 mg 00:00: needed for [place] inhaler 00 Smoking Medical cessation. Branch rifAXIMin 2017-0 Yes 550mg Take 1 Unive rs 550 mg 5-16 tablet by ity of tablet 00:00: mouth 2 (two) Medical times Branch daily. cyclobenzap 2017-0 Yes 5mg Take 1 Univ ers rine 5 mg 5-16 tablet by ity o f tablet 00:00: mouth once 00 daily as Medical needed for Branch Muscle Spasms. pregabalin 2017-0 Yes 75mg Take 1 Unive rs (LYRICA) 75 5-16 capsule by it y of mg capsule 00:00: mouth 2 [place] 00 (two) Medical times Branch daily. nicotine 2017-0 Yes 1{puff} Inhale 1 [facility] [place] (NICOTROL) 5-16 Puff as ity of 10 mg 00:00: needed for [place] inhaler 00 Smoking Medical cessation. Branch rifAXIMin 2017-0 Yes 550mg Take 1 Unive rs 550 mg 5-16 tablet by ity of tablet 00:00: mouth 2 (two) Medical times Branch daily. cyclobenzap 2017-0 Yes 5mg Take 1 Univ ers rine 5 mg 5-16 tablet by ity o f tablet 00:00: mouth once 00 daily as Medical needed for Branch Muscle Spasms. pregabalin 2017-0 Yes 75mg Take 1 Unive rs (LYRICA) 75 5-16 capsule by it y of mg capsule 00:00: mouth 2 [place] (two) Medical times Branch daily. nicotine 2017-0 Yes 1{puff} Inhale 1 Un [place] (NICOTROL) 5-16 Puff as ity of 10 mg 00:00: needed for [place] inhaler 00 Smoking Medical cessation. Branch rifAXIMin 2017-0 Yes 550mg Take 1 Unive rs 550 mg 5-16 tablet by ity of tablet 00:00: mouth 2 (two) Medical times Branch daily. cyclobenzap 2017-0 Yes 5mg Take 1 Univ ers rine 5 mg 5-16 tablet by ity o f tablet 00:00: mouth once 00 daily as Medical needed for Branch Muscle Spasms. pregabalin 2017-0 Yes 75mg Take 1 Unive rs (LYRICA) 75 5-16 capsule by it y of mg capsule 00:00: mouth 2 [place] (two) Medical times Branch daily. nicotine 2017-0 Yes 1{puff} Inhale 1 [facility] [place] (NICOTROL) 5-16 Puff as ity of 10 mg 00:00: needed for [place] inhaler 00 Smoking Medical cessation. Branch rifAXIMin 2017-0 Yes 550mg Take 1 Unive rs 550 mg 5-16 tablet by ity of tablet 00:00: mouth 2 (two) Medical times Branch daily. cyclobenzap 2017-0 Yes 5mg Take 1 Univ ers rine 5 mg 5-16 tablet by ity o f tablet 00:00: mouth once 00 daily as Medical needed for Branch Muscle Spasms. pregabalin 2017-0 Yes 75mg Take 1 Unive rs (LYRICA) 75 5-16 capsule by it y of mg capsule 00:00: mouth 2 [place] 00 (two) Medical times Branch daily. nicotine 2017-0 Yes 1{puff} Inhale 1 [facility] [place] (NICOTROL) 5-16 Puff as ity of 10 mg 00:00: needed for [place] inhaler 00 Smoking Medical cessation. Branch rifAXIMin 2017-0 Yes 550mg Take 1 Unive rs 550 mg 5-16 tablet by ity of tablet 00:00: mouth 2 (two) Medical times Branch daily. cyclobenzap 2017-0 Yes 5mg Take 1 Univ ers rine 5 mg 5-16 tablet by ity o f tablet 00:00: mouth once 00 daily as Medical needed for Branch Muscle Spasms. pregabalin 2017-0 Yes 75mg Take 1 Unive rs (LYRICA) 75 5-16 capsule by it y of mg capsule 00:00: mouth 2 [place] 00 (two) Medical times Branch daily. nicotine 2017-0 Yes 1{puff} Inhale 1 [facility] [place] (NICOTROL) 5-16 Puff as ity of 10 mg 00:00: needed for [place] inhaler 00 Smoking Medical cessation. Branch rifAXIMin 2017-0 Yes 550mg Take 1 Unive rs 550 mg 5-16 tablet by ity of tablet 00:00: mouth 2 (two) Medical times Branch daily. cyclobenzap 2017-0 Yes 5mg Take 1 Univ ers rine 5 mg 5-16 tablet by ity o f tablet 00:00: mouth once 00 daily as Medical needed for Branch Muscle Spasms. pregabalin 2017-0 Yes 75mg Take 1 Unive rs (LYRICA) 75 5-16 capsule by it y of mg capsule 00:00: mouth 2 [place] 00 (two) Medical times Branch daily. nicotine 2017-0 Yes 1{puff} Inhale 1 [facility] [place] (NICOTROL) 5-16 Puff as ity of 10 mg 00:00: needed for [place] inhaler 00 Smoking Medical cessation. Branch rifAXIMin 2017-0 Yes 550mg Take 1 Unive rs 550 mg 5-16 tablet by ity of tablet 00:00: mouth 2 (two) Medical times Branch daily. cyclobenzap 2017-0 Yes 5mg Take 1 Univ ers rine 5 mg 5-16 tablet by ity o f tablet 00:00: mouth once 00 daily as Medical needed for Branch Muscle Spasms. pregabalin 2017-0 Yes 75mg Take 1 Unive rs (LYRICA) 75 5-16 capsule by it y of mg capsule 00:00: mouth 2 [place] 00 (two) Medical times Branch daily. nicotine 2017-0 Yes 1{puff} Inhale 1 [facility] [place] (NICOTROL) 5-16 Puff as ity of 10 mg 00:00: needed for [place] inhaler 00 Smoking Medical cessation. Branch rifAXIMin 2017-0 Yes 550mg Take 1 Unive rs 550 mg 5-16 tablet by ity of tablet 00:00: mouth 2 (two) Medical times Branch daily. cyclobenzap 2017-0 Yes 5mg Take 1 Univ ers rine 5 mg 5-16 tablet by ity o f tablet 00:00: mouth once 00 daily as Medical needed for Branch Muscle Spasms. pregabalin 2017-0 Yes 75mg Take 1 Unive rs (LYRICA) 75 5-16 capsule by it y of mg capsule 00:00: mouth 2 [place] 00 (two) Medical times Branch daily. nicotine 2017-0 Yes 1{puff} Inhale 1 [facility] [place] (NICOTROL) 5-16 Puff as ity of 10 mg 00:00: needed for [place] inhaler 00 Smoking Medical cessation. Branch rifAXIMin 2017-0 Yes 550mg Take 1 Unive rs 550 mg 5-16 tablet by ity of tablet 00:00: mouth 2 (two) Medical times Branch daily. cyclobenzap 2017-0 Yes 5mg Take 1 Univ ers rine 5 mg 5-16 tablet by ity o f tablet 00:00: mouth once 00 daily as Medical needed for Branch Muscle Spasms. pregabalin 2017-0 Yes 75mg Take 1 Unive rs (LYRICA) 75 5-16 capsule by it y of mg capsule 00:00: mouth 2 [place] 00 (two) Medical times Branch daily. nicotine 2017-0 Yes 1{puff} Inhale 1 [facility] [place] (NICOTROL) 5-16 Puff as ity of 10 mg 00:00: needed for [place] inhaler 00 Smoking Medical cessation. Branch rifAXIMin 2017-0 Yes 550mg Take 1 Unive rs 550 mg 5-16 tablet by ity of tablet 00:00: mouth 2 (two) Medical times Branch daily. cyclobenzap 2017-0 Yes 5mg Take 1 Univ ers rine 5 mg 5-16 tablet by ity o f tablet 00:00: mouth once 00 daily as Medical needed for Branch Muscle Spasms. pregabalin 2017-0 Yes 75mg Take 1 Unive rs (LYRICA) 75 5-16 capsule by it y of mg capsule 00:00: mouth 2 [place] 00 (two) Medical times Branch daily. nicotine 2017-0 Yes 1{puff} Inhale 1 [facility] [place] (NICOTROL) 5-16 Puff as ity of 10 mg 00:00: needed for inhaler 00 Smoking Medical cessation. Branch rifAXIMin 2017-0 Yes 550mg Take 1 Unive rs 550 mg 5-16 tablet by ity of tablet 00:00: mouth 2 (two) Medical times Branch daily. midodrine 5 2017-0 Yes 5mg Take 1 Univ ers mg tablet 4-19 tablet by ity o f 00:00: mouth 3 (three) Medical times Branch daily. midodrine 5 2017-0 Yes 5mg Take 1 Univ ers mg tablet 4-19 tablet by ity o f 00:00: mouth 3 (three) Medical times Branch daily. midodrine 5 2017-0 Yes 5mg Take 1 Univ ers mg tablet 4-19 tablet by ity o f 00:00: mouth 3 (three) Medical times Branch daily. midodrine 5 2017-0 Yes 5mg Take 1 Univ ers mg tablet 4-19 tablet by ity o f 00:00: mouth 3 (three) Medical times Branch daily. midodrine 5 2017-0 Yes 5mg Take 1 Univ ers mg tablet 4-19 tablet by ity o f 00:00: mouth 3 (three) Medical times Branch daily. midodrine 5 2017-0 Yes 5mg Take 1 Univ ers mg tablet 4-19 tablet by ity o f 00:00: mouth 3 (three) Medical times Branch daily. midodrine 5 2017-0 Yes 5mg Take 1 Univ ers mg tablet 4-19 tablet by ity o f 00:00: mouth 3 (three) Medical times Branch daily. midodrine 5 2016-0 Yes 5mg Take 1 Univ ers mg tablet 4-19 tablet by ity o f 00:00: mouth 3 () Medical times Branch daily. midodrine 5 2016-0 Yes 5mg Take 1 Univ ers mg tablet 4-19 tablet by ity o f 00:00: mouth 3 () Medical times Branch daily. midodrine 5 2016-0 Yes 5mg Take 1 Univ ers mg tablet 4-19 tablet by ity o f 00:00: mouth 3 () Medical times Branch daily. midodrine 5 2016-0 Yes 5mg Take 1 Univ ers mg tablet 4-19 tablet by ity o f 00:00: mouth 3 () Medical times Branch daily. midodrine 5 2016-0 Yes 5mg Take 1 Univ ers mg tablet 4-19 tablet by ity o f 00:00: mouth 3 () Medical times Branch daily. midodrine 5 0 Yes 5mg Take 1 Univ ers mg tablet 4-19 tablet by ity o f 00:00: mouth 3 () Medical times Branch daily. Zinc Yes [id number] 25mg Take 25 mg [facility] [place] Acetate, 4-11 by mouth ity of Oral, 25 mg 00:00: daily. [place] (zinc) [facility] Branch Zinc Yes [id number] 25mg Take 25 mg [facility] [place] Acetate, 4-11 by mouth it[place] of Oral, 25 mg 00:00[place] 00 [facility] Zinc Yes [id number] 25mg Take 25 mg Un kleber Acetate, 4-11 by mouth ity of Oral, 25 mg 00:00[place] Cap 00 [facility] Zinc Yes [id number] 25mg Take 25 mg Un kle[place] Acetate, 4-11 by mouth ity of Oral, 25 mg 00:00: [place]. [place] ([place] Cap 00 [facility] Zinc 0 Yes [id number] 25mg Take 25 mg Un kle[place] Acetate, 4-11 by mouth ity of Oral, 25 mg 00:00: [place]. [place] ([place] Cap 00 [facility] Zinc Yes [id number] 25mg Take 25 mg Un kle[place] Acetate, 4-11 by mouth ity of Oral, 25 mg 00:[place]: [place] 00 [facility] Zinc Yes [id number] 25mg Take 25 mg Un kle[place] Acetate, 4-11 by mouth ity of Oral, 25 mg 00:[place]: [place] 00 [facility] Zinc Yes [id number] 25mg Take 25 mg Un kle[place] Acetate, 4-11 by mouth ity of Oral, 25 mg 00:00: [place]. [place] Cap 00 [facility] Zinc Yes [id number] 25mg Take 25 mg [place] Acetate, 4-11 by mouth ity of Oral, 25 mg 00:00: [place]. [place] ([place] Cap 00 [facility] Zinc Yes [id number] 25mg Take 25 mg Un [place] Acetate, 4-11 by mouth ity of Oral, 25 mg 00:00: [place]. [place] Cap 00 [facility] Zinc Yes [id number] 25mg Take 25 mg Un kle[place] Acetate, 4-11 by mouth ity of Oral, 25 mg 00:00: [place]. [place] Cap 00 [facility] Zinc Yes [id number] 25mg Take 25 mg [place] Acetate, 4-11 by mouth ity of Oral, 25 mg 00:00: [place]. [place] Cap 00 [facility] Zinc Yes [id number] 25mg Take 25 mg [place] Acetate, 4-11 by mouth ity of Oral, 25 mg 00:00: [place]. [place] ([place] Cap [address] [place] [address] Immunizations Ordered Filled Immunization Date Status Comments [facility] e Immunization Name Name HEPATITIS A 2017-02-23 Completed University of 00:00:00 [facility] HEP B, Adult Dosage 2017-02-23 Completed Unive rsity of 00:00:00 [facility] HEPATITIS A 2017-02-23 Completed University of 00:00:00 [facility] HEP B, Adult Dosage 2017-02-23 Completed Unive rsity of 00:00:00 [facility] HEPATITIS A 2017-02-23 Completed University of 00:00:00 [facility] HEP B, Adult Dosage 2017-02-23 Completed Unive rsity of 00:00:00 [facility] HEPATITIS A 2017-02-23 Completed University of 00:00:00 [facility] HEP B, Adult Dosage 2017-02-23 Completed Unive rsity of 00:00:00 [place] [facility] HEPATITIS A 2017-02-23 Completed University of 00:00:00 [place] [facility] HEP B, Adult Dosage 2017-02-23 Completed Unive rsity of 00:00:00 [place] [facility] HEPATITIS A 2017-02-23 Completed University of 00:00:00 [place] [facility] HEP B, Adult Dosage 2017-02-23 Completed Unive rsity of 00:00:00 [place] [facility] HEPATITIS A 2017-02-23 Completed University of 00:00:00 [place] [facility] HEP B, Adult Dosage 2017-02-23 Completed Unive rsity of 00:00:00 [place] [facility] HEPATITIS A 2017-02-23 Completed University of 00:00:00 [facility] HEP B, Adult Dosage 2017-02-23 Completed Unive rsity of 00:00:00 [place] [facility] HEPATITIS A 2017-02-23 Completed University of 00:00:00 [facility] HEP B, Adult Dosage 2017-02-23 Completed Unive rsity of 00:00:00 [place] [facility] HEPATITIS A 2017-02-23 Completed University of 00:00:00 [facility] HEP B, Adult Dosage 2017-02-23 Completed Unive rsity of 00:00:00 [place] [facility] HEPATITIS A 2017-02-23 Completed University of 00:00:00 [place] [facility] HEP B, Adult Dosage 2017-02-23 Completed Unive rsity of 00:00:00 [place] [facility] HEPATITIS A 2017-02-23 Completed University of 00:00:00 [place] [facility] HEP B, Adult Dosage 2017-02-23 Completed Unive rsity of 00:00:00 [place] [facility] HEPATITIS A 2017-02-23 Completed University of 00:00:00 [facility] HEP B, Adult Dosage 2017-02-23 Completed Unive rsity of 00:00:00 [place] [facility] HEPATITIS A 2016-12-08 Completed University of 00:00:00 [place] [facility] HEP B, Adult Dosage 2016-12-08 Completed Unive rsity of 00:00:00 [place] [facility] HEPATITIS A 2016-12-08 Completed University of 00:00:00 [facility] HEP B, Adult Dosage 2016-12-08 Completed Unive rsity of 00:00:00 [facility] HEPATITIS A 2016-12-08 Completed University of 00:00:00 [facility] HEP B, Adult Dosage 2016-12-08 Completed Unive rsity of 00:00:00 [place] [facility] HEPATITIS A 2016-12-08 Completed University of 00:00:00 [facility] HEP B, Adult Dosage 2016-12-08 Completed Unive rsity of 00:00:00 [facility] HEPATITIS A 2016-12-08 Completed University of 00:00:00 [facility] HEP B, Adult Dosage 2016-12-08 Completed Unive rsity of 00:00:00 [facility] HEPATITIS A 2016-12-08 Completed University of 00:00:00 [facility] HEP B, Adult Dosage 2016-12-08 Completed Unive rsity of 00:00:00 [facility] HEPATITIS A 2016-12-08 Completed University of 00:00:00 [facility] HEP B, Adult Dosage 2016-12-08 Completed Unive rsity of 00:00:00 [facility] HEPATITIS A 2016-12-08 Completed University of 00:00:00 [facility] HEP B, Adult Dosage 2016-12-08 Completed Unive rsity of 00:00:00 [place] [facility] HEPATITIS A 2016-12-08 Completed University of 00:00:00 [facility] HEP B, Adult Dosage 2016-12-08 Completed Unive rsity of 00:00:00 [facility] HEPATITIS A 2016-12-08 Completed University of 00:00:00 [facility] HEP B, Adult Dosage 2016-12-08 Completed Unive rsity of 00:00:00 [place] [facility] HEPATITIS A 2016-12-08 Completed University of 00:00:00 [facility] HEP B, Adult Dosage 2016-12-08 Completed Unive rsity of 00:00:00 [place] [facility] HEPATITIS A 2016-12-08 Completed University of 00:00:00 [facility] HEP B, Adult Dosage 2016-12-08 Completed Unive rsity of 00:00:00 [facility] HEPATITIS A 2016-12-08 Completed University of 00:00:00 [facility] HEP B, Adult Dosage 2016-12-08 Completed Unive rsity of 00:00:00 [facility] HEP B, Adult Dosage 2016-10-02 Completed Unive rsity of 00:00:00 [place] [facility] HEP B, Adult Dosage 2016-10-02 Completed Unive rsity of 00:00:00 [facility] HEP B, Adult Dosage 2016-10-02 Completed Unive rsity of 00:00:00 [facility] HEP B, Adult Dosage 2016-10-02 Completed Unive rsity of 00:00:00 [place] [facility] HEP B, Adult Dosage 2016-10-02 Completed Unive rsity of 00:00:00 [place] [facility] HEP B, Adult Dosage 2016-10-02 Completed Unive rsity of 00:00:00 [facility] HEP B, Adult Dosage 2016-10-02 Completed Unive rsity of 00:00:00 [facility] HEP B, Adult Dosage 2016-10-02 Completed Unive rsity of 00:00:00 [facility] HEP B, Adult Dosage 2016-10-02 Completed Unive rsity of 00:00:00 [facility] HEP B, Adult Dosage 2016-10-02 Completed Unive rsity of 00:00:00 [place] [facility] HEP B, Adult Dosage 2016-10-02 Completed Unive rsity of 00:00:00 [facility] HEP B, Adult Dosage 2016-10-02 Completed Unive rsity of 00:00:00 [place] [facility] HEP B, Adult Dosage 2016-10-02 Completed Unive rsity of 00:00:00 [facility] Twinrix (hep a/hep 2015-04-20 Completed Univer sity of b) 00:00:00 [facility] Twinrix (hep a/hep 2015-04-20 Completed Univer sity of b) 00:00:00 [place] [facility] Twinrix (hep a/hep 2015-04-20 Completed Univer sity of b) 00:00:00 [place] [facility] Twinrix (hep a/hep 2015-04-20 Completed Univer sity of b) 00:00:00 [place] [facility] Twinrix (hep a/hep 2015-04-20 Completed Univer sity of b) 00:00:00 [place] [facility] Twinrix (hep a/hep 2015-04-20 Completed Univer sity of b) 00:00:00 [place] [facility] Twinrix (hep a/hep 2015-04-20 Completed Univer sity of b) 00:00:00 [place] [facility] Twinrix (hep a/hep 2015-04-20 Completed Univer sity of b) 00:00:00 [place] [facility] Twinrix (hep a/hep 2015-04-20 Completed Univer sity of b) 00:00:00 [facility] Twinrix (hep a/hep 2015-04-20 Completed Univer sity of b) 00:00:00 [facility] Twinrix (hep a/hep 2015-04-20 Completed Univer sity of b) 00:00:00 [facility] Twinrix (hep a/hep 2015-04-20 Completed Univer sity of b) 00:00:00 [facility] Twinrix (hep a/hep 2015-04-20 Completed Univer sity of b) 00:00:00 [facility] Pneumococcal 2014-11-02 Completed University o f Polysaccharide, 00:00:00 [place] [facility] PPSV23 (PNEUMOVAX) Branch Influenza Virus 2014-11-02 Completed Universit y of Vaccine Quad IM 3+ 00:00:00 [facility] Pneumococcal 2014-11-02 Completed University o f Polysaccharide, 00:00:00 [place] [facility] PPSV23 (PNEUMOVAX) Branch Influenza Virus 2014-11-02 Completed Universit y of Vaccine Quad IM 3+ 00:00:00 [facility] Pneumococcal 2014-11-02 Completed University o f Polysaccharide, 00:00:00 [place] [facility] PPSV23 (PNEUMOVAX) Branch Influenza Virus 2014-11-02 Completed Universit y of Vaccine Quad IM 3+ 00:00:00 [facility] Pneumococcal 2014-11-02 Completed University o f Polysaccharide, 00:00:00 [place] [facility] PPSV23 (PNEUMOVAX) Branch Influenza Virus 2014-11-02 Completed Universit y of Vaccine Quad IM 3+ 00:00:00 [facility] Pneumococcal 2014-11-02 Completed University o f Polysaccharide, 00:00:00 [place] [facility] PPSV23 (PNEUMOVAX) Branch Influenza Virus 2014-11-02 Completed Universit y of Vaccine Quad IM 3+ 00:00:00 [facility] Pneumococcal 2014-11-02 Completed University o f Polysaccharide, 00:00:00 [place] [facility] PPSV23 (PNEUMOVAX) Branch Influenza Virus 2014-11-02 Completed Universit y of Vaccine Quad IM 3+ 00:00:00 [facility] Pneumococcal 2014-11-02 Completed University o f Polysaccharide, 00:00:00 [place] [facility] PPSV23 (PNEUMOVAX) Branch Influenza Virus 2014-11-02 Completed Universit y of Vaccine Quad IM 3+ 00:00:00 [facility] Pneumococcal 2014-11-02 Completed University o f Polysaccharide, 00:00:00 [place] [facility] PPSV23 (PNEUMOVAX) Branch Influenza Virus 2014-11-02 Completed Universit y of Vaccine Quad IM 3+ 00:00:00 [facility] Pneumococcal 2014-11-02 Completed University o f Polysaccharide, 00:00:00 [place] [facility] PPSV23 (PNEUMOVAX) Branch Influenza Virus 2014-11-02 Completed Universit y of Vaccine Quad IM 3+ 00:00:00 [facility] Pneumococcal 2014-11-02 Completed University o f Polysaccharide, 00:00:00 [place] [facility] PPSV23 (PNEUMOVAX) Branch Influenza Virus 2014-11-02 Completed Universit y of Vaccine Quad IM 3+ 00:00:00 [facility] Pneumococcal 2014-11-02 Completed University o f Polysaccharide, 00:00:00 [place] [facility] PPSV23 (PNEUMOVAX) Branch Influenza Virus 2014-11-02 Completed Universit y of Vaccine Quad IM 3+ 00:00:00 [facility] Pneumococcal 2014-11-02 Completed University o f Polysaccharide, 00:00:00 [place] [facility] PPSV23 (PNEUMOVAX) Branch Influenza Virus 2014-11-02 Completed Universit y of Vaccine Quad IM 3+ 00:00:00 [facility] Pneumococcal 2014-11-02 Completed University o f Polysaccharide, 00:00:00 [place] [facility] PPSV23 (PNEUMOVAX) Branch Influenza Virus 2014-11-02 Completed Universit y of Vaccine Quad IM 3+ 00:00:00 [facility] Vital Signs Vital Name Observation Time Observation Value Comments Source Systolic blood 2019-04-26 15:32:00 99 mm[Hg[facility] Diastolic blood 2019-04-26 15:32:00 62 mm[Hg] [facility] Heart rate 2019-04-26 15:32:00 79 /min [facility] Body height 2019-04-26 15:32:00 175.3 cm [facility] Body weight 2019-04-26 15:32:00 57.153 kg [facility] BMI 2019-04-26 15:32:00 18.61 [facility] Systolic blood 2019-04-26 15:32:00 99 mm[Hg] [facility] [place] pressure [facility] Diastolic blood 2019-04-26 15:32:00 62 mm[Hg] [facility] Heart rate 2019-04-26 15:32:00 79 /min [facility] Body height 2019-04-26 15:32:00 175.3 cm [facility] Body weight 2019-04-26 15:32:00 57.153 kg [facility] BMI 2019-04-26 15:32:00 18.61 kg/m2 [facility] Procedures Procedure Date / Time Performing Clinician Source Performed EXTERNAL PROVIDER 2020-08-01 06:01:00 Doctor Unassigned, No [facility] [place] RECORDS Name [facility] [place] [facility] OTHER 2020-06-14 05:01:00 Doctor Unassigned, No Un i[facility] of [facility] [place] EXTERNAL PROVIDER 2020-04-16 05:01:00 Doctor Unassigned, No Univ ersity of [facility] Name [facility] AUTHORIZATION FOR 2019-10-13 06:01:00 Doctor Unassigned, No Univ [facility] [place] RELEASE OF [facility] XR WRIST <3 VW RIGHT 2019-04-26 15:44:44 Rodriguez [facility] Encounters Start End Encounter Admission Attending Care Care Encounter Source Date/Time Date/Time Type Type Clinicians Facility Department ID 2021-10-16 [facility] [id number] [facility] 11:30:27 [facility] [address] [facility] l Outpati ent Clinics 2020-08-01 2020-08-01 Orders Doctor PETERSON [id number] Univers 00:00:00 00:00:00 Only UnassignedELIO [id number] ity of [place] [facility] 4.2.7.2.686 Guille as [phone] [address] 2020-08-01 2020-08-01 Orders Doctor PETERSON 1.2.840.114 [id number] 00:00:00 00:00:00 Only Unassigned, ELIO 350.1.13.10 [place] [facility] 4.2.7.2.686 [id number] 2020-06-14 2020-06-14 Orders Doctor NICHOLAS 1.2.840.114 [id number] Univers 00:00:00 00:00:00 Only Unassigned, ELIO 350.1.13.10 ity of [place] [facility] 4.2.7.2.686 [place] as [phone] [place] [address] Branch 2020-06-14 2020-06-14 Orders Doctor NICHOLAS 1.2.840.114 [id number] 00:00:00 00:00:00 Only Unassigned, ELIO 350.1.13.10 [place] [facility] 4.2.7.2.686 [id number] 2020-04-16 2020-04-16 Orders Doctor NICHOLAS 1.2.840.114 [id number] Univers 00:00:00 00:00:00 Only Unassigned, ELIO 350.1.13.10 ity of [place] [facility] 4.2.7.2.686 [place] [phone] [address] 2020-04-16 2020-04-16 Orders Doctor PETERSON 1.2.840.114 [id number] 00:00:00 00:00:00 Only Unassigned, ELIO 350.1.13.10 [place] [facility] 4.2.7.2.686 [id number] 2020-03-28 2020-03-28 [id number] [facility] 17:19:00 17:19:00 [facility] Medicine Medicine Outpati ent Clinics 2019-12-22 2019-12-22 Letter Nickie [facility] 1.2.840.114 [id number] Univers 00:00:00 00:00:00 (Out) John MULTISPEC 350.1.13.10 ity of [place]2.[place] [id number] [facility] 189 Branch DIABETES CLINIC 2019-12-22 2019-12-22 Letter Nickie COLLUVIA 1.2.840.114 [id number] 00:00:00 00:00:00 (Out) John MULTISPEC 350.1.13.10 [facility] IALTY 4.2.7.2.686 CENTER [id number] [place] [address] DI[facility]ETES CLINIC 2019-12-20 2019-12-20 [facility] 1.2.840.114 [id number] Univers 11:57:00 23:59:00 Encounter John ELIO 350.1.13.10 ity of [facility] 4.2.7.2.686 [place] [phone] [address] 2019-12-20 2019-12-20 [facility] NICHOLAS 1.2.840.114 [id number] 11:57:00 23:59:00 Encounter John ELIO 350.1.13.10 [place] [id number] [id number] [facility] 2019-12-20 2019-12-20 Outpatient R [facility] ACO [id number] Univers 00:00:00 00:00:00 JOHN ity of [facility] 2019-12-19 2019-12-19 Telephone [facility] [id number] Univers 00:00:00 00:00:00 John MULTISPEC 350.1.13.10 [facility] [phone] [address] DIABETES CLINIC 2019-12-19 2019-12-19 Telephone [facility] [id number] 00:00:00 00:00:00 John MULTISPEC 350.1.13.10 [facility] IALTY 4.2.7.2.686 CENTER [id number] [place] [address] DI[facility]ETES CLINIC 2019-11-21 2019-11-21 Telephone [facility] [id number] Univers 00:00:00 00:00:00 John MULTISPEC 350.1.13.10 ity of [facility] [place] 4.2.7.2.686 [place] [id number] [address] DIABETES CLINIC 2019-11-21 2019-11-21 Telephone [facility] [id number] 00:00:00 00:00:00 John MULTISPEC 350.1.13.10 [place] I[place]TY 4.2.7.2.686 KEMP [id number] [place] 189 DIABETES CLINIC 2019-11-11 2019-11-11 Telephone [facility] [id number] [facility] 00:00:00 00:00:00 John MULTISPEC 350.1.13.10 ity of [place] 4[place]2.7.2.[place] [id number] [facility] AND [address] DIABETES CLINIC 2019-11-11 2019-11-11 Telephone [facility] [id number] 00:00:00 00:00:00 John MULTISPEC 350.1.13.10 [place] I[place]TY 4.2.7.2.686 KEMP [id number] [place] 189 DI[facility]ETES CLINIC 2019-10-13 2019-10-13 Orders Doctor NICHOLAS 1.2.840.114 [id number] Univers 00:00:00 00:00:00 Only Unassigned, ELIO 350.1.13.10 ity of [place] [facility] 4.2.7.2.686 [place] [id number] [address] 2019-10-13 2019-10-13 Orders Doctor NICHOLAS 1.2.840.114 [id number] 00:00:00 00:00:00 Only Unassigned, ELIO 350.1.13.10 [place] [facility] 4.2.7.2.686 [id number] 2019-04-26 2019-04-26 Outpatient [facility] [id number] Univers 10:44:43 23:59:00 RODRIGUEZ ity of [facility] 2019-04-26 2019-04-26 [facility] 1.2.840.114 [id number] Univers 10:44:43 23:59:00 Encounter [facility] 350.1.13.10 ity of Surgical 4.2.7.2.686 [place] Specialti [id number] Me dical es [address] [place] [address] 2019-04-26 2019-04-26 Hospital [facility] 1.2.840.114 [id number] 10:44:43 23:59:00 Encounter [facility] 350.1.13.10 Surgical 4.2.7.2.686 Specialti [id number] es [address] 2019-04-26 2019-04-26 Office [facility] 1.2.840.114 [id number] Univers 10:32:03 11:07:22 Visit [facility] 350.1.13.10 it y of Surgical 4.2.7.2.686 [place] Specialti [phone] Me dical es [address] [facility] 2019-04-26 2019-04-26 Office [facility] 1.2.840.114 [id number] 10:32:03 11:07:22 Visit [facility] 350.1.13.10 Surgical 4.2.7.2.686 Specialti [id number] es [address] 2019-04-12 2019-04-12 Outpatient [facility] [id number] Univers 13:37:36 23:59:00 [facility] Results Test Description Test Time Test Comments Results Result Comments Source MISCELLANEOUS LAB ORDER 2019-07-07 07:50:00 Test Item Value Reference Range Interpretation Comme nts SCAN RESULT (test code = 9900691) HEPATITIS C [id number] 12:34:00 Test Item Value Reference Range Interpretation Comments HEPATITIS C ANTIBODY Reactive Nonreactive A Test pe [facility]formed at [facility] (test code = [facility]. See 367) attached report ALPHA FETOPROTEIN (AFP), TUMOR [id number] 06:18:00 Test Item Value Reference Range Interpretation Comments ALPHA-FETOPROTEIN (BEAKER) (test code < ng/mL <10.0 = 1094) [id number] 06:04:00 Test Item Value Reference Range Interpretation Comments MAGNESIUM (BEAKER) (test code = 2.3 mg/dL 1.6-2.6 627) COMPREHENSIVE METABOLIC [id number] 06:04:00 Test Item Value Reference Range Interpretation [...] PATIEN TS. CBC W/PLT COUNT & AUTO [id number] 05:47:00 Test Item Value Reference Range Interpretation [...] CELLS (BEAKER) (test code = 413) PROTHROMBIN [id number] 05:46:00 Test Item Value Reference Range Interpretation [...] is2.5-3.5 for patients wiht mechanical heart valves.PROTHROMBIN [id number] 18:50:00 Test Item Value Reference Range Interpretation [...] by IFA method.CBC W/PLT COUNT & AUTO [id number] 10:44:00 Test Item Value Reference Range Interpretation [...] S NOT APPLICABLE FOR DIALYSIS PATIEN TS. [id number] 08:31:00 Test Item Value Reference Range Interpretation Comments PHOSPHORUS (BEAKER) (test code = 3.4 mg/dL 2.3-4.7 604) [id number] 08:31:00 Test Item Value Reference Range Interpretation Comments MAGNESIUM (BEAKER) (test code = 2.0 mg/dL 1.6-2.6 627) [id number] 07:26:00 Test Item Value Reference Range Interpretation Comments LIPASE (BEAKER) (test code = 749) 390 U/L 8-78 H [id number] 06:49:00 Test Item Value Reference Range Interpretation Comments AMYLASE (BEAKER) (test code = 349) 200 U/L 25-125 H [id number] 05:59:00 Test Item Value Reference Range Interpretation Comments AMMONIA (BEAKER) (test code = 348) 107 mol/L 18-72 H HEPATITIS B [id number] 05:39:00 Test Item Value Reference Range Interpretation Comments HEPATITIS B CORE TOTAL ANTIBODY Nonreactive Nonreactive (BEAKER) (test code = 497) HEPATITIS B SURFACE ANTIBODY < mIU/mL <8.0 (BEAKER) (test code = 647) HEPATITIS B SURFACE ANTIGEN (2) Nonreactive Nonreactive (CEL-SCI) (test code = 2585) TSH/FREE T4 IF [id number] 05:33:00 Test Item Value Reference Range Interpretation Comments THYROID STIMULATING HORMONE 2.36 uIU/mL 0.35-4.94 (CEL-SCI) (test code = 772) XR WRIST <3 VW [id number] 16:02:34Distal radius fracture with volar angulation impacted with good callus formation there is also [facility]
[2021-11-21 09:59] LABS: Absolute Lymphocytes (CBC) 0.7 K/uL (0.7-4.9); Hematocrit 32.3 % (36.0-45.0); Lymphocytes % 31.1 % (15.3-44.8); MPV 9.6 fL (7.6-11.3); RBC Red Blood Cell Count 3.84 M/uL (3.86-4.86)
[2021-11-21 10:00] LABS: Protime INR 1.09
[2021-11-21 10:13] LABS: Albumin 3.5 g/dL (3.4-5.0); Bilirubin Direct 0.2 mg/dL (0-0.2); Bilirubin Total 0.6 mg/dL (0.2-1.0); Magnesium 2.3 mg/dL (1.8-2.4); Potassium 3.9 mmol/L (3.5-5.1); Protein, Total 7.1 g/dL (6.4-8.2); Troponin High Sensitivity 4.5 pg/mL (<58.9)
--- NOTE | 2021-11-21 10:16 | RAD REPORT ---
EXAM DESCRIPTION: CT - Head Brain Wo Cont - 11/21/2021 10:06 am CLINICAL HISTORY: MENTAL STATUS CHANGE Headache, drowsiness COMPARISON: Head Brain Wo Cont dated 06/30/2019; Head Brain Wo Cont dated 10/31/2018 TECHNIQUE: All CT scans are performed using dose optimization technique as appropriate and may inclu de automated exposure control or mA/KV adjustment according to patient size. FINDINGS: No intracranial hemorrhage, hydrocephalus or extra-axial fluid collection.No areas of brai n edema or evidence of midline shift. The paranasal sinuses and mastoids are clear. The calvarium is intact. IMPRESSION: No acute intracranial abnormality.
--- NOTE | 2021-11-21 10:22 | RAD REPORT ---
EXAM DESCRIPTION: RAD - Chest Single View - 11/21/2021 9:52 am CLINICAL HISTORY: COUGH Chest pain. COMPARISON: Chest Single View dated 03/29/2021; Chest Single View dated 07/17/2020; Chest Single View dated 07/04/2019; Chest Single View dated 06/30/2019 FINDINGS: Portable technique limits examination quality. The lungs are grossly clear. The heart is normal in size. No displaced fractures. IMPRESSION: No acute intrathoracic process suspected.
[2021-11-21] MEDS ORDERED: THIAMINE 200 MG/2 ML INJ ONE (11:08)
[2021-11-21] MEDS ORDERED: LACTULOSE 20 GM/30 ML UCUP ONE (11:08)
[2021-11-21 11:22] LABS: Anisocytosis SLIGHT; Blood Morphology Comment NOTED (NOT SEEN); Hypochromasia 1+; Platelet Estimate DECR; Platelets, Giant PRESENT; Poikilocytosis SLIGHT; White Blood Cell Scan OK (OK)
--- NOTE | 2021-11-21 11:27 | ER ---
Nurse's Notes [facility] Name: Jose Manuel Richardson Age: 61 yrs Sex: Female : 1960 Arrival Date: 11/21/2021 Time: 09:27 Bed 3 Private MD: Diagnosis: Other cirrhosis of liver;Metabolic encephalopathy-Hepatic;Anemia, unspecified;Unspecified kidney failure-chronic Presentation: 11/21 09:28 Chief complaint: EMS states: Daughter called EMS for AMS, stated that she believes that ph her ammonia is high, pt has hx of cirrhosis. VSS, pt oriented to person only upon arrival to ED. Coronavirus screen: Vaccine status: At this time, the client does not indicate any symptoms associated with coronavirus-19. Ebola Screen: No symptoms or risks identified at this time. Initial Sepsis Screen: Does the patient meet any 2 criteria? Altered Mental Status. No. Patient's initial sepsis screen is negative. Does the patient have a suspected source of infection? No. Patient's initial sepsis screen is negative. Risk Assessment: Do you want to hurt yourself or someone else? Patient reports no desire to harm self or others. Onset of symptoms was November 21, 2021. 09:28 Method Of Arrival: EMS: [facility] ph 09:28 Acuity: JEANA 2 ph Triage Assessment: 09:32 General: Appears in no apparent distress. Behavior is cooperative. Pain: Denies pain. ph Neuro: Level of Consciousness is awake, alert, obeys commands, Oriented to person. Cardiovascular: Capillary refill < 3 seconds in bilateral fingers Patient's skin is warm and dry. Respiratory: Airway is patent Respiratory effort is even, unlabored. Derm: Skin is intact, Skin is normal. Musculoskeletal: Circulation, motion, and sensation intact. Range of motion: intact in all extremities. Historical: - Allergies: 09:31 cipro (IV, but can take PO); ph 09:31 Flagyl; ph 09:28 cipro (IV, but can take PO); tw2 09:28 Flagyl; tw2 - Home Meds: : Lactulose Oral [Active]; Lasix 40 mg Oral tab 1 tab 2 times per day [Active]; ph mirtazapine 45 mg Oral tab 1 tab once daily [Active]; omeprazole 40 mg Oral cpDR 1 cap once daily [Active]; propranolol 10 mg Oral tab 1 tab twice a day [Active]; - PMHx: 09:31 Cirrhosis; secondary to ETOH abuse; hypotension; liver failure, chronic; Renal Disease; ph 09:28 Cirrhosis; secondary to ETOH abuse; hypotension; liver failure, chronic; Renal Disease; tw2 - Immunization history:: Adult Immunizations unknown, Adult Immunizations. - Social history:: Smoking status: unknown Smoking status: . Screenin:24 Abuse screen: Denies threats or abuse. Denies injuries from another. Nutritional ph screening: No deficits noted. Tuberculosis screening: No symptoms or risk factors identified. Fall Risk None identified. Assessment: 10:00 General: SEE TRIAGE ASSESSMENT. ph 10:24 Reassessment: Patient appears in no apparent distress at this time. Patient and/or ph family updated on plan of care and expected duration. Pain level reassessed. Pt resting quietly, remains oriented to person only VSS. 11:54 Reassessment: Patient appears in no apparent distress at this time. No changes from ph previously documented assessment. Patient and/or family updated on plan of care and expected duration. Pain level reassessed. 13:51 Reassessment: pt found to be standing at the end of bed. pt had pulled iv line out and tw2 all monitoring equipment off. no bleeding noted. pt asked what she needed and she states "i dont know". pt reoriented to situation and place. pt placed back in bed and on all monitoring equipment. BUCK,RN at bedside at this time attempting new IV line. warm blankets given to pt. 14:10 Reassessment: Patient appears in no apparent distress at this time. Patient and/or ph family updated on plan of care and expected duration. Pain level reassessed. New IV established, pt given warm blankets and lying back in bed resting quietly w/ eyes closed, equal and unlabored, pt encouraged to stay in bed, VSS< awaiting room assignment. 15:05 Reassessment: Patient appears in no apparent distress at this time. No changes from tw2 previously documented assessment. Patient and/or family updated on plan of care and expected duration. Pain level reassessed. 16:22 Reassessment: Patient appears in no apparent distress at this time. No changes from tw2 previously documented assessment. Patient and/or family updated on plan of care and expected duration. Pain level reassessed. Vital Signs: 09:28 BP 94 / 69; Pulse 61; Resp 18; Temp 98.2; Pulse Ox 100% on R/A; Weight 63.5 kg; ph 10:59 BP 95 / 53; Pulse 60; Resp 18; Pulse Ox 100% on R/A; ph 12:00 BP 108 / 50; Pulse 61; Resp 18; Pulse Ox 100% on R/A; ph 13:00 BP 107 / 52; Pulse 64; Resp 17; Pulse Ox 99% on R/A; tw2 13:54 BP 115 / 42; Pulse 58; Resp 14; Pulse Ox 97% on R/A; tw2 15:04 BP 106 / 44; Pulse 64; Resp 16; Pulse Ox 100% on R/A; tw2 16:22 BP 91 / 50; Pulse 69; Resp 14; Pulse Ox 100% on R/A; tw2 ED Course: 09:27 Patient arrived in ED. tw2 09:27 Arm band placed on. tw2 09:30 Inserted saline lock: 22 gauge in left antecubital area, using aseptic technique. ph 09:31 Triage completed. ph 09:36 Mayo Blake MD is Attending Physician. melanie 09:50 XRAY Chest (1 view) In Process Unspecified. EDMS 10:06 CT Head Brain wo Cont In Process Unspecified. EDMS 10:22 Estefania Foster, RN is Primary Nurse. ph 10:24 Patient has correct armband on for positive identification. Placed in gown. Bed in low ph position. Call light in reach. Side rails up X2. monitor tech on. Pulse ox on. NIBP on. 11:23 Guanako Brar MD is Hospitalizing Provider. melanie 14:08 Inserted saline lock: 22 gauge in right forearm, using aseptic technique. tw2 14:09 Missed attempt(s): 20 gauge in right forearm. by BUCK, Tech. Bleeding controlled, band tw2 aid applied, catheter tip intact. 16:22 No provider procedures requiring assistance completed. tw2 16:56 Patient admitted, IV remains in place. tw2 Administered Medications: 11:50 Drug: NS 0.9% 1000 ml Route: IV; Rate: 75 ml/hr; Site: left forearm; ph 14:16 Follow up: Response: No adverse reaction; IV Status: Infusion continued upon admission ph 11:50 Drug: Thiamine 100 mg Route: IV; Rate: per protocol; Site: left forearm; ph 14:16 Follow up: Response: No adverse reaction; IV Status: Completed infusion ph 11:50 Drug: Lactulose 30 grams Volume: 45 ml; Route: PO; ph 14:16 Follow up: Response: No adverse reaction ph Outcome: 11:26 Decision to Hospitalize by Provider. melanie 16:55 Admitted to Med/surg accompanied by tech, via stretcher, room 230, with chart, Report tw2 called to MEHNAZ Partida 16:55 Condition: stable 16:55 Instructed on the need for admit. 17:09 Patient left the ED. tw2 Signatures: Dispatcher [employer] Mayo Medina MD MD cha Hall, Patricia, RN RN Paty Gonzales RN RN tw2
--- NOTE | 2021-11-21 11:27 | EDPHYS ---
Physician Documentation [facility] Name: Jose Manuel Richardson Age: 61 yrs Sex: Female : 1960 Arrival Date: 11/21/2021 Time: 09:27 Bed 3 Private MD: ED Physician Mayo Blake HPI: 11/21 11:16 This 61 yrs old Female presents to ER via EMS with complaints of Altered melanie Mental Status. 11:16 The patient presents with confusion. Onset: The symptoms/episode began/occurred 2 melanie day(s) ago. Possible causes: CVA or TIA, drug use, alcohol, head injury, low blood sugar. Associated signs and symptoms: The patient has no apparent associated signs or symptoms. Current symptoms: In the emergency department the patient's symptoms are unchanged from the initial presentation. Patient's baseline: Neuro: alert and fully oriented. The patient has experienced a previous episode. Historical: - Allergies: 09:31 cipro (IV, but can take PO); ph 09:31 Flagyl; ph 09:28 cipro (IV, but can take PO); tw2 09:28 Flagyl; tw2 - Home Meds: 09:31 Lactulose Oral [Active]; Lasix 40 mg Oral tab 1 tab 2 times per day [Active]; ph mirtazapine 45 mg Oral tab 1 tab once daily [Active]; omeprazole 40 mg Oral cpDR 1 cap once daily [Active]; propranolol 10 mg Oral tab 1 tab twice a day [Active]; - PMHx: 09:31 Cirrhosis; secondary to ETOH abuse; hypotension; liver failure, chronic; Renal Disease; ph 09:28 Cirrhosis; secondary to ETOH abuse; hypotension; liver failure, chronic; Renal Disease; tw2 - Immunization history:: Adult Immunizations unknown, Adult Immunizations. - Social history:: Smoking status: unknown Smoking status: . ROS: 11:20 Constitutional: Negative for fever, chills, and weight loss, Eyes: Negative for injury, melanie pain, redness, and discharge, ENT: Negative for injury, pain, and discharge, Neck: Negative for injury, pain, and swelling, Cardiovascular: Negative for chest pain, palpitations, and edema, Respiratory: Negative for shortness of breath, cough, wheezing, and pleuritic chest pain, Abdomen/GI: Negative for abdominal pain, nausea, vomiting, diarrhea, and constipation, Back: Negative for injury and pain, : Negative for injury, bleeding, discharge, and swelling, MS/Extremity: Negative for injury and deformity, Skin: Negative for injury, rash, and discoloration, Psych: Negative for depression, anxiety, suicide ideation, homicidal ideation, and hallucinations, Allergy/Immunology: Negative for hives, rash, and allergies, Endocrine: Negative for neck swelling, polydipsia, polyuria, polyphagia, and marked weight changes, Hematologic/Lymphatic: Negative for swollen nodes, abnormal bleeding, and unusual bruising. 11:20 Neuro: Positive for altered mental status, weakness. Exam: 11:20 Constitutional: This is a well developed, well nourished patient who is awake, alert, melanie and in no acute distress. Head/Face: Normocephalic, atraumatic. Eyes: Pupils equal round and reactive to light, extra-ocular motions intact. Lids and lashes normal. Conjunctiva and sclera are non-icteric and not injected. Cornea within normal limits. Periorbital areas with no swelling, redness, or edema. ENT: Nares patent. No nasal discharge, no septal abnormalities noted. Tympanic membranes are normal and external auditory canals are clear. Oropharynx with no redness, swelling, or masses, exudates, or evidence of obstruction, uvula midline. Mucous membranes moist. Neck: Trachea midline, no thyromegaly or masses palpated, and no cervical lymphadenopathy. Supple, full range of motion without nuchal rigidity, or vertebral point tenderness. No Meningismus. Chest/axilla: Normal chest wall appearance and motion. Nontender with no deformity. No lesions are appreciated. Cardiovascular: Regular rate and rhythm with a normal S1 and S2. No gallops, murmurs, or rubs. Normal PMI, no JVD. No pulse deficits. Respiratory: Lungs have equal breath sounds bilaterally, clear to auscultation and percussion. No rales, rhonchi or wheezes noted. No increased work of breathing, no retractions or nasal flaring. Abdomen/GI: Soft, non-tender, with normal bowel sounds. No distension or tympany. No guarding or rebound. No evidence of tenderness throughout. Back: No spinal tenderness. No costovertebral tenderness. Full range of motion. Female : Normal external genitalia. Skin: Warm, dry with normal turgor. Normal color with no rashes, no lesions, and no evidence of cellulitis. MS/ Extremity: Pulses equal, no cyanosis. Neurovascular intact. Full, normal range of motion. Neuro: Awake and alert, GCS 15, oriented to person, place, time, and situation. Cranial nerves II-XII grossly intact. Motor strength 5/5 in all extremities. Sensory grossly intact. Cerebellar exam normal. Normal gait. Psych: Awake, alert, with orientation to person, place and time. Behavior, mood, and affect are within normal limits. 11:20 Musculoskeletal/extremity: DVT Exam: No signs of deep vein thrombosis. no pain, no swelling, no tenderness, negative Homans' sign noted on exam, no appreciated bluish discoloration, no erythema, no increased warmth. Vital Signs: 09:28 BP 94 / 69; Pulse 61; Resp 18; Temp 98.2; Pulse Ox 100% on R/A; Weight 63.5 kg; ph 10:59 BP 95 / 53; Pulse 60; Resp 18; Pulse Ox 100% on R/A; ph 12:00 BP 108 / 50; Pulse 61; Resp 18; Pulse Ox 100% on R/A; ph 13:00 BP 107 / 52; Pulse 64; Resp 17; Pulse Ox 99% on R/A; tw2 13:54 BP 115 / 42; Pulse 58; Resp 14; Pulse Ox 97% on R/A; tw2 15:04 BP 106 / 44; Pulse 64; Resp 16; Pulse Ox 100% on R/A; tw2 16:22 BP 91 / 50; Pulse 69; Resp 14; Pulse Ox 100% on R/A; tw2 MDM: 09:36 Patient medically screened. melanie 11:21 Differential Diagnosis altered mental status. Differential Diagnosis flu. Differential melanie Diagnosis: CVA, electrolyte abnormality, alcohol intoxication, hypoglycemia, intracranial bleed, overdose, pneumonia, sepsis. Data reviewed: vital signs, nurses notes, lab test result(s), EKG, radiologic studies, CT scan, plain films. 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 Test interpretation: by ED physician or midlevel provider: ECG, plain radiologic studies. Counseling: I had a detailed discussion with the patient and/or guardian regarding: the historical points, exam findings, and any diagnostic results supporting the discharge/admit diagnosis, lab results, radiology results, the need for further work-up and treatment in the hospital. 11/21 09:38 Order name: Basic Metabolic Panel; Complete Time: 11:15 [facility] 11/21 09:38 Order name: CBC with Diff [facility] 11/21 09:38 Order name: LFT's; Complete Time: 11:15 [facility] 11/21 09:38 Order name: Magnesium; Complete Time: 11:15 [facility] 11/21 09:38 Order name: NT PRO-BNP; Complete Time: 11:15 [facility] 11/21 09:38 Order name: PT-INR; Complete Time: 11:15 [facility] 11/21 09:38 Order name: Troponin HS; Complete Time: 11:15 [facility] 11/21 09:38 Order name: XRAY Chest (1 view); Complete Time: 11:15 [facility] 11/21 09:38 Order name: AMMONIA; Complete Time: 11:15 [facility] 11/21 09:38 Order name: CT Head Brain wo Cont; Complete Time: 11:15 [facility] 11/21 09:38 Order name: Urine Culture [facility] 11/21 09:38 Order name: SARS-COV-2 RT PCR (Document "Date of Onset" if Symptomatic); Complete Time: [facility] 11:15 11/21 11:22 Order name: CBC Smear Scan EDMS 11/21 09:38 Order name: EKG; Complete Time: 09:39 [facility] 11/21 09:38 Order name: Cardiac monitoring; Complete Time: 09:40 [facility] 11/21 09:38 Order name: EKG - Nurse/Tech; Complete Time: 09:40 [facility] 11/21 09:38 Order name: IV Saline Lock; Complete Time: 09:40 [facility] 11/21 09:38 Order name: Labs collected and sent; Complete Time: 09:40 [facility] 11/21 09:38 Order name: O2 Per Protocol; Complete Time: 09:40 [facility] 11/21 09:38 Order name: O2 Sat Monitoring; Complete Time: 11:00 [facility] 11/21 09:38 Order name: Blood Glucose Level; Complete Time: 10:42 [facility] Administered Medications: 11:50 Drug: NS 0.9% 1000 ml Route: IV; Rate: 75 ml/hr; Site: left forearm; ph 14:16 Follow up: Response: No adverse reaction; IV Status: Infusion continued upon admission ph 11:50 Drug: Thiamine 100 mg Route: IV; Rate: per protocol; Site: left forearm; ph 14:16 Follow up: Response: No adverse reaction; IV Status: Completed infusion ph 11:50 Drug: Lactulose 30 grams Volume: 45 ml; Route: PO; ph 14:16 Follow up: Response: No adverse reaction ph Disposition Summary: 11/21/21 11:26 Hospitalization Ordered Hospitalization Status: Inpatient Admission melanie Provider: Guanako Brar cha Location: Telemetry/MedSurg (Inpatient) melanie Condition: Fair melanie Problem: new melanie Symptoms: have improved melanie Bed/Room Type: Standard melanie Room Assignment: 230(11/21/21 16:19) ss Diagnosis - Other cirrhosis of liver melanie - Metabolic encephalopathy - Hepatic melanie - Anemia, unspecified melanie - Unspecified kidney failure - chronic melanie Forms: - Medication Reconciliation Form melanie - SBAR form melanie Signatures: Dispatcher [employer] Mayo Medina MD MD cha Smirch, Shelby, RN RN ss Estefania Foster RN RN Paty Gonzales RN RN tw2 Corrections: (The following items were deleted from the chart) 16:19 11:26 melanie ss
[2021-11-21] MEDS ORDERED: NA CHLORIDE 0.9% 1,000 ML ONE (12:08)
--- NOTE | 2021-11-21 14:51 | P.HP ---
Certification for Inpatient Patient admitted to: Inpatient With expected LOS: <2 Midnights Patient will require the following post-hospital care: None Practitioner: I am a practitioner with admitting privileges, knowledge of patient current condition, hospital course, and medical plan of care. Services: Services provided to patient in accordance with Admission requirements found in Title 42 Section 412.3 of the Code of Federal Regulations Patient History Date of Service: 11/21/21 Reason for admission: hepatic encephalopathy History of Present Illness: Ms. Richardson is a 61 yo F with alcoholic liver cirrhosis, AoCD, thrombocytopenia who presents with two days of AMS and weakness. At bedside she is AOx1 and unable to answer questions. Per daughter, she has still been taking her lactulose at home and no longer drinks alcohol. Ammonia 158. BUN 20 Cr 1.4 GFR 38. Alcohol level, UDS, UA pending. Received lactulose, thiamine, and IV fluids in the ED. Allergies ciprofloxacin Allergy (Mild, Verified 07/17/20 23:20) Itching/Hives/Rash metronidazole [From Flagyl] Adverse Reaction (Intermediate, Verified 07/17/20 23:20) Anaphylaxis Home Medications: Folic Acid 1 mg PO DAILY 07/18/20 Furosemide [Lasix*] 20 mg PO BID 07/18/20 Lactulose [Cephulac*] 30 ml PO BID 07/18/20 Pantoprazole [Protonix Tab*] 40 mg PO DAILY 07/18/20 Pregabalin [Lyrica*] 75 mg PO TID 07/18/20 Rifaximin [Xifaxan] 1 tab PO BID 07/18/20 Tramadol HCl [Ultram] 50 mg PO PRN PRN 07/18/20 Nitrofurantoin Monohyd/M-Cryst [Macrobid 100 mg Capsule] 100 mg PO BID 4 Days #8 capsule 07/19/20 - Past Medical/Surgical History Diabetic: No -: Alcoholic liver cirrhosis -: Hepatitis-C -: Chronic pain -: GERD -: Hypotension -: Ascites requiring paracentesis -: Chronic thrombocytopenia -: Anemia of chronic disease -: section x 4 -: breast augmentation -: appendectomy -: tonsillectomy -: Has been known to have gallstones -: paracenthesis Psychosocial/ Personal History: Patient currently living at home alone, has healthcare worker. I approximately once per month. - Family History Mother -: Heart disease, Hypertension, Diabetes Father -: Heart disease, Liver disease Brother -: Diabetes - Social History Smoking Status: Unknown if ever smoked Alcohol use: No CD- Drugs: Yes Caffeine use: Yes Place of Residence: Home Review of Systems is unable to be obtained General: Weakness Neurological: Weakness, Confusion Physical Examination - Physical Exam General: In no apparent distress, Oriented x1 HEENT: Atraumatic, PERRLA, Mucous membr. moist/pink, Sclerae nonicteric Neck: Supple, 2+ carotid pulse no bruit, No LAD, Without JVD or thyroid abnormality Respiratory: Clear to auscultation bilaterally, Normal air movement Cardiovascular: No edema, Regular rate/rhythm, Normal S1 S2 Gastrointestinal: Normal bowel sounds, No tenderness Musculoskeletal: No tenderness Integumentary: No rashes Neurological: Normal tone, Sensation intact, Abnormal speech, Abnormal affect Lymphatics: No axilla or inguinal lymphadenopathy - Studies Laboratory Data (last 24 hrs) 11/21/21 09:40: PT 12.6 H, INR 1.09 11/21/21 09:40: WBC 2.20 L, Hgb 10.5 L, Hct 32.3 L, Plt Count 50 L 11/21/21 09:40: Sodium 144, Potassium 3.9, BUN 20 H, Creatinine 1.40 H, Glucose 100, Magnesium 2.3 D, Total Bilirubin 0.6, AST 22, ALT 20, Alkaline Phosphatase 56 Assessment and Plan - Problems (Diagnosis) (1) Altered mental status Onset Date: 06/19/15 Current Visit: No Status: Acute Qualifiers: Altered mental status type: unspecified (2) Anemia Current Visit: No Status: Chronic Qualifiers: Anemia type: unspecified type Qualified Code(s): D64.9 - Anemia, unspecified (3) Hepatic encephalopathy Onset Date: 04/20/17 Current Visit: No Status: Acute (4) Hyperammonemia Onset Date: 04/20/17 Current Visit: No Status: Acute (5) Cirrhosis of liver Onset Date: 04/20/17 Current Visit: No Status: Chronic Qualifiers: (6) Pancytopenia Onset Date: 06/09/17 Current Visit: No Status: Chronic (7) Thrombocytopenia Onset Date: 04/20/17 Current Visit: No Status: Chronic - Plan continue lactulose q 2 hours until BM, then resume home dose of lactulose continue rifaximin BID continue to trend ammonia levels continue gentle IV fluid hydration serum alcohol, UDS, UA pending fall precautions and bedcheck reconcile and continue home medications SCDs Discharge Plan: Home Plan to discharge in: 48 Hours - Advance Directives Does patient have a Living Will: Yes Does patient have a Durable POA for Healthcare: Yes - Code Status/Comfort Care Code Status Assessed: Yes (full code ) Critical Care: No Time Spent Managing Pts Care (In Minutes): 70
[2021-11-21] MEDS ORDERED: NA CHLORIDE 0.9% 1,000 ML IV SCH (17:00)
[2021-11-21] MEDS ORDERED: ONDANSETRON 4 MG/2 ML VIAL IV PRN (17:00)
[2021-11-21] MEDS: LACTULOSE 20 GM/30 ML UCUP PO SCH ×4 (17:28→23:43)
[2021-11-21 17:37] VITALS: BMI 19.9
[2021-11-21 18:27] VITALS: O2SAT 100
[2021-11-21] MEDS: Rifaximin 550 MG Tab PO SCH (20:34)
[2021-11-22] MEDS: LACTULOSE 20 GM/30 ML UCUP PO SCH ×2 (01:17→21:24)
--- NOTE | 2021-11-22 06:30 | P.PN ---
Date of Service: 11/22/21 Subjective: Feels better this morning more alert/oriented +mild confusion not quite back to baseline per daughter ROS: 10 point ROS as noted above, otherwise negative Physical exam GEN: Alert, oriented, NAD, mild confusion HEENT: Normal conjunctiva, sclera anicteric CV: Regular rate and rhythm, no edema Pulm: Nonlabored respirations on room air ABD: Soft, nontender, nondistended Neuro: Normal speech, normal affect, moves all extremities Problem List hepatic encephalopathy hyperammonemia anemia liver cirrhosis pancytopenia (chronic) patient significantly improved, seems to still have some mild confusion tolerated lactulose claims she is taking her medications, however previously told her family that she has not been taking her medications as prescribed daughter states her medications were all messed up/mixed up awake/alert, diet as tolerated continue lactulose, continue rifaximin no evidence of infection, abdomen nontender monitor on regimen today code: Full dispo: Home, tomorrow Time Spent Managing Pts Care (In Minutes): 35
[2021-11-22 06:51] LABS: Absolute Lymphocytes (CBC) 0.6 K/uL (0.7-4.9); Hematocrit 31.1 % (36.0-45.0); Lymphocytes % 24.2 % (15.3-44.8); MPV 10.1 fL (7.6-11.3); RBC Red Blood Cell Count 3.65 M/uL (3.86-4.86)
[2021-11-22 07:05] LABS: Albumin 3.2 g/dL (3.4-5.0); Bilirubin Total 0.8 mg/dL (0.2-1.0); Magnesium 2.1 mg/dL (1.8-2.4); Phosphorus 4.2 mg/dL (2.5-4.9); Potassium 3.6 mmol/L (3.5-5.1); Protein, Total 6.4 g/dL (6.4-8.2)
[2021-11-22] MEDS ORDERED: POTASSIUM 25 MEQ EFFERV TAB PO ONE (07:53)
[2021-11-22] MEDS: Rifaximin 550 MG Tab PO SCH ×2 (08:41→21:23)
[2021-11-22] MEDS: FOLIC ACID 1 MG TABLET PO SCH (08:41)
[2021-11-22] MEDS: PANTOPRAZOLE 40MG TABLET PO SCH (08:41)
[2021-11-22] MEDS: PREGABALIN 75 MG CAP PO SCH ×3 (08:41→21:24)
[2021-11-22] MEDS ORDERED: LACTULOSE 20 GM/30 ML UCUP PO SCH (09:00)
--- NOTE | 2021-11-22 11:35 | EKG ---
Test Date: 2021-11-21 Test Time: 09:34:50 [employer]: [place] MEASUREMENT RESULTS: Intervals: Rate: 57 OK: 174 QRSD: 98 QT: 472 QTc: 459 [place]: P: 63 OK: 174 QRS: 71 T: 77 INTERPRETIVE STATEMENTS: Sinus bradycardia with sinus arrhythmia Otherwise normal ECG Compared to ECG 07/17/2020 16:33:19 Sinus rhythm no longer present Myocardial infarct finding no longer present Electronically Signed On 11-22-21 11:29:28 FABRICATION LEAD by Lei Campuzano
[2021-11-22 16:59] LABS: Urine Appearance CLEAR (Clear); Urine Bilirubin NEGATIVE (Negative); Urine Blood NEGATIVE (Negative); Urine Color YELLOW (Yellow); Urine Glucose NEGATIVE (Negative); Urine Protein NEGATIVE (Negative); Urine Specific Gravity 1.025 (1.005-1.030)
[2021-11-22 17:20] LABS: Urine Microscopic Reflex NO UMIC
[2021-11-23 06:02] LABS: Absolute Lymphocytes (CBC) 0.7 K/uL (0.7-4.9); Hematocrit 26.2 % (36.0-45.0); Lymphocytes % 40.6 % (15.3-44.8); RBC Red Blood Cell Count 3.14 M/uL (3.86-4.86)
[2021-11-23 06:10] LABS: Albumin 2.9 g/dL (3.4-5.0); Bilirubin Total 0.6 mg/dL (0.2-1.0); Potassium 3.7 mmol/L (3.5-5.1); Protein, Total 5.7 g/dL (6.4-8.2)
[2021-11-23] MEDS: Rifaximin 550 MG Tab PO SCH (07:52)
[2021-11-23] MEDS: FOLIC ACID 1 MG TABLET PO SCH (07:52)
[2021-11-23] MEDS: LACTULOSE 20 GM/30 ML UCUP PO SCH (07:52)
[2021-11-23] MEDS: PREGABALIN 75 MG CAP PO SCH (07:52)
[2021-11-23] MEDS: PANTOPRAZOLE 40MG TABLET PO SCH (07:52)
[2021-11-23 08:26] VITALS: TEMP 97.7
[2021-11-23 08:39] LABS: Blood Morphology Comment NOT SEEN (NOT SEEN); Platelet Estimate DECR; White Blood Cell Scan OK (OK)
[2021-11-23 10:19] VITALS: BP 109/56
[2021-11-23] MEDS ORDERED: POTASSIUM CL SA 10 MEQ TAB PO ONE (14:00)
--- NOTE | 2021-11-23 17:57 | P.DS ---
Admission Date: 11/21/21 Discharge Date: 11/23/21 Disposition: ROUTINE DISCHARGE Discharge Condition: GOOD Reason for Admission: hepatic encephalopathy Procedures: Problem List hepatic encephalopathy hyperammonemia anemia liver cirrhosis pancytopenia (chronic) Brief History of Present Illness: 61 yo F with alcoholic liver cirrhosis, AoCD, thrombocytopenia who presents with two days of AMS and weakness. At bedside she is AOx1 and unable to answer questions. Per daughter, she has still been taking her lactulose at home and no longer drinks alcohol. Ammonia 158. BUN 20 Cr 1.4 GFR 38. Alcohol level, UDS, UA pending. Received lactulose, thiamine, and IV fluids in the Hospital Course: Patient was found to be in hepatic encephalopathy secondary to missing medications at home. Patient was given lactulose with significant improvement. She remained stable on PO lactulose and felt better. Her bloodwork remained stable / at her baseline. No evidence of infection. She was alert and oriented, understood she needs to take lactulose 4 times a day, and take an additional dose if needed to ensure 2-3 bowel movements/day. Discharged to resume home medications as previously prescribed. Lactulose prescription given to ensure she has enough until follow up with PCP. Recommend holding lasix for the next ~2 days / until patient is back to eating the same amount / oral intake. Ok to take sooner if develops lower leg swelling. Follow up with PCP within 1 week Follow up with GI in next few weeks. Vital Signs/Physical Exam: Temp Pulse Resp BP Pulse Ox 97.7 F 71 14 109/56 L 97 11/23/21 08:00 11/23/21 10:18 11/23/21 08:00 11/23/21 10:18 11/23/21 08:00 Physical exam GEN: Alert, orientedx3, NAD HEENT: Normal conjunctiva, sclera anicteric CV: Regular rate and rhythm, no edema Pulm: Nonlabored respirations on room air ABD: Soft, nontender, nondistended Neuro: Normal speech, normal affect, moves all extremities, no tremor, no asterixis Laboratory Data at Discharge: WBC 1.80 K/uL (4.3-10.9) L* D 11/23/21 05:31 Hgb 8.9 g/dL (12.0-15.0) L 11/23/21 05:31 Hct 26.2 % (36.0-45.0) L D 11/23/21 05:31 Plt Count 44 K/uL (152-406) L* 11/23/21 05:31 PT 12.6 SECONDS (9.5-12.5) H 11/21/21 09:40 INR 1.09 11/21/21 09:40 Sodium 144 mmol/L (136-145) 11/23/21 05:31 Potassium 3.7 mmol/L (3.5-5.1) 11/23/21 05:31 BUN 19 mg/dL (7-18) H 11/23/21 05:31 Creatinine 1.01 mg/dL (0.55-1.3) 11/23/21 05:31 Glucose 84 mg/dL (74-106) 11/23/21 05:31 Phosphorus 4.2 mg/dL (2.5-4.9) 11/22/21 06:35 Magnesium 2.1 mg/dL (1.8-2.4) 11/22/21 06:35 Total Bilirubin 0.6 mg/dL (0.2-1.0) 11/23/21 05:31 AST 18 U/L (15-37) 11/23/21 05:31 ALT 17 U/L (12-78) 11/23/21 05:31 Alkaline Phosphatase 47 U/L (45-117) 11/23/21 05:31 Home Medications: Folic Acid 1 mg PO DAILY 07/18/20 Furosemide [Lasix*] 20 mg PO BID 07/18/20 Pantoprazole [Protonix Tab*] 40 mg PO DAILY 07/18/20 Pregabalin [Lyrica*] 75 mg PO TID 07/18/20 Rifaximin [Xifaxan] 1 tab PO BID 07/18/20 Tramadol HCl [Ultram] 50 mg PO Q6H PRN 07/18/20 Lactulose [Cephulac*] 30 ml PO QID 30 Days #120 [facility] 11/23/21 New Medications: Lactulose [Cephulac*] 30 ml PO QID 30 Days #120 [facility] Physician Discharge Instructions: Patient was found to be in hepatic encephalopathy secondary to missing medications at home. Patient was given lactulose with significant improvement. She remained stable on PO lactulose and felt better. Her bloodwork remained stable / at her baseline. No evidence of infection. She was alert and oriented, understood she needs to take lactulose 4 times a day, and take an additional dose if needed to ensure 2-3 bowel movements/day. Discharged to resume home medications as previously prescribed. Lactulose prescription given to ensure she has enough until follow up with PCP. Recommend holding lasix for the next ~2 days / until patient is back to eating the same amount / oral intake. Ok to take sooner if develops lower leg swelling. Follow up with PCP within 1 week Follow up with GI in next few weeks. Followup: Unknown,U [Primary Care Provider] - Time spent managing pt's care (in minutes): 45
== END 2021-11-23 10:53 | disposition home or self-care (01) | DRG 442 ==
LOC: ER 09:24 → ERHOLD 12:58 → 2ND 16:56
PROVIDERS: ADMIT Hospitalist; ATTEND Hospitalist
DX: K72.90 Hepatic failure, unspecified without coma (principal); E72.20 Disorder of urea cycle metabolism, unspecified; D61.818 Other pancytopenia; K70.30 Alcoholic cirrhosis of liver without ascites; K21.9 Gastro-esophageal reflux disease without esophagitis; Z88.1 Allergy status to other antibiotic agents; Z79.899 Other long term (current) drug therapy; Z60.2 Problems related to living alone; Z88.8 Allergy status to other drugs, medicaments and biological substances; Z20.822 Contact with and (suspected) exposure to COVID-19
CPT/HCPCS: 36415; 70450; 71045; 80048; 80053; 80076; 80320; 81003; 82140; 83735; 83880; 84100; 84145; 84484; 85025; 85610; 93005; 96365; 96366; 99285; J3411; J7030; U0003

== ENCOUNTER 2021-11-27 16:58 | Emergency (ER) | payer OTHER ==
--- OUTSIDE RECORDS SUMMARY | 2021-11-27 17:04 | XMS REPORT | Continuity of Care Document ---
:1960 Author Organization [facility] t Address [address] [place] [address] Care Team Providers Name Role Phone Cameron [...] Branch initial initial for encounter encounter surgery [id number] Hepatic Hepatic Disease Active Univers encephalop encephalop [...] infection) infection) Protein-ca Protein-ca Disease Active U kral bagley 4-13 ity of malnutrit[place]nutrit[place], 00 Medical moderate moderate Branch Hyponatrem Hyponatrem Disease Active U nivers ia ia 4-11 ity of 00:00: [place] 00 Medical Branch Zinc Zinc Disease Active Univers deficiency deficiency 3-14 it y of 00:00: [place] 00 Medical Branch Pre-transp Pre-transp Disease Active [...] 7-14 it y of is is 00:00: [place] 00 Medical Branch Abdominal Abdominal Disease Active [...] Source Sex Assigned At Universit y of [facility] Branch Tobacco use and 2019-04-26 2019-04-26 Never used Universit y of exposure 00:00:00 00:00:00 [facility] Cigarettes smoked 2019-04-26 2019-04-26 Univers ity of current (pack per 00:00:00 00:00:00 [facility] ) - Reported Branch Alcohol intake 2019-04-26 2019-04-26 Current drinker Unive rsity of 00:00:00 00:00:00 of alcohol [facility] (finding) [place] Tobacco Comment 2015 2015 Using nicotine Unive rsity of 00:00:00 00:00:00 patches and [facility] electronic Branch cigarettes. 1pack/2days. Alcohol Comment 2014-09-21 2014-09-21 Drinks a tall Univer sity of 00:00:00 00:00:[address] [facility] dical coke since Jun. Used to drink heavily before that Smoking Status Start Date Stop Date Source Current every day smoker 2019-04-26 00:00:00 Uni versity of [facility] Medications Ordered Filled Start Stop Current [...] by mouth ity of capsule 19:38: daily. [place] [address] Medical Branch omeprazole 2019-0 Yes 20mg Take 20 mg U nivers 20 mg 6-11 by mouth ity of capsule 19:38: daily. [place] [address] Medical Branch omeprazole 2019-0 Yes 20mg Take 20 mg U nivers 20 mg 6-11 by mouth ity of capsule 19:38: daily. [place] [address] Medical Branch omeprazole 2019-0 Yes 20mg Take 20 mg U nivers 20 mg 6-11 by mouth ity of capsule 19:38: daily. [address] omeprazole 2019-0 Yes 20mg Take 20 mg U nivers 20 mg 6-11 by mouth ity of capsule 19:38: daily. [address] omeprazole 2018-0 Yes 20mg Take 20 mg U nivers 20 mg 6-11 by mouth ity of capsule 19:38: daily. [address] omeprazole 2019-0 Yes 20mg Take 20 mg U nivers 20 mg 6-11 by mouth ity of capsule 19:38: daily. [address] omeprazole 2018-0 Yes 20mg Take 20 mg U nivers 20 mg 6-11 by mouth ity of capsule 19:38: daily. [address] omeprazole 2018-0 Yes 20mg Take 20 mg U nivers 20 mg 6-11 by mouth ity of capsule 19:38: daily. [address] omeprazole 2018-0 Yes 20mg Take 20 mg U nivers 20 mg 6-11 by mouth ity of capsule 19:38: daily. [address] omeprazole 2018-0 Yes 20mg Take 20 mg U nivers 20 mg 6-11 by mouth ity of capsule 19:38: daily. [address] omeprazole 2018-0 Yes 20mg Take 20 mg U nivers 20 mg 6-11 by mouth ity of capsule 19:38: daily. [address] omeprazole 2018-0 Yes 20mg Take 20 mg U nivers 20 mg 6-11 by mouth ity of capsule 19:38: daily. [address] spironolact 2016-09 Yes 100mg Take 1 Uni vers one 100 mg 1-27 tablet by ity of tablet 00:00: mouth [place] [address] [facility] spironolact 2016-09 Yes 100mg Take 1 Uni vers one 100 mg 1-27 tablet by ity of tablet 00:00: mouth [place] [address] [facility] spironolact 2016-09 Yes 100mg Take 1 Uni vers one 100 mg 1-27 tablet by ity of tablet 00:00: mouth [place] [address] [facility] spironolact 2016-09 Yes 100mg Take 1 Uni vers one 100 mg 1-27 tablet by ity of tablet 00:00: mouth [place] [address] [facility] spironolact 2016-09 Yes 100mg Take 1 Uni [...] nicotine 2017-0 Yes 1{puff} Inhale 1 Un klbeer (NICOTROL) 5-16 Puff as ity of 10 [...] () Medical times Branch daily. Zinc Yes [id number] 25mg Take 25 mg Un kleber Acetate, 4-11 by mouth ity of Oral, 25 mg 00:[place]. [place] [facility] Zinc Yes [id number] 25mg Take 25 mg Un kleber Acetate, 4-11 by mouth ity of Oral, 25 mg 00:00: [place]. [place] ([place] 00 [facility] Zinc Yes [id number] 25mg Take 25 mg Un kleber Acetate, 4-11 by mouth ity of Oral, 25 mg 00:00: [place]. [place] ([place] 00 [place] Branch Zinc Yes [id number] 25mg Take 25 mg Un kleber Acetate, 4-11 by mouth ity of Oral, 25 mg 00:00: [place]. [place] ([place] 00 [place] Zinc 0 Yes [id number] 25mg Take 25 mg Un kleber Acetate, 4-11 by mouth ity of Oral, 25 mg 00:00: [place]. [place] ([place] 00 [place] Zinc Yes [id number] 25mg Take 25 mg Un kleber Acetate, 4-11 by mouth ity of Oral, 25 mg 00:00: [place]. [place] [address] [facility] Zinc Yes [id number] 25mg Take 25 mg Un kleber Acetate, 4-11 by mouth ity of Oral, 25 mg 00:00: [place]. [place] [address] [facility] Zinc Yes [id number] 25mg Take 25 mg Un kleber Acetate, 4-11 by mouth ity of Oral, 25 mg 00:00: [place]. [place] [address] [facility] Zinc Yes [id number] 25mg Take 25 mg Un kleber Acetate, 4-11 by mouth ity of Oral, 25 mg 00:00: [place]. [place] [address] [facility] Zinc Yes [id number] 25mg Take 25 mg Un kleber Acetate, 4-11 by mouth ity of Oral, 25 mg 00:00: [place]. [place] [address] [facility] Zinc Yes [id number] 25mg Take 25 mg Un kleber Acetate, 4-11 by mouth ity of Oral, 25 mg 00:00: [place]. [place] [address] [facility] Zinc Yes [id number] 25mg Take 25 mg Un kleber Acetate, 4-11 by mouth ity of Oral, 25 mg 00:00: [place]. [place] [address] [facility] Zinc Yes [id number] 25mg Take 25 mg Un kleber Acetate, 4-11 by mouth ity of Oral, 25 mg 00:00: [place]. [place] ([place] [address] [place] [address] Immunizations Ordered Filled Immunization Date Status Comments [facility] e Immunization Name Name HEPATITIS A 2017-02-23 Completed University of 00:00:00 [facility] HEP B, Adult Dosage 2017-02-23 Completed Unive rsity of 00:00:00 [facility] HEPATITIS A 2017-02-23 Completed University of 00:00:00 [facility] HEP B, Adult Dosage 2017-02-23 Completed Unive rsity of 00:00:00 [facility] HEPATITIS A 2017-02-23 Completed University of 00:00:00 [facility] HEP B, Adult Dosage 2017-02-23 Completed Unive rsity of 00:00:00 [facility] HEPATITIS A 2017-02-23 Completed University of 00:00:00 [...] Dosage 2016-12-08 Completed Unive rsity of 00:00:00 [place] [facility] HEPATITIS A 2016-12-08 Completed University [...] Dosage 2016-10-02 Completed Unive rsity of 00:00:00 [facility] Twinrix (hep a/hep 2015-04-20 Completed Univer sity of b) 00:00:00 [facility] Branch Twinrix (hep a/hep 2015-04-20 Completed Univer sity of b) 00:00:00 [place] [facility] Twinrix (hep a/hep 2015-04-20 Completed Univer sity of b) 00:00:00 [place] [facility] Twinrix (hep a/hep 2015-04-20 Completed Univer sity of b) 00:00:00 [place] [facility] Twinrix (hep a/hep 2015-04-20 Completed Univer sity of b) 00:00:00 [place] [facility] Twinrix (hep a/hep 2015-04-20 Completed Univer sity of b) 00:00:00 [place] [facility] Twinrix (hep a/hep 2015-04-20 Completed Univer sity of b) 00:00:00 [place] [facility] Twinrix (hep a/hep 2015-04-20 Completed Univer sity of b) 00:00:00 [place] [facility] Twinrix (hep a/hep 2015-04-20 Completed Univer sity of b) 00:00:00 [facility] Twinrix (hep a/hep 2015-04-20 Completed Univer sity of b) 00:00:00 [facility] Twinrix (hep a/hep 2015-04-20 Completed Univer sity of b) 00:00:00 [facility] Twinrix (hep a/hep 2015-04-20 Completed Univer sity of b) 00:00:00 [facility] Twinrix (hep a/hep 2015-04-20 Completed Univer sity of b) 00:00:00 [facility] Pneumococcal 2014-11-02 Completed University o f Polysaccharide, 00:00:00 [place] Med ical PPSV23 (PNEUMOVAX) Branch Influenza Virus 2014-11-02 Completed Universit y of Vaccine Quad IM 3+ 00:00:00 [facility] Pneumococcal 2014-11-02 Completed University o f Polysaccharide, 00:00:00 [place] Med ical PPSV23 (PNEUMOVAX) Branch Influenza Virus 2014-11-02 Completed Universit y of Vaccine Quad IM 3+ 00:00:00 [facility] Pneumococcal 2014-11-02 Completed University o f Polysaccharide, 00:00:00 [place] Med ical PPSV23 (PNEUMOVAX) Branch Influenza Virus 2014-11-02 Completed Universit y of Vaccine Quad IM 3+ 00:00:00 [facility] Pneumococcal 2014-11-02 Completed University o f Polysaccharide, 00:00:00 [place] Med ical PPSV23 (PNEUMOVAX) Branch Influenza Virus 2014-11-02 Completed Universit y of Vaccine Quad IM 3+ 00:00:00 [facility] Pneumococcal 2014-11-02 Completed University o f Polysaccharide, 00:00:00 [place] Med ical PPSV23 (PNEUMOVAX) Branch Influenza Virus 2014-11-02 Completed Universit y of Vaccine Quad IM 3+ 00:00:00 [facility] Pneumococcal 2014-11-02 Completed University o f Polysaccharide, 00:00:00 [place] Med ical PPSV23 (PNEUMOVAX) Branch Influenza Virus 2014-11-02 Completed Universit y of Vaccine Quad IM 3+ 00:00:00 [facility] Pneumococcal 2014-11-02 Completed University o f Polysaccharide, 00:00:00 [place] Med ical PPSV23 (PNEUMOVAX) Branch Influenza Virus 2014-11-02 Completed Universit y of Vaccine Quad IM 3+ 00:00:00 [facility] Pneumococcal 2014-11-02 Completed University o f Polysaccharide, 00:00:00 [place] Med ical PPSV23 (PNEUMOVAX) Branch Influenza Virus 2014-11-02 Completed Universit y of Vaccine Quad IM 3+ 00:00:00 [facility] Pneumococcal 2014-11-02 Completed University o f Polysaccharide, 00:00:00 [place] Med ical PPSV23 (PNEUMOVAX) Branch Influenza Virus 2014-11-02 Completed Universit y of Vaccine Quad IM 3+ 00:00:00 [facility] Pneumococcal 2014-11-02 Completed University o f Polysaccharide, 00:00:00 [place] Med ical PPSV23 (PNEUMOVAX) Branch Influenza Virus 2014-11-02 Completed Universit y of Vaccine Quad IM 3+ 00:00:00 [facility] Pneumococcal 2014-11-02 Completed University o f Polysaccharide, 00:00:00 [place] Med ical PPSV23 (PNEUMOVAX) Branch Influenza Virus 2014-11-02 Completed Universit y of Vaccine Quad IM 3+ 00:00:00 [facility] Pneumococcal 2014-11-02 Completed University o f Polysaccharide, 00:00:00 [place] Med ical PPSV23 (PNEUMOVAX) Branch Influenza Virus 2014-11-02 Completed Universit y of Vaccine Quad IM 3+ 00:00:00 [facility] Pneumococcal 2014-11-02 Completed University o f Polysaccharide, 00:00:00 [place] Med ical PPSV23 (PNEUMOVAX) Branch Influenza Virus 2014-11-02 Completed Universit y of Vaccine Quad IM 3+ 00:00:00 [facility] Vital Signs Vital Name Observation Time Observation Value Comments Source Systolic blood 2019-04-26 15:32:00 99 mm[Hg] [place] [facility] pressure [facility] Diastolic blood 2019-04-26 15:32:00 62 mm[Hg] [place] [facility] Heart rate 2019-04-26 15:32:00 79 /min [facility] Body height 2019-04-26 15:32:00 175.3 cm [facility] Body weight 2019-04-26 15:32:00 57.153 kg [facility] BMI 2019-04-26 15:32:00 18[facility]61 [facility] Systolic blood 2019-04-26 15:32:00 99 mm[Hg] Univer [facility]ity of [place] pressure [facility] Branch Diastolic blood 2019-04-26 15:32:00 62 mm[Hg] [facility] Heart rate 2019-04-26 15:32:00 79 /min [facility] Body height 2019-04-26 15:32:00 175.3 cm [facility] Body weight 2019-04-26 15:32:00 57.153 kg [facility] BMI 2019-04-26 15:32:00 18.61 kg/m2 [facility] Procedures Procedure Date / Time Performing Clinician Source Performed EXTERNAL PROVIDER 2020-08-01 06:01:00 Doctor Unassigned, No Univ ersity of [place] RECORDS Name Medical [place] [facility] - OTHER 2020-06-14 05:01:00 Doctor Unassigned, No Un iversity of [facility] Medical [place] EXTERNAL PROVIDER 2020-04-16 05:01:00 Doctor Unassigned, No Univ ersity of [facility] Name [facility] AUTHORIZATION FOR 2019-10-13 06:01:00 Doctor Unassigned, No Univ ersity of [place] RELEASE OF [facility] XR WRIST <3 VW RIGHT 2019-04-26 15:44:44 [facility] Encounters Start End Encounter Admission Attending Care Care Encounter Source Date/Time Date/Time Type Type Clinicians Facility Department ID 2021-10-16 Outpatient Rakesh, [facility] [id number] [facility] 11:30:27 [facility] [id number] [facility] l Outpati ent Clinics 2020-08-01 2020-08-01 Orders Doctor PETERSON [id number] Univers 00:00:00 00:00:00 Only UnassignedELIO 350.1.13.10 ity of [place] [facility] 4.2.7.2.686 Gu[place] as [id number] [address] 2020-08-01 2020-08-01 Orders Doctor PETERSON 1.2.840.114 [id number] 00:00:00 00:00:00 Only Unassigned, ELIO 350.1.13.10 [place] [facility] 4.2.7.2.686 [id number] 2020-06-14 2020-06-14 Orders Doctor NICHOLAS 1.2.840.114 [id number] Univers 00:00:00 00:00:00 Only Unassigned, ELIO 350.1.13.10 ity of [place] [facility] 4.2.7.2.686 Guille as [id number] [place] [address] Branch 2020-06-14 2020-06-14 Orders Doctor NICHOLAS 1.2.840.114 [id number] 00:00:00 00:00:00 Only Unassigned, ELIO 350.1.13.10 [place] [facility] 4.2.7.2.686 [id number] 2020-04-16 2020-04-16 Orders Doctor NICHOLAS 1.2.840.114 [id number] Univers 00:00:00 00:00:00 Only Unassigned, ELIO 350.1.13.10 ity of [place] [facility] 4.2.7.2.686 [place] as [phone] [address] 2020-04-16 2020-04-16 Orders Doctor PETERSON 1.2.840.114 [id number] 00:00:00 00:00:00 Only Unassigned, ELIO 350.1.13.10 [place] [facility] 4.2.7.2.686 [id number] 2020-03-28 2020-03-28 [id number] [facility] 17:19:00 17:19:00 [facility] Medicine Medicine Outpati ent Clinics 2019-12-22 2019-12-22 Letter Nickie [facility] 1.2.840.114 [id number] Univers 00:00:00 00:00:00 (Out) John MULTISPEC 350.1.13.10 ity of [place]2.7.2.[place] C[place] [id number] [facility] [address] Branch DIAB[facility]ES CLINIC 2019-12-22 2019-12-22 Letter Nickie FLLLUVIA 1.2.840.114 [id number] 00:00:00 00:00:00 (Out) John MULTISPEC 350.1.13.10 [facility] IALTY 4.2.7.2.686 CENTER [id number] [place] [address] DIABETES CLINIC 2019-12-20 2019-12-20 [facility] 1.2.840.114 [id number] Univers 11:57:00 23:59:00 Encounter John ELIO 350.1.13.10 ity of [facility] 4.2.7.2.686 [place] [id number] [address] 2019-12-20 2019-12-20 [facility] NICHOLAS 1.2.840.114 [id number] 11:57:00 23:59:00 Encounter John ELIO 350.1.13.10 [place] [address].2.7.2.686 [id number] [facility] 2019-12-20 2019-12-20 [facility]patient [facility] [id number] Univers 00:00:00 00:00:00 JOHN ity of [facility] 2019-12-19 2019-12-19 Telephone [facility] [id number] Univers 00:00:00 00:00:00 John MULTISPEC 350.1.13.10 [facility] [id number] [address] DIABETES CLINIC 2019-12-19 2019-12-19 Telephone [facility] [id number] 00:00:00 00:00:00 John MULTISPEC 350.1.13.10 [facility] IALTY 4.2.7.2.686 CENTER [id number] [place] [address] [facility]ES CLIN[facility] 2019-11-21 2019-11-21 Telephone [facility] [id number] Univers 00:00:00 00:00:00 John MULTISPEC 350.1.13.10 ity of [facility] [place] 4.2.7.2.[place] C[place] [id number] [address] DIABETES CLINIC 2019-11-21 2019-11-21 Telephone [facility] [id number] 00:00:00 00:00:00 John MULTISPEC 350.1.13.10 [place] IALTY 4.2.7.2.686 [place] [id number] [place] [address] [facility]ES CLIN[facility] 2019-11-11 2019-11-11 Telephone [facility] [id number] 3127 [facility] 00:00:00 00:00:00 John MULTISPEC 350.1.13.10 ity of [place] 4.2.7.2.686 [place] CENTER [id number] [facility] AND [address] DIABETES CLINIC 2019-11-11 2019-11-11 Telephone [facility] [id number] 00:00:00 00:00:00 John MULTISPEC 350.1.13.10 [place] IALTY 4.2.7.2.686 [place] [id number] AND [place] [address] [facility]INIC 2019-10-13 2019-10-13 Orders Doctor NICHOLAS 1.2.840.114 [id number] Univers 00:00:00 00:00:00 Only Unassigned, ELIO 350.1.13.10 ity of [place] [facility] 4.2.7.2.686 [place] as [id number] [address] 2019-10-13 2019-10-13 Orders Doctor NICHOLAS 1.2.840.114 [id number] 00:00:00 00:00:00 Only Unassigned, [place] 350.1.13.10 [place] [facility] 4.2.7.2.686 [id number] 2019-04-26 2019-04-26 Outpatient [facility] [id number] Univers 10:44:43 23:59:00 RODRIGUEZ ity of [facility] 2019-04-26 2019-04-26 [facility] 1.2.840.114 [id number] Univers 10:44:43 23:59:00 Encounter [facility] 350.1.13.10 ity of Surgical 4.2.7.2.686 [place] Specialti [id number] Me dical es [address] [place] [address] 2019-04-26 2019-04-26 Hospital [facility] 1.2.840.114 [id number] 10:44:43 23:59:00 Encounter [facility] 350.1.13.10 Surgical 4.2.7.2.686 Specialti [id number] es [address] [place] 2019-04-26 2019-04-26 Office [facility] 1.2.840.114 [id number] Univers 10:32:03 11:07:22 Visit [facility] 350.1.13.10 it y of Surgical 4.2.7.2.686 [place] Specialti [id number] Me dical es [address] [facility] 2019-04-26 2019-04-26 Office [facility] 1.2.840.114 [id number] 10:32:03 11:07:22 Visit [facility] 350.1.13.10 Surgical 4.2.7.2.686 Specialti [id number] es [address] [place] 2019-04-12 2019-04-12 Outpatient [facility] [id number] Univers 13:37:36 23:59:00 [facility] Results Test Description Test Time Test Comments Results Result Comments Source MISCELLANEOUS LAB ORDER 2019-07-07 07:50:00 Test Item Value Reference Range Interpretation Comme nts SCAN RESULT (test code = 5263986) HEPATITIS C [id number] 12:34:00 Test Item Value Reference Range Interpretation Comments HEPATITIS C ANTIBODY Reactive Nonreactive A Test pe rformed at ([facility]) (test code = [facility]. See 367) attached report ALPHA FETOPROTEIN (AFP), TUMOR [id number] 06:18:00 Test Item Value Reference Range Interpretation Comments ALPHA-FETOPROTEIN (BEAKER) (test code < ng/mL <10.0 = 1094) [id number] 06:04:00 Test Item Value Reference Range Interpretation Comments MAGNESIUM (BEAKER) (test code = 2.3 mg/dL 1.6-2.6 627) COMPREHENSIVE METABOLIC [id number] 06:04:00 Test Item Value Reference Range Interpretation [...] PATIEN TS. CBC W/PLT COUNT & AUTO [id number] 05:47:00 Test Item Value Reference Range Interpretation [...] CELLS (BEAKER) (test code = 413) PROTHROMBIN [id number] 05:46:00 Test Item Value Reference Range Interpretation [...] is2.5-3.5 for patients wiht mechanical heart valves.PROTHROMBIN [id number] 18:50:00 Test Item Value Reference Range Interpretation [...] by IFA method.CBC W/PLT COUNT & AUTO [id number] 10:44:00 Test Item Value Reference Range Interpretation [...] S NOT APPLICABLE FOR DIALYSIS PATIEN TS. [id number] 08:31:00 Test Item Value Reference Range Interpretation Comments PHOSPHORUS (BEAKER) (test code = 3.4 mg/dL 2.3-4.7 604) [id number] 08:31:00 Test Item Value Reference Range Interpretation Comments MAGNESIUM (BEAKER) (test code = 2.0 mg/dL 1.6-2.6 627) [id number] 07:26:00 Test Item Value Reference Range Interpretation Comments LIPASE (BEAKER) (test code = 749) 390 U/L 8-78 H [id number] 06:49:00 Test Item Value Reference Range Interpretation Comments AMYLASE (BEAKER) (test code = 349) 200 U/L 25-125 H [id number] 05:59:00 Test Item Value Reference Range Interpretation Comments AMMONIA (BEAKER) (test code = 348) 107 mol/L 18-72 H HEPATITIS B [id number] 05:39:00 Test Item Value Reference Range Interpretation Comments HEPATITIS B CORE TOTAL ANTIBODY Nonreactive Nonreactive (BEAKER) (test code = 497) HEPATITIS B SURFACE ANTIBODY < mIU/mL <8.0 (BEAKER) (test code = 647) HEPATITIS B SURFACE ANTIGEN (2) Nonreactive Nonreactive ([employer]) (test code = 2585) TSH/FREE T4 IF [id number] 05:33:00 Test Item Value Reference Range Interpretation Comments THYROID STIMULATING HORMONE 2.36 uIU/mL 0.35-4.94 ([employer]) (test code = 772) XR WRIST <3 VW [id number] 16:02:34Distal radius fracture with volar angulation impacted with good callus formation there is also a [facility]
[2021-11-27] MEDS ORDERED: FENTANYL CITR 100 MCG/2 ML ONE (17:43)
[2021-11-27 18:19] LABS: Urine Blood Negative (Negative); Urine Glucose Negative (Negative); Urine Protein Negative (Negative); Urine Specific Gravity 1.025 (1.005-1.030); Urine pH 6.5 (5.0-7.0)
[2021-11-27 18:39] LABS: Albumin 3.6 g/dL (3.4-5.0); Bilirubin Direct 0.3 mg/dL (0-0.2); Bilirubin Total 0.9 mg/dL (0.2-1.0); Potassium 4.2 mmol/L (3.5-5.1); Protein, Total 7.4 g/dL (6.4-8.2); Troponin High Sensitivity 3.7 pg/mL (<58.9)
[2021-11-27 18:42] LABS: Absolute Lymphocytes (CBC) 0.5 K/uL (0.7-4.9); Hematocrit 33.1 % (36.0-45.0); Lymphocytes % 18.7 % (15.3-44.8); MPV 10.7 fL (7.6-11.3)
[2021-11-27 18:47] LABS: Urine Bacteria <20 /HPF (<20); Urine RBC <5 /HPF (NONE SEEN)
[2021-11-27] MEDS ORDERED: NA CHLORIDE 0.9% 500 ML ONE (19:51)
--- NOTE | 2021-11-27 20:00 | RAD REPORT ---
EXAM DESCRIPTION: RAD - Chest Single View - 11/27/2021 7:31 pm CLINICAL HISTORY: fall, chest pain COMPARISON: Portable 11/21/2021 TECHNIQUE: AP portable chest image was obtained 11/27/2021 7:31 pm . FINDINGS: Lungs are clear. Heart and vasculature are normal. No measurable pleural effusion and no p neumothorax. No acute bone findings seen. Rib detail is limited on portable imaging. Overlying calcif ied breast implant capsules noted. No acute aortic findings suspected. IMPRESSION: No acute cardiopulmonary process.
--- NOTE | 2021-11-27 20:01 | RAD REPORT ---
EXAM DESCRIPTION: RAD - Humerus Right - 11/27/2021 7:31 pm CLINICAL HISTORY: PAINafter fall COMPARISON: No comparisons FINDINGS: No fracture is identified. There is no dislocation or periosteal reaction noted. No foreig n body or other soft tissue abnormality. IMPRESSION: Negative right humerus examination for acute finding.
--- NOTE | 2021-11-27 20:02 | RAD REPORT ---
EXAM DESCRIPTION: RAD - Forearm Right - 11/27/2021 7:31 pm CLINICAL HISTORY: PAIN, fall COMPARISON: Forearm Right dated 10/31/2021; Wrist Right 3 View dated 10/31/2021 FINDINGS: No acute fracture is identified. There is no dislocation or periosteal reaction noted. The re is evidence for remodeling of the distal radius with the dorsal angulation of the articular surfac e believed to be from remote fracture. No foreign body or other soft tissue abnormality. IMPRESSION: Negative right forearm examination for acute finding.
--- NOTE | 2021-11-27 20:03 | RAD REPORT ---
EXAM DESCRIPTION: RAD - Femur Right - 11/27/2021 7:31 pm CLINICAL HISTORY: PAIN, fall COMPARISON: No comparisons FINDINGS: No fracture, dislocation or periosteal reaction noted. No acute or suspicious bony finding . No air or foreign body in the soft tissues. IMPRESSION: Negative right femur examination.
--- NOTE | 2021-11-27 20:57 | RAD REPORT ---
EXAM DESCRIPTION: CT - Head C Spine Cap Wo Con - 11/27/2021 8:40 pm CLINICAL HISTORY: fall, head, neck, chest and abdomen pain COMPARISON: <Comparisons> TECHNIQUE: Axial [address] head images were obtained. Axial [address] cervical spine images were obtain ed with sagittal and coronal reconstruction images reviewed. Axial 5 mm images of the chest, abdomen and pelvis were obtained. All CT scans are performed using dose optimization technique as appropriate and may include automated exposure control or mA/KV adjustment according to patient size. FINDINGS: No intracranial hemorrhage, mass or edema. No midline shift or abnormal fluid collection. Mastoid air cells and paranasal sinuses are clear. No skull fracture. Small frontal scalp hematoma is present with underlying bone intact. Cervical bodies are normal in height. There is reversal of the usual cervical lordosis with the apex at C6. Slight anterior subluxation of C 5 on [id number] to facet degenerative change. C6-7 disc spac e narrowing and endplate spurring changes are present. Uncovertebral joint hypertrophy causes mild [place] foraminal encroachment at C6-7. Additional facet degenerative change noted on the left at C4-5 and C5-6.No fracture or acute bone finding.No other disc space narrowing.No prevertebral soft tissue thi ckening or paraspinal mass.Central canal detail is inherently limited on CT imaging. CT chest shows no pneumothorax, pulmonary contusion or pleural fluid collection. No mediastinal hem atoma and the aorta and pulmonary arteries are unremarkable. No chest will mass or abnormal axillary finding. No displaced rib fracture or other significant bony finding. Bilateral breast implants are in place with calcified implant capsules. No acute injury to the solid abdominal visceral. Cirrhotic liver changes are present. TIPS shunt is i n place. Splenomegaly is present. There is no ascites seen. No pancreatic acute process. Multiple gal lstones are seen with no abnormal biliary tree dilatation. No bowel injury or significant finding. No free air, free fluid or abnormal stranding. No mass or bulky lymphadenopathy. A 6 centimeter fat onl y supraumbilical midline ventral hernia is present. Neck is 1.5 cm in size. There is no bowel involve ment. No other hernia confirmed. No urinary bladder abnormality. Uterus and ovaries show no suspicio us findings. Advanced L5-S1 disc and endplate degenerative changes are present. Bony foraminal encroachment is pre sent. Dense arterial tree calcifications are present. IMPRESSION: Small forehead scalp hematoma. No acute intracranial finding. Cervical spine degenerative changes are present as detailed. No acute cervical spine finding. No acute CT chest finding. No acute or traumatic CT abdomen and pelvis finding.
[2021-11-27 21:19] LABS: Protime INR 1.23
--- NOTE | 2021-11-27 21:56 | ER ---
Nurse's Notes [facility] Name: Jose Manuel Richardson Age: 61 yrs Sex: Female : 1960 Arrival Date: 11/27/2021 Time: 17:03 Bed 28 [facility] MD: Diagnosis: Contusion of right elbow;Contusion of unspecified part of head, initial encounter;Fall on same level, unspecified Presentation: 11/27 17:14 Chief complaint: EMS states: BIB EMS for multiple falls, one last night-resulting in lr4 hematoma to forehead, and 1 fall today, resulting in R arm pain, worse around the elbow. Pt states she just was discharged here for elevated ammonia level as she has cirrhosis. Coronavirus screen: Vaccine status: Patient reports receiving the 2nd dose of the covid vaccine. Date 2021. Ebola Screen: Patient negative for fever greater than or equal to 101.5 degrees Fahrenheit, and additional compatible Ebola Virus Disease symptoms. Initial Sepsis Screen: Does the patient meet any 2 criteria? No. Patient's initial sepsis screen is negative. Does the patient have a suspected source of infection? No. Patient's initial sepsis screen is negative. Risk Assessment: Do you want to hurt yourself or someone else? Patient reports no desire to harm self or others. Onset of symptoms was November 26, 2021. 17:14 Method Of Arrival: EMS lr4 17:14 Acuity: JEANA 2 lr4 Triage Assessment: 17:17 General: Appears in no apparent distress. comfortable, Behavior is calm, cooperative. lr4 Pain: Complains of pain in right arm Pain does not radiate. Pain radiates to right hand Pain currently is 10 out of 10 on a pain scale. Quality of pain is described as aching, Pain began suddenly, 1 hour ago. Aggravated by increased activity, repositioning. Neuro: No deficits noted. Cardiovascular: No deficits noted. Respiratory: No deficits noted. Musculoskeletal: Reports pain in forehead and right arm. Historical: - Allergies: 17:17 cipro (IV, but can take PO); lr4 17:17 Flagyl; lr4 - PMHx: 17:17 Cirrhosis; secondary to ETOH abuse; hypotension; liver failure, chronic; Renal Disease; lr4 - Immunization history:: Adult Immunizations up to date. - Social history:: Smoking status: Patient reports the use of cigarette tobacco products, smokes one pack cigarettes per day. Screenin:19 Abuse screen: Denies threats or abuse. Nutritional screening: No deficits noted. lr4 Tuberculosis screening: No symptoms or risk factors identified. Fall Risk Secondary diagnosis (15 points) IV access (20 points). Ambulatory Aid- None/Bed Rest/Nurse Assist (0 pts). Gait- Weak (10 pts.). Mental Status- Oriented to own ability (0 pts). Total Titus Fall Scale indicates High Risk Score (45 or more points). Placed Close to Nursing Station Frequent Obs/Assessments Occuring As available patient and family educated on Fall Prevention Program and Strategies. Assessment: 18:26 General: Appears in no apparent distress. comfortable, Behavior is calm, cooperative. lr4 Pain: Complains of pain in right arm Pain currently is 10 out of 10 on a pain scale. Neuro: No deficits noted. Cardiovascular: No deficits noted. Respiratory: No deficits noted. 19:20 General: Per the pt's nurse, she needs an IV site to her lt arm, above her wrist. This [place] info was given the charge nurse, as the pt has had several attempts at a site. . 22:19 Reassessment: Patient is alert, oriented x 3, equal unlabored respirations, skin lr4 warm/dry/pink. Patient states feeling better. Patient states symptoms have improved. Pt departed ed via wheelchair with all personal effects, vss,pt in nad. Vital Signs: 17:14 BP 118 / 63; Pulse 65; Resp 20; Temp 98.5; Pulse Ox 99% on R/A; Weight 62.6 kg; Height lr4 5 ft. 9 in. (175.26 cm); Pain 10/10; 22:17 BP 123 / 63; Pulse 70; Resp 20; Pulse Ox 97% on R/A; lr4 17:14 Body Mass Index 20.38 (62.60 kg, 175.26 cm) lr4 [place] Coma Score: 17:20 Eye Response: spontaneous(4). Verbal Response: oriented(5). Motor Response: obeys cp commands(6). Total: 15. ED Course: 17:03 Patient arrived in ED. eo2 17:07 Mayo Frank PA is PHCP. cp 17:07 Mayo Blake MD is Attending Physician. cp 17:12 Savage, Lois, RN is Primary Nurse. lr4 17:17 Triage completed. lr4 17:19 Arm band placed on left wrist. lr4 17:19 Patient has correct armband on for positive identification. Bed in low position. Call lr4 light in reach. Door closed. Noise minimized. Warm blanket given. 17:20 No provider procedures requiring assistance completed. lr4 17:37 Urine Microscopic Only Sent. lr4 18:24 XRAY Femur RIGHT Sent. lr4 19:31 XRAY Chest (1 view) In Process Unspecified. EDMS 19:31 XRAY Humerus RIGHT In Process Unspecified. EDMS 19:31 XRAY Forearm RIGHT In Process Unspecified. EDMS 19:31 XRAY Femur RIGHT In Process Unspecified. EDMS 20:40 Head C Spine Cap Wo Con In Process Unspecified. EDMS 21:45 Basic Metabolic Panel Sent. lr4 21:45 CBC with Diff Sent. lr4 21:45 LFT's Sent. lr4 21:54 Stevo Macedo MD is Referral Physician. cp 22:18 IV discontinued, intact, bleeding controlled, No redness/swelling at site. Pressure lr4 dressing applied. Administered Medications: 18:05 Drug: fentaNYL (PF) 25 mcg Route: IVP; Site: right wrist; lr4 18:25 Follow up: Response: Pain is decreased lr4 20:21 Drug: NS 0.9% 500 ml Route: IV; Rate: bolus; Site: right hand; lr4 21:43 Follow up: IV Status: IV infiltrated; IV Intake: 100ml lr4 Intake: 21:43 IV: 100ml; Total: 100ml. lr4 Outcome: 17:20 Condition: stable lr4 21:56 Discharge ordered by MD. cp 22:18 Discharged to home via wheelchair. lr4 22:18 Discharge instructions given to patient. 22:19 Patient left the ED. lr4 Signatures: Dispatcher [employer] EDMS Mayo Frank PA PA cp O'Farrell, Brenda, RN Yudelka Landeros RN RN eo2 Lois Savage, MEHNAZ RN lr4
--- NOTE | 2021-11-27 21:56 | EDPHYS ---
Physician Documentation [facility] Name: Jose Manuel Richardson Age: 61 yrs Sex: Female : 1960 Arrival Date: 11/27/2021 Time: 17:03 Bed 28 Private MD: KASHIF Physician Mayo Blake HPI: 11/27 17:09 This 61 yrs old Female presents to ER via Unassigned with complaints of Fall. cp 17:10 Details of fall: The patient fell from an upright position, while walking. cp 17:10 Onset: The symptoms/episode began/occurred today, yesterday. Associated injuries: The cp patient sustained injury to the head, contusion, right arm, painful injury. Patient reports losing her balance and falling yesterday and again today. Patient reports falling and hitting head yesterday with fall today injuring right arm. Historical: - Allergies: 17:17 cipro (IV, but can take PO); lr4 17:17 Flagyl; lr4 - PMHx: 17:17 Cirrhosis; secondary to ETOH abuse; hypotension; liver failure, chronic; Renal Disease; lr4 - Immunization history:: Adult Immunizations up to date. - Social history:: Smoking status: Patient reports the use of cigarette tobacco products, smokes one pack cigarettes per day. ROS: 17:15 Constitutional: Negative for body aches, chills, fever, poor PO intake. cp 17:15 ENT: Negative for ear pain, sore throat, difficulty swallowing, difficulty handling cp secretions. 17:15 Cardiovascular: Negative for chest pain, edema. 17:15 Respiratory: Negative for cough, shortness of breath, wheezing. 17:15 Abdomen/GI: Negative for abdominal pain, nausea, vomiting, and diarrhea. 17:15 MS/extremity: Positive for pain, tenderness, of the right elbow, Negative for paresthesias. 17:15 Neuro: Positive for headache. 17:15 All other systems are negative. Exam: 17:20 Constitutional: The patient appears in no acute distress, alert, awake, cp non-diaphoretic, non-toxic, well developed, well nourished, uncomfortable. 17:20 Head/face: Noted is contusion, that is superficial, of the forehead. cp 17:20 Eyes: Periorbital structures: appear normal, Pupils: equal, round, and reactive to light and accomodation, Extraocular movements: intact throughout, Conjunctiva: normal, no exudate, no injection, Sclera: no appreciated abnormality, Lids and lashes: appear normal, bilaterally. 17:20 ENT: External ear(s): are unremarkable, Ear canal(s): are normal, clear, TM's: dullness, bilaterally, Nose: is normal, Mouth: Lips: dry, Oral mucosa: moist, Posterior pharynx: Airway: no evidence of obstruction, patent. 17:20 Neck: C-spine: vertebral tenderness, is not appreciated, crepitus, is not appreciated, ROM/movement: is normal, is supple, without pain, no range of motions limitations. 17:20 Chest/axilla: Inspection: normal, Palpation: is normal, no crepitus, no tenderness. 17:20 Cardiovascular: Rate: normal, Rhythm: regular, Edema: is not appreciated, JVD: is not appreciated. 17:20 Respiratory: the patient does not display signs of respiratory distress, Respirations: normal, no use of accessory muscles, no retractions, labored breathing, is not present, Breath sounds: are clear throughout, no decreased breath sounds, no stridor, no wheezing. 17:20 Abdomen/GI: Inspection: abdomen appears normal, Bowel sounds: active, all quadrants, Palpation: abdomen is soft and non-tender, in all quadrants. 17:20 Back: vertebral tenderness, is not appreciated. 17:20 Musculoskeletal/extremity: Extremities: grossly normal except: noted in the right elbow: ROM: limited passive range of motion due to pain, in the right arm, Pulses: noted to be 2+ in the right radial artery, the right arm Sensation intact. 17:20 Neuro: Orientation: to person, place \T\ time. Mentation: able to follow commands, slow to respond, Motor: moves all fours, strength is normal. 17:25 ECG was reviewed by the Attending Physician. cp Vital Signs: 17:14 BP 118 / 63; Pulse 65; Resp 20; Temp 98.5; Pulse Ox 99% on R/A; Weight 62.6 kg; Height lr4 5 ft. 9 in. (175.26 cm); Pain 10/10; 22:17 BP 123 / 63; Pulse 70; Resp 20; Pulse Ox 97% on R/A; lr4 17:14 Body Mass Index 20.38 (62.60 kg, 175.26 cm) lr4 [place] Coma Score: 17:20 Eye Response: spontaneous(4). Verbal Response: oriented(5). Motor Response: obeys cp commands(6). Total: 15. MDM: 17:08 Patient medically screened. melanie 21:55 Data reviewed: vital signs, nurses notes, lab test result(s), EKG, radiologic studies, cp CT scan, plain films. 21:55 Differential diagnosis: closed head injury, contusion, fracture, multiple trauma. Test cp interpretation: by ED physician or midlevel provider: ECG, plain radiologic studies. Counseling: I had a detailed discussion with the patient and/or guardian regarding: the historical points, exam findings, and any diagnostic results supporting the discharge/admit diagnosis, lab results, radiology results, to return to the emergency department if symptoms worsen or persist or if there are any questions or concerns that arise at home. Response to treatment: the patient's symptoms have markedly improved after treatment. 11/27 17:12 Order name: Basic Metabolic Panel cp 11/27 17:12 Order name: CBC with Diff cp 11/27 17:12 Order name: LFT's cp 11/27 17:12 Order name: Magnesium; Complete Time: 19:14 cp 11/27 17:12 Order name: NT PRO-BNP; Complete Time: 19:14 cp 11/27 17:12 Order name: PT-INR cp 11/27 17:12 Order name: Troponin HS; Complete Time: 19:14 cp 11/27 17:12 Order name: AMMONIA; Complete Time: 19:14 cp 11/27 19:14 Interpretation: Abnormal: KATHERIN 65. cp 11/27 17:12 Order name: Urine Microscopic Only; Complete Time: 19:14 cp 11/27 17:12 Order name: Basic Metabolic Panel; Complete Time: 19:14 EDMS 11/27 19:14 Interpretation: Normal except: CL 117; CO2 19; GFR 43. cp 11/27 17:12 Order name: CBC with Automated Diff EDMS 11/27 19:14 Interpretation: Normal except: WBC 2.90; RBC 3.90; HGB 11.0; HCT 33.1; PLT 44; RDW cp 20.0; MN% 25.7; NEUT A 1.6; LYMA 0.5. 11/27 17:12 Order name: Liver (Hepatic) Function; Complete Time: 19:14 EDMS 11/27 19:14 Interpretation: Normal except: AST 38; BILID 0.3; GLOB 3.8; A/G 0.9. cp 03/ 18:18 Order name: Urine Dipstick-Ancillary; Complete Time: 19:14 EDMS 11/27 21:50 Order name: Manual Differential EDSD 11/27 17:12 Order name: XRAY Chest (1 view); Complete Time: 20:08 cp 11/27 17:12 Order name: EKG; Complete Time: 17:13 cp 11/27 17:12 Order name: Cardiac monitoring; Complete Time: 17:13 cp 11/27 17:12 Order name: EKG - Nurse/Tech; Complete Time: 17:20 cp 11/27 17:12 Order name: IV Saline Lock; Complete Time: 18:54 cp 11/27 17:12 Order name: Labs collected and sent; Complete Time: 18:54 cp 11/27 17:12 Order name: O2 Per Protocol; Complete Time: 17:13 cp 11/27 17:12 Order name: O2 Sat Monitoring; Complete Time: 17:13 cp 11/27 17:12 Order name: XRAY Humerus RIGHT; Complete Time: 20:08 cp 11/27 17:12 Order name: XRAY Forearm RIGHT; Complete Time: 20:08 cp 11/27 17:12 Order name: XRAY Femur RIGHT; Complete Time: 20:08 cp 11/27 17:12 Order name: Urine Dipstick-Ancillary (obtain specimen); Complete Time: 18:24 cp 11/27 20:28 Order name: Head C Spine Cap Wo Con; Complete Time: 21:11 EDSD 11/27 21:13 Interpretation: Report reviewed. cp 11/27 21:14 Order name: Splint - Elbow - Posterior; Complete Time: 21:43 cp 11/27 21:14 Order name: Sling; Complete Time: 21:43 cp EC:25 Rate is 70 beats/min. Rhythm is regular. PA interval is normal. QRS interval is normal. cp QT interval is normal. T waves are Inverted in leads aVL, aVR, V2. Interpreted by me. Reviewed by me. Administered Medications: 18:05 Drug: fentaNYL (PF) 25 mcg Route: IVP; Site: right wrist; lr4 18:25 Follow up: Response: Pain is decreased lr4 20:21 Drug: NS 0.9% 500 ml Route: IV; Rate: bolus; Site: right hand; lr4 21:43 Follow up: IV Status: IV infiltrated; IV Intake: 100ml lr4 Disposition Summary: 11/27/21 21:56 Discharge Ordered Location: Home cp Problem: new cp Symptoms: have improved cp Condition: Stable cp Diagnosis - Contusion of right elbow cp - Contusion of unspecified part of head, initial encounter cp - Fall on same level, unspecified cp Followup: cp - With: Stevo Macedo MD - When: 2 - 3 days - Reason: right elbow injury Discharge Instructions: - Discharge Summary Sheet cp - Facial or Scalp Contusion cp - Elbow Contusion cp Forms: - Medication Reconciliation Form cp - Thank You Letter cp - Antibiotic Education cp - Prescription Opioid Use cp Prescriptions: - Ibuprofen 600 mg Oral Tablet - take 1 tablet by ORAL route every 8 hours As needed take with food; 30 tablet; cp Refills: 0, Product Selection Permitted Signatures: Dispatcher [employer] EDMayo Torres MD MD cha Page, Corey, PA PA cp Lois Savage, RN RN lr4 Khadijah Olsen PA PA sb3 Corrections: (The following items were deleted from the chart) 18:24 17:13 Head C Spine CAP W [id number] ordered. EDMS EDMS
[2021-11-27 21:58] LABS: Platelet Estimate DECR
[2021-11-27 21:59] LABS: Blood Morphology Comment NOT SEEN (NOT SEEN); Platelets, Giant OCC
[2021-11-27 23:34] VITALS: TEMP 98.5
[2021-11-27 23:35] VITALS: BP 123/63; O2SAT 97
== END 2021-11-27 22:19 | disposition home or self-care (01) ==
LOC: ER 16:58
DX: S00.83XA Contusion of other part of head, initial encounter (principal); S50.01XA Contusion of right elbow, initial encounter; W18.30XA Fall on same level, unspecified, initial encounter; N28.9 Disorder of kidney and ureter, unspecified; I95.9 Hypotension, unspecified; F17.210 Nicotine dependence, cigarettes, uncomplicated; Z88.1 Allergy status to other antibiotic agents; Z88.8 Allergy status to other drugs, medicaments and biological substances
CPT/HCPCS: 85025; 80048; 36415; 82140; 83735; 85610; 80076; 84484; 83880; 70450; 71250; 72125; 71045; 73090; 73060; 73552; J3010; J7040; 81003; 81015; 93005; 96361; 96374; 99284

== ENCOUNTER 2022-03-22 14:10 | Emergency (ER) | payer OTHER ==
[2022-03-22 15:09] LABS: Absolute Lymphocytes (CBC) 0.6 K/uL (0.7-4.9); Hematocrit 30.7 % (36.0-45.0); Lymphocytes % 25.8 % (15.3-44.8); MCV 85.5 fL (80-100); MPV 9.8 fL (7.6-11.3); RBC Red Blood Cell Count 3.59 M/uL (3.86-4.86)
[2022-03-22 15:15] LABS: Protime INR 1.18
[2022-03-22 15:26] LABS: Albumin 3.2 g/dL (3.4-5.0); Bilirubin Total 0.8 mg/dL (0.2-1.0); Protein, Total 6.3 g/dL (6.4-8.2)
[2022-03-22 16:26] LABS: Blood Morphology Comment NOTED (NOT SEEN); Platelet Estimate DECR; White Blood Cell Scan OK (OK)
[2022-03-22] MEDS ORDERED: LACTULOSE 20 GM/30 ML UCUP ONE (16:48)
[2022-03-22] MEDS ORDERED: NA CHLORIDE 0.9% 500 ML ONE (16:48)
--- NOTE | 2022-03-22 16:56 | RAD REPORT ---
EXAM DESCRIPTION: CT - Head Brain Wo Cont - 03/22/2022 4:47 pm CLINICAL HISTORY: Mental status change, persistent or worsening COMPARISON: Head Brain Wo Cont dated 11/21/2021; Head Brain Wo Cont dated 06/30/2019; HEAD BRAIN W O C ONTRAST dated 01/20/2013; Abdomen Pelvis Wo Contrast dated 03/22/2022 TECHNIQUE: All CT scans are performed using dose optimization technique as appropriate and may inclu de automated exposure control or mA/KV adjustment according to patient size. FINDINGS: No intracranial hemorrhage, hydrocephalus or extra-axial fluid collection.No areas of brai n edema or evidence of midline shift. The paranasal sinuses and mastoids are clear. The calvarium is intact. IMPRESSION: No acute intracranial abnormality.
--- NOTE | 2022-03-22 17:04 | RAD REPORT ---
EXAM DESCRIPTION: CTAbdomen Pelvis Wo Contrast - 03/22/2022 4:51 pm CLINICAL HISTORY: abdominal pain and dysuria COMPARISON: Abdomen Pelvis W Contrast dated 07/17/2020; Abdomen Pelvis Wo Contrast dated 07/25/20 19; Abdomen Pelvis Wo Contrast dated 06/30/2019; Abdomen Pelvis Wo Contrast dated 04/19/2017 TECHNIQUE: CT of the abdomen and pelvis was performed. All CT scans are performed using dose optimization technique as appropriate and may include automated exposure control or mA/KV adjustment according to patient size. FINDINGS: Lower chest: Breast prostheses. Liver: Cirrhotic liver morphology. TIPS Biliary: Cholelithiasis. Stomach: No significant focal abnormality. Duodenum: No significant focal abnormality. Pancreas: No significant abnormality. Spleen: Splenomegaly Adrenal: No suspicious lesions. Kidney/ureter: No hydronephrosis. No renal calculi. Retroperitoneum: No retroperitoneal adenopathy. Vascular: No aneurysm. Atherosclerosis. Bowel: No bowel obstruction. No appendicitis.. Peritoneum: Fat containing periumbilical hernia. Bladder: Grossly unremarkable. Reproductive: No adnexal masses. Bones: 4 millimeters of retrolisthesis of L5 on S1 with advanced degenerative changes. Other: n/a IMPRESSION: No acute intra-abdominal or pelvic finding. No urinary tract calculi or hydronephrosis. Incidental findings as noted above.
[2022-03-22 19:48] LABS: Urine Blood Negative (Negative); Urine Glucose Negative (Negative); Urine Protein Negative (Negative)
[2022-03-22 20:11] LABS: Urine Bacteria <20 /HPF (<20); Urine RBC <5 /HPF (NONE SEEN)
--- NOTE | 2022-03-22 20:40 | ER ---
Nurse's Notes [facility] Name: Jose Manuel Richardson Age: 61 yrs Sex: Female : 1960 Arrival Date: 03/22/2022 Time: 14:17 Bed 18 Private MD: Diagnosis: Hepatic encephalopathy;Patient's noncompliance with other medical treatment and regimen Presentation: 03/22 14:17 Chief complaint: Patient states: Pt from home, daughter called EMS for AMS, hx of ph cirrhosis, daughter reports that pt becomes confused when her ammonia level is high. VSS, 18 G to LAC, pt oriented to person and place. Coronavirus screen: Vaccine status: Patient reports receiving the 2nd dose of the covid vaccine. Ebola Screen: No symptoms or risks identified at this time. Initial Sepsis Screen: Does the patient meet any 2 criteria? No. Patient's initial sepsis screen is negative. Does the patient have a suspected source of infection? No. Patient's initial sepsis screen is negative. Risk Assessment: Do you want to hurt yourself or someone else? Patient reports no desire to harm self or others. 14:17 Method Of Arrival: EMS: [facility] 14:17 Acuity: JEANA 3 ph 15:08 Onset of symptoms was March 22, 2022. Triage Assessment: 14:26 General: Appears in no apparent distress. slender, well groomed, Behavior is calm, ph cooperative, appropriate for age. Pain: Denies pain. Neuro: Level of Consciousness is awake, alert, obeys commands, Oriented to person, place, Moves all extremities. Cardiovascular: Capillary refill < 3 seconds in bilateral fingers Patient's skin is warm and dry. Respiratory: Airway is patent Respiratory effort is even, unlabored, Respiratory pattern is regular, symmetrical. GI: Patient currently denies abdominal pain, nausea, vomiting. Derm: Skin is intact. Musculoskeletal: Circulation, motion, and sensation intact. Range of motion: intact in all extremities. Historical: - Allergies: 14:25 cipro (IV, but can take PO); ph 14:25 Flagyl; ph - PMHx: 14:25 Cirrhosis; secondary to ETOH abuse; hypotension; liver failure, chronic; Renal Disease; ph - Immunization history:: Adult Immunizations unknown. - Social history:: Smoking status: Patient reports the use of cigarette tobacco products, smokes one pack cigarettes per day. Screenin:07 Abuse screen: Denies threats or abuse. Denies injuries from another. Nutritional ph screening: No deficits noted. Tuberculosis screening: No symptoms or risk factors identified. Fall Risk None identified. Assessment: 15:08 General: SEE TRIAGE ASSESSMENT. ph 19:00 Reassessment: No changes from previously documented assessment. Patient and/or family ll3 updated on plan of care and expected duration. Pain level reassessed. Patient is alert, oriented x 3, equal unlabored respirations, skin warm/dry/pink. 20:00 Reassessment: No changes from previously documented assessment. Patient and/or family ll3 updated on plan of care and expected duration. Pain level reassessed. Patient is alert, oriented x 3, equal unlabored respirations, skin warm/dry/pink. 21:29 Reassessment: Spoke with José Antonio Adame, patient's daughter, ; Reports she lp1 will come to knot picker cloth patient for discharge in about 30 minutes, patent updated. Vital Signs: 14:17 BP 114 / 76; Pulse 55; Resp 18; Temp 97.3; Pulse Ox 99% on R/A; Weight 63.5 kg; ph 15:30 BP 118 / 70; Pulse 54; Resp 18; Pulse Ox 98% on R/A; ph 16:30 BP 110 / 61; Pulse 56; Resp 16; Pulse Ox 100% ; ph 17:30 BP 112 / 58; Pulse 55; Resp 18; Pulse Ox 100% on R/A; ph 18:56 BP 115 / 59; Pulse 54; Resp 18; Pulse Ox 99% on R/A; ph 20:00 BP 134 / 64; Pulse 61; Resp 18; Pulse Ox 98% on R/A; ll3 22:27 BP 119 / 52; Pulse 55; Resp 16; Pulse Ox 99% on R/A; ll3 ED Course: 14:17 Patient arrived in ED. ph 14:23 Duglas Taylor NP is PHCP. pm1 14:23 Howard Reddy MD is Attending Physician. pm1 14:24 Triage completed. ph 14:25 Estefania Foster, RN is Primary Nurse. ph 14:25 Arm band placed on Patient placed in an exam room, on a stretcher, on bus driver/monitor, ph on pulse oximetry. 15:07 Patient has correct armband on for positive identification. Bed in low position. Call ph light in reach. Side rails up X 1. Pulse ox on. NIBP on. 15:08 Maintain EMS IV. Dressing intact. Good blood return noted. Site clean \T\ dry. Gauge \T\ ph site: 20 LAC. 15:50 Missed attempt(s): 22 gauge in right upper arm. Bleeding controlled, band aid applied, ss catheter tip intact. 15:55 Missed attempt(s): 22 gauge in right antecubital area. Bleeding controlled, band aid ph applied, catheter tip intact. Missed attempt(s): 22 gauge in right antecubital area. Bleeding controlled, band aid applied, catheter tip intact. 16:01 Missed attempt(s): 22 gauge in left forearm. Bleeding controlled, band aid applied, ss catheter tip intact. 16:15 Missed attempt(s): 20 gauge in right forearm. bleeding controlled. jg9 16:49 CT Head Brain wo Cont In Process Unspecified. EDMS 16:53 Abdomen In Process Unspecified. EDMS 17:51 Inserted saline lock: 22 gauge in left forearm, using aseptic technique. Blood jg9 collected. 22:27 No provider procedures requiring assistance completed. IV discontinued, intact, ll3 bleeding controlled, No redness/swelling at site. Pressure dressing applied. Administered Medications: 17:00 Drug: Lactulose 30 grams Volume: 45 ml; Route: PO; ph 18:55 Drug: NS 0.9% 500 ml Route: IV; Rate: bolus; Site: left forearm; ph Medication: 15:07 VIS not applicable for this client. ph Outcome: 20:40 Discharge ordered by . pm1 22:27 Discharged to home ambulatory, with family. ll3 22:27 Condition: stable 22:27 Discharge instructions given to patient, family, Instructed on discharge instructions, follow up and referral plans. Demonstrated understanding of instructions, follow-up care. 22:28 Patient left the ED. ll3 Signatures: Dispatcher [employer] EDNH Emmy Darnell RN RN ss Radha Doty RN RN lp1 Estefania Foster RN RN ph Duglas Taylor, DRY CLEANING SUPERVISOR DRY CLEANING SUPERVISOR pm1 Nette Sepulveda RN RN ll3 Jess Smith RN RN jg9
--- NOTE | 2022-03-22 20:41 | EDPHYS ---
Physician Documentation [facility] Name: Jose Manuel Richardson Age: 61 yrs Sex: Female : 1960 Arrival Date: 03/22/2022 Time: 14:17 Bed 18 Private MD: ED Physician Howard Reddy HPI: 03/22 14:36 This 61 yrs old Female presents to ER via EMS with complaints of Altered Mental Status. pm1 14:36 The patient presents with decreased mental status. pm1 14:36 Onset: The symptoms/episode began/occurred today. Possible causes: elevated ammonia pm1 levels, history of cirrhosis. Associated signs and symptoms: Pertinent positives: dysuria, Pertinent negatives: abdominal pain, chest pain, diarrhea, nausea, shortness of breath, vomiting. Patient's baseline: Neuro: alert and fully oriented, Motor: no deficits, Ambulation: walks without assistance, Speech: normal, The patient has a previous history of liver cirrhosis with multiple admissions to the hospital for hepatic encephalopathy . The patient has experienced similar episodes in the past, several times. The patient has not recently seen a physician. Historical: - Allergies: 14:25 cipro (IV, but can take PO); ph 14:25 Flagyl; ph - PMHx: 14:25 Cirrhosis; secondary to ETOH abuse; hypotension; liver failure, chronic; Renal Disease; ph - Immunization history:: Adult Immunizations unknown. - Social history:: Smoking status: Patient reports the use of cigarette tobacco products, smokes one pack cigarettes per day. ROS: 14:36 Constitutional: Negative for fever, chills, and weight loss, Cardiovascular: Negative pm1 for chest pain, palpitations, and edema, Respiratory: Negative for shortness of breath, cough, wheezing, and pleuritic chest pain, Abdomen/GI: Negative for abdominal pain, nausea, vomiting, diarrhea, and constipation, MS/Extremity: Negative for injury and deformity, Skin: Negative for injury, rash, and discoloration. 14:36 : Positive for burning with urination, dsyuria. 14:36 Neuro: Positive for altered mental status, Negative for dizziness, headache, numbness, tingling, weakness. 14:36 All other systems are negative. Exam: 14:36 Constitutional: This is a well developed, well nourished patient who is awake, alert, pm1 and in no acute distress. Head/Face: Normocephalic, atraumatic. 14:36 Back: No spinal tenderness. No costovertebral tenderness. Full range of motion. Skin: Warm, dry with normal turgor. Normal color with no rashes, no lesions, and no evidence of cellulitis. MS/ Extremity: Pulses equal, no cyanosis. Neurovascular intact. Full, normal range of motion. 14:36 Eyes: Exam is negative for acute changes, Periorbital structures: no acute changes, Pupils: no acute changes, Extraocular movements: no acute changes, Conjunctiva: no acute changes, no injection, Sclera: icterus, is not appreciated. 14:36 ENT: Exam is negative for acute changes, Mouth: no acute changes, Lips: normal, moist, Oral mucosa: normal, pink and intact, moist. 14:36 Cardiovascular: Exam negative for acute changes, Rate: normal, Rhythm: regular, Pulses: no pulse deficits are appreciated. 14:36 Respiratory: Exam negative for acute changes, respiratory distress, shortness of breath, Breath sounds: are clear throughout. 14:36 Abdomen/GI: Inspection: abdomen appears normal, Palpation: mild abdominal tenderness, in the right lower quadrant. 14:36 Neuro: Exam negative for acute changes, Orientation: to person, place, situation, Mentation: is normal, Motor: is normal, moves all fours. Vital Signs: 14:17 BP 114 / 76; Pulse 55; Resp 18; Temp 97.3; Pulse Ox 99% on R/A; Weight 63.5 kg; ph 15:30 BP 118 / 70; Pulse 54; Resp 18; Pulse Ox 98% on R/A; ph 16:30 BP 110 / 61; Pulse 56; Resp 16; Pulse Ox 100% ; ph 17:30 BP 112 / 58; Pulse 55; Resp 18; Pulse Ox 100% on R/A; ph 18:56 BP 115 / 59; Pulse 54; Resp 18; Pulse Ox 99% on R/A; ph 20:00 BP 134 / 64; Pulse 61; Resp 18; Pulse Ox 98% on R/A; ll3 22:27 BP 119 / 52; Pulse 55; Resp 16; Pulse Ox 99% on R/A; ll3 MDM: 14:25 Patient medically screened. pm1 16:43 Data reviewed: vital signs. Data interpreted: Pulse oximetry: on room air is 99 %. pm1 Interpretation: normal. 18:29 ED course: Patient reports to me that she does not want to stay in the hospital. pm1 Pending contact with family . 20:19 Counseling: I had a detailed discussion with the patient and/or guardian regarding: the pm1 historical points, exam findings, and any diagnostic results supporting the discharge/admit diagnosis, lab results, radiology results, the need for further work-up and treatment in the hospital. 20:19 Refusal of service: The patient/guardian displays adequate decision making capability pm1 and despite a detailed discussion of alternatives, benefits, risks, and consequences refuses: Admission to the hospital for further work-up and treatment, Offered the patient admission on multiple occasions and she refused. 03/22 14:33 Order name: CBC with Diff; Complete Time: 16:37 pm1 03/22 14:33 Order name: CMP; Complete Time: 16:00 pm1 03/22 14:33 Order name: Lipase; Complete Time: 16:00 pm1 03/22 14:33 Order name: Urine Microscopic Only; Complete Time: 20:17 pm1 03/22 14:33 Order name: PT-INR; Complete Time: 16:00 pm1 03/22 14:33 Order name: Ptt, Activated; Complete Time: 16:00 pm1 03/22 14:33 Order name: CT Head Brain wo Cont; Complete Time: 17:04 pm1 03/22 14:33 Order name: CT Abd/Pelvis - IV Contrast Only pm1 03/22 14:33 Order name: AMMONIA; Complete Time: 16:00 pm1 03/22 15:15 Order name: CBC Smear Scan; Complete Time: 16:37 EDMS 03/22 16:01 Order name: COVID-19 SARS RT PCR (Document "Date of Onset" if Symptomatic); Complete pm1 Time: 17:55 03/22 16:37 Order name: ETOH Level; Complete Time: 18:33 pm1 03/22 19:48 Order name: Urine Dipstick-Ancillary; Complete Time: 19:49 EDMS 03/22 14:33 Order name: IV Saline Lock; Complete Time: 15:07 pm1 03/22 14:33 Order name: Labs collected and sent; Complete Time: 15:07 pm1 03/22 14:33 Order name: Urine Dipstick-Ancillary (obtain specimen); Complete Time: 19:57 pm1 03/22 16:42 Order name: Abdomen ; Complete Time: 17:12 EDMS 03/22 18:34 Order name: Straight Cath - Urine; Complete Time: 19:57 pm1 Administered Medications: 17:00 Drug: Lactulose 30 grams Volume: 45 ml; Route: PO; ph 18:55 Drug: NS 0.9% 500 ml Route: IV; Rate: bolus; Site: left forearm; ph Disposition: 03/23 07:06 Co-signature as Attending Physician, Howard Reddy MD I agree with the assessment and kdr plan of care. Disposition Summary: 03/22/22 20:40 Discharge Ordered Location: Home pm1 Problem: new pm1 Symptoms: have improved pm1 Condition: Stable pm1 Diagnosis - Hepatic encephalopathy pm1 - Patient's noncompliance with other medical treatment and regimen pm1 Followup: pm1 - With: Emergency Department - When: As needed - Reason: Worsening of condition Followup: pm1 - With: Private Physician - When: 2 - 3 days - Reason: Recheck today's complaints, Continuance of care, Re-evaluation by your physician Forms: - Medication Reconciliation Form pm1 - Thank You Letter pm1 - Antibiotic Education pm1 - Prescription Opioid Use pm1 Signatures: Dispatcher [employer] EDHoward Quintana MD MD kdr Hall, Patricia RN RN ph Duglas Taylor, JEREMY MANAGER REGIONAL pm1 Corrections: (The following items were deleted from the chart) 03/22 16:42 14:39 Abdomen ordered. [facility] EDGA
[2022-03-22 22:35] VITALS: TEMP 97.3
[2022-03-22 22:48] VITALS: BP 119/52; O2SAT 99
== END 2022-03-22 22:28 | disposition home or self-care (01) ==
LOC: ER 14:10
DX: K72.90 Hepatic failure, unspecified without coma (principal); K70.30 Alcoholic cirrhosis of liver without ascites; Z91.19 Patient's noncompliance with other medical treatment and regimen; Z88.1 Allergy status to other antibiotic agents; Z88.6 Allergy status to analgesic agent; F17.210 Nicotine dependence, cigarettes, uncomplicated; Z20.822 Contact with and (suspected) exposure to COVID-19
CPT/HCPCS: 85025; 36415; 80320; 82140; 85610; 85730; 83690; 80053; 70450; 74176; 99284; U0003; J7040; 81003; 81015

== ENCOUNTER 2024-01-28 11:22 | Observation (INO) | payer OTHER ==
[2024-01-28] MEDS ORDERED: FAMOTIDINE 20 MG/2 ML VIAL IV ONE (12:06)
[2024-01-28] MEDS ORDERED: CEFTRIAXONE 1000 MG/VIAL ONE (12:06)
[2024-01-28] MEDS ORDERED: NA CHLORIDE 0.9% 1,000 ML ONE (12:07)
--- NOTE | 2024-01-28 12:18 | RAD REPORT ---
EXAM DESCRIPTION: CT - Head C Spine Cap Elisa Con - 01/28/2024 11:57 am CLINICAL HISTORY: Confusion Head and neck injury with chest and abdominal pain status post fall TECHNIQUE: Computed axial tomography of head, neck, chest, abdomen and pelvis obtained. IV and oral contrast not requested. Coronal and sagittal reconstruction performed. All CT scans are performed using dose optimization technique as appropriate and may include automated exposure control or mA/KV adjustment according to patient size. COMPARISON: 2021 FINDINGS: An intracranial bleed is not seen. The ventricles are normal in caliber. An extra-axial fluid collection is not noted. Fluid within the sinuses/mastoids is not seen. A cervical fracture is not seen. No dislocation is noted. Mild anterior subluxation C5 on C6 is uncha nged from the prior exam. The evaluation of mediastinum, mikaela, vessels, solid organs and bowel are limited secondary to the lac k of contrast administration. A mediastinal hematoma is not noted. A pleural effusion is not seen. A lung contusion is not present. Clear lungs The liver,spleen, pancreas, adrenals,kidneys and bladder do not demonstrate an acute traumatic injury Cirrhotic liver. Tips shunt in place. Spleen 14 centimeters. Pancreas, adrenals and kidneys grossly normal. Gallstones without gallbladder wall thickening Mild to moderate posterior subluxation of L5 on S1 with disc space narrowing, osteophytes and subchon dral sclerosis unchanged No adnexal mass Calcified breast implants. Moderate umbilical hernia contains fat. Moderate amount of stool throughou t the colon IMPRESSION: No acute intracranial abnormality is seen. A cervical fracture is not visualized. If the patient continues to have symptoms to suggest intracran ial/spinal cord pathology MRI be recommended No acute traumatic abnormality involving the chest, abdomen or pelvis Cirrhosis Cholelithiasis without evidence cholecystitis
--- NOTE | 2024-01-28 12:23 | RAD REPORT ---
EXAM DESCRIPTION: [place] [facility] [place]01/28/2024 12:04 pm CLINICAL HISTORY: Cough COMPARISON: 2021 FINDINGS: The lungs appear clear of acute infiltrate. The heart is normal size. Bilateral calcified breast implants IMPRESSION: No acute abnormalities displayed
[2024-01-28 13:09] LABS: Absolute Eosinophils 0.1 K/uL (0-0.5); Absolute Lymphocytes (CBC) 1.3 K/uL (0.7-4.9); Absolute Monocytes 0.4 K/uL (0.1-1.3); Absolute Neutrophil 2.5 K/uL (1.8-8.0); Basophils % 0.8 % (0-1.3); Eosinophils % 1.9 % (0-4.4); Hematocrit 37.6 % (36.0-45.0); Lymphocytes % 30.1 % (15.3-44.8); MCH 27.4 pg (27.0-35.0); MCV 85.6 fL (80-100); MPV 9.5 fL (7.6-11.3); Monocytes % 9.3 % (3.3-12.3); Neutrophils % 57.9 % (41.7-73.7); Nucleated Red Blood Cells % 0.1 % (0-0); Platelets 115 thou/uL (152-406); RBC Red Blood Cell Count 4.39 M/uL (3.86-4.86); Red Cell Distribution Width 21.1 % (12.1-15.2)
[2024-01-28 13:11] LABS: PT Prothrombin Time 13.8 SECONDS (9.5-12.5); Protime INR 1.26
[2024-01-28 13:24] LABS: SARS-CoV-2 Antigen CONTROL BLUE LINE VIS/BG OK; SARS-CoV-2 Antigen Rapid Res Negative (Negative)
[2024-01-28 13:31] LABS: Albumin/Globulin Ratio 1.1 (1.1-1.8); Anion Gap 9.1 mEq/L (5.0-15.0); Bilirubin Direct 0.3 mg/dL (0-0.2); Bilirubin Total 1.3 mg/dL (0.2-1.0); Globulin 3.7 g/dL (2.3-3.5); Magnesium 2.3 mg/dL (1.6-2.4); Potassium 4.1 mEq/L (3.5-5.1); Protein, Total 7.7 g/dL (6.4-8.2); Troponin High Sensitivity 4.5 pg/mL (<58.9)
[2024-01-28 13:33] LABS: Platelet Estimate DECR; White Blood Cell Scan OK (OK)
[2024-01-28 13:34] LABS: Anisocytosis 1+; Blood Morphology Comment NOTED (NOT SEEN); Burr Cells 1+
--- NOTE | 2024-01-28 15:11 | ER ---
Nurse's Notes [facility] Name: Jose Manuel Richardson Age: 63 yrs Sex: Female : 1960 Arrival Date: 01/28/2024 Time: 11:22 Bed 17 Private MD: Diagnosis: Altered mental status, unspecified;Alcoholic cirrhosis of liver without ascites;Encephalopathy, unspecified-HEPATIC Presentation: 01/27 11:24 Chief complaint: EMS states: AMS AND UNCOOPERATIVE AT HOME. Coronavirus screen: At this bp time, the client does not indicate any symptoms associated with coronavirus-19. Ebola Screen: No symptoms or risks identified at this time. Initial Sepsis Screen: Does the patient meet any 2 criteria? No. Patient's initial sepsis screen is negative. Does the patient have a suspected source of infection? No. Patient's initial sepsis screen is negative. Risk Assessment: Do you want to hurt yourself or someone else? Unable to obtain. Note H/O CIRRHOSIS AND NON-COMPLIANCE. Onset of symptoms is unknown. Care prior to arrival: None. 11:24 Method Of Arrival: EMS: [facility] bp 11:24 Acuity: JEANA 3 bp Triage Assessment: 11:24 General: Appears in no apparent distress. comfortable, Behavior is cooperative, bp appropriate for age, anxious. Pain: Denies pain. Neuro: Level of Consciousness is awake, alert, obeys commands, Oriented to Appropriate for age. Historical: - Allergies: 11:23 cipro (IV; bp 11:23 Flagyl; bp - PMHx: 11:23 Cirrhosis; secondary to ETOH abuse; hypotension; liver failure; Renal Disease; bp - Immunization history:: Adult Immunizations. - Infectious Disease History:: Denies. - Social history:: Smoking status: unknown. Screenin:26 [facility] ED Fall Risk Assessment (Adult) History of falling in the last 3 months, bp including since admission No falls in past 3 months (0 pts). Abuse screen: Denies threats or abuse. Denies injuries from another. Nutritional screening: No deficits noted. Tuberculosis screening: No symptoms or risk factors identified. Assessment: 11:26 General: ORIENTED BUT UNCOOPERATIVE. bp 13:00 Reassessment: PT REFUSING EKG. bp 15:02 Reassessment: DISPO PENDING CONTACT WITH FAMILY FOR TRANSPORT. Neuro: Level of bp Consciousness is awake, alert, obeys commands, Oriented to Appropriate for age. 15:15 Reassessment: MESSAGE LEFT WITH FAMILY FOR TRANSPORT. bp 16:55 Reassessment: 3RD ATTEMPT TO CONTACT FAMILY, NO ANSWER OR RESPONSE. MD AWARE. bp 19:10 Reassessment: Patient and/or family updated on plan of care and expected duration. Pain bp level reassessed. Patient is alert, oriented x 3, equal unlabored respirations, skin warm/dry/pink. Neuro: Level of Consciousness is awake, alert, obeys commands, Oriented to person, place, situation. 20:07 Reassessment: faxed report pending IV placement. tm6 20:37 Reassessment: report faxed to 4th floor. tm6 Vital Signs: 11:24 BP 123 / 67; Pulse 61; Resp 16; Temp 98; Pulse Ox 99% ; bp 13:00 BP 120 / 105; Pulse 54; Resp 15; Pulse Ox 100% ; bp 15:01 BP 145 / 58; Pulse 51; Resp 16; Pulse Ox 97% ; bp 16:55 BP 106 / 89; Pulse 56; Resp 16; Pulse Ox 99% ; bp 19:10 BP 141 / 57; Pulse 67; Pulse Ox 100% on R/A; Pain 0/10; bp 19:10 Pain Scale: Adult bp [place] Coma Score: 15:06 Eye Response: spontaneous(4). Motor Response: obeys commands(6). Verbal Response: melanie oriented(5). Total: 15. NIH Stroke Scale Scores: 15:06 NIHSS Score: 0 melanie ED Course: 11:22 Patient arrived in ED. bp 11:24 Frank Drew, MEHNAZ is Primary Nurse. bp 11:24 Mayo Blake MD is Attending Physician. melanie 11:24 Arm band placed on. bp 11:26 Triage completed. bp 11:26 Patient has correct armband on for positive identification. bp 11:58 CT Traumagram (Head C Spine CAP wo con) In Process Unspecified. EDMS 12:05 XRAY Chest (1 view) In Process Unspecified. EDMS 13:00 Inserted saline lock: 22 gauge in left forearm, using aseptic technique. Blood bp collected. 13:07 AMMONIA Sent. bp 13:07 SARS RAPID Sent. bp 13:07 Flu Sent. bp 13:07 Basic Metabolic Panel Sent. bp 13:07 CBC with Diff Sent. bp 13:07 LFT's Sent. bp 13:07 Magnesium Sent. bp 13:07 NT PRO-BNP Sent. bp 13:07 Troponin HS Sent. bp 13:07 PT-INR Sent. bp 15:10 Edgardo Agudelo MD is Referral Physician. melanie 16:57 Ac Mckeon MD is Hospitalizing Provider. melanie 17:36 Chayito Holman [facility]-Lj [facility] snw 20:10 Missed attempt(s): 22 gauge in right forearm. pf1 20:15 Inserted saline lock: 24 gauge in left antecubital area, using aseptic technique. pf1 21:04 No provider procedures requiring assistance completed. Patient admitted, IV remains in tm6 place. 21:06 Provided Education on: need for admit. tm6 Administered Medications: 13:00 Drug: Rocephin IV 1 grams IV at per protocol once; Given slow IV push per pharmacy bp instructions Route: IV; Rate: per protocol; Site: left forearm; 13:00 Drug: Famotidine IVP 20 mg IVP once; dilute with 10 mL 0.9% NaCl; give over 2 minutes bp Route: IVP; Site: left forearm; 16:44 Follow up: Response: No adverse reaction bp 13:00 Drug: NS 0.9% IV 1000 ml IV at 1 bolus Per protocol; 1000 mL bolus Route: IV; Rate: 1 bp bolus; Site: left forearm; 15:15 Drug: Lactulose PO 30 grams 45 ml PO once Volume: 45 ml; Route: PO; bp 16:59 Follow up: Response: No adverse reaction bp 16:59 Drug: Lactulose PO 30 grams 45 ml PO once Volume: 45 ml; Route: PO; bp 17:00 Follow up: Response: No adverse reaction bp Medication: 11:26 VIS not applicable for this client. bp Outcome: 15:11 Discharge ordered by . melanie 16:57 Decision to Hospitalize by Provider. melanie 21:04 Admitted to Med/surg accompanied by tech, room 403, tm6 21:04 Condition: stable 21:04 Instructed on the need for admit, 21:49 Patient left the ED. tm6 NIH Stroke Scale - NIH Stroke Score Date: 01/28/2024 Time: 15:06 Total Score = 0 10. Dysarthria (speech clarity - read or repeat words) - 0(Normal) 11. Extinction and Inattention (visual/tactile/auditory/spatial/personal) - 0(No abnormality) 1a. Level of Consciousness (LOC) - 0(Alert) 1b. Level of Consciousness (LOC) (Month \T\ Age) - 0(Both) 1c. LOC Commands (Open \T\ Closes Eyes/Sampling Expert) - 0(Both) 2. Best Gaze (Lateral Gaze Paresis) - 0(Normal) 3. Visual Field Loss - 0(No visual loss) 4. Facial Palsy - 0(Normal) 5a. Left Arm: Motor (10-second hold) - 0(No drift) 5b. Right Arm: Motor (10-second hold) - 0(No drift) 6a. Left Leg: Motor (5-second hold - always test supine) - 0(No drift) 6b. Right Leg: Motor (5-second hold - always test supine) - 0(No drift) 7. Limb Ataxia (finger/nose \T\ heel/hollins - test with eyes open) - 0(Absent) 8. Sensory Loss (pinprick arms/legs/face) - 0(Normal) 9. Best Language: Aphasia (description/naming/reading) - 0(No aphasia) Initials: melanie Signatures: Dispatcher [employer] EDMS Myao Blake MD MD cha Waters, Shelly, ACCOUNTING DIRECTOR-C ACCOUNTING DIRECTOR-Csnw Frank Drew, Brittnee Verduzco RN, MEHNAZ RN pf1 Qian Feliz, MEHNAZ RN tm6 Corrections: (The following items were deleted from the chart) 11:23 11:23 PMHx: liver failure; bp bp 11:23 11:23 PMHx: liver failure; bp bp 11:23 11:23 PMHx: liver failure, chronic; bp bp
--- NOTE | 2024-01-28 15:11 | EDPHYS ---
Physician Documentation [facility] Name: Jose Manuel Richardson Age: 63 yrs Sex: Female : 1960 Arrival Date: 01/28/2024 Time: 11:22 Bed 17 Private MD: ED Physician Mayo Blake HPI: 01/27 14:59 This 63 yrs old Female presents to ER via EMS with complaints of Altered melanie Mental Status. 14:59 The patient presents with confusion. Onset: The symptoms/episode began/occurred 2 melanie day(s) ago. Possible causes: CVA or TIA, drug use, alcohol, head injury, low blood sugar, seizure, sepsis, unknown. Associated signs and symptoms: Pertinent positives:. Current symptoms: In the emergency department the patient's symptoms have improved, moderately. Patient's baseline: Neuro: alert and fully oriented. The patient has experienced similar episodes in the past, several times. Historical: - Allergies: 11:23 cipro (IV; bp 11:23 Flagyl; bp - PMHx: 11:23 Cirrhosis; secondary to ETOH abuse; hypotension; liver failure; Renal Disease; bp - Immunization history:: Adult Immunizations. - Infectious Disease History:: Denies. - Social history:: Smoking status: unknown. ROS: 15:06 Constitutional: Negative for fever, chills, and weight loss, Eyes: Negative for injury, melanie pain, redness, and discharge, ENT: Negative for injury, pain, and discharge, Neck: Negative for injury, pain, and swelling, Cardiovascular: Negative for chest pain, palpitations, and edema, Respiratory: Negative for shortness of breath, cough, wheezing, and pleuritic chest pain, Abdomen/GI: Negative for abdominal pain, nausea, vomiting, diarrhea, and constipation, Back: Negative for injury and pain, : Negative for injury, bleeding, discharge, and swelling, MS/Extremity: Negative for injury and deformity, Skin: Negative for injury, rash, and discoloration, Psych: Negative for depression, anxiety, suicide ideation, homicidal ideation, and hallucinations, Allergy/Immunology: Negative for hives, rash, and allergies, Endocrine: Negative for neck swelling, polydipsia, polyuria, polyphagia, and marked weight changes, Hematologic/Lymphatic: Negative for swollen nodes, abnormal bleeding, and unusual bruising, 15:06 Neuro: Positive for altered mental status, a and o x 3, Exam: 15:06 Constitutional: This is a well developed, well nourished patient who is awake, alert, melanie and in no acute distress. Head/Face: Normocephalic, atraumatic. Eyes: Pupils equal round and reactive to light, extra-ocular motions intact. Lids and lashes normal. Conjunctiva and sclera are non-icteric and not injected. Cornea within normal limits. Periorbital areas with no swelling, redness, or edema. ENT: Nares patent. No nasal discharge, no septal abnormalities noted. Tympanic membranes are normal and external auditory canals are clear. Oropharynx with no redness, swelling, or masses, exudates, or evidence of obstruction, uvula midline. Mucous membranes moist. Neck: Trachea midline, no thyromegaly or masses palpated, and no cervical lymphadenopathy. Supple, full range of motion without nuchal rigidity, or vertebral point tenderness. No Meningismus. Chest/axilla: Normal chest wall appearance and motion. Nontender with no deformity. No lesions are appreciated. Cardiovascular: Regular rate and rhythm with a normal S1 and S2. No gallops, murmurs, or rubs. Normal PMI, no JVD. No pulse deficits. Respiratory: Lungs have equal breath sounds bilaterally, clear to auscultation and percussion. No rales, rhonchi or wheezes noted. No increased work of breathing, no retractions or nasal flaring. Abdomen/GI: Soft, non-tender, with normal bowel sounds. No distension or tympany. No guarding or rebound. No evidence of tenderness throughout. Back: No spinal tenderness. No costovertebral tenderness. Full range of motion. Female : Normal external genitalia. Skin: Warm, dry with normal turgor. Normal color with no rashes, no lesions, and no evidence of cellulitis. MS/ Extremity: Pulses equal, no cyanosis. Neurovascular intact. Full, normal range of motion. Neuro: Awake and alert, GCS 15, oriented to person, place, time, and situation. Cranial nerves II-XII grossly intact. Motor strength 5/5 in all extremities. Sensory grossly intact. Cerebellar exam normal. Normal gait. Psych: Awake, alert, with orientation to person, place and time. Behavior, mood, and affect are within normal limits. 15:06 Neuro: Orientation: appropriate for stated age, no acute changes, Mentation: appropriate for stated age, Memory: no acute changes, Cerebellar function: is grossly normal, Motor: moves all fours, strength is normal, Sensation: no obvious gross deficits, Gait: not tested. seizure activity, is not displayed by the patient, Vital Signs: 11:24 BP 123 / 67; Pulse 61; Resp 16; Temp 98; Pulse Ox 99% ; bp 13:00 BP 120 / 105; Pulse 54; Resp 15; Pulse Ox 100% ; bp 15:01 BP 145 / 58; Pulse 51; Resp 16; Pulse Ox 97% ; bp 16:55 BP 106 / 89; Pulse 56; Resp 16; Pulse Ox 99% ; bp 19:10 BP 141 / 57; Pulse 67; Pulse Ox 100% on R/A; Pain 0/10; bp 19:10 Pain Scale: Adult bp NIH Stroke Scale Scores: 15:06 NIHSS Score: 0 melanie [place] Coma Score: 15:06 Eye Response: spontaneous(4). Motor Response: obeys commands(6). Verbal Response: melanie oriented(5). Total: 15. MDM: 11:24 Patient medically screened. melanie 15:08 Differential Diagnosis altered mental status, sepsis. Differential Diagnosis: CVA, melanie electrolyte abnormality, alcohol intoxication, hypoglycemia, intracranial bleed, overdose, pneumonia, seizure, TIA, volume depletion. Data reviewed: vital signs, nurses notes, lab test result(s), EKG, radiologic studies, plain films. Consideration of Admission/Observation Escalation of care including admission/observation considered. I considered the following discharge prescriptions or medication management in the emergency department Medications were administered in the Emergency Department. See MAR. Independent interpretation of the following test(s) in the Emergency Department EKG: See my EKG interpretation above. Test considered but Not performed: MRI: no mri brain. Historians other than the Patient: Family Member: DAUGHTER. Care significantly affected by the following chronic conditions: Chronic Kidney Disease, CIRRHOSIS, HYPOTENSION. Counseling: I had a detailed discussion with the patient and/or guardian regarding the historical points, exam findings, and any diagnostic results supporting the discharge/admit diagnosis, lab results, radiology results, the need for outpatient follow up, for definitive care, a family practitioner, a computer graphic artist. 01/27 11:29 Order name: Basic Metabolic Panel; Complete Time: 14:50 melanie 01/27 11:29 Order name: CBC with Diff; Complete Time: 14:50 [facility] 01/27 11:29 Order name: LFT's; Complete Time: 14:50 [facility] 01/27 11:29 Order name: Magnesium; Complete Time: 14:50 [facility] 01/27 11:29 Order name: NT PRO-BNP; Complete Time: 14:50 [facility] 01/27 11:29 Order name: PT-INR; Complete Time: 14:50 [facility] 01/27 11:29 Order name: Troponin HS; Complete Time: 14:50 [facility] 01/27 11:29 Order name: Blood Culture Adult (2) 01/27 11:29 Order name: Lactate w/ 2H reflex if indic.; Complete Time: 14:50 [facility] 01/27 11:29 Order name: Flu; Complete Time: 14:50 [facility] 01/27 11:29 Order name: SARS RAPID; Complete Time: 14:50 [facility] 01/27 11:29 Order name: AMMONIA; Complete Time: 14:50 [facility] 01/27 13:15 Order name: CBC Smear Scan; Complete Time: 14:50 EDMS 01/27 19:11 Order name: Ammonia EDMS 01/27 19:11 Order name: Urinalysis w/ reflexes EDMS 01/27 19:11 Order name: CBC with Automated Diff EDMS 01/27 19:11 Order name: CBC with Automated Diff EDMS 01/27 19:11 Order name: CBC with Automated Diff EDMS 01/27 19:11 Order name: Comprehensive Metabolic Panel EDMS 01/27 19:11 Order name: Comprehensive Metabolic Panel EDMS 01/27 19:11 Order name: Comprehensive Metabolic Panel EDMS 01/27 19:11 Order name: Lipid Profile EDMS 01/27 19:11 Order name: Lipid Profile EDMS 01/27 19:11 Order name: Magnesium EDMS 01/27 19:11 Order name: Magnesium EDMS 01/27 19:11 Order name: Phosphorus EDMS 01/27 19:11 Order name: Phosphorus EDMS 01/27 20:38 Order name: Ammonia EDMS 01/27 11:29 Order name: XRAY Chest (1 view); Complete Time: 14:50 [facility] 01/27 11:29 Order name: CT Traumagram (Head C Spine CAP wo con); Complete Time: 14:50 [facility] 01/27 11:29 Order name: EKG; Complete Time: 11:29 [facility] 01/27 11:29 Order name: Cardiac monitoring; Complete Time: 13: [facility] 01/27 11:29 Order name: IV Saline Lock; Complete Time: 13: [facility] 01/27 11:29 Order name: Labs collected and sent; Complete Time: 13: [facility] 01/27 11:29 Order name: O2 Per Protocol; Complete Time: 13: [facility] 01/27 11:29 Order name: O2 Sat Monitoring; Complete Time: 13: [facility] Administered Medications: 13:00 Drug: Rocephin IV 1 grams IV at per protocol once; Given slow IV push per pharmacy bp instructions Route: IV; Rate: per protocol; Site: left forearm; 13:00 Drug: Famotidine IVP 20 mg IVP once; dilute with 10 mL 0.9% NaCl; give over 2 minutes bp Route: IVP; Site: left forearm; 16:44 Follow up: Response: No adverse reaction bp 13:00 Drug: NS 0.9% IV 1000 ml IV at 1 bolus Per protocol; 1000 mL bolus Route: IV; Rate: 1 bp bolus; Site: left forearm; 15:15 Drug: Lactulose PO 30 grams 45 ml PO once Volume: 45 ml; Route: PO; bp 16:59 Follow up: Response: No adverse reaction bp 16:59 Drug: Lactulose PO 30 grams 45 ml PO once Volume: 45 ml; Route: PO; bp 17:00 Follow up: Response: No adverse reaction bp Disposition Summary: 01/28/24 16:57 Hospitalization Ordered Notes: Hospitalization Status: Observation melanie Provider: Ac Mckeon cha Location: Telemetry/MedSurg (observation)(01/28/24 16:57) melanie Condition: Fair(01/28/24 16:57) melanie Problem: new(01/28/24 16:57) melanie Symptoms: have improved(01/28/24 16:57) melanie Bed/Room Type: Standard melanie Room Assignment: 403(01/28/24 19:36) wm Diagnosis - Altered mental status, unspecified(01/28/24 16:57) melanie - Alcoholic cirrhosis of liver without ascites(01/28/24 16:57) melanie - Encephalopathy, unspecified - HEPATIC(01/28/24 16:57) melanie Forms: - Medication Reconciliation Form melanie - SBAR form [facility] - Leadership Thank You Letter melanie NIH Stroke Scale - NIH Stroke Score Date: 01/28/2024 Time: 15:06 Total Score = 0 10. Dysarthria (speech clarity - read or repeat words) - 0(Normal) 11. Extinction and Inattention (visual/tactile/auditory/spatial/personal) - 0(No abnormality) 1a. Level of Consciousness (LOC) - 0(Alert) 1b. Level of Consciousness (LOC) (Month \T\ Age) - 0(Both) 1c. LOC Commands (Open \T\ Closes Eyes/Draw Bench Operator Helper) - 0(Both) 2. Best Gaze (Lateral Gaze Paresis) - 0(Normal) 3. Visual Field Loss - 0(No visual loss) 4. Facial Palsy - 0(Normal) 5a. Left Arm: Motor (10-second hold) - 0(No drift) 5b. Right Arm: Motor (10-second hold) - 0(No drift) 6a. Left Leg: Motor (5-second hold - always test supine) - 0(No drift) 6b. Right Leg: Motor (5-second hold - always test supine) - 0(No drift) 7. Limb Ataxia (finger/nose \T\ heel/hollins - test with eyes open) - 0(Absent) 8. Sensory Loss (pinprick arms/legs/face) - 0(Normal) 9. Best Language: Aphasia (description/naming/reading) - 0(No aphasia) Initials: melanie Signatures: Dispatcher [employer] EDMayo Torres MD MD cha Peltier, Brian, RN RN Karlee Fam Corrections: (The following items were deleted from the chart) 11:23 11:23 PMHx: liver failure; bp bp 11:23 11:23 PMHx: liver failure; bp bp 11:23 11:23 PMHx: liver failure, chronic; bp bp 11:30 11:29 BASIC METABOLIC PANEL+C.LAB.BRZ ordered. EDMS EDMS 11:30 11:29 CBC+H.LAB.BRZ ordered. EDMS EDMS 11:30 11:29 HEPATIC FUNCTION+C.LAB.BRZ ordered. EDMS EDMS 11:30 11:29 MAGNESIUM+C.LAB.BRZ ordered. EDMS EDMS 11:30 11:29 PROBNP+C.LAB.BRZ ordered. EDMS EDMS 11:30 11:29 PROTIME (+INR)+COAG.LAB.BRZ ordered. EDMS EDMS 11:30 11:29 Troponin High Sensitivity+C.LAB.BRZ ordered. EDMS EDMS 11:30 11:29 BLOOD CULTURE*+BA.LAB.BRZ ordered. EDMS EDMS 11:30 11:29 LACTATE+C.LAB.BRZ ordered. EDMS EDMS 11:30 11:29 Influenza Screen (A \T\ B)+BA.LAB.BRZ ordered. EDMS EDMS 11:30 11:29 SARS-COV-2 Antigen Rapid+I.LAB.BRZ ordered. EDMS EDMS 11:30 11:29 AMMONIA+C.LAB.BRZ ordered. EDMS EDMS 13:07 11:29 EKG - Nurse/Tech ordered. melanie bp 16:54 15:11 Home melanie melanie 16:54 15:11 new melanie melanie 16:54 15:11 have improved melanie melanie 16:54 15:11 Stable melanie melanie 16:54 15:11 Alcoholic cirrhosis of liver without ascites melanie melanie 16:54 15:11 Altered mental status, unspecified melanie melanie 16:54 15:11 Encephalopathy, unspecified - HEPATIC melanie melanie 19:36 16:57 melanie wm
[2024-01-28] MEDS ORDERED: LACTULOSE 20 GM/30 ML UCUP ONE ×2 (16:38→17:22)
--- NOTE | 2024-01-28 19:04 | P.HP ---
Certification for Inpatient Patient admitted to: Observation With expected LOS: <2 Midnights Patient will require the following post-hospital care: None Practitioner: I am a practitioner with admitting privileges, knowledge of patient current condition, hospital course, and medical plan of care. Services: Services provided to patient in accordance with Admission requirements found in Title 42 Section 412.3 of the Code of Federal Regulations <Chayito Holman - Last Filed: 01/28/24 21:21> Patient History Date of Service: 01/28/24 Primary Care Provider: unknown Reason for admission: AMS History of Present Illness: Ms. Richardson is a 63-year-old female with a past medical history of alcoholic liver cirrhosis, hep C, chronic pain, GERD, hypotension, intermittent ascites, chronic thrombocytopenia, anemia of chronic disease, who presents to the emergency department via EMS at the request of her daughter because she had become belligerent, confused, and had severe malaise. Evaluation in the emergency department reveals a negative CT head and C-spine, chest abdomen pelvis, and negative chest x-ray, laboratory evaluation pretty unremarkable except for a T. bili of 1.3, thrombocytopenia at 115, and an ammonia of 62. Ms. Richardson would really rather not stay in the hospital however she is oriented to person but not to time or place. I spoke with her daughter who said that she generally gets worse, more belligerent, more altered before she gets better as she is noncompliant. She currently lives alone and her daughter lives nearby. We will admit her overnight for lactulose and recheck her mental status and ammonia tomorrow. - Past Medical/Surgical History Diabetic: No -: Alcoholic liver cirrhosis -: Hepatitis-C -: Chronic pain -: GERD -: Hypotension -: Ascites requiring paracentesis -: Chronic thrombocytopenia -: Anemia of chronic disease -: section x 4 -: breast augmentation -: appendectomy -: tonsillectomy -: Has been known to have gallstones -: paracenthesis Psychosocial/ Personal History: Patient currently living at home alone, has healthcare worker, approximately once per month. Her Daughter lives nearby and helps care for her. - Family History Mother -: Heart disease, Hypertension, Diabetes Father -: Heart disease, Liver disease Brother -: Diabetes - Social History Smoking Status: Former smoker Alcohol use: No CD- Drugs: No Caffeine use: No Place of Residence: Home <Chayito Holman - Last Filed: 01/28/24 21:21> Date of Service: 01/28/24 <Ac Mckeon - Last Filed: 01/28/24 22:12> Allergies ciprofloxacin Allergy (Mild, Verified 07/17/20 23:20) Itching/Hives/Rash metronidazole [From Flagyl] Adverse Reaction (Intermediate, Verified 07/17/20 23:20) Anaphylaxis Home Medications: Folic Acid 1 mg PO DAILY 07/18/20 Furosemide [Lasix*] 20 mg PO DAILY 07/18/20 Pantoprazole [Protonix Tab*] 40 mg PO DAILY 07/18/20 Pregabalin [Lyrica*] 75 mg PO TID 07/18/20 Rifaximin [Xifaxan] 1 tab PO BID 07/18/20 Tramadol HCl [Ultram] 50 mg PO Q6H PRN 07/18/20 Lactulose [Cephulac*] 30 ml PO QID 30 Days #120 ucup 11/23/21 Review of Systems 10-point ROS is otherwise unremarkable General: As per HPI Neurological: As per HPI (GCS 15, NIHSS 0) <Chayito Holman - Last Filed: 01/28/24 21:21> Physical Examination - Physical Exam General: Alert, Oriented x1, Other (minimally confused) HEENT: Atraumatic, Normocephalic Neck: 2+ carotid pulse no bruit Respiratory: Normal air movement, Expiratory wheezes Cardiovascular: Normal pulses Capillary refill: <2 Seconds Gastrointestinal: Soft and benign, Distended Musculoskeletal: No clubbing Integumentary: No rashes Neurological: Normal speech, Abnormal strength, Abnormal tone Lymphatics: No axilla or inguinal lymphadenopathy External genitalia: Deferred Rectal: Deferred - Studies Laboratory Data (last 24 hrs) 01/28/24 01/28/24 01/28/24 13:00 13:00 13:00 WBC 4.30 Hgb 12.0 Hct 37.6 Plt Count 115 L PT 13.8 H INR 1.26 Sodium 143 Potassium 4.1 BUN 17 Creatinine 1.34 H Glucose 98 Magnesium 2.3 Total Bilirubin 1.3 H AST 27 ALT 28 Alkaline Phosphatase 72 Microbiology Data (last 24 hrs): 01/28/24 13:00 Nasopharnyx Influenza Type A Antigen Screen - Final 01/28/24 13:00 Nasopharnyx Influenza Type B Antigen Screen - Final <Chayito Holman - Last Filed: 01/28/24 21:21> - Studies Laboratory Data (last 24 hrs) 01/28/24 01/28/24 01/28/24 13:00 13:00 13:00 WBC 4.30 Hgb 12.0 Hct 37.6 Plt Count 115 L PT 13.8 H INR 1.26 Sodium 143 Potassium 4.1 BUN 17 Creatinine 1.34 H Glucose 98 Magnesium 2.3 Total Bilirubin 1.3 H AST 27 ALT 28 Alkaline Phosphatase 72 Microbiology Data (last 24 hrs): 01/28/24 13:00 Nasopharnyx Influenza Type A Antigen Screen - Final 01/28/24 13:00 Nasopharnyx Influenza Type B Antigen Screen - Final <Ac Mckeon - Last Filed: 01/28/24 22:12> Assessment and Plan - Plan AMS secondary to hepatic encephalopathy GCS/NIHSS every shift Lactulose Monitor and trend ammonia Fall precautions Hypertension Lasix 20mg po daily Continue home meds Hyperlipidemia Continue home meds COPD Nebs as needed Nicotine patch as needed DVT/GI prophylaxis SCDs/Protonix Discharge Plan: Home Plan to discharge in: 24 Hours - Advance Directives Does patient have a Living Will: No Does patient have a Durable POA for Healthcare: No - Code Status/Comfort Care Code Status Assessed: Yes (Full) <Chayito Holman - Last Filed: 01/28/24 21:21> - Plan Pt seen and examined. I agree withe the note by the PODIATRIC ASSISTANT. Pt is a 63yo female with a past medical history of alcoholic liver cirrhosis, hep C, chronic pain, GERD, hypotension, intermittent ascites, chronic thrombocytopenia, and anemia of chronic disease who presents with confusion. Pt's daughter brought her in the ER because was very confused and agitated. Lab studies show unremarkable CBC and CMP except T. bili of 1.3, thrombocytopenia at 115, and an ammonia of 62. At bedsde, pt did not want to stay in the ER. A/P: Acute encephalopathy: Ammonia ia 62 -> 89. Will continue lactulose and trend ammonia. Will continue home meds for other chronic medical problems. Code: full <Ac Mckeon - Last Filed: 01/28/24 22:12>
[2024-01-28] MEDS: LACTULOSE 20 GM/30 ML UCUP PO SCH (20:00)
[2024-01-28 20:30] VITALS: BMI 17.8
[2024-01-28] MEDS ORDERED: SODIUM CHLORIDE 0.9% 10ML INJ IV PRN (21:19)
[2024-01-28] MEDS ORDERED: ALBUTEROL INHALER 200 PUFF/6.7 GM IH PRN (21:21)
[2024-01-28] MEDS ORDERED: NICOTINE 14 MG/PAT TD PRN (21:21)
[2024-01-28] MEDS ORDERED: IPRATROPIUM BROM 0.5MG/2.5ML NEB PRN (21:21)
[2024-01-29 07:02] LABS: Absolute Eosinophils 0.1 K/uL (0-0.5); Absolute Lymphocytes (CBC) 0.4 K/uL (0.7-4.9); Absolute Monocytes 0.4 K/uL (0.1-1.3); Absolute Neutrophil 2.1 K/uL (1.8-8.0); Basophils % 0.2 % (0-1.3); Hematocrit 32.2 % (36.0-45.0); Hemoglobin 10.8 g/dL (12.0-15.0); Lymphocytes % 12.5 % (15.3-44.8); MCH 28.6 pg (27.0-35.0); MCHC 33.6 g/dL (32.0-36.0); MPV 9.2 fL (7.6-11.3); Monocytes % 13.6 % (3.3-12.3); Neutrophils % 71.7 % (41.7-73.7); Nucleated Red Blood Cells % 0.4 % (0-0); Platelets 76 thou/uL (152-406); RBC Red Blood Cell Count 3.78 M/uL (3.86-4.86); Red Cell Distribution Width 20.9 % (12.1-15.2)
[2024-01-29 07:22] LABS: Albumin 3.5 g/dL (3.4-5.0); Albumin/Globulin Ratio 1.1 (1.1-1.8); Anion Gap 8.6 mEq/L (5.0-15.0); Bilirubin Total 1.1 mg/dL (0.2-1.0); Globulin 3.2 g/dL (2.3-3.5); Phosphorus 3.4 mg/dL (2.5-4.9); Potassium 3.6 mEq/L (3.5-5.1); Protein, Total 6.7 g/dL (6.4-8.2)
--- NOTE | 2024-01-29 08:12 | P.DS ---
Admission Date: 01/28/24 Discharge Date: 01/29/24 Primary Care Provider: unknown Reason for Admission: AMS Brief History of Present Illness: Ms. Richardson is a 63-year-old female with a past medical history of alcoholic liver cirrhosis, hep C, chronic pain, GERD, hypotension, intermittent ascites, chronic thrombocytopenia, anemia of chronic disease, who presents to the emergency department via EMS at the request of her daughter because she had become belligerent, confused, and had severe malaise. Evaluation in the emergency department reveals a negative CT head and C-spine, chest abdomen pelvis, and negative chest x-ray, laboratory evaluation pretty unremarkable except for a T. bili of 1.3, thrombocytopenia at 115, and an ammonia of 62. Ms. Richardson would really rather not stay in the hospital however she is oriented to person but not to time or place. I spoke with her daughter who said that she generally gets worse, more belligerent, more altered before she gets better as she is noncompliant. She currently lives alone and her daughter lives nearby. We will admit her overnight for lactulose and recheck her mental status and ammonia tomorrow. Hospital Course: Ms. Richardson had no overnight events. She is alert and conversant this morning. She desires to go home. Her ammonia level was back to within normal limits. She states she has lactulose and rifaximin at home. <Chayito Holman - Last Filed: 01/29/24 09:19> Admission Date: 01/28/24 Discharge Date: 01/29/24 Hospital Course: Pt seen and examined. I agree with the note by the [facility]. Ammonia has improved. Pt is AAOx3. She was advised to continue lactulose and rifaximin at home. Ok to discharge pt. <Ac Mckeon - Last Filed: 01/29/24 10:31> Disposition: ROUTINE DISCHARGE Discharge Condition: GOOD Vital Signs/Physical Exam: Temp Pulse Resp BP Pulse Ox 97.5 F 54 16 100/57 L 98 01/29/24 04:00 01/29/24 04:00 01/29/24 04:00 01/29/24 04:00 01/29/24 04:00 General: Alert, In no apparent distress, Oriented x2, Cooperative HEENT: Atraumatic, Normocephalic Neck: Supple Respiratory: Normal air movement, Expiratory wheezes Cardiovascular: No edema, Normal pulses Capillary refill: <2 Seconds Gastrointestinal: Soft and benign Musculoskeletal: No clubbing Integumentary: Other (mild jaundice) Neurological: Normal speech, Normal tone, Normal affect Lymphatics: No axilla or inguinal lymphadenopathy External genitalia: Deferred Rectal: Deferred Laboratory Data at Discharge: WBC 2.90 thou/uL (4.3-10.9) L 01/29/24 06:55 Hgb 10.8 g/dL (12.0-15.0) L D 01/29/24 06:55 Hct 32.2 % (36.0-45.0) L 01/29/24 06:55 Plt Count 76 thou/uL (152-406) L D 01/29/24 06:55 PT 13.8 SECONDS (9.5-12.5) H 01/28/24 13:00 INR 1.26 01/28/24 13:00 Sodium 144 mEq/L (136-145) 01/29/24 06:55 Potassium 3.6 mEq/L (3.5-5.1) 01/29/24 06:55 BUN 17 mg/dL (7-18) 01/29/24 06:55 Creatinine 1.27 mg/dL (0.55-1.02) H 01/29/24 06:55 Glucose 106 mg/dL (74-106) 01/29/24 06:55 Phosphorus 3.4 mg/dL (2.5-4.9) 01/29/24 06:55 Magnesium 2.0 mg/dL (1.6-2.4) 01/29/24 06:55 Total Bilirubin 1.1 mg/dL (0.2-1.0) H 01/29/24 06:55 AST 29 U/L (15-37) 01/29/24 06:55 ALT 24 U/L (13-56) 01/29/24 06:55 Alkaline Phosphatase 62 U/L (45-117) 01/29/24 06:55 Triglycerides 77 mg/dL (<150) 01/29/24 06:55 Cholesterol 115 mg/dL (<200) 01/29/24 06:55 HDL Cholesterol 43 mg/dL (40-60) 01/29/24 06:55 Cholesterol/HDL Ratio 2.67 01/29/24 06:55 <Holman,Chayito Raffy - Last Filed: 01/29/24 09:19> Vital Signs/Physical Exam: Temp Pulse Resp BP Pulse Ox 98.0 F 62 15 122/59 L 99 01/29/24 08:00 01/29/24 08:32 01/29/24 08:00 01/29/24 08:32 01/29/24 08:00 Laboratory Data at Discharge: WBC 2.90 thou/uL (4.3-10.9) L 01/29/24 06:55 Hgb 10.8 g/dL (12.0-15.0) L D 01/29/24 06:55 Hct 32.2 % (36.0-45.0) L 01/29/24 06:55 Plt Count 76 thou/uL (152-406) L D 01/29/24 06:55 PT 13.8 SECONDS (9.5-12.5) H 01/28/24 13:00 INR 1.26 01/28/24 13:00 Sodium 144 mEq/L (136-145) 01/29/24 06:55 Potassium 3.6 mEq/L (3.5-5.1) 01/29/24 06:55 BUN 17 mg/dL (7-18) 01/29/24 06:55 Creatinine 1.27 mg/dL (0.55-1.02) H 01/29/24 06:55 Glucose 106 mg/dL (74-106) 01/29/24 06:55 Phosphorus 3.4 mg/dL (2.5-4.9) 01/29/24 06:55 Magnesium 2.0 mg/dL (1.6-2.4) 01/29/24 06:55 Total Bilirubin 1.1 mg/dL (0.2-1.0) H 01/29/24 06:55 AST 29 U/L (15-37) 01/29/24 06:55 ALT 24 U/L (13-56) 01/29/24 06:55 Alkaline Phosphatase 62 U/L (45-117) 01/29/24 06:55 Triglycerides 77 mg/dL (<150) 01/29/24 06:55 Cholesterol 115 mg/dL (<200) 05/10/24 06:55 HDL Cholesterol 43 mg/dL (40-60) 01/29/24 06:55 Cholesterol/HDL Ratio 2.67 01/29/24 06:55 <Ac Mckeon - Last Filed: 01/29/24 10:31> Diet: Low sodium Activity: Ad waleska <Chayito Holman - Last Filed: 01/29/24 09:19> <Ac Mckeon - Last Filed: 01/29/24 10:31> Home Medications: Folic Acid 1 mg PO DAILY 07/18/20 Furosemide [Lasix*] 20 mg PO DAILY 07/18/20 Pantoprazole [Protonix Tab*] 40 mg PO DAILY 07/18/20 Pregabalin [Lyrica*] 75 mg PO TID 07/18/20 Lactulose [Cephulac*] 30 ml PO QID 30 Days #120 ucup 11/23/21 Albuterol Inhaler [Ventolin Inhaler*] 2 puff IH Q6H PRN #1 unit 01/29/24 Furosemide [Lasix*] 20 mg PO DAILY tab 01/29/24 New Medications: Albuterol Inhaler [Ventolin Inhaler*] 2 puff IH Q6H PRN #1 unit PRN Reason: Shortness Of Breath Physician Discharge Instructions: Ms. Richardson had no overnight events. She is alert and conversant this morning. She desires to go home. Her ammonia level is back to within normal limits. She states she has lactulose and rifaximin at home. Okay to DC IV and DC home Follow-up with primary care provider in 1 to 2 weeks Please call the inpatient unit for any questions or concerns regarding hospital stay Return to the ER for worsening symptoms Followup: Sherrell Arrieta MD [Primary Care Provider] - 1-2 Weeks (call to schedule an appointment)
[2024-01-29 08:30] VITALS: BP 122/59; TEMP 98
[2024-01-29] MEDS: POTASSIUM CL SA 10 MEQ TAB PO ONE (08:32)
[2024-01-29] MEDS: PANTOPRAZOLE 40 MG INJ IVP SCH (08:32)
[2024-01-29] MEDS: FUROSEMIDE 20 MG TABLET PO SCH (08:32)
[2024-01-29] MEDS ORDERED: ENOXAPARIN 40 MG/0.4 ML SQ SCH (09:00)
[2024-01-29 09:51] VITALS: O2SAT 99
[2024-01-29 09:56] LABS: Anisocytosis 1+; Blood Morphology Comment NOTED (NOT SEEN); Platelet Estimate DECR; White Blood Cell Scan OK (OK)
[2024-01-29] MEDS ORDERED: SODIUM BICARB 325 MG TAB PO SCH (21:00)
== END 2024-01-29 10:35 | disposition home or self-care (01) ==
LOC: ER 11:22 → ERHOLD 19:04 → 4TH 20:57
PROVIDERS: ADMIT Hospitalist; ATTEND Hospitalist
DX: K76.82 Hepatic encephalopathy (principal); R41.82 Altered mental status, unspecified; K70.30 Alcoholic cirrhosis of liver without ascites; B19.20 Unspecified viral hepatitis C without hepatic coma; G89.29 Other chronic pain; K21.9 Gastro-esophageal reflux disease without esophagitis; I95.9 Hypotension, unspecified; D69.6 Thrombocytopenia, unspecified; D63.8 Anemia in other chronic diseases classified elsewhere; I10 Essential (primary) hypertension; E78.5 Hyperlipidemia, unspecified; J44.9 Chronic obstructive pulmonary disease, unspecified; Z88.1 Allergy status to other antibiotic agents
CPT/HCPCS: 87040 ×2; 85025 ×2; 80048; 36415; 82140 ×4; 83735 ×2; 84100; 85610; 80061; 80076; 83605; 84484; 80053; 83880; 87804 ×2; 70450; 71250; 72125; 71045; 96375; 96374; 99285; 87811; C9113; J7030; J0696; G0378 ×4

== ENCOUNTER 2024-08-01 14:16 | Emergency (ER) | payer OTHER ==
--- NOTE | 2024-08-01 16:25 | RAD REPORT ---
EXAMINATION: ONE VIEW CHEST XR CLINICAL INDICATION: Female, 63 years old.,CONGESTION TECHNIQUE: Frontal chest projection is submitted. Examination is limited by patient positioning and t echnique. COMPARISON: 01/28/2024 FINDINGS: The lungs are well inflated and clear. No pneumothorax or sizable effusion. The heart is normal in s ize. Mediastinal contours are unremarkable. IMPRESSION: No acute intrathoracic abnormalities.
--- NOTE | 2024-08-01 16:27 | RAD REPORT ---
EXAMINATION: XR Foot Right 2 View CLINICAL INDICATION: Female, 63 years old. [facility] MAIN PAIN Bed Name: 3 TECHNIQUE: 2 view radiographs of the right foot were obtained. COMPARISON: No prior exam. FINDINGS: No evidence of fracture or dislocation. Normal alignment. No evidence of arthropathy or oth er focal bone lesion. Soft tissues are unremarkable. No soft tissue swelling. No significant degenerative changes. IMPRESSION: No acute or significant abnormalities.
--- NOTE | 2024-08-01 16:32 | ER ---
Nurse's Notes [facility] Name: Jose Manuel Richardson Age: 63 yrs Sex: Female : 1960 Arrival Date: 08/01/2024 Time: 14:16 Bed 10 Private MD: Diagnosis: Simple chronic bronchitis;Contusion of great toe without damage to nail Presentation: 08/01 14:23 Coronavirus screen: Client denies travel out of the [place] in the last 14 days. Ebola ss Screen: Patient denies exposure to infectious person. Patient denies travel to an Ebola-affected area in the 21 days before illness onset. Initial Sepsis Screen: Does the patient meet any 2 criteria? No. Patient's initial sepsis screen is negative. Does the patient have a suspected source of infection? No. Patient's initial sepsis screen is negative. Risk Assessment: Do you want to hurt yourself or someone else? Patient reports no desire to harm self or others. 14:23 Method Of Arrival: Wheelchair ss 14:23 Acuity: JEANA 3 14:25 Chief complaint: Patient states: Pain to R toes after tripping over a vine 3 days ago. ss PT also reports cough and congestion x 1 month. Onset of symptoms was July 29, 2024. Triage Assessment: 14:31 General: Appears in no apparent distress. Behavior is calm, cooperative, pt is ss laughing/ joking with ED staff. Pain: Complains of pain in R toes, R hollins Pain currently is 8 out of 10 on a pain scale. at worst was 10 out of 10 on a pain scale. Pain began 2-3 days ago. Is continuous. Neuro: Level of Consciousness is awake, alert, obeys commands, Oriented to person, place, time, situation. Respiratory: Respiratory effort is even, unlabored. Historical: - Allergies: 14:23 Flagyl; ss - PMHx: 14:23 Cirrhosis; secondary to ETOH abuse; hypotension; Renal Disease; ss - Infectious Disease History:: Denies. - Social history:: Smoking status: Reported history of juuling and/or vaping. Screenin:07 [facility] ED Fall Risk Assessment (Adult) History of falling in the last 3 months, jb4 including since admission No falls in past 3 months (0 pts) Confusion or Disorientation No (0 pts) Intoxicated or Sedated No (0 pts) Impaired Gait No (0 pts) Mobility Assist Device Used No (0 pt) Altered Elimination No (0 pt) Score/Fall Risk Level 0 - 2 = Low Risk Oriented to surroundings, Maintained a safe environment. Abuse screen: Denies threats or abuse. Nutritional screening: No deficits noted. Tuberculosis screening: No symptoms or risk factors identified. Assessment: 14:43 Reassessment: Patient and/or family updated on plan of care and expected duration. Pain ll1 level reassessed. 16:01 Reassessment: Patient appears in no apparent distress at this time. Patient and/or jb4 family updated on plan of care and expected duration. Pain level reassessed. Patient is alert, oriented x 3, equal unlabored respirations, skin warm/dry/pink. 17:07 Reassessment: Patient appears in no apparent distress at this time. Patient and/or jb4 family updated on plan of care and expected duration. Pain level reassessed. Patient is alert, oriented x 3, equal unlabored respirations, skin warm/dry/pink. d/c pending crutches and crutch training per pt's request. Vital Signs: 14:25 BP 125 / 65; Pulse 77; Resp 18; Temp 98.9(TE); Pulse Ox 100% on R/A; Weight 54.43 kg; ss Height 5 ft. 2 in. ; Pain 8/10; 14:25 Body Mass Index 21.95 (54.43 kg, 157.48 cm) ss 14:25 Pain Scale: Adult ss ED Course: 14:19 Patient arrived in ED. mr 14:22 Starla Schmidt MD is Private Physician. ss 14:22 Starla Schmidt MD is Private Physician. ss 14:22 Starla Schmidt MD is Attending Physician. ss 14:23 Arm band placed on right wrist. ss 14:25 Triage completed. ss 14:38 Patient placed in an exam room, on a stretcher. ll1 15:07 CXR XRAY In Process Unspecified. EDMS 15:21 Foot Right 2 View XRAY In Process Unspecified. EDMS 16:01 Checo Garcia, RN is Primary Nurse. jb4 17:07 Patient has correct armband on for positive identification. Bed in low position. Call jb4 light in reach. Side rails up X 1. Provided Education on: discharge instructions, crutch training.. 17:07 No provider procedures requiring assistance completed. Patient did not have IV access jb4 during this emergency room visit. Administered Medications: No medications were administered Medication: 17:07 VIS not applicable for this client. jb4 Outcome: 16:31 Discharge ordered by . [email or web address] 17:07 Discharged to home via wheelchair, with crutches, jb4 17:07 Condition: stable 17:07 Discharge instructions given to patient, Instructed on discharge instructions, follow up and referral plans. medication usage, Demonstrated understanding of instructions, follow-up care, medications, Prescriptions given X 1, 17:09 Patient left the ED. jb4 Signatures: Dispatcher [employer] EDMS ChaudhryKamila peterson, Reg Reg mr Emmy Pitts RN RN ss Bryson, James, RN RN jb4 Tiara Khan RN RN ll1 Starla Schmidt MD MD gb1 Corrections: (The following items were deleted from the chart) 14:25 14:22 Chief complaint: [facility]
--- NOTE | 2024-08-01 16:32 | EDPHYS ---
Physician Documentation [facility] Name: Jose Manuel Richardson Age: 63 yrs Sex: Female : 1960 Arrival Date: 08/01/2024 Time: 14:16 Bed 10 Private MD: ED Physician Starla Schmidt HPI: 08/01 16:29 This 63 yrs old Female presents to ER via Wheelchair with complaints of Toe gb1 Injury, Congestion. 16:29 63-year-old female with right first toe pain and cough and congestion. Patient tripped gb1 over a vine playing with her grandchild and now the pain on her right toe is very painful when she walks. She is able to move it but was with with pain when she does. She is a vapor and she has been coughing nonpurulent no fevers otherwise denies any chest pain or shortness of breath.. Historical: - Allergies: 14:23 Flagyl; ss - PMHx: 14:23 Cirrhosis; secondary to ETOH abuse; hypotension; Renal Disease; ss - Infectious Disease History:: Denies. - Social history:: Smoking status: Reported history of juuling and/or vaping. Exam: 16:29 Constitutional: This is a well developed, well nourished patient who is awake, alert, gb1 and in no acute distress. Head/Face: Normocephalic, atraumatic. Eyes: Pupils equal round and reactive to light, extra-ocular motions intact. Lids and lashes normal. Conjunctiva and sclera are non-icteric and not injected. Cornea within normal limits. Periorbital areas with no swelling, redness, or edema. ENT: Nares patent. No nasal discharge, no septal abnormalities noted. Tympanic membranes are normal and external auditory canals are clear. Oropharynx with no redness, swelling, or masses, exudates, or evidence of obstruction, uvula midline. Mucous membranes moist. Neck: Trachea midline, no thyromegaly or masses palpated, and no cervical lymphadenopathy. Supple, full range of motion without nuchal rigidity, or vertebral point tenderness. No Meningismus. Chest/axilla: Normal chest wall appearance and motion. Nontender with no deformity. No lesions are appreciated. Cardiovascular: Regular rate and rhythm with a normal S1 and S2. No gallops, murmurs, or rubs. Normal PMI, no JVD. No pulse deficits. Respiratory: Lungs have equal breath sounds bilaterally, clear to auscultation and percussion. No rales, rhonchi or wheezes noted. No increased work of breathing, no retractions or nasal flaring. Abdomen/GI: Soft, non-tender, with normal bowel sounds. No distension or tympany. No guarding or rebound. No evidence of tenderness throughout. Skin: Warm, dry with normal turgor. Normal color with no rashes, no lesions, and no evidence of cellulitis. MS/ Extremity: Pulses equal, no cyanosis. Neurovascular intact. Right first toe is painful with flexion and extension and it is also erythematous and mildly swollen. No bony deformity. Vital Signs: 14:25 BP 125 / 65; Pulse 77; Resp 18; Temp 98.9(TE); Pulse Ox 100% on R/A; Weight 54.43 kg; ss Height 5 ft. 2 in. ; Pain 8/10; 14:25 Body Mass Index 21.95 (54.43 kg, 157.48 cm) ss 14:25 Pain Scale: Adult ss MDM: 14:28 Medical Screening Exam initiated gb 16:29 Data reviewed: vital signs, nurses notes, radiologic studies, plain films. ED course: gb1 63-year-old female status post a ground-level fall with a right first toe contusion and leg. Mild bronchitis. No focal pneumonia or any viral streaking on x-ray. I at this time recommend with albuterol and NSAIDs for pain. There is no bony fracture of the first toe or any dislocation on the x-ray.. 08/01 14:29 Order name: CXR XRAY; Complete Time: 16:27 1 08/01 14:29 Order name: Foot Right 2 View XRAY; Complete Time: 16:27 [facility] 08/01 17:07 Order name: Crutches; Complete Time: 17:07 jb4 Administered Medications: No medications were administered Disposition Summary: 08/01/24 16:31 Discharge Ordered Notes: Location: Home gb1 Condition: Stable gb1 Diagnosis - Simple chronic bronchitis gb1 - Contusion of great toe without damage to nail gb1 Followup: gb1 - With: Private Physician - When: - Reason: Re-evaluation by your physician Discharge Instructions: - Discharge Summary Sheet gb1 - Chronic Bronchitis, Adult gb1 Forms: - Medication Reconciliation Form gb1 - Antibiotic Education gb1 - Prescription Opioid Use gb1 - Patient Portal Instructions gb1 - Leadership Thank You Letter gb1 Prescriptions: - albuterol sulfate 90 mcg/actuation Inhalation HFA Aerosol Inhaler - inhale 1 puff INHALATION route every 4 to 6 hours as needed for bronchospasm; gb1 administer via ventilator; 1 Applicator; Refills: 0, Product Selection Permitted Signatures: Dispatcher [employer] Emmy Nunn RN RN ss Bryson, James, RN RN jb4 Starla Schmidt MD MD gb1
[2024-08-01 17:13] VITALS: BP 125/65; TEMP 98.9; O2SAT 100
== END 2024-08-01 17:09 | disposition home or self-care (01) ==
LOC: ER 14:16
DX: J41.0 Simple chronic bronchitis (principal); S90.111A Contusion of right great toe without damage to nail, initial encounter
CPT/HCPCS: 71045; 99283

== ENCOUNTER 2024-09-23 00:35 | Observation (INO) | payer OTHER ==
[2024-09-23 01:37] LABS: Absolute Monocytes 0.4 K/uL (0.1-1.3); Absolute Neutrophil 1.6 K/uL (1.8-8.0); Basophils % 1.5 % (0-1.3); Eosinophils % 1.6 % (0-4.4); Hematocrit 31.1 % (36.0-45.0); Hemoglobin 10.5 g/dL (12.0-15.0); Lymphocytes % 33.4 % (15.3-44.8); MCH 27.9 pg (27.0-35.0); MCHC 33.8 g/dL (32.0-36.0); MCV 82.6 fL (80-100); MPV 9.8 fL (7.6-11.3); Monocytes % 12.6 % (3.3-12.3); Neutrophils % 50.9 % (41.7-73.7); Nucleated Red Blood Cells % 0.1 % (0-0); PT Prothrombin Time 14.2 SECONDS (9.4-12.5); Platelets 107 thou/uL (152-406); Protime INR 1.28; RBC Red Blood Cell Count 3.77 M/uL (3.86-4.86)
[2024-09-23 02:00] LABS: Albumin 3.3 g/dL (3.4-5.0); Albumin/Globulin Ratio 0.9 (1.1-1.8); Anion Gap 11.6 mEq/L (5.0-15.0); Bilirubin Direct 0.3 mg/dL (0-0.2); Bilirubin Indirect, Calculated 0.9 mg/dL (0.2-0.8); Bilirubin Total 1.2 mg/dL (0.2-1.0); Globulin 3.5 g/dL (2.3-3.5); Magnesium 2.1 mg/dL (1.6-2.4); Potassium 3.6 mEq/L (3.5-5.1); Protein, Total 6.8 g/dL (6.4-8.2); Troponin High Sensitivity 4.7 pg/mL (<58.9)
[2024-09-23 02:09] LABS: Thyroid Stimulating Hormone 3.76 uIU/mL (0.358-3.740)
[2024-09-23] MEDS ORDERED: WATER FOR INJ,STERILE 10 ML ONE (05:17)
[2024-09-23] MEDS ORDERED: ZIPRASIDONE MESYLA 20 MG/VIAL IM ONE (05:17)
--- NOTE | 2024-09-23 05:26 | ER ---
Nurse's Notes [facility] Name: Jose Manuel Richardson Age: 63 yrs Sex: Female : 1960 Arrival Date: 09/23/2024 Time: 00:35 Bed 20 Private MD: Diagnosis: Hepatic encephalopathy, acute hypoactive delirium, elevated ammonia level Presentation: 09/23 00:39 Chief complaint: EMS states: EMS reports AMS x4 days. Patient is refusing to answer cp4 questions and to have an IV. Patient answers questions appropriately. Coronavirus screen: Client denies travel out of the [place] in the last 14 days. At this time, the client does not indicate any symptoms associated with coronavirus-19. Ebola Screen: Patient negative for fever greater than or equal to 101.5 degrees Fahrenheit, and additional compatible Ebola Virus Disease symptoms Patient denies exposure to infectious person. Patient denies travel to an Ebola-affected area in the 21 days before illness onset. No symptoms or risks identified at this time. Initial Sepsis Screen: Does the patient meet any 2 criteria? No. Patient's initial sepsis screen is negative. Does the patient have a suspected source of infection? No. Patient's initial sepsis screen is negative. Risk Assessment: Do you want to hurt yourself or someone else? Patient reports no desire to harm self or others. Onset of symptoms was September 19, 2024. 00:39 Method Of Arrival: EMS: [facility] 00:39 Acuity: JEANA 3 cp4 Triage Assessment: 00:45 General: Appears in no apparent distress. comfortable, Behavior is appropriate for age, cp4 agitated. Pain: Denies pain. EENT: No signs and/or symptoms were reported regarding the EENT system. Neuro: Level of Consciousness is awake, alert, obeys commands, Oriented to person, place, situation. Cardiovascular: Patient's skin is warm and dry. Respiratory: Airway is patent Respiratory effort is even, unlabored. GI: No signs and/or symptoms were reported involving the gastrointestinal system. : Parent/caregiver report the patient having incontinence. Derm: No deficits noted. Musculoskeletal: No signs and/or symptoms reported regarding the musculoskeletal system. Historical: - Allergies: 00:45 Flagyl; cp4 - PMHx: 00:45 Cirrhosis; secondary to ETOH abuse; hypotension; Renal Disease; cp4 - Immunization history:: Adult Immunizations unknown. - Infectious Disease History:: Denies. - Social history:: Smoking status: unknown. - Family history:: not pertinent. Screenin:50 [facility] ED Fall Risk Assessment (Adult) History of falling in the last 3 months, cp4 including since admission No falls in past 3 months (0 pts) Confusion or Disorientation No (0 pts) Intoxicated or Sedated No (0 pts) Impaired Gait No (0 pts) Mobility Assist Device Used No (0 pt) Altered Elimination No (0 pt) Score/Fall Risk Level 0 - 2 = Low Risk Oriented to surroundings, Maintained a safe environment, Assessed \T\ reinforced patient's understanding of fall precautions, Hourly rounding (assess needs \T\ fall precautionary measures) done. Abuse screen: Denies threats or abuse. Nutritional screening: No deficits noted. Tuberculosis screening: No symptoms or risk factors identified. Assessment: 00:50 Reassessment: No changes from previously documented assessment. cp4 02:00 Reassessment: Patient appears in no apparent distress at this time. Patient and/or cp4 family updated on plan of care and expected duration. Pain level reassessed. Patient is alert, oriented x 3, equal unlabored respirations, skin warm/dry/pink. 03:00 Reassessment: Patient appears in no apparent distress at this time. Patient and/or cp4 family updated on plan of care and expected duration. Pain level reassessed. Patient is alert, oriented x 3, equal unlabored respirations, skin warm/dry/pink. 03:00 Reassessment: Patient keeps removing vital sign equipment. cp4 04:00 Reassessment: Patient appears in no apparent distress at this time. Patient and/or kj2 family updated on plan of care and expected duration. Pain level reassessed. Patient is alert, oriented x 3, equal unlabored respirations, skin warm/dry/pink. 05:00 Reassessment: Patient appears in no apparent distress at this time. Patient and/or kj2 family updated on plan of care and expected duration. Pain level reassessed. Patient is alert, oriented x 3, equal unlabored respirations, skin warm/dry/pink. 06:00 Reassessment: Patient appears in no apparent distress at this time. Patient and/or kj2 family updated on plan of care and expected duration. Pain level reassessed. Patient is alert, oriented x 3, equal unlabored respirations, skin warm/dry/pink. 06:55 Reassessment: Patient appears in no apparent distress at this time. Patient and/or kj2 family updated on plan of care and expected duration. Pain level reassessed. Patient is alert, oriented x 3, equal unlabored respirations, skin warm/dry/pink. 07:00 Reassessment: patient consumed > 1/2 lactulose with help, provider, Julian Bingham notified. kj2 08:11 Reassessment: Patient appears in no apparent distress at this time. No changes from ld1 previously documented assessment. Neuro: Level of Consciousness is confused, Oriented to person. Cardiovascular: Capillary refill < 3 seconds Patient's skin is warm and dry. Respiratory: Airway is patent Respiratory effort is even, unlabored. Vital Signs: 00:39 BP 144 / 76; Pulse 76; Resp 18; Temp 98.2; Pulse Ox 99% ; cp4 02:01 BP 132 / 71; Pulse 69; Resp 18; Pulse Ox 97% ; cp4 03:00 BP 130 / 72; Pulse 68; Resp 18; Pulse Ox 100% on R/A; kj2 04:00 BP 128 / 78; Pulse 66; Resp 18; Pulse Ox 98% on R/A; kj2 05:00 BP 130 / 76; Pulse 62; Resp 18; Pulse Ox 97% on R/A; kj2 05:49 BP 137 / 70; Pulse 64; Resp 18; Pulse Ox 98% on R/A; kj2 06:53 BP 122 / 84; Pulse 101; Resp 18; Pulse Ox 100% on R/A; oe 08:11 BP 129 / 74; Pulse 61; Resp 17; Pulse Ox 97% on R/A; ld1 [place] Coma Score: 05:34 Eye Response: spontaneous(4). Motor Response: obeys commands(6). Verbal Response: sp4 confused(4). Total: 14. ED Course: 00:38 Patient arrived in ED. jj6 00:38 Yohan Garza MD is Attending Physician. sp4 00:39 Juany Oneil is Primary Nurse. cp4 00:45 Triage completed. cp4 00:45 Arm band placed on right wrist. Patient placed in an exam room, on a stretcher. cp4 00:50 Bed in low position. Call light in reach. Side rails up X2. cp4 00:50 No provider procedures requiring assistance completed. cp4 01:11 Initial lab(s) drawn, by me, sent to lab. First set of blood cultures drawn. cp4 01:21 Inserted saline lock: 22 gauge in right forearm, using aseptic technique. Blood cp4 collected. Flushed with 10 mL NS. 01:47 CT Chest Abdomen Pelvis W/O Contrast In Process Unspecified. EDMS 01:47 Head Brain Wo Cont In Process Unspecified. EDMS 01:55 EKG done, by systems technologist. af3 05:25 Guanako Brar MD is Hospitalizing Provider. sp4 07:05 Report given to MEHNAZ Rahman. kj2 08:12 Patient admitted, IV remains in place. ld1 Administered Medications: 03:52 Not Given (Patient Refused): lorazepam2 mg PO once cp4 05:27 Drug: Geodon IM 20 mg IM once Route: IM; Site: right deltoid; cp4 05:52 Follow up: Response: No adverse reaction kj2 05:43 Drug: D5-1/2 NS IV 1000 ml IV at 125 ml/hr continuous Route: IV; Rate: 125 ml/hr; Site: kj2 right forearm; 05:45 Not Given (as advised by , fluids changed to D5 0.45ns): [id number] ml IV at 125 ml/hr kj2 continuous 06:40 Drug: Lactulose PO 20 grams 30 ml PO once Volume: 30 ml; Route: PO; kj2 Medication: 00:50 VIS not applicable for this client. cp4 Outcome: 05:26 Decision to Hospitalize by Provider. sp4 08:12 Admitted to Med/surg accompanied by tech, via stretcher, ld1 08:12 Condition: unchanged 08:12 Instructed on the need for admit, 08:12 Patient left the ED. ld1 Signatures: Dispatcher [employer] EDIA Aldo Zepeda Lauren, RN RN ld1 Jess Jon6 Yohan Garza MD MD sp4 Juany Oneil cp4 Natasha Caballero RN RN kj2 April Kraft af3 Corrections: (The following items were deleted from the chart) 03:02 00:39 BP 144 / 76; Pulse 76bpm; Resp 18bpm; EtCO2 99 mmHg; Temp 98.2F; cp4 cp4
--- NOTE | 2024-09-23 05:26 | EDPHYS ---
Physician Documentation [facility] Name: Jose Manuel Richardson Age: 63 yrs Sex: Female : 1960 Arrival Date: 09/23/2024 Time: 00:35 Bed 20 Private MD: ED Physician Yohan Garza HPI: 09/23 04:59 This 63 yrs old Female presents to ER via EMS with complaints of Altered sp4 Mental Status. 05:20 63-year-old female brought in from home secondary to worsening confusion and somnolence sp4 starting 4 days ago.. 05:21 . sp4 05:34 Patient has history of alcoholic liver cirrhosis, hepatitis C, chronic pain, GERD, sp4 hypertension, intermittent ascites, chronic thrombocytopenia, anemia of chronic disease. Patient was admitted last time at 01/28/2024 for belligerence confusion and malaise. At that time ammonia level was 62. Patient's medications include folic acid 1 mg daily, furosemide 20 mg p.o. daily, Protonix 40 mg p.o. daily, Lyrica 75 mg p.o. 3 times daily, lactulose 30 mL p.o. 4 times daily, albuterol inhaler as needed, . Patient's daughter provided collateral information. She states patient has been essentially laying in her room in the bed for the past 4 days and also lately she has been urinating outside on the porch instead of going to the bathroom. Patient on presentation does appear confused she cannot name the year or date or time of the year. Has no knowledge of current events.. Historical: - Allergies: 00:45 Flagyl; cp4 - PMHx: 00:45 Cirrhosis; secondary to ETOH abuse; hypotension; Renal Disease; cp4 - Immunization history:: Adult Immunizations unknown. - Infectious Disease History:: Denies. - Social history:: Smoking status: unknown. - Family history:: not pertinent. ROS: 05:34 Constitutional: Positive for generalized malaise, confusion, and positive for reported sp4 lethargy 05:34 All other systems are negative, Exam: 05:34 Constitutional: Patient is ill-appearing female appearing thin cachectic and also sp4 emotionally upset. Disheveled in appearance, oriented to self only. Disoriented to time and location Head/Face: Normocephalic, atraumatic. Eyes: Pupils equal round and reactive to light, extra-ocular motions intact. Lids and lashes normal. Conjunctiva and sclera are not injected. Cornea within normal limits. Periorbital areas with no swelling, redness, or edema. ENT: Nares patent. No nasal discharge, no septal abnormalities noted. Tympanic membranes are normal and external auditory canals are clear. Oropharynx with no redness, swelling, or masses, exudates, or evidence of obstruction, uvula midline. Mucous membranes moist. Neck: Trachea midline, no thyromegaly or masses palpated, and no cervical lymphadenopathy. Supple, full range of motion without nuchal rigidity, or vertebral point tenderness. Chest/axilla: Normal chest wall appearance and motion. Nontender with no deformity. No lesions are appreciated. Cardiovascular: Regular rate and rhythm with a normal S1 and S2. No gallops, murmurs, or rubs. Normal PMI, no JVD. No pulse deficits. Respiratory: Lungs have equal breath sounds bilaterally, clear to auscultation and percussion. No rales, rhonchi or wheezes noted. No increased work of breathing, no retractions or nasal flaring. Abdomen/GI: Soft, with normal bowel sounds. No distension or tympany. No guarding or rebound. No evidence of tenderness throughout. Back: No spinal tenderness. No costovertebral tenderness. Skin: Warm, dry with normal turgor. Normal color with no rashes, no lesions, and no evidence of cellulitis. MS/ Extremity: Pulses equal, no cyanosis. Neurovascular intact. Full, normal range of motion. Neuro: Awake and alert, oriented to self, disoriented to date and location. Unsteady gait on exam. Grossly no lateralizing neurologic deficits. 05:34 ECG was reviewed by the Attending Physician. EKG at 0 152 Vital Signs: 00:39 BP 144 / 76; Pulse 76; Resp 18; Temp 98.2; Pulse Ox 99% ; cp4 02:01 BP 132 / 71; Pulse 69; Resp 18; Pulse Ox 97% ; cp4 03:00 BP 130 / 72; Pulse 68; Resp 18; Pulse Ox 100% on R/A; kj2 04:00 BP 128 / 78; Pulse 66; Resp 18; Pulse Ox 98% on R/A; kj2 05:00 BP 130 / 76; Pulse 62; Resp 18; Pulse Ox 97% on R/A; kj2 05:49 BP 137 / 70; Pulse 64; Resp 18; Pulse Ox 98% on R/A; kj2 06:53 BP 122 / 84; Pulse 101; Resp 18; Pulse Ox 100% on R/A; oe 08:11 BP 129 / 74; Pulse 61; Resp 17; Pulse Ox 97% on R/A; ld1 [place] Coma Score: 05:34 Eye Response: spontaneous(4). Motor Response: obeys commands(6). Verbal Response: sp4 confused(4). Total: 14. MDM: 00:38 Medical Screening Exam initiated sp4 04:59 ED course: CLINICAL HISTORY: Cirrhosis, confusion. COMPARISON: CT Head cervical spine sp4 chest abdomen pelvis 01/28/2024. TECHNIQUE: CT CHESTABDOMEN PELVIS WITHOUT IV CONTRAST on 09/23/2024 12:45 AM MALE INFERTILITY SPECIALIST This exam was performed according to our departmental dose-optimization program, which includes automated exposure control, adjustment of the mA and/or kV according to patient size and/or use of iterative reconstruction technique. FINDINGS: Chest: The heart is normal in size. There is no pericardial effusion. Intrathoracic lymph nodes are not enlarged. Bilateral breast implants are present. There is no pleural effusion, pleural thickening or pneumothorax. Central airways are patent. Lungs are clear with no consolidation, mass or interstitial lung disease. Abdomen: Liver is slightly nodular in contour. A TIPS is in place. There is no biliary dilatation. There are multiple small gallstones in the gallbladder. Spleen is enlarged measuring 14 cm. Pancreas is unremarkable. Adrenal glands are normal. Kidneys are mildly atrophic. Abdominal aorta is moderately calcified without aneurysm. There is a small to moderate fat-containing supraumbilical midline ventral hernia. There is no free air. There is no retroperitoneal adenopathy. Pelvis: There is no bowel obstruction. Urinary bladder is unremarkable. There is no free fluid. Uterus is normal in size. Appendix is not clearly seen. Skeleton: There are no acute osseous findings. No suspicious bony lesions. IMPRESSION: No definite acute process. Hepatic cirrhosis with splenomegaly. Electronically signed by: Harpal Johnson MD 09/23/2024 03:53 AM MALE INFERTILITY SPECIALIST R. ED course: EXAM DESCRIPTION: CT HEAD WITHOUT IV CONTRAST 09/23/2024 3:37 AM MALE INFERTILITY SPECIALIST CLINICAL HISTORY: 63 years, Female, Confused. COMPARISON: CT Head Cervical Spine 01/28/2024. FINDINGS: Multiple transaxial tomograms of the brain were obtained from the base of the skull to the vertex without contrast. An individualized dose optimization technique, Automated Exposure Control, was utilized for the performed procedure. Brain: Brain parenchyma as well as the oliveros-white matter differentiation demonstrate to be within normal limits. There is no evidence for acute intraparenchymal hemorrhage. There is no midline shifts and/or mass effect. No focal areas of hypodensities. Ventricles: Lateral ventricles and cisterns displace normal appearance. Vasculature: No visualized abnormalities in the arteries or dural venous sinuses. Scalp/skull: The calvarium demonstrate to be intact with no evidence for acute bony injuries. Sinuses: The visualized paranasal sinuses and mastoid air cells demonstrate to be clear. Orbits: No significant abnormalities in the visualized orbital structures. IMPRESSION: No evidence for acute intraparenchymal hemorrhage. Unremarkable CT scan of the head without contrast. Electronically signed by: Sergio Maravilla MD 09/23/2024 03:54 AM. 05:40 Differential Diagnosis: alcohol intoxication, hypoglycemia, overdose, pneumonia, sp4 seizure, sepsis, TIA, UTI, volume depletion. Data reviewed: vital signs, nurses notes, EMS record, lab test result(s), EKG, radiologic studies, CT scan. Consideration of Admission/Observation Patient was admitted/placed on observation. Escalation of care including admission/observation considered. Management of patient was discussed with the following: Hospitalist: Admission service. 09/23 00:44 Order name: Basic Metabolic Panel; Complete Time: 03:34 sp4 09/23 00:44 Order name: CBC with Diff; Complete Time: 03:34 sp4 09/23 00:44 Order name: LFT's; Complete Time: 03:34 sp4 09/23 00:44 Order name: Magnesium; Complete Time: :34 sp4 09/23 00:44 Order name: NT PRO-BNP; Complete Time: :34 sp4 09/23 00:44 Order name: PT-INR; Complete Time: 03:34 sp4 09/23 00:44 Order name: Troponin HS; Complete Time: 03:34 sp4 09/23 00:44 Order name: Type And Screen; Complete Time: 04:58 sp4 09/23 00:44 Order name: AMMONIA; Complete Time: 03:34 sp4 09/23 00:44 Order name: Alcohol Level; Complete Time: 03:34 sp4 09/23 00:44 Order name: Urinalysis W/Microscopic sp4 09/23 00:44 Order name: Urine Drug Screen 4 09/23 00:45 Order name: TSH; Complete Time: 03:34 sp4 09/23 00:45 Order name: T4 Free; Complete Time: 03:34 sp4 09/23 00:50 Order name: Lactate w/ 2H reflex if indic.; Complete Time: 03:34 sp4 09/23 00:50 Order name: Blood Culture Adult (2) 4 09/23 00:45 Order name: CT Chest Abdomen Pelvis W/O Contrast; Complete Time: 07:08 sp4 09/23 01:02 Order name: Head Brain Wo Cont; Complete Time: 07:08 EDMS 09/23 00:44 Order name: EKG; Complete Time: 00:44 sp4 09/23 00:44 Order name: Cardiac monitoring; Complete Time: 01:21 sp4 09/23 00:44 Order name: EKG - Nurse/Tech; Complete Time: 01:55 sp4 09/23 00:44 Order name: IV Saline Lock; Complete Time: :21 sp4 09/23 00:44 Order name: Labs collected and sent; Complete Time: : sp4 09/23 00:44 Order name: O2 Per Protocol; Complete Time: : sp4 09/23 00:44 Order name: O2 Sat Monitoring; Complete Time: 01:21 4 EC:52 Rate is 66 beats/min. Rhythm is regular, Normal Sinus Rhythm. QRS [place] is Normal. ND sp4 interval is normal. QRS interval is normal. QT interval is normal. No Q waves. T waves are Normal. No ST changes noted. Clinical impression: No evidence of ischemia. Interpreted by me. Reviewed by me. Administered Medications: 03:52 Not Given (Patient Refused): lorazepam2 mg PO once cp4 05:27 Drug: Geodon IM 20 mg IM once Route: IM; Site: right deltoid; cp4 05:52 Follow up: Response: No adverse reaction kj2 05:43 Drug: D5-1/2 NS IV 1000 ml IV at 125 ml/hr continuous Route: IV; Rate: 125 ml/hr; Site: kj2 right forearm; 05:45 Not Given (as advised by , fluids changed to D5 0.45ns): [id number] ml IV at 125 ml/hr kj2 continuous 06:40 Drug: Lactulose PO 20 grams 30 ml PO once Volume: 30 ml; Route: PO; kj2 Disposition Summary: 09/23/24 05:26 Hospitalization Ordered Notes: Hospitalization Status: Inpatient Admission sp4 Provider: Guanako Brar sp4 [facility] sp4 Condition: Stable sp4 Problem: new sp4 Symptoms: have improved sp4 Bed/Room Type: Standard sp4 Room Assignment: 210(09/23/24 06:42) eb Diagnosis - Hepatic encephalopathy, acute hypoactive delirium, elevated ammonia level sp4 Forms: - Medication Reconciliation Form sp4 - SBAR form sp4 - Leadership Thank You Letter sp4 Signatures: Dispatcher [employer] EDMS Payal Ibarra Sergey, MD MD sp4 Juany Oneil 4 Natasha Caballero RN RN kj2 Corrections: (The following items were deleted from the chart) 00:45 00:45 TYPE AND SCREEN+BB.LAB.BRZ ordered. EDMS EDMS 00:45 00:45 AMMONIA+C.LAB.BRZ ordered. EDMS EDMS 00:45 00:45 ETHANOL+C.LAB.BRZ ordered. EDMS EDMS 00:45 00:45 Urinalysis W/Microscopic+U.LAB.BRZ ordered. EDMS EDMS 00:45 00:45 URINE DRUG SCREEN+UC.LAB.BRZ ordered. EDMS EDMS 06:42 05:26 sp4 eb
[2024-09-23] MEDS ORDERED: ONDANSETRON 4 MG/2 ML VIAL ONE (05:31)
[2024-09-23] MEDS ORDERED: D5 0.45 NS 1,000 ML IV ONE (05:32)
[2024-09-23] MEDS ORDERED: LACTULOSE 20 GM/30 ML UCUP ONE (05:32)
--- NOTE | 2024-09-23 07:02 | RAD REPORT ---
EXAM DESCRIPTION: CT HEAD WITHOUT IV CONTRAST 09/23/2024 3:37 AM SUPERVISOR DISPLAY FABRICATION CLINICAL HISTORY: 63 years, Female, Confused. COMPARISON: CT Head Cervical Spine 01/28/2024. FINDINGS: Multiple transaxial tomograms of the brain were obtained from the base of the skull to the vertex wit hout contrast. An individualized dose optimization technique, Automated Exposure Control, was utilized for the perfo rmed procedure. Brain: Brain parenchyma as well as the oliveros-white matter differentiation demonstrate to be within nor mal limits. There is no evidence for acute intraparenchymal hemorrhage. There is no midline shifts and/or mass effect. No focal areas of hypodensities. Ventricles: Lateral ventricles and cisterns displace normal appearance. Vasculature: No visualized abnormalities in the arteries or dural venous sinuses. Scalp/skull: The calvarium demonstrate to be intact with no evidence for acute bony injuries. Sinuses: The visualized paranasal sinuses and mastoid air cells demonstrate to be clear. Orbits: No significant abnormalities in the visualized orbital structures. IMPRESSION: No evidence for acute intraparenchymal hemorrhage. Unremarkable CT scan of the head without contrast. Electronically signed by: Sergio Maravilla MD 09/23/2024 03:54 AM SUPERVISOR DISPLAY FABRICATION Due to temporary technical issues with the PACS/[employer] reporting system, reports are being carlitos d by the in-house radiologist without review as a courtesy to ensure prompt reporting the interpreting radiologist is fully responsible for the content of the report. Transcribed Date/Time: 09/23/2024 7:02 AM
--- NOTE | 2024-09-23 07:03 | RAD REPORT ---
CLINICAL HISTORY: Cirrhosis, confusion. COMPARISON: CT Head cervical spine chest abdomen pelvis 01/28/2024. TECHNIQUE: CT CHEST ABDOMEN PELVIS WITHOUT IV CONTRAST on 09/23/2024 12:45 AM LAWN SERVICE MANAGER This exam was performed according to our departmental dose-optimization program, which includes autom ated exposure control, adjustment of the mA and/or kV according to patient size and/or use of iterative reconstruction technique. FINDINGS: Chest: The heart is normal in size. There is no pericardial effusion. Intrathoracic lymph nodes are n ot enlarged. Bilateral breast implants are present. There is no pleural effusion, pleural thickening or pneumothorax. Central airways are patent. Lungs a re clear with no consolidation, mass or interstitial lung disease. Abdomen: Liver is slightly nodular in contour. A TIPS is in place. There is no biliary dilatation. Th ere are multiple small gallstones in the gallbladder. Spleen is enlarged measuring 14 cm. Pancreas is unremarkable. Adrenal glands are normal. Kidneys are mildly atrophic. Abdominal aorta is moderately calcified without aneurysm. There is a small to moderate fat-containing supraumbilical midline ventral hernia. There is no free air. There is no retroperitoneal adenopathy. Pelvis: There is no bowel obstruction. Urinary bladder is unremarkable. There is no free fluid. Uteru s is normal in size. Appendix is not clearly seen. Skeleton: There are no acute osseous findings. No suspicious bony lesions. IMPRESSION: No definite acute process. Hepatic cirrhosis with splenomegaly. Electronically signed by: Harpal Johnson MD 09/23/2024 03:53 AM LAWN SERVICE MANAGER Due to temporary technical issues with the PACS/[employer] reporting system, reports are being carlitos d by the in-house radiologist without review as a courtesy to ensure prompt reporting the interpreting radiologist is fully responsible for the content of the report. Transcribed Date/Time: 09/23/2024 7:02 AM
[2024-09-23] MEDS ORDERED: ONDANSETRON 4 MG/2 ML VIAL IV PRN (08:27)
[2024-09-23] MEDS: D5W 1,000 ML IV SCH (08:54)
[2024-09-23] MEDS: LACTULOSE 20 GM/30 ML UCUP PO SCH (09:00)
[2024-09-23] MEDS: ENOXAPARIN 40 MG/0.4 ML SQ SCH (09:30)
--- NOTE | 2024-09-23 10:08 | P.HP ---
Certification for Inpatient Patient admitted to: Observation With expected LOS: <2 Midnights Patient will require the following post-hospital care: None Practitioner: I am a practitioner with admitting privileges, knowledge of patient current condition, hospital course, and medical plan of care. Services: Services provided to patient in accordance with Admission requirements found in Title 42 Section 412.3 of the Code of Federal Regulations Patient History Date of Service: 09/23/24 Reason for admission: Hepatic encephalopathy History of Present Illness: Female 63-year-old with history of cirrhosis with TIPS procedure, anemia of chronic disease presents to the emergency department chief complaint of altered mental status. Her daughter reports that at home she has been lethargic, not getting up or taking her medications including her lactulose for the last 4 days or so. She reports that when she does take her medicines including her lactulos e she typically drinks them from a bottle rather than measuring about. She was confused and trying to leave the emergency department and therefore she was given a dose of Geodon. Her initial labs are significant for an elevated ammonia level of 124 sodium 147 chloride 120 creatinine 1.05 INR 1.28 hemoglobin 10.5 medic at 31.1 platelet count 107. Patient was given lactulose in the ED, will need to be admitted for further management of hepatic encephalopathy Allergies ciprofloxacin Allergy (Mild, Verified 07/17/20 23:20) Itching/Hives/Rash metronidazole [From Flagyl] Adverse Reaction (Intermediate, Verified 07/17/20 23:20) Anaphylaxis Home Medications: Folic Acid 1 mg PO DAILY 07/18/20 Furosemide [Lasix*] 20 mg PO DAILY 07/18/20 Pantoprazole [Protonix Tab*] 40 mg PO DAILY 07/18/20 Pregabalin [Lyrica*] 75 mg PO TID 07/18/20 Lactulose [Cephulac*] 30 ml PO QID 30 Days #120 ucup 11/23/21 Albuterol Inhaler [Ventolin Inhaler*] 2 puff IH Q6H PRN #1 unit 01/29/24 Furosemide [Lasix*] 20 mg PO DAILY tab 01/29/24 - Past Medical/Surgical History Diabetic: No -: Alcoholic liver cirrhosis -: Hepatitis-C -: Chronic pain -: GERD -: Hypotension -: Ascites requiring paracentesis -: Chronic thrombocytopenia -: Anemia of chronic disease -: section x 4 -: breast augmentation -: appendectomy -: tonsillectomy -: Has been known to have gallstones -: paracenthesis Psychosocial/ Personal History: Patient currently living at home alone With her daughter, family - Family History Mother -: Heart disease, Hypertension, Diabetes Father -: Heart disease, Liver disease Brother -: Diabetes - Social History Alcohol use: Yes CD- Drugs: No Caffeine use: No Place of Residence: Home Review of Systems is unable to be obtained Physical Examination - Vital Signs Temperature: 97.5 F Blood Pressure: 142/62 Pulse: 93 Respirations: 16 Pulse Ox (%): 98 - Physical Exam General: Alert, In no apparent distress, Oriented x1, Confused HEENT: Atraumatic, PERRLA, EOMI Neck: Supple, 2+ carotid pulse no bruit, No LAD Respiratory: Clear to auscultation bilaterally, Normal air movement Cardiovascular: Regular rate/rhythm, Normal S1 S2 Gastrointestinal: Normal bowel sounds, No tenderness Musculoskeletal: No tenderness Integumentary: No rashes Neurological: Normal speech, Normal strength at 5/5 x4 extr - Studies Laboratory Data (last 24 hrs) 09/23/24 09/23/24 09/23/24 01:11 01:11 01:11 WBC 3.10 L Hgb 10.5 L Hct 31.1 L Plt Count 107 L PT 14.2 H INR 1.28 Sodium 147 H Potassium 3.6 BUN 19 H Creatinine 1.05 H Glucose 96 Magnesium 2.1 Total Bilirubin 1.2 H AST 27 ALT 23 Alkaline Phosphatase 71 Assessment and Plan - Plan Assessment: Hepatic encephalopathy Alcoholic cirrhosis of liver History of hepatitis C Anemia of chronic disease Thrombocytopenia-chronic secondary to cirrhosis Plan: Hepatic encephalopathy Alcoholic cirrhosis of liver History of hepatitis C Has not been feeling would last for 5 days per daughter Laying around a lot, not taking her medicine Daughter states when she does take lactulose she typically drinks out of the bottle without measuring it Continue scheduled lactulose, consider enema if not tolerating p.o. Continue rifaximin Monitor mental status closely Anemia of chronic disease Thrombocytopenia-chronic secondary to cirrhosis Monitor CBC daily Hold DVT prophylaxis if platelet counts are less than 100 DVT PPX: Lovenox Code status:Full code Discharge Plan: Home Plan to discharge in: 48 Hours - Advance Directives Does patient have a Living Will: No Does patient have a Durable POA for Healthcare: No - Code Status/Comfort Care Code Status Assessed: Yes (Full code) Critical Care: No Time Spent Managing Pts Care (In Minutes): 64
[2024-09-23 10:24] VITALS: BMI 21.9
--- NOTE | 2024-09-23 11:53 | RAD REPORT ---
EXAMINATION: ONE VIEW CHEST XR CLINICAL INDICATION: Female, 63 years old.,cough, dyspnea TECHNIQUE: Frontal chest projection is submitted. Examination is limited by patient positioning and t echnique. COMPARISON: 08/01/2024 FINDINGS: The lungs are well inflated and clear. No pneumothorax or sizable effusion. The heart is normal in s ize. Mediastinal contours are unremarkable. IMPRESSION: No acute intrathoracic abnormalities.
[2024-09-23] MEDS: Rifaximin 550 MG Tab PO SCH (12:07)
--- NOTE | 2024-09-23 12:39 | EKG ---
Test Date: 2024-09-23 Test Time: 01:52:11 Cosmetic Sales Assistant: AF MEASUREMENT RESULTS: Intervals: Rate: 66 MI: 168 QRSD: 96 QT: 462 QTc: 484 [place]: P: 69 MI: 168 QRS: 76 T: 70 INTERPRETIVE STATEMENTS: Normal sinus rhythm ST abnormality, possible digitalis effect Abnormal ECG Compared to ECG 11/27/2021 17:17:09 Sinus arrhythmia no longer present ST (T wave) deviation still present Electronically Signed On 09-23-24 12:38:57 [address] [employer] by Ming Laughlin
[2024-09-23] MEDS: POTASSIUM CL SA 10 MEQ TAB PO ONE (21:39)
[2024-09-23 22:51] LABS: Sqamous Epithelial <5 /HPF (None Seen); Urine Bacteria None Seen /HPF (<20); Urine Crystals Unidentified Few /HPF (None Seen); Urine Culture Reflex Order NOT NEEDED; Urine Mucus Slight /HPF (None Seen); Urine RBC <5 /HPF (None Seen); Urine Yeast (Budding) Trace /HPF (None Seen)
[2024-09-23 22:55] LABS: Barbiturates NEGATIVE (NEGATIVE); Benzodiazepines NEGATIVE (NEGATIVE); Cocaine NEGATIVE (NEGATIVE); METHAMPHETAM NEGATIVE (NEGATIVE); Methadone NEGATIVE (NEGATIVE); Opiates NEGATIVE (NEGATIVE); Phencyclidine NEGATIVE (NEGATIVE); THC Cannibis POSITIVE (NEGATIVE)
[2024-09-23 22:56] LABS: Specific Gravity 1.028 (1.005-1.030); Urine Bilirubin NEGATIVE (Negative); Urine Blood Negative (Negative); Urine Clarity Clear (Clear); Urine Color Yellow (Yellow); Urine Glucose NEGATIVE (Negative); Urine Ketones TRACE (Negative); Urine Micro Reflex YN NO BILL NO MICROSCOPIC; Urine Nitrite NEGATIVE (Negative); Urine Protein TRACE (Negative); Urine Urobilinogen 2+ (Normal)
[2024-09-23 23:26] VITALS: O2SAT 98
[2024-09-24 07:18] LABS: Absolute Eosinophils 0.1 K/uL (0-0.5); Absolute Monocytes 0.5 K/uL (0.1-1.3); Absolute Neutrophil 1.6 K/uL (1.8-8.0); Basophils % 0.6 % (0-1.3); Eosinophils % 1.9 % (0-4.4); Hematocrit 31.5 % (36.0-45.0); Hemoglobin 10.5 g/dL (12.0-15.0); Lymphocytes % 30.6 % (15.3-44.8); MCH 27.6 pg (27.0-35.0); MCHC 33.5 g/dL (32.0-36.0); MCV 82.6 fL (80-100); MPV 9.4 fL (7.6-11.3); Monocytes % 15.5 % (3.3-12.3); Neutrophils % 51.4 % (41.7-73.7); Nucleated Red Blood Cells % 0.2 % (0-0); Platelets 90 thou/uL (152-406); RBC Red Blood Cell Count 3.81 M/uL (3.86-4.86); Red Cell Distribution Width 16.6 % (12.1-15.2)
[2024-09-24 07:32] LABS: Albumin 3.2 g/dL (3.4-5.0); Anion Gap 9.6 mEq/L (5.0-15.0); Bilirubin Total 1.3 mg/dL (0.2-1.0); Globulin 3.3 g/dL (2.3-3.5); Potassium 3.6 mEq/L (3.5-5.1); Protein, Total 6.5 g/dL (6.4-8.2)
[2024-09-24] MEDS: POTASSIUM CL SA 10 MEQ TAB PO ONE (08:44)
[2024-09-24 09:00] LABS: Blood Morphology Comment NOT SEEN (NOT SEEN); Platelet Estimate DECR; White Blood Cell Scan OK (OK)
--- NOTE | 2024-09-24 09:01 | P.PN ---
Date of Service: 09/24/24 Subjective: Mental status improving Now oriented x 2-3 Had 1 bowel movement yesterday Tolerating oral intake, taking lactulose Overall much better than yesterday ROS: 10 point ROS as noted above, otherwise negative Physical exam GEN: Alert, oriented, NAD HEENT: Normal conjunctiva, sclera anicteric CV: Regular rate and rhythm, no edema Pulm: Nonlabored respirations on room air ABD: Soft, nontender, nondistended MSK: No joint tenderness Integumentary: No rashes Neuro: Normal speech, normal affect Vitals reviewed Assessment: Hepatic encephalopathy Alcoholic cirrhosis of liver History of hepatitis C Anemia of chronic disease Thrombocytopenia-chronic secondary to cirrhosis Plan: Hepatic encephalopathy Alcoholic cirrhosis of liver History of hepatitis C Has not been feeling for the last 5 days prior to admission per daughter Laying around a lot, not taking her medicine Daughter states when she does take lactulose she typically drinks out of the bottle without measuring it Continue scheduled lactulose-patient tolerating Continue rifaximin Monitor mental status closely Anemia of chronic disease Thrombocytopenia-chronic secondary to cirrhosis Monitor CBC daily Hold DVT prophylaxis if platelet counts are less than 100 DVT PPX: SCD Code status:Full code Discharge Plan: Home Plan to discharge in: 48 Hours Time Spent Managing Pts Care (In Minutes): 35
[2024-09-24 12:08] VITALS: BP 110/65; TEMP 98.5
--- NOTE | 2024-09-24 14:27 | P.DS ---
Admission Date: 09/23/24 Discharge Date: 09/24/24 Disposition: ROUTINE DISCHARGE Discharge Condition: GOOD Reason for Admission: Hepatic encephalopathy Brief History of Present Illness: Female 63-year-old with history of cirrhosis with TIPS procedure, anemia of chronic disease presents to the emergency department chief complaint of altered mental status. Her daughter reports that at home she has been lethargic, not getting up or taking her medications including her lactulose for the last 4 days or so. She reports that when she does take her medicines including her lactulose she typically drinks them from a bottle rather than measuring about. She was confused and trying to leave the emergency department and therefore she was given a dose of Geodon. Her initial labs are significant for an elevated ammonia level of 124 sodium 147 chloride 120 creatinine 1.05 INR 1.28 hemoglobin 10.5 medic at 31.1 platelet count 107. Patient was given lactulose in the ED, will need to be admitted for further management of hepatic encephalopathy Hospital Course: Assessment: Hepatic encephalopathy Alcoholic cirrhosis of liver History of hepatitis C Anemia of chronic disease Thrombocytopenia-chronic secondary to cirrhosis Patient was admitted to the hospital for hepatic encephalopathy. She had not been taking her lactulose for last few days because she had been feeling unwell. She was given lactulose and has had multiple bowel movements, is tolerating oral lactulose and a regular diet. She states she is feeling much better, is currently oriented x 3 and stable for discharge. She was counseled the importance of continued compliance with her lactulose regimen and will need to follow-up with her primary care doctor in 1 week. She states that she has plen ty of lactulose at home and does not need a refill. Vital Signs/Physical Exam: Temp Pulse Resp BP Pulse Ox 98.5 F 80 12 110/65 98 09/24/24 12:09/24/24 12:09/24/24 12:09/24/24 12:09/24/24 03:56 General: Alert, In no apparent distress, Oriented x3 HEENT: Atraumatic, PERRLA, EOMI Neck: Supple, JVD not distended Respiratory: Clear to auscultation bilaterally, Normal air movement Cardiovascular: Regular rate/rhythm, Normal S1 S2 Gastrointestinal: Normal bowel sounds, No tenderness Musculoskeletal: No tenderness Integumentary: No rashes Neurological: Normal speech Laboratory Data at Discharge: WBC 3.20 thou/uL (4.3-10.9) L 09/24/24 05:43 Hgb 10.5 g/dL (12.0-15.0) L 09/24/24 05:43 Hct 31.5 % (36.0-45.0) L 09/24/24 05:43 Plt Count 90 thou/uL (152-406) L 09/24/24 05:43 PT 14.2 SECONDS (9.4-12.5) H 09/23/24 01:11 INR 1.28 09/23/24 01:11 Sodium 143 mEq/L (136-145) 09/24/24 05:43 Potassium 3.6 mEq/L (3.5-5.1) 09/24/24 05:43 BUN 20 mg/dL (7-18) H 09/24/24 05:43 Creatinine 1.36 mg/dL (0.55-1.02) H 09/24/24 05:43 Glucose 120 mg/dL (74-106) H 09/24/24 05:43 Magnesium 2.0 mg/dL (1.6-2.4) 09/24/24 05:43 Total Bilirubin 1.3 mg/dL (0.2-1.0) H 09/24/24 05:43 AST 60 U/L (15-37) H 09/24/24 05:43 ALT 45 U/L (13-56) 09/24/24 05:43 Alkaline Phosphatase 63 U/L (45-117) 09/24/24 05:43 Home Medications: Lactulose [Cephulac*] 30 ml PO QID 30 Days #120 ucup 11/23/21 Physician Discharge Instructions: Patient was admitted to the hospital for hepatic encephalopathy. She had not been taking her lactulose for last few days because she had been feeling unwell. She was given lactulose and has had multiple bowel movements, is tolerating oral lactulose and a regular diet. She states she is feeling much better, is currently oriented x 3 and stable for discharge. She was counseled the importance of continued compliance with her lactulose regimen and will need to follow-up with her primary care doctor in 1 week. She states that she has plenty of lactulose at home and does not need a refill. Diet: Regular Activity: Ad w[place]ka Followup: NONE,NONE [Primary Care Provider] - 1 Week Time spent managing pt's care (in minutes): 42
== END 2024-09-24 16:43 | disposition home or self-care (01) ==
LOC: ER 00:35 → 2ND 06:38
PROVIDERS: ADMIT Hospitalist; ATTEND Hospitalist
DX: K76.82 Hepatic encephalopathy (principal); R41.82 Altered mental status, unspecified; D63.8 Anemia in other chronic diseases classified elsewhere; B19.20 Unspecified viral hepatitis C without hepatic coma; D69.6 Thrombocytopenia, unspecified; K70.30 Alcoholic cirrhosis of liver without ascites; E72.20 Disorder of urea cycle metabolism, unspecified; R41.0 Disorientation, unspecified; Z88.1 Allergy status to other antibiotic agents
CPT/HCPCS: 93005; 87040 ×2; 85025 ×2; 81001; 80048; 36415 ×2; 82140 ×2; 86900; 83735 ×2; 86850; 85610; 86901; 80076; 83605; 84443; 84484; 84439; 80053; 83880; 80307; 70450; 71250; 74176; 71045; 96372; 99285; 82077; J1650; J3486; J2405; J7799; G0378 ×3